=== PATIENT | female | born 1940 | race Caucasian/White ===

== ENCOUNTER 2019-03-09 14:28 | Inpatient (IN) | payer OTHER, SELFPAY ==
[2019-03-09] VITALS (8 sets, daily range): BP systolic 108–133; BP diastolic 40–89; PULSE 99–112; RESP 16–24; TEMP 36.8–37.2; O2SAT 89–100; BMI 35.9; BMI 34.2
--- NOTE | 2019-03-09 | DI.RAD.S_ITS ---
PROCEDURE: XR CHEST 1V INDICATIONS: Pneumothorax TECHNIQUE: One view of the chest was acquired. COMPARISON: [facility], , XR CHEST 1V, 03/09/2019, 14:43. [facility], , CHEST 1 VIEW, 04/22/2014, 18:04. FINDINGS: Surgical changes and devices: Sternotomy wires, probable prior CABG. Lungs and pleura: Lungs are mildly abnormal with a chronic interstitial prominence pattern. No pleural effusions or significant increase in the left-sided previously identified pneumothorax. Mediastinum: Mediastinal contours appear normal. Heart size is normal. Bones and chest wall: No suspicious bony lesions. Overlying soft tissues appear unremarkable. IMPRESSION: No left-sided pneumothorax is relatively small, and has not definitely enlarged from the most recent comparison plain film imaging at 14:43 earlier today. Dictated by: Quan Mcnally M.D. on 03/09/2019 at 20:50 Approved by: Quan Mcnally M.D. on 03/09/2019 at 20:52
--- NOTE | 2019-03-09 14:38 | DI.RAD.S_ITS ---
PROCEDURE: XR CHEST 1V INDICATIONS: short of breath TECHNIQUE: One view of the chest was acquired. COMPARISON: [facility], , CHEST 1 VIEW, 04/22/2014, 18:04. FINDINGS: Surgical changes and devices: Postoperative changes related to a prior median sternotomy are evident. Lungs and pleura: Lungs are clear. No pleural effusions or pneumothorax. Mediastinum: Mediastinal contours appear normal. Heart size is normal. Bones and chest wall: No suspicious bony lesions. An unchanged chondral matrix lesion involving the left humeral head is identified, compatible with a benign process. Overlying soft tissues appear unremarkable. IMPRESSION: Stable chest. No acute cardiopulmonary process is evident. Dictated by: Zach Nguyen M.D. on 03/09/2019 at 14:29 Approved by: Zach Nguyen M.D. on 03/09/2019 at 14:30
--- NOTE | 2019-03-09 14:47 | ED.SOB ---
HPI - SOB/Dyspnea General Chief Complaint: Shortness of Breath/Dyspnea Stated Complaint: SOB Time Seen by Provider: 03/09/19 14:36 Source: patient Mode of arrival: ambulatory Limitations: no limitations History of Present Illness Patient is a 78-year-old female who presents with increasing shortness of breath over last 3 days. She has no history of congestive heart failure but does have history of aortic valve, and atrial fibrillation. She states the last 3 nights she has needed to sleep in a recliner. She is extremely short of breath with any sort of exertion. EMS noted that her O2 sat dropped to 88% with exertion but on room air she was 92%. She denies any fever she does have a cough. Her just came home with a cough as well. She has no chest pain. She has also noticed lower extremity swelling bilaterally. MD Complaint: shortness of breath and cough Context: recent illness Severity: moderate Relieving factors: oxygen and rest Exacerbating factors: exertion Related Data Home Medications Medication Instructions Recorded Confirmed Lactobac #2-Bifido #1-S. therm 1 cap PO DAILY 03/09/19 03/09/19 [VSL#3] Lovaza/Flaxseed Oil 1 tab PO DAILY 03/09/19 03/09/19 Ardsley-3 2,000 mg PO DAILY 03/09/19 03/09/19 PreserVision AREDS 2 tab PO DAILY 03/09/19 03/09/19 amoxicillin 2,000 mg PO .ONCE 03/09/19 03/09/19 carvedilol 9.375 mg PO BID 03/09/19 03/09/19 cholecalciferol (vitamin D3) 4,000 unit PO DAILY 03/09/19 03/09/19 [Vitamin D3] clobetasol 1 applic TOPICAL DIRECTED 03/09/19 03/09/19 dabigatran etexilate [Pradaxa] 150 mg PO BID 03/09/19 03/09/19 folic acid 1,200 mcg PO DAILY 03/09/19 03/09/19 furosemide 20 mg PO DAILY 03/09/19 03/09/19 hydroxychloroquine 200 mg PO DAILY 03/09/19 03/09/19 linaclotide [Linzess] 290 mg PO DAILY 03/09/19 03/09/19 multivitamin 1 tab PO QWEEK 03/09/19 03/09/19 potassium chloride 30 meq PO DAILY 03/09/19 03/09/19 prednisone 5 mg PO DAILY 03/09/19 03/09/19 tramadol 50 mg PO BID PRN MDD 2 03/09/19 03/09/19 Allergies Allergy/AdvReac Type Severity Reaction Status Date / Time amiodarone Allergy Verified 03/09/19 14:38 dicloxacillin Allergy Verified 03/09/19 14:38 diltiazem [From Cartia XT] Allergy Verified 03/09/19 14:38 lubiprostone [From Amitiza] Allergy Verified 03/09/19 14:38 metoprolol Allergy Verified 03/09/19 14:38 sulfamethoxazole Allergy Verified 03/09/19 14:38 [From Bactrim] trimethoprim [From Bactrim] Allergy Verified 03/09/19 14:38 Review of Systems Review of Systems ROS Unobtainable: All systems reviewed & are unremarkable except as noted in HPI and below Constitutional Denies chills, Denies fever(s), Denies lethargy and Denies weakness Eyes Denies change in vision, Denies eye discharge, Denies irritation and Denies loss of vision ENT Ears, Nose, Mouth, and Throat: Denies change in voice, Denies neck pain and Denies sore throat Cardiovascular Reports as per HPI, Reports pedal edema, Reports irregular heart rhythm, Reports dyspnea on exertion and Reports orthopnea Respiratory Reports cough, Reports dyspnea on exertion and Denies wheezing Genitourinary Denies hematuria, Denies flank pain, Denies urinary incontinence and Denies urinary urgency Musculoskeletal Denies neck pain Integumentary/Breasts Denies pruritus, Denies erythema, Denies rash and Denies wounds Neurologic Denies loss of vision and Denies weakness Allergic/Immunologic Denies wheezing [facility] Medical History Atrial fibrillation (Acute) Hypertension (Acute) Mitral valve disease (Acute) Social History (Updated 03/09/19 @ 15:03 by Sandra Rai DO) marital status: Smoking Status: Former smoker Social History marital status: Smoking Status: Former smoker Exam Initial Vital Signs Initial Vital Signs: Vital Signs Temperature 98.7 F 03/09/19 14:35 Pulse Rate 112 H 03/09/19 14:35 Respiratory Rate 23 03/09/19 14:35 Blood Pressure 132/79 03/09/19 14:35 Pulse Oximetry 96 03/09/19 14:35 GENERAL: Alert pleasant elderly female and in no acute distress. HEENT: Head atraumatic,EOMI, pupils reactive, face symmetric, CARDIOVASCULAR: Irregularly irregular RESPIRATORY: Coarse breath sounds bilaterally able to speak in full sentences no significant respiratory distress ABDOMEN: Soft, nontender. Normoactive bowel sounds all 4 quadrants. No guarding or rebound. EXTREMITIES: Normal range of motion, no clubbing. Bilateral +2 pitting edema Neurovascularly intact NEUROLOGICAL: Alert and oriented x4.Normal gait and speech. Cranial nerves II through XII grossly intact. SKIN: Warm, dry, no laceration, no petechiae, no rashes or lesions. Course Orders Ordered: ED Orders 03/09/19 14:37 Consult to Respiratory Therapy Evaluate & Treat EKG-12 Lead Stat 03/09/19 14:38 XR chest 1V Stat 03/09/19 14:55 Blood Culture Stat 03/09/19 15:00 B Type Natriuretic Peptide Stat Complete Blood Count AUTO DIFF Stat Comprehensive Metabolic Panel Stat Lactate (Lactic Acid) Stat Magnesium Stat Partial Thromboplastin Time Stat Procalcitonin Stat Prothrombin Time INR Stat Troponin & CK Cardiac Panel Stat 03/09/19 15:52 CT angio chest PE protocol Stat 03/09/19 17:15 Respiratory Panel (Film Array) Stat Discontinued Medications Furosemide (Lasix) 40 mg IV NOW ONE Stop: 03/09/19 15:31 Last Admin: 03/09/19 15:33 Dose: 40 mg Consultations Consultation #1: Dr. em, in ED to see and evaluate patient for small pneumothorax. At this time no intervention needed recommend admitting to hospitalist service and she will consult. Time: 16:48 Consultation #2: Shaneka, accepts patient. add respiratory panel. Time: 17:12 Vital Signs - 8 hr 03/09/19 14:35 03/09/19 14:45 03/09/19 15:00 Temperature 98.7 F Pulse Rate 112 H 108 H 104 H Respiratory Rate 23 21 22 Blood Pressure 132/79 Blood Pressure [Right Arm] 117/40 L Pulse Oximetry 96 89 L 90 L 03/09/19 15:15 03/09/19 16:45 Temperature Pulse Rate 99 H 100 H Respiratory Rate 20 20 Blood Pressure Blood Pressure [Right Arm] 133/62 Pulse Oximetry 90 L 100 MDM - SOB/Dyspnea Lab Data Attestation: I reviewed the patient's lab results. Result diagrams: 03/09/19 15:00 03/09/19 15:00 Lab Results 03/09/19 03/09/19 03/09/19 Range/Units 15:00 15:00 15:00 WBC 6.5 (4.5-11.0) X10^3/uL RBC 4.19 (4.0-5.2) X10^6/uL Hgb 11.8 L (12.0-16.0) g/dL Hct 36.2 (36-46) % MCV 86.4 (80-100) fL MCH 28.2 (26-34) PG MCHC 32.7 (30-36) % RDW 14.0 (11.6-14.8) % Plt Count 155 (150-400) X10^3/uL Neut % (Auto) 77.2 H (50-75) % Lymph % (Auto) 9.6 L (25-40) % [place] % (Auto) 12.5 (3-14) % Eos % (Auto) 0.2 L (2-4) % Baso % (Auto) 0.5 (0-2) % Neut # (Auto) 5000 (7581-8292) /uL Lymph # (Auto) 600 L (1959-4814) /uL [place] # (Auto) 800 (0-900) /uL Eos # (Auto) 0 (0-450) /uL Baso # (Auto) 0 (0-100) /uL PT 18.8 H (10.1-12.7) SECONDS INR 1.6 H (0.9-1.3) APTT 64 H (26.4-36.2) SECONDS Sodium 137 (137-145) mmol/L Potassium 4.2 (3.4-5.1) mmol/L Chloride 99 (98-107) mmol/L Carbon Dioxide 29 (22-32) mmol/L BUN 24 H (7-17) mg/dL Creatinine 0.70 (0.52-1.04) mg/dL Estimated GFR > 60.0 (>60) mL/min BUN/Creatinine Ratio 34.3 H (6-22) Glucose 93 (80-110) mg/dL Lactate (0.7-2.1) mmol/L Calcium 8.9 (8.4-10.2) mg/dL Magnesium 1.8 (1.6-2.3) mg/dL Total Bilirubin 0.8 (0.2-1.3) mg/dL AST 26 (14-36) IU/L ALT 14 (9-52) IU/L Alkaline Phosphatase 77 (38-126) U/L Total Creatine Kinase 39 (30-135) U/L CK-MB (CK-2) TNP CK-MB (CK-2) Rel Index TNP Troponin I 0.013 (0.01-0.034) ng/mL B-Natriuretic Peptide 356 H (<100) Total Protein 7.1 (6.3-8.2) g/dL Albumin 3.8 (3.5-5.0) g/dL Globulin 3.3 (1.7-4.1) g/dL Albumin/Globulin Ratio 1.2 (1.0-2.8) Procalcitonin (<0.5) ng/mL 03/09/19 03/09/19 Range/Units 15:00 15:00 WBC (4.5-11.0) X10^3/uL RBC (4.0-5.2) X10^6/uL Hgb (12.0-16.0) g/dL Hct (36-46) % MCV (80-100) fL MCH (26-34) PG MCHC (30-36) % RDW (11.6-14.8) % Plt Count (150-400) X10^3/uL Neut % (Auto) (50-75) % Lymph % (Auto) (25-40) % [place] % (Auto) (3-14) % Eos % (Auto) (2-4) % Baso % (Auto) (0-2) % Neut # (Auto) (9536-1628) /uL Lymph # (Auto) (3436-8128) /uL [place] # (Auto) (0-900) /uL Eos # (Auto) (0-450) /uL Baso # (Auto) (0-100) /uL PT (10.1-12.7) SECONDS INR (0.9-1.3) APTT (26.4-36.2) SECONDS Sodium (137-145) mmol/L Potassium (3.4-5.1) mmol/L Chloride (98-107) mmol/L Carbon Dioxide (22-32) mmol/L BUN (7-17) mg/dL Creatinine (0.52-1.04) mg/dL Estimated GFR (>60) mL/min BUN/Creatinine Ratio (6-22) Glucose (80-110) mg/dL Lactate 1.1 (0.7-2.1) mmol/L Calcium (8.4-10.2) mg/dL Magnesium (1.6-2.3) mg/dL Total Bilirubin (0.2-1.3) mg/dL AST (14-36) IU/L ALT (9-52) IU/L Alkaline Phosphatase (38-126) U/L Total Creatine Kinase (30-135) U/L CK-MB (CK-2) CK-MB (CK-2) Rel Index Troponin I (0.01-0.034) ng/mL B-Natriuretic Peptide (<100) Total Protein (6.3-8.2) g/dL Albumin (3.5-5.0) g/dL Globulin (1.7-4.1) g/dL Albumin/Globulin Ratio (1.0-2.8) Procalcitonin 0.16 (<0.5) ng/mL Imaging Data Chest x-ray: Radiologist's impression: PROCEDURE: XR CHEST 1V INDICATIONS: short of breath TECHNIQUE: One view of the chest was acquired. COMPARISON: [facility], CHEST 1 VIEW, 04/22/2014, 18:04. FINDINGS: Surgical changes and devices: Postoperative changes related to a prior median sternotomy are evident. Lungs and pleura: Lungs are clear. No pleural effusions or pneumothorax. Mediastinum: Mediastinal contours appear normal. Heart size is normal. Bones and chest wall: No suspicious bony lesions. An unchanged chondral matrix lesion involving the left humeral head is identified, compatible with a benign process. Overlying soft tissues appear unremarkable. IMPRESSION: Stable chest. No acute cardiopulmonary process is evident. Dictated by: Zach Nguyen M.D. on 03/09/2019 at 14:29 CT scan - chest: Radiologist's impression: PROCEDURE: CT ANGIO CHEST PE PROTOCOL INDICATIONS: Short of breath, coughing that has persisted. TECHNIQUE: After the administration of intravenous contrast, 2 mm thick sections acquired from the pulmonary apices to the posterior costophrenic angles. 3-dimensional maximum intensity projection (MIP) coronal and sagittal reformats were then acquired through the thorax. For radiation dose reduction, the following was used: automated exposure control, adjustment of mA and/or kV according to patient size. COMPARISON: [facility], CT, PE STUDY (CTA CHEST), 04/22/2014, 18:10. [facility], CR, CHEST FOR PICC PLACEMENT, 01/12/2014, 11:29. [facility], CR, XR CHEST 1V, 03/09/2019, 14:43. The FINDINGS: Image quality: Excellent. Pulmonary arteries: Pulmonary arteries are normal in size, and demonstrate no intraluminal filling defects to suggest central pulmonary embolism. Lungs and pleura: Lungs are mildly abnormal, with alveolar consolidation mild in severity at the right lung base just above the diaphragm, where there also is a mild degree of peribronchial soft tissue prominence consistent with mild bronchitis.. No pleural effusions but there is a small anterior left-sided pneumothorax measuring up to 2.5 cm in transverse dimension. Central and peripheral airways are patent. Mediastinum: Heart size is normal, without pericardial effusion. No mediastinal or hilar adenopathy. Thoracic aorta is normal in caliber and enhancement. Esophagus is normal in caliber, without hiatal hernia. Bones and chest wall: No suspicious bony lesions. Ribs and thoracic spine appear intact throughout. Thyroid gland appears normal where well seen. No axillary or supraclavicular adenopathy. Sternotomy wires, probable prior CABG. Abdomen: Visualized upper abdominal solid organs appear normal in the early arterial phase of enhancement. Several scattered apparent hepatic cysts are again noted, previously present in April 2014. Peripherally calcified gallstone again noted without evidence of adjacent gallbladder inflammation stable from 2013. IMPRESSION: These findings were immediately called to the emergency room physician caring for the patient. She reports that the patient has had persistent prominent coughing, and this correlates with what appears to be mild or early pneumonia the right lung base in addition to mild bibasilar bronchitis. The left-sided pneumothorax is not associated with a discrete underlying etiology and is not associated with deviation of the mediastinum from left to right. The pneumothorax is small. It does not appear to have increased appreciably from the plain film imaging earlier today. No pulmonary embolus seen. Prior CABG. Several scattered hepatic cysts. Gastric lap band again noted at the esophagogastric junction in this patient, also present in April of 2014. Peripherally calcified nonobstructed noninflamed gallstone present. This also is unchanged from 2013. Dictated by: Quan Mcnally M.D. on 03/09/2019 at 16:23 ECG Data Attestation: I personally reviewed and interpreted this ECG as follows: Prior ECG tracings: available for review Interpretation: Atrial fibrillation rate [address] changes similar to previous EKG MDM Narrative Medical decision making narrative: Patient is given a dose of Lasix she has urinated she a little short of breath. BNP is slightly elevated at 356 no evidence of fluid overload on x-ray or CT. However CT showed extremely small pneumothorax. Surgery has been in the ED to see and evaluate patient. At this time monitoring only no need for any intervention. The patient does decrease her oxygen to about 89 -90% with minimal exertion. She still sounds course. Does not appear septic. At this time patient has multiple cor morbidities worsening shortness of breath requiring oxygen and small pneumothorax she will be admitted to the hospital for further treatment and evaluation. Discharge Plan Departure Patient Disposition: Admitted As Inpatient Clinical Impression: Respiratory failure Qualifiers: Chronicity: acute Respiratory failure complication: hypoxia Qualified Code(s): J96.01 - Acute respiratory failure with hypoxia Pneumothorax Qualifiers: Pneumothorax type: unspecified pneumothorax Qualified Code(s): J93.9 - Pneumothorax, unspecified Discharge Date/Time: 03/09/19 17:31 Admit Date/Time: 03/09/19 17:30 Admit Provider: Rayne Munroe
[2019-03-09 15:09] LABS: Add Manual Diff / Slide Review NO; Basophils Absolute Auto 0 /uL (0-100); Basophils Percent Auto 0.5 % (0-2); Eosinophils Absolute Auto 0 /uL (0-450); Eosinophils Percent Auto 0.2 % (2-4); Hematocrit 36.2 % (36-46); Hemoglobin 11.8 g/dL (12.0-16.0); Lymphocytes Absolute Auto 600 /uL (1100-4500); Lymphocytes Percent Auto 9.6 % (25-40); Mean Corpuscular HGB Conc 32.7 % (30-36); Mean Corpuscular Hemoglobin 28.2 PG (26-34); Mean Corpuscular Volume 86.4 fL (80-100); Monocytes Absolute Auto 800 /uL (0-900); Monocytes Percent Auto 12.5 % (3-14); Neutrophils Absolute Auto 5000 /uL (1500-7000); Neutrophils Percent Auto 77.2 % (50-75); Platelet Count 155 X10^3/uL (150-400); Red Blood Cell Count 4.19 X10^6/uL (4.0-5.2); White Blood Cell Count 6.5 X10^3/uL (4.5-11.0)
--- NOTE | 2019-03-09 15:21 | PC.NURSE ---
Sats between 89-91%. Pt placed on 2L NC MD aware
[2019-03-09 15:22] LABS: INR 1.6 (0.9-1.3); Prothrombin Time 18.8 SECONDS (10.1-12.7)
[2019-03-09 15:24] LABS: PTT Partial Thromboplastin Tim 64 SECONDS (26.4-36.2)
[2019-03-09 15:28] LABS: Alanine Aminotransferase 14 IU/L (9-52); Albumin 3.8 g/dL (3.5-5.0); Albumin Globulin Ratio 1.2 (1.0-2.8); Alkaline Phosphatase 77 U/L (38-126); Aspartate Aminotransferase 26 IU/L (14-36); BUN Creatinine Ratio 34.3 (6-22); Bilirubin Total 0.8 mg/dL (0.2-1.3); Blood Urea Nitrogen 24 mg/dL (7-17); Calcium 8.9 mg/dL (8.4-10.2); Carbon Dioxide 29 mmol/L (22-32); Chloride 99 mmol/L (98-107); Creatine Kinase 39 U/L (30-135); Estimated Glomerular Filt Rate > 60.0 mL/min (>60); Globulin 3.3 g/dL (1.7-4.1); Glucose 93 mg/dL (80-110); HEMOLYSIS < 15 (0-50); Magnesium 1.8 mg/dL (1.6-2.3); Potassium 4.2 mmol/L (3.4-5.1); Sodium 137 mmol/L (137-145); Total Protein 7.1 g/dL (6.3-8.2)
[2019-03-09] MEDS: FUROSEMIDE 40 MG/4 ML VIAL IV (15:33)
[2019-03-09 15:39] LABS: Troponin I 0.013 ng/mL (0.01-0.034)
[2019-03-09 15:44] LABS: B Type Natriuretic Peptide 356 (<100)
[2019-03-09 15:51] LABS: Lactate (Lactic Acid) 1.1 mmol/L (0.7-2.1)
--- NOTE | 2019-03-09 15:52 | DI.CT.S_ITS ---
PROCEDURE: CT ANGIO CHEST PE PROTOCOL INDICATIONS: Short of breath, coughing that has persisted. TECHNIQUE: After the administration of intravenous contrast, 2 mm thick sections acquired from the pulmonary apices to the posterior costophrenic angles. 3-dimensional maximum intensity projection (MIP) coronal and sagittal reformats were then acquired through the thorax. For radiation dose reduction, the following was used: automated exposure control, adjustment of mA and/or kV according to patient size. COMPARISON: [facility], CT, PE STUDY (CTA CHEST), 04/22/2014, 18:10. [facility], CR, CHEST FOR PICC PLACEMENT, 01/12/2014, 11:29. [facility], CR, XR CHEST 1V, 03/09/2019, 14:43. The FINDINGS: Image quality: Excellent. Pulmonary arteries: Pulmonary arteries are normal in size, and demonstrate no intraluminal filling defects to suggest central pulmonary embolism. Lungs and pleura: Lungs are mildly abnormal, with alveolar consolidation mild in severity at the right lung base just above the diaphragm, where there also is a mild degree of peribronchial soft tissue prominence consistent with mild bronchitis.. No pleural effusions but there is a small anterior left-sided pneumothorax measuring up to 2.5 cm in transverse dimension. Central and peripheral airways are patent. Mediastinum: Heart size is normal, without pericardial effusion. No mediastinal or hilar adenopathy. Thoracic aorta is normal in caliber and enhancement. Esophagus is normal in caliber, without hiatal hernia. Bones and chest wall: No suspicious bony lesions. Ribs and thoracic spine appear intact throughout. Thyroid gland appears normal where well seen. No axillary or supraclavicular adenopathy. Sternotomy wires, probable prior CABG. Abdomen: Visualized upper abdominal solid organs appear normal in the early arterial phase of enhancement. Several scattered apparent hepatic cysts are again noted, previously present in April 2014. Peripherally calcified gallstone again noted without evidence of adjacent gallbladder inflammation stable from 2013. IMPRESSION: These findings were immediately called to the emergency room physician caring for the patient. She reports that the patient has had persistent prominent coughing, and this correlates with what appears to be mild or early pneumonia the right lung base in addition to mild bibasilar bronchitis. The left-sided pneumothorax is not associated with a discrete underlying etiology and is not associated with deviation of the mediastinum from left to right. The pneumothorax is small. It does not appear to have increased appreciably from the plain film imaging earlier today. No pulmonary embolus seen. Prior CABG. Several scattered hepatic cysts. Gastric lap band again noted at the esophagogastric junction in this patient, also present in April of 2014. Peripherally calcified nonobstructed noninflamed gallstone present. This also is unchanged from 2013. Dictated by: Quan Mcnally M.D. on 03/09/2019 at 16:23 Approved by: Quan Mcnally M.D. on 03/09/2019 at 16:34
[2019-03-09 15:54] LABS: Procalcitonin 0.16 ng/mL (<0.5)
--- NOTE | 2019-03-09 17:28 | P.CONS_ITS ---
History of Present Illness Date Patient Seen: 03/09/19 Time Patient Seen: 17:09 Chief complaint: SOB Reason for consult: pneumothorax Requesting provider: Sandra Rai Narrative: 78yo F with a few days of coughing and respiratory symptoms at home. recently had a similar respiratory issue so she thought this was related. Today had increasing SOB so came in for evaluation. CXR shows a very small L apical PNX and FU CT shows same with no underlying related pathology and changes consistent with PNA. Pt is a former smoker, quit at age 50 but says 'I really like it before I quit.' She is on O2 but speaking comfortably, per ED does desaturate when walking. She says she did not get SOB at home prior to this but had difficulty walking distances because she felt weak. She thinks she does not exercise enough and her 'core muscles' are too weak. She said she usually feels pretty healthy at home. Main medical issue is A fib for which she is on pradaxa. She notes a history of incidental lung nodule finding a few years ago which was tiny and stable on 1 year follow up. [facility] Medical History Atrial fibrillation (Acute) Hypertension (Acute) Mitral valve disease (Acute) Social History (Updated 03/09/19 @ 15:03 by Sandra Rai DO) marital status: Smoking Status: Former smoker Social History marital status: Smoking Status: Former smoker Meds Home Medications Medication Instructions Recorded Confirmed Type Lactobac #2-Bifido #1-S. therm 1 cap PO DAILY 03/09/19 03/09/19 History [VSL#3] Lovaza/Flaxseed Oil 1 tab PO DAILY 03/09/19 03/09/19 History [place]-3 2,000 mg PO DAILY 03/09/19 03/09/19 History PreserVision AREDS 2 tab PO DAILY 03/09/19 03/09/19 History amoxicillin 2,000 mg PO .ONCE 03/09/19 03/09/19 History carvedilol 9.375 mg PO BID 03/09/19 03/09/19 History cholecalciferol (vitamin D3) 4,000 unit PO DAILY 03/09/19 03/09/19 History [Vitamin D3] clobetasol 1 applic TOPICAL DIRECTED 03/09/19 03/09/19 History dabigatran etexilate [Pradaxa] 150 mg PO BID 03/09/19 03/09/19 History folic acid 1,200 mcg PO DAILY 03/09/19 03/09/19 History furosemide 20 mg PO DAILY 03/09/19 03/09/19 History hydroxychloroquine 200 mg PO DAILY 03/09/19 03/09/19 History linaclotide [Linzess] 290 mg PO DAILY 03/09/19 03/09/19 History multivitamin 1 tab PO QWEEK 03/09/19 03/09/19 History potassium chloride 30 meq PO DAILY 03/09/19 03/09/19 History prednisone 5 mg PO DAILY 03/09/19 03/09/19 History tramadol 50 mg PO BID PRN MDD 2 03/09/19 03/09/19 History Allergies Allergy/AdvReac Type Severity Reaction Status Date / Time amiodarone Allergy Verified 03/09/19 14:38 dicloxacillin Allergy Verified 03/09/19 14:38 diltiazem [From Cartia XT] Allergy Verified 03/09/19 14:38 lubiprostone [From Amitiza] Allergy Verified 03/09/19 14:38 metoprolol Allergy Verified 03/09/19 14:38 sulfamethoxazole Allergy Verified 03/09/19 14:38 [From Bactrim] trimethoprim [From Bactrim] Allergy Verified 03/09/19 14:38 Review of Systems Constitutional Constitutional: Reports as per HPI Exam Vital Signs (past 8 hours): - 03/09/19 14:35 03/09/19 14:45 03/09/19 15:00 Temperature 98.7 F Pulse Rate 112 H 108 H 104 H Respiratory Rate 23 21 22 Blood Pressure 132/79 Blood Pressure [Right Arm] 117/40 L Pulse Oximetry 96 89 L 90 L 03/09/19 15:15 03/09/19 16:45 Temperature Pulse Rate 99 H 100 H Respiratory Rate 20 20 Blood Pressure Blood Pressure [Right Arm] 133/62 Pulse Oximetry 90 L 100 Oxygen Delivery Method Nasal Cannula Narrative Exam Narrative: AAO, NAD, overweight female EOMI, MMM, no scleral icterus tachycardic unlabored 2 LNC, chest rise symmetrical, no crepitation soft, nt/nd MAEW visible skin dry and intact Objective Imaging CT scan - chest: Radiologist's impression: IMPRESSION: These findings were immediately called to the emergency room physician caring for the patient. She reports that the patient has had persistent prominent coughing, and this correlates with what appears to be mild or early pneumonia the right lung base in addition to mild bibasilar bronchitis. The left-sided pneumothorax is not associated with a discrete underlying etiology and is not associated with deviation of the mediastinum from left to right. The pneumothorax is small. It does not appear to have increased appreciably from the plain film imaging earlier today. No pulmonary embolus seen. Prior CABG. Several scattered hepatic cysts. Gastric lap band again noted at the esophagogastric junction in this patient, also present in April of 2014. Peripherally calcified nonobstructed noninflamed gallstone present. This also is unchanged from 2014. Labs Result Diagrams: 03/09/19 15:00 03/09/19 15:00 Labs: Laboratory Results - last 24 hr 03/09/19 03/09/19 03/09/19 15:00 15:00 15:00 WBC 6.5 RBC 4.19 Hgb 11.8 L Hct 36.2 MCV 86.4 MCH 28.2 MCHC 32.7 RDW 14.0 Plt Count 155 Neut % (Auto) 77.2 H Lymph % (Auto) 9.6 L [place] % (Auto) 12.5 Eos % (Auto) 0.2 L Baso % (Auto) 0.5 Neut # (Auto) 5000 Lymph # (Auto) 600 L [place] # (Auto) 800 Eos # (Auto) 0 Baso # (Auto) 0 PT 18.8 H INR 1.6 H APTT 64 H Sodium 137 Potassium 4.2 Chloride 99 Carbon Dioxide 29 BUN 24 H Creatinine 0.70 Estimated GFR > 60.0 BUN/Creatinine Ratio 34.3 H Glucose 93 Lactate Calcium 8.9 Magnesium 1.8 Total Bilirubin 0.8 AST 26 ALT 14 Alkaline Phosphatase 77 Total Creatine Kinase 39 CK-MB (CK-2) TNP CK-MB (CK-2) Rel Index TNP Troponin I 0.013 B-Natriuretic Peptide 356 H Total Protein 7.1 Albumin 3.8 Globulin 3.3 Albumin/Globulin Ratio 1.2 Procalcitonin 03/09/19 03/09/19 15:00 15:00 WBC RBC Hgb Hct MCV MCH MCHC RDW Plt Count Neut % (Auto) Lymph % (Auto) [place] % (Auto) Eos % (Auto) Baso % (Auto) Neut # (Auto) Lymph # (Auto) [place] # (Auto) Eos # (Auto) Baso # (Auto) PT INR APTT Sodium Potassium Chloride Carbon Dioxide BUN Creatinine Estimated GFR BUN/Creatinine Ratio Glucose Lactate 1.1 Calcium Magnesium Total Bilirubin AST ALT Alkaline Phosphatase Total Creatine Kinase CK-MB (CK-2) CK-MB (CK-2) Rel Index Troponin I B-Natriuretic Peptide Total Protein Albumin Globulin Albumin/Globulin Ratio Procalcitonin 0.16 Assessment & Plan Assessment & Plan narrative: - Respiratory Failure --> to be admitted to medicine --> possible PNA per imaging and history, labs pending --> on O2, desaturates if taken off - L apical PNX --> minimally seen on CXR, small but apparent on CT, no tracheal deviation --> likely small bleb opened with vigorous coughing given history, no clear underlying pathology of lung on imaging to explain --> will monitor clinical improvement and CXRs, no need for thoracostomy tube at present given size; if expands or clinically worsens, may warrant --> would be ideal to hold anticoagulation in case of need for tube, will defer to medicine
[2019-03-09 18:37] LABS: Adenovirus Not Detected (Not Detect); Bordetella pertussis Not Detected (Not Detect); Chlamydophila pneumoniae Not Detected (Not Detect); Coronavirus 229E Not Detected (Not Detect); Coronavirus HKU1 Not Detected (Not Detect); Coronavirus NL 63 Not Detected (Not Detect); Coronavirus OC43 Not Detected (Not Detect); Human Metapneumovirus Not Detected (Not Detect); Human Rhinovirus/Enterovirus Not Detected (Not Detect); Influenza A Not Detected (Not Detect); Influenza B Not Detected (Not Detect); Mycoplasma pneumoniae Not Detected (Not Detect); Parainfluenza Virus 1 Not Detected (Not Detect); Parainfluenza Virus 2 Not Detected (Not Detect); Parainfluenza Virus 3 Detected (Not Detect); Parainfluenza Virus 4 Not Detected (Not Detect); Respiratory Syncytial Virus Not Detected (Not Detect)
--- NOTE | 2019-03-09 19:40 | P.HP_ITS ---
History of Present Illness Date Patient Seen: 03/09/19 Time Patient Seen: 19:38 Chief complaint: SOB Narrative: Ms. 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 The patient states that her has been ill with a respiratory illness and coughing and developed similar symptoms several days ago. She states this started with sore throat, cough, fever and nausea. The patient reports that she has had increasing shortness of breath significantly today to present to the ER for evaluation. Patient presently reports no complaints of fevers or chills, headaches or dizziness but has had sniffles. She denies chest pain, palpitations, has had chest congestion with frequent productive cough. She reports sputum to be white to greenish, no report of hemoptysis. She denies abdominal pain, nausea vomiting as chronic constipation related to IBS is on a regimen of Linzess before breakfast followed by Morales tablets (magnesium oxide) which she indicates takes 5-6 hours to fully evacuate and then goes about her day, no report of melena or hematochezia. She denies urinary symptoms of hematuria frequency or urgency. She reports bilateral lower extremity edema more pronounced recently. She reports some exertional dyspnea which she attributes to not exercising which she does not have time for with her bowel regimen. He has had prior back pain but describes no radiculopathy joint or leg pain. She denies untoward bleeding however has numerous small bruises and is on Pradaxa. Upon arrival in the ER the patient is afebrile with temperature 98.7?, tachycardic at 112, blood pressure 132/79, tachypneic at 23 saturating 96% on 2 liters/minute nasal cannula, chest x-rays taken which finds chronic interstitial prominence, small apical pneumothorax unclear etiology. Chest x-ray repeated several hours later with no change in size of pneumothorax. On CTA PE is rule out and re-demonstrates a 2.5 cm pneumothorax left apex, bibasilar bronchitis and available consolidation in the right lung base. On laboratory analysis the patient has white blood cell count of 6.5, hemoglobin of 11.8 hematocrit of 36.2 and platelets 155. Her electrolytes are within normal limits and has a BUN of 24 and creatinine 0.7. She has nonfasting glucose of 93. She has an elevated PT and 18.8 and INR of 1.6 with a PTT is 64. Her BNP is 356. Her troponin is negative at 0.013 and on serology she tests positive for parainfluenza B. The patient received 40 mg furosemide and is admitted to the hospital for community- acquired pneumonia in a immunocompromised patient. Patient History Medical History (Updated 03/09/19 @ 20:44 by AIDAN Almanzar) Benign cutaneous periarteritis nodosa (Acute) Irritable bowel syndrome with constipation (Acute) Macular degeneration, left eye (Acute) Nummular dermatitis (Acute) Atrial fibrillation (Acute) Hypertension (Acute) Mitral valve disease (Acute) Surgical History (Updated 03/09/19 @ 20:44 by AIDAN Almanzar) History of aortic valve replacement (Acute) History of back surgery (Acute) History of cataract extraction (Acute) History of laparoscopic adjustable gastric banding (Acute) Social History marital status: Smoking Status: Former smoker Family & Social History Safety & Behavioral: Feels Safe in Current Yes Environment Been Physically Hurt or No Threatened By a Person Suicidal Ideation Description None Suicide Plan Description No Plan Tobacco & Substance use: Smoking Status Former smoker alcohol intake frequency holiday/special occasion Substance Use Type does not use Comment: The patient lives in a [facility] in [place] and a single family home with her to she has been for 26 years. She states she never knew her father understands he in his 70s. Her mother in her 90s a history coronary artery disease. She has a sister who is been needs heart surgery, another sister who year ago and a brother that 17 years. Smoking: Smoked 1 pack per day quitting at age 50. Alcohol: Patient endorses consuming alcohol up to once monthly. Substance use: Patient denies recreational pharmaceuticals, herbal or cannabis products. Advanced directives: The patient has formal advanced directives and states that her wishes to be FULL CODE. She designates her to be her surrogate decision maker. Meds Home Medications Medication Instructions Recorded Confirmed Type Lactobac #2-Bifido #1-S. therm 1 cap PO DAILY 03/09/19 03/09/19 History [VSL#3] Lovaza/Flaxseed Oil 1 tab PO DAILY 03/09/19 03/09/19 History [place]-3 2,000 mg PO DAILY 03/09/19 03/09/19 History PreserVision AREDS 2 tab PO DAILY 03/09/19 03/09/19 History amoxicillin 2,000 mg PO .ONCE 03/09/19 03/09/19 History carvedilol 9.375 mg PO BID 03/09/19 03/09/19 History cholecalciferol (vitamin D3) 4,000 unit PO DAILY 03/09/19 03/09/19 History [Vitamin D3] clobetasol 1 applic TOPICAL DIRECTED 03/09/19 03/09/19 History dabigatran etexilate [Pradaxa] 150 mg PO BID 03/09/19 03/09/19 History folic acid 1,200 mcg PO DAILY 03/09/19 03/09/19 History furosemide 20 mg PO DAILY 03/09/19 03/09/19 History hydroxychloroquine 200 mg PO DAILY 03/09/19 03/09/19 History linaclotide [Linzess] 290 mg PO DAILY 03/09/19 03/09/19 History multivitamin 1 tab PO QWEEK 03/09/19 03/09/19 History potassium chloride 30 meq PO DAILY 03/09/19 03/09/19 History prednisone 5 mg PO DAILY 03/09/19 03/09/19 History tramadol 50 mg PO BID PRN MDD 2 03/09/19 03/09/19 History Allergies Allergy/AdvReac Type Severity Reaction Status Date / Time amiodarone Allergy Verified 03/09/19 14:38 dicloxacillin Allergy Verified 03/09/19 14:38 diltiazem [From Cartia XT] Allergy Verified 03/09/19 14:38 lubiprostone [From Amitiza] Allergy Verified 03/09/19 14:38 metoprolol Allergy Verified 03/09/19 14:38 sulfamethoxazole Allergy Verified 03/09/19 14:38 [From Bactrim] trimethoprim [From Bactrim] Allergy Verified 03/09/19 14:38 Review of Systems Review of Systems All systems reviewed & are unremarkable except as noted in HPI and below Exam Vital Signs (past 8 hours): - 03/09/19 14:35 03/09/19 14:45 03/09/19 15:00 Temperature 98.7 F Pulse Rate 112 H 108 H 104 H Respiratory Rate 23 21 22 Blood Pressure 132/79 Blood Pressure [Right Arm] 117/40 L Pulse Oximetry 96 89 L 90 L 03/09/19 15:15 03/09/19 16:45 03/09/19 18:45 Temperature 99.0 F Pulse Rate 99 H 100 H 105 H Respiratory Rate 20 20 17 Blood Pressure 124/89 Blood Pressure [Right Arm] 133/62 Pulse Oximetry 90 L 100 99 Oxygen Delivery Method Nasal Cannula Oxygen Flow Rate 3 Narrative Exam Narrative: GENERAL APPEARANCE: well developed, Obese female, in no acute distress. HEAD: Normocephalic, atraumatic, no scalp lesions. EYES: Wears glassses, pupils equal, round, reactive to light and accommodation, sclera non-icteric, extraocular movement intact without nystagmus. EARS: normal external structures, no ear pain NOSE: sinuses non tender to percussion, clear rhinorrhea ORAL CAVITY: mucosa dry without lesions or exudate, palate normal, tongue in midline. THROAT: posterior pharynx without erythema or exudate, uvula midline. NECK/THYROID: neck supple, no jugular venous distention, no thyromegaly, trachea midline. LYMPH NODES: no cervical or supraclavicular lymphadenopathy. SKIN: warm and dry, ecchymosis anterior left knee, venous stasis changes skin bilateral lower extremities left greater than right. HEART: Irregularly irregular rhythm, S1-S2 1/6 murmur, no rubs or gallops, brisk capillary refill, 2+ lower extremity edema LUNGS: Bilateral coarse breath sounds not clearing with cough, rhonchi and crackles right base, expiratory wheezing, cough present. CHEST: Well-healed median sternotomy, symmetrical movement, no accessory muscle use, no pain to AP and lateral compression. ABDOMEN: Soft, obese, no distention, no epigastric or abdominal tenderness on palpation, no guarding or peritoneal signs, no organomegaly, no flank or suprapubic tenderness, active bowel tones. BACK: nontender to palpation, no back pain on straight leg lift. EXTREMITIES: moves all extremities, strength is 5/5 and symmetrical, no deformities or joint effusions. NEUROLOGIC: AAO x4, no focal neurologic deficits, motor strength normal upper and lower extremities, sensory exam intact to light touch, hearing grossly normal to speech. PSYCH: alert, articulate with good recall, good eye contact, appropriate with stable behavior Objective Labs Result Diagrams: 03/09/19 15:00 03/09/19 15:00 Labs: Laboratory Results - last 24 hr 03/09/19 03/09/19 03/09/19 15:00 15:00 15:00 WBC 6.5 RBC 4.19 Hgb 11.8 L Hct 36.2 MCV 86.4 MCH 28.2 MCHC 32.7 RDW 14.0 Plt Count 155 Neut % (Auto) 77.2 H Lymph % (Auto) 9.6 L [place] % (Auto) 12.5 Eos % (Auto) 0.2 L Baso % (Auto) 0.5 Neut # (Auto) 5000 Lymph # (Auto) 600 L [place] # (Auto) 800 Eos # (Auto) 0 Baso # (Auto) 0 PT 18.8 H INR 1.6 H APTT 64 H Sodium 137 Potassium 4.2 Chloride 99 Carbon Dioxide 29 BUN 24 H Creatinine 0.70 Estimated GFR > 60.0 BUN/Creatinine Ratio 34.3 H Glucose 93 Lactate Calcium 8.9 Magnesium 1.8 Total Bilirubin 0.8 AST 26 ALT 14 Alkaline Phosphatase 77 Total Creatine Kinase 39 CK-MB (CK-2) TNP CK-MB (CK-2) Rel Index TNP Troponin I 0.013 B-Natriuretic Peptide 356 H Total Protein 7.1 Albumin 3.8 Globulin 3.3 Albumin/Globulin Ratio 1.2 Procalcitonin Chlamy pneumoniae PCR Adenovirus (PCR) B.parapertussis DNA PCR Coronavirus OC43 (PCR) Coronavirus HKU1 (PCR) Coronavirus 229E (PCR) Coronavirus NL63 (PCR) Human Metapneumovir PCR Influenza Type A (PCR) Influenza Type B (PCR) M. pneumoniae (PCR) Parainfluenza 1 (PCR) Parainfluenza 2 (PCR) Parainfluenza 3 (PCR) Parainfluenza 4 (PCR) RSV (PCR) Entero/Rhino (PCR) 03/09/19 03/09/19 03/09/19 15:00 15:00 17:15 WBC RBC Hgb Hct MCV MCH MCHC RDW Plt Count Neut % (Auto) Lymph % (Auto) [place] % (Auto) Eos % (Auto) Baso % (Auto) Neut # (Auto) Lymph # (Auto) [place] # (Auto) Eos # (Auto) Baso # (Auto) PT INR APTT Sodium Potassium Chloride Carbon Dioxide BUN Creatinine Estimated GFR BUN/Creatinine Ratio Glucose Lactate 1.1 Calcium Magnesium Total Bilirubin AST ALT Alkaline Phosphatase Total Creatine Kinase CK-MB (CK-2) CK-MB (CK-2) Rel Index Troponin I B-Natriuretic Peptide Total Protein Albumin Globulin Albumin/Globulin Ratio Procalcitonin 0.16 Chlamy pneumoniae PCR Not detected Adenovirus (PCR) Not detected B.parapertussis DNA PCR Not detected Coronavirus OC43 (PCR) Not detected Coronavirus HKU1 (PCR) Not detected Coronavirus 229E (PCR) Not detected Coronavirus NL63 (PCR) Not detected Human Metapneumovir PCR Not detected Influenza Type A (PCR) Not detected Influenza Type B (PCR) Not detected M. pneumoniae (PCR) Not detected Parainfluenza 1 (PCR) Not detected Parainfluenza 2 (PCR) Not detected Parainfluenza 3 (PCR) Detected H Parainfluenza 4 (PCR) Not detected RSV (PCR) Not detected Entero/Rhino (PCR) Not detected Assessment & Plan Assessment & Plan narrative: This is a 78-year-old female patient who presents with several days of shortness of breath worsening today with associated cough and fevers and is immunocompromised on prednisone and hydro chloroquine. 1. Acute hypoxic respiratory failure, present on admission. -upon arrival the patient was tachypneic 23 with an oxygen saturation of 89% on room air for a P/F ratio of 271. -patient responded well oxygen saturating 90-99% on 3 L nasal cannula ER. Past history of smoking estimated to be approximately 30 pack years. -patient with coarse breath sounds centrally not clear with cough more prominent in the right base with crackles and expiratory wheezing. -on chest x-ray the patient has underlying interstitial prominence along with of yellow congestion left base bibasilar bronchitis. -respiratory therapy to consult and treat. -Xopenex nebulizer every 4 hours as needed, Atrovent nebulizers twice daily. 2. Acute left apical pneumothorax, present on admission. -patient with marked increase in shortness of breath today with coughing. -chest x-ray and CTA find 2.5 cm left apical pneumothorax without evidence of underlying pathology, etiology of pneumothorax inferred is coughing. -serial x-rays taken in the ER several hours apart with no change in size of the pneumothorax. -general surgery is consulted, thank you Dr. Starr for your evaluation. -will repeat chest x-ray in the morning 3. Acute community acquired pneumonia, present on admission. -the patient is immunocompromised on immunosuppressants with on prednisone and hydro chloroquine blunting immune response with normal WBC and procalcitonin. -patient is seropositive for parainfluenza B with associated bilateral bronchitis -coinfection of pneumonia, aveolar consolidation right base, lactic acid is 1.1, procalcitonin 0.16. -azithromycin 500 mg IV daily for 3 days. -ceftriaxone 2 g IV daily -will follow CBC and recheck procalcitonin 4. Chronic atrial fibrillation, stable -patient's atrial fibrillation with heart rate in the 90s to 100s. No complaints of chest pain. -EKG is reviewed fine atrial fibrillation with a ventricular rate of 104, no ST or T-wave abnormalities indicative of ischemia or infarct, good R-wave progression. -will continue home regimen of carvedilol 9.375 mg twice daily. 5. Chronic long-term anticoagulation, stable -The patient currently takes dabigatran 150 mg twice daily. -Patient has multiple bruises and area of ecchymosis but no evidence of active bleeding, no melena, hematemesis or hemoptysis. -coagulation panel shows elevated PT at 18.8 with an INR of 1.6 and a PTT of 64. Liver functions are all within normal parameters. -will monitor for bleeding specifically hemoptysis in association with pneumothorax or development of hemo thorax. 6. Chronic essential hypertension, stable -continue home regimen of carvedilol and furosemide. -continue patient's home regimen of potassium repletion, potassium level is 4.2, will follow with chemistries. 7. Bilateral lower extremity edema, active. -Patient with history of lower extremity edema and on Lasix. -increased edema over last several days without complaints of chest pain. -last echocardiogram was in November 2017 with nuclear med stress test in March 2018 finding an EF of 60-65% with no LV or RV dilation or dysfunction and finds well functioning prosthetic valve. -patient received 40 mg of Lasix in the emergency department, will continue Lasix 20 mg daily and monitor electrolytes. 8. Chronic cutaneous agata arteritis nodosa, stable. -patient also has history of nummular dermatitis. -patient is taking hydrochloric when 200 mg daily and prednisone 5 mg daily which are continued. -patient has had recent eye exam and history of macular degeneration in the left eye but no recent vision changes. 9. Chronic IBS with constipation, stable. -patient has no complaints of abdominal pain and has developed a regular bowel program requiring 5-6 hours for full evacuation.. -will continue patient's home regimen of Linzess 290 mg daily. She typically uses Morales tablets, ordered magnesium hydroxide 30 mL daily. -Doculax suppository if patient develops constipation. The patient is admitted to the hospital with parainfluenza be bronchitis and community-acquired pneumonia due to risk of complications and adverse events. The patient will be in inpatient with expected length of stay to be greater than 2 midnights. Scores [facility] [place] coma scale eye opening: Spontaneous [place] coma scale verbal response: Orientated [place] coma scale motor response: Obey commands [place] coma scale total score: 15 SOFA PaO2/FIO2: < 300 mmHg Platelets: >= 150 Bilirubin: < 1.2 mg/dL Hypotension: MAP >= 70 mmHg [place] Coma Scale: 15 Renal: < 1.2 mg/dL SOFA Score: 2 Quality VTE Deep Vein Thrombosis/Pulmonary Embolism Present on Admission: No
[2019-03-09 20:54] LABS: Bacteria Urine None Seen
[2019-03-09 21:00] LABS: Appearance Urine UA CLEAR; Bilirubin Urine UA NEGATIVE (NEGATIVE); Color Urine UA YELLOW; Glucose Urine UA NEGATIVE (Negative); Ketones Urine UA TRACE (NEGATIVE); Leukocyte Esterase Urine UA NEGATIVE (NEGATIVE); Nitrite Urine UA NEGATIVE (Negative); Occult Blood Urine UA 3+ (Negative); Protein Urine UA NEGATIVE (Negative); Urobilinogen Urine UA 0.2 E.U./dL (0.2)
[2019-03-09 21:10] LABS: Culture Indicated Urine Cult Not Indicated; Mucus Urine 1+ (Negative); RBC Urine 1-5/HPF (0-5/HPF); WBC Urine 0-1/HPF (0-5/HPF)
[2019-03-09 21:14] LABS: Magnesium 1.6 mg/dL (1.6-2.3)
--- NOTE | 2019-03-09 21:31 | PC.NURSE ---
Evening Shift/Admission Note- Patient arrived to room from ER via stretcher, patient able to walk on her own from stretcher to bed via steady gait noted. Admission questions completed, home medications reviewed, and physical assessment done. Patient oriented to bed and bed controls, room, bathroom, lights, phone, menu, and call pierre/TV remote. Patient alert and oriented x3. Patient able to make needs known to staff. No complaints of pain or discomfort. No complaints of N/V. Lung sound diminished and coarse throughouyt. Shortness of breath noted at rest and with exertion. cough noted, patient reports cough occasionally productive. Sputum Culture ordered, patient given sample cup and instructed on collection. Safety measures in place. Patient agrees to call for assistance. Call pierre and phone within reach. Will continue to monitor.
[2019-03-09] MEDS: CEFTRIAXONE 2 GM/50 ML FROZ.PIGGY IV (22:36)
[2019-03-09] MEDS: AZITHROMYCIN 500 MG in DEXTROSE 5% IN WATER 250 ML IV (22:37)
[2019-03-09] MEDS: CARVEDILOL 6.25 MG TABLET 9.375 MG PO (22:50)
[2019-03-09] MEDS: DABIGATRAN 75 MG CAPSULE 150 MG PO (22:51)
[2019-03-10] VITALS (8 sets, daily range): BP systolic 124–153; BP diastolic 56–78; PULSE 83–107; RESP 16–20; TEMP 36.4–36.8; O2SAT 98–100
--- NOTE | 2019-03-10 04:15 | DI.ECHO.S_ITS ---
[facility] +---------+ : : [address] : [place] : : : : [id number] : : : : Phone: [phone]+ Echocardiogram Report + + :Name: GLENN MUELLER Study Date: 03/10/2019 Height: 63 in : :[facility] Weight: 192 lb : : Gender: Female BSA: 1.9 m2 : :: 1940 Age: 78 yrs BP: 133/60 mmHg: :Reason For Study: Edema : : Performed By: Indu Morales : :Referring: MALACHI VILLA : + + Interpretation Summary The patient was in atrial fibrillation with heart rates between 82-93 bpm during the exam. Normal left ventricle size with ejection fraction 55-60%. Moderately dilated left atrium. Mildly dilated right atrium. 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 The peak aortic velocity is 3.2 m/sec. (the previous exam was 2.2 m/sec.) Moderate mitral annular calcification. Mild to moderate mitral regurgitation. Moderate tricuspid regurgitation. The right ventricular systolic pressure is estimated to be at least 54 mmHg based on an estimated right atrial pressure of 15 mm Hg. Moderate pulmonary hypertension. Comparison is made with the echocardiogram of 12-07-17, the bioprosthetic aortic valve has degenerated with worsening aortic stenosis. Procedure: A two-dimensional transthoracic echocardiogram with color flow and Doppler was performed. The study quality was technically adequate. Comparison is made with the echocardiogram of 12-07-17. The patient was in atrial fibrillation with heart rates between 82-93 bpm during the exam. Left Ventricle: The left ventricle is normal in size. There is normal left ventricular wall thickness. The ejection fraction is estimated to be 55-60%. There are no focal wall motion abnormalities. Diastolic function could not be accurately assessed due to atrial fibrillation. Right Ventricle: The right ventricle grossly appears normal in size with probable normal systolic function. Atria: The left atrium is moderately dilated. The right atrium is mildly dilated. The interatrial septum is intact with no evidence for an atrial septal defect. Mitral Valve: The mitral valve leaflets appear mildly thickened, but open well. There is moderate mitral annular calcification. There is mild to moderate mitral regurgitation. Aortic Valve: There is a bioprosthetic aortic valve. The prosthetic aortic valve is well-seated. The calculated aortic valve area is 0.8 cm2. The peak aortic velocity is 3.2 m/sec. The peak aortic velocity on the previous exam was 2.2 m/sec. The aortic valve mean gradient is 22 mmHg. Severity ratio is 0.24. There is trace aortic regurgitation. Tricuspid Valve: The tricuspid valve leaflets are thin and pliable. There is moderate tricuspid regurgitation. The right ventricular systolic pressure is estimated to be at least 54 mmHg based on an estimated right atrial pressure of 15 mm Hg. There is moderate pulmonary hypertension. Pulmonic Valve: The pulmonic valve is not well seen, but is grossly normal. There is trace pulmonic regurgitation. Great Vessels: The aortic root is normal size. The ascending aorta could not be visualized. The aortic arch is normal in size. The IVC is dilated (diameter is greater than 2.1 cm) and it collapses less than 50% with a sniff. This suggests a high right atrial pressure of 15 mm Hg. Pericardium/ Pleura There is no pericardial effusion. There is no pleural effusion. MMode/2D Measurements & Calculations LVIDd: 4.2 cm LVOT diam: 1.9 cm LVIDs: 2.7 cm Ao root diam: 2.9 cm FS: 35.7 % Ao Arch Diam (Prox Trans): 2.4 cm EPSS: 0.83 cm IVSd: 0.81 cm LVPWd: 0.97 cm LV locke. diameter/BSA (cm/m^2): 2.2 LV sys. diameter/BSA (cm/m^2): 1.4 LA dimension: 5.0 cm RA long axis: 5.3 cm LA A2 area: 27.7 cm2 RA area: 21.5 cm2 LA A4 area: 24.3 cm2 RA vol: 73.8 ml LA length (vol): 6.5 cm RA : 38.8 ml/m2 LA vol: 87.6 ml IVC diam: 2.2 cm LA vol index: 46.1 ml/m2 RVDd major: 5.5 cm RVD1 (basal): 3.8 cm RVD2 (mid): 2.9 cm Doppler Measurements & Calculations Ao V2 max: 316.6 cm/sec LVOT Max Edison: 89.4 cm/sec Ao V2 mean: 214.9 cm/sec LV V1 max P.2 mmHg Ao max P.1 mmHg LV V1 VTI: 17.1 cm Ao mean P.9 mmHg PATRICK(I,D): 0.72 cm2 Ao V2 VTI: 70.3 cm PATRICK(V,D): 0.83 cm2 sev ratio: 0.24 PATRICK indexed to BSA (cm^2/m^2): 0.38 MV P1/2t: 76.7 msec TR max edison: 313.0 cm/sec MVA(VTI): 1.5 cm2 TR max P.2 mmHg MR ERO: 0.14 cm2 PA V2 max: 112.9 cm/sec PA V2 mean: 73.9 cm/sec PA mean P.5 mmHg PA Accel Time: 0.14 sec MV V2 mean: 77.2 cm/sec MV P1/2t max edison: 183.3 cm/sec MV mean P.6 mmHg MVA(P1/2t): 2.9 cm2 MV V2 VTI: 33.8 cm MR flow rate: 82.4 cm3/sec SV(LVOT): 50.3 ml MR PISA radius: 0.58 cm Electronically signed by: Edison Spangler on Reading Physician:03/10/2019 01:29 PM
[2019-03-10 05:57] LABS: Add Manual Diff / Slide Review NO; Basophils Absolute Auto 0 /uL (0-100); Basophils Percent Auto 0.6 % (0-2); Eosinophils Absolute Auto 100 /uL (0-450); Eosinophils Percent Auto 1.4 % (2-4); Hematocrit 33.7 % (36-46); Hemoglobin 11.3 g/dL (12.0-16.0); Lymphocytes Absolute Auto 1000 /uL (1100-4500); Lymphocytes Percent Auto 19.1 % (25-40); Mean Corpuscular HGB Conc 33.5 % (30-36); Mean Corpuscular Hemoglobin 28.8 PG (26-34); Mean Corpuscular Volume 85.9 fL (80-100); Monocytes Absolute Auto 1000 /uL (0-900); Monocytes Percent Auto 19.5 % (3-14); Neutrophils Absolute Auto 3000 /uL (1500-7000); Neutrophils Percent Auto 59.4 % (50-75); Platelet Count 156 X10^3/uL (150-400); Red Blood Cell Count 3.92 X10^6/uL (4.0-5.2); Red Cell Distribution Width 14.1 % (11.6-14.8); White Blood Cell Count 5.1 X10^3/uL (4.5-11.0)
[2019-03-10 05:58] LABS: Blood Urea Nitrogen 24 mg/dL (7-17); Calcium 8.6 mg/dL (8.4-10.2); Carbon Dioxide 32 mmol/L (22-32); Chloride 96 mmol/L (98-107); Estimated Glomerular Filt Rate > 60.0 mL/min (>60); Glucose 92 mg/dL (80-110); HEMOLYSIS < 15 (0-50); Potassium 3.5 mmol/L (3.4-5.1); Sodium 137 mmol/L (137-145)
--- NOTE | 2019-03-10 06:04 | DI.RAD.S_ITS ---
PROCEDURE: XR CHEST 1V INDICATIONS: Left pneumothorax TECHNIQUE: One view of the chest was acquired. COMPARISON: [facility], CT, CT ANGIO CHEST PE PROTOCOL, 03/09/2019, 15:56. [facility], CR, XR CHEST 1V, 03/09/2019, 14:43. [facility], CR, XR CHEST 1V, 03/09/2019, 20:33. FINDINGS: Surgical changes and devices: Sternotomy and a prosthetic heart valve. Lungs and pleura: The small left apical pneumothorax is again identified, unchanged compared with the last exam. A small left pleural effusion may be present. There is diffuse interstitial infiltrates suggesting mild pulmonary edema. Mediastinum: Mediastinal contours appear normal. Heart size is moderately increased. Bones and chest wall: No suspicious bony lesions. Overlying soft tissues appear unremarkable. IMPRESSION: 1. Stable small left apical pneumothorax. 2. Moderate coronary and diffuse interstitial infiltrates suggesting mild CHF. Dictated by: Sera Bowden M.D. on 03/10/2019 at 8:23 Approved by: Sera Bowden M.D. on 03/10/2019 at 8:27
[2019-03-10 06:10] LABS: Troponin I 0.018 ng/mL (0.01-0.034)
[2019-03-10] MEDS: predniSONE 5 MG TABLET PO (08:10)
[2019-03-10] MEDS: FUROSEMIDE 20 MG TABLET PO (08:10)
[2019-03-10] MEDS: POTASSIUM CHLORIDE 10 MEQ TAB 30 MEQ PO (08:10)
[2019-03-10] MEDS: HYDROXYCHLOROQUINE 200 MG TABLET PO (08:10)
[2019-03-10] MEDS: SODIUM CHLORIDE 0.9% FLUSH 10 ML IV ×2 (08:10→21:00)
[2019-03-10] MEDS: DABIGATRAN 75 MG CAPSULE 150 MG PO ×2 (08:10→21:01)
[2019-03-10] MEDS: VIT C/E/ZN/COPPR/LUTEIN/ZEAXAN CAPSULE 2 CAP PO (08:10)
[2019-03-10] MEDS: CARVEDILOL 6.25 MG TABLET 9.375 MG PO ×2 (08:11→20:56)
--- NOTE | 2019-03-10 08:55 | PT.IIE ---
Current Diagnoses Pneumothorax, unspecified (03/09/19) Respiratory failure, unspecified, unspecified whether with hypoxia or hypercapnia (03/09/19) Surgical History (Last Updated 03/09/19 @ 20:44 by AIDAN Almanzar) History of aortic valve replacement (Acute) History of back surgery (Acute) History of cataract extraction (Acute) History of laparoscopic adjustable gastric banding (Acute) Medical History (Last Updated 03/09/19 @ 20:44 by AIDAN Almanzar) Benign cutaneous periarteritis nodosa (Acute) Irritable bowel syndrome with constipation (Acute) Macular degeneration, left eye (Acute) Nummular dermatitis (Acute) Atrial fibrillation (Acute) Hypertension (Acute) Mitral valve disease (Acute) Physical Therapy Inpatient Evaluation/Re-Eval M1 PT/OT-IP Prior Functional Status Start: 03/10/19 10:15 Freq: NEEDED Status: Active Protocol: Document 03/10/19 08:55 AB (Rec: 03/10/19 10:32 AB [id number]) Medical Review Prior Functional Status Medical History Reviewed Yes Communication able to make needs known Mobility and Gait Pt stated that she is independent with all mobilities and ambulation without AD but uses a 4WW at night especially when she has to use the toilet Social History Household Members spouse Living Arrangements House Number of Floors (Floors) One Floor Number of Stairs To Enter/Railing? no steps: pt stated that they live chip senior housing Home Environment High Toilet Walk in Shower Built-In Shower Seat Home Equipment Hand Held Shower Grab Bars Near Toilet Grab Bars In Shower Employment Status Retired Additional Social History Comment spouse works M2 PT-IP Current Condition Start: 03/10/19 10:15 Freq: NEEDED Status: Active Protocol: Document 03/10/19 08:55 AB (Rec: 03/10/19 10:32 AB [id number]) Physical Therapy Current Condition Current Condition Evaluation Date 03/10/19 Treatment Diagnosis respiratory failure; L side pneumothoraz; Inf B; generalized weakness Onset Date 03/09/19 Precautions Other Precautions Droplet precautions M3 PT-IP Subjective Start: 03/10/19 10:15 Freq: NEEDED Status: Active Protocol: Document 03/10/19 08:55 AB (Rec: 03/10/19 10:32 AB [id number]) Subjective Physical Therapy Visit Type Type Initial Evaluation Visit Start Time 08:55 Visit Stop Time 09:29 Total Visit Minutes 34 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 Physical Therapy Visit Comments Patient Comments pt agreeable to do PT Therapy Pain Assessment Pain Present Pain Present Denied Pain M4 PT-IP Mobility and Gait Start: 03/10/19 10:15 Freq: NEEDED Status: Active Protocol: Document 03/10/19 08:55 AB (Rec: 03/10/19 10:32 AB [id number]) PT-Bed Mobility Assessment Supine to Sit Supine to Sit Standby Assistance Sit to Supine Sit to Supine Standby Assistance Scooting Scooting to Edge of Bed Standby Assistance PT-Transfer Assessment Sit to and From Stand Sit to and from Stand Standby Assistance Equipment Transfer Assistive Device None Gait Belt Orthotic/Prosthetic Devices or Brace: No Transfers Transfer Destination Bed Chair Transfer Technique pt ambulated without AD Transfer Ability Level of Assist Contact Guard Assistance Comments Mobility Comments checked on pt and spouse in room. pt was using the toilet . pt ambulated out of the toilet without AD CGA towards the sink. pt tends to hold on to the wall/counter for support. pt was able to maintain standing SBA while completing handwashing. pt ambulated to the chair using FWW SBA. pt was without O2 when she used the toilet. O2 sat checked after toiletin%. O2 at 2L/min put back on and O2 sat increased to 92% O2 sat stayed at ~ 94-96% with O2 on afterwards with activities. Gait Assessment Gait Gait Assistance Required: Standby Assistance Distance (Feet) 50 Able to Maintain Weight Bearing Status Yes During Gait Assistive Devices Assistive Device None Gait Belt Front Wheeled Walker Orthotic/Prosthetic Devices or Brace: No Gait Deviations General Gait Pattern Antalgic Decreased Stride Length Decreased Feet Clearance Lateral Trunk Lean Factors Limiting Gait Function Factors Limiting Gait Function Decreased Activity Tolerance Decreased Strength Poor Balance Comments Gait Comments pt ambulated in room using FWW SBA 50 ft. assessed ambulation without AD and completed ~ 30 ft SBA to CGA with cues for steadiness and posture. pt presents with antalgic gait with lateral trunk lean to the R. PT-Balance Assessment Sitting Balance and Reactions Static Sitting Balance Ability Good Dynamic Sitting Balance Ability Good Standing Balance and Reactions Static Standing Balance Ability Fair Dynamic Standing Balance Ability Fair Device Used using FWW M5 PT-IP Objective Assessments Start: 03/10/19 10:15 Freq: NEEDED Status: Active Protocol: Document 03/10/19 08:55 AB (Rec: 03/10/19 10:32 AB [id number]) Orientation Orientation/Cognition Level of Alertness Alert Orientation Name Age Birthday Month Date Year Day of Week Place Situation Language Function Ability No Deficits Noted Safety Awareness Understands Safety Issues Memory Description No Deficits Noted Gross Range of Motion Lower Extremity ROM Assessment Within Functional Limits Strength Lower Extremity Strength Assessment Within Functional Limits Sensation Assessment Sensation Gross Sensation WNL Muscle Tone Muscle Tone WNL Yes M6 PT-IP Treatment Start: 03/10/19 10:15 Freq: NEEDED Status: Active Protocol: Document 03/10/19 08:55 AB (Rec: 03/10/19 10:32 AB [id number]) Physical Therapy Treatment Education Education Provided Safety M7 PT-IP Assessment and Plan Start: 03/10/19 10:15 Freq: NEEDED Status: Active Protocol: Document 03/10/19 08:55 AB (Rec: 03/10/19 10:32 AB [id number]) PT Summary Assessment and Plan Potential Rehabilitation Potential Good Status of Condition at Evaluation Evolving Summary Impairments Strength Balance Coordination Bed Mobility Transfers Gait Activity Tolerance Assessment Summary pt requiring SBA to CGA with mobility and will likely improve during hospital stay. pt plans to go home and spouse will assist if needed. pt may go home when medically stable. Goals Bed Mobility Goal Independent Transfer Goal Independent Gait Goal Independent Gait Distance 250 Days to Meet Goals 5 Frequency of Treatment Frequency Of Treatment Once a Day Treatment Plan Physical Therapy Treatment Plan Bed Mobility Training Transfer Training Gait Training Therapeutic Exercise Balance Retraining Discharge Planning Neuromuscular Re-ed Other Recommendations and Next Treatment ambulation without AD/4WW Focus Recommendations To Nursing Amount of Assist Needed 1 Person Assist Discharge Recommendations PT Discharge Recommendations Home
[2019-03-10] MEDS: LINACLOTIDE 290 EACH PO (09:09)
--- NOTE | 2019-03-10 10:04 | CM.DANOTE ---
Discharge Planning/Care Management DCP: assessment: case received, EMR reviewed, DROPLET PRECAUTIONS: noted. Met with pt and introduced self and role. Pt is a 78 year old feamel who admitted yesterday evening to care of hosptialist team. [facility]: Dr. Starr: consulted: pneumothorax: no chest tube is recommended at this time. Pt is + influenza B and is being treated for community acquired pneumonia. Payer: [facility]. Admission status: In review: per UR RN Chivo. PCP: [facility]. Her long term care social worker provider Dr. Helton recently retired and she is assigned to another. She says she cannot remember his name as she is typically seen by PA [facility] staff when she goes to the clinic. Pt says she is functionally independent at baseline, using only the 4WW and a flashlight when she needs to get up in the night. She expects to go home when ready for same. Dr. Almonte is seeing her today and noted in Rounds that she is showing good improvement and will likely go home tomorrow if all goes well. P: will follow prn CM Discharge Assessment Start: 03/10/19 08:04 Freq: Status: Active Protocol: Document 03/10/19 10:01 ITV (Rec: 03/10/19 10:04 ITV [id number]) Discharge Planning Assessment Advance Directives? Yes History Provided By Patient Medical Record Has Patient been admitted in last 30 No days? Prior Living Arrangements House Household Members spouse DME Already Rented / Owned FWW / Walker Comment uses 4ww and flashlight when she gets up at night. Review Status In Process
--- NOTE | 2019-03-10 10:36 | PM.PN.1 ---
Subjective Date Patient Seen: 03/10/19 Time Patient Seen: 10:37 Interval history: She is seen today to follow up her left apical pneumothorax, parainfluenza pneumonia, immunosuppression and atrial fibrillation. Her INR is 1.6. The BMP is normal. The potassium is 3.5. She would like to resume her home dosing of magnesium for acid reflux symptoms. Her is visiting and has many pertinent questions which are discussed among us. She is quite in control of her care and decisions. Exam Vital Signs (past 8 hours): - 03/10/19 05:20 03/10/19 08:10 Temperature 97.6 F 97.8 F Pulse Rate 83 107 H Respiratory Rate 18 20 Blood Pressure 137/60 141/56 H Pulse Oximetry 100 98 Oxygen Delivery Method Nasal Cannula Oxygen Flow Rate 2 Narrative Exam Narrative: She is alert and oriented. She is in no apparent distress. Heart is irregularly irregular without murmur. Lungs have wheezes bilaterally. Extremities have 1+ pitting ankle edema bilaterally. Objective Labs Result Diagrams: 03/10/19 05:37 03/10/19 05:37 Labs: Laboratory Results - last 24 hr 03/09/19 03/09/19 03/09/19 15:00 15:00 15:00 WBC 6.5 RBC 4.19 Hgb 11.8 L Hct 36.2 MCV 86.4 MCH 28.2 MCHC 32.7 RDW 14.0 Plt Count 155 Neut % (Auto) 77.2 H Lymph % (Auto) 9.6 L [place] % (Auto) 12.5 Eos % (Auto) 0.2 L Baso % (Auto) 0.5 Neut # (Auto) 5000 Lymph # (Auto) 600 L [place] # (Auto) 800 Eos # (Auto) 0 Baso # (Auto) 0 PT 18.8 H INR 1.6 H APTT 64 H Sodium 137 Potassium 4.2 Chloride 99 Carbon Dioxide 29 BUN 24 H Creatinine 0.70 Estimated GFR > 60.0 BUN/Creatinine Ratio 34.3 H Glucose 93 Lactate Calcium 8.9 Magnesium 1.8 Total Bilirubin 0.8 AST 26 ALT 14 Alkaline Phosphatase 77 Total Creatine Kinase 39 CK-MB (CK-2) TNP CK-MB (CK-2) Rel Index TNP Troponin I 0.013 B-Natriuretic Peptide 356 H Total Protein 7.1 Albumin 3.8 Globulin 3.3 Albumin/Globulin Ratio 1.2 Procalcitonin Urine Color Urine Appearance Urine pH Ur Specific [place] Urine Protein Urine Glucose (UA) Urine Ketones Urine Occult Blood Urine Nitrate Urine Bilirubin Urine Urobilinogen Ur Leukocyte Esterase Urine RBC Urine WBC Urine Bacteria Urine Mucus Ur Culture Indicated? Chlamy pneumoniae PCR Adenovirus (PCR) B.parapertussis DNA PCR Coronavirus OC43 (PCR) Coronavirus HKU1 (PCR) Coronavirus 229E (PCR) Coronavirus NL63 (PCR) Human Metapneumovir PCR Influenza Type A (PCR) Influenza Type B (PCR) M. pneumoniae (PCR) Parainfluenza 1 (PCR) Parainfluenza 2 (PCR) Parainfluenza 3 (PCR) Parainfluenza 4 (PCR) RSV (PCR) Entero/Rhino (PCR) 03/09/19 03/09/19 03/09/19 15:00 15:00 17:15 WBC RBC Hgb Hct MCV MCH MCHC RDW Plt Count Neut % (Auto) Lymph % (Auto) [place] % (Auto) Eos % (Auto) Baso % (Auto) Neut # (Auto) Lymph # (Auto) [place] # (Auto) Eos # (Auto) Baso # (Auto) PT INR APTT Sodium Potassium Chloride Carbon Dioxide BUN Creatinine Estimated GFR BUN/Creatinine Ratio Glucose Lactate 1.1 Calcium Magnesium Total Bilirubin AST ALT Alkaline Phosphatase Total Creatine Kinase CK-MB (CK-2) CK-MB (CK-2) Rel Index Troponin I B-Natriuretic Peptide Total Protein Albumin Globulin Albumin/Globulin Ratio Procalcitonin 0.16 Urine Color Urine Appearance Urine pH Ur Specific [place] Urine Protein Urine Glucose (UA) Urine Ketones Urine Occult Blood Urine Nitrate Urine Bilirubin Urine Urobilinogen Ur Leukocyte Esterase Urine RBC Urine WBC Urine Bacteria Urine Mucus Ur Culture Indicated? Chlamy pneumoniae PCR Not detected Adenovirus (PCR) Not detected B.parapertussis DNA PCR Not detected Coronavirus OC43 (PCR) Not detected Coronavirus HKU1 (PCR) Not detected Coronavirus 229E (PCR) Not detected Coronavirus NL63 (PCR) Not detected Human Metapneumovir PCR Not detected Influenza Type A (PCR) Not detected Influenza Type B (PCR) Not detected M. pneumoniae (PCR) Not detected Parainfluenza 1 (PCR) Not detected Parainfluenza 2 (PCR) Not detected Parainfluenza 3 (PCR) Detected H Parainfluenza 4 (PCR) Not detected RSV (PCR) Not detected Entero/Rhino (PCR) Not detected 03/09/19 03/09/19 03/10/19 20:20 20:50 05:37 WBC 5.1 RBC 3.92 L Hgb 11.3 L Hct 33.7 L MCV 85.9 MCH 28.8 MCHC 33.5 RDW 14.1 Plt Count 156 Neut % (Auto) 59.4 Lymph % (Auto) 19.1 L [place] % (Auto) 19.5 H Eos % (Auto) 1.4 L Baso % (Auto) 0.6 Neut # (Auto) 3000 Lymph # (Auto) 1000 L [place] # (Auto) 1000 H Eos # (Auto) 100 Baso # (Auto) 0 PT INR APTT Sodium Potassium Chloride Carbon Dioxide BUN Creatinine Estimated GFR BUN/Creatinine Ratio Glucose Lactate Calcium Magnesium 1.6 Total Bilirubin AST ALT Alkaline Phosphatase Total Creatine Kinase CK-MB (CK-2) CK-MB (CK-2) Rel Index Troponin I B-Natriuretic Peptide Total Protein Albumin Globulin Albumin/Globulin Ratio Procalcitonin Urine Color Yellow Urine Appearance Clear Urine pH 5.0 Ur Specific [place] 1.010 Urine Protein Negative Urine Glucose (UA) Negative Urine Ketones Trace H Urine Occult Blood 3+ H Urine Nitrate Negative Urine Bilirubin Negative Urine Urobilinogen 0.2 Ur Leukocyte Esterase Negative Urine RBC 1-5/hpf Urine WBC 0-1/hpf Urine Bacteria None seen Urine Mucus 1+ H Ur Culture Indicated? Cult not indicated Chlamy pneumoniae PCR Adenovirus (PCR) B.parapertussis DNA PCR Coronavirus OC43 (PCR) Coronavirus HKU1 (PCR) Coronavirus 229E (PCR) Coronavirus NL63 (PCR) Human Metapneumovir PCR Influenza Type A (PCR) Influenza Type B (PCR) M. pneumoniae (PCR) Parainfluenza 1 (PCR) Parainfluenza 2 (PCR) Parainfluenza 3 (PCR) Parainfluenza 4 (PCR) RSV (PCR) Entero/Rhino (PCR) 03/10/19 03/10/19 05:37 05:37 WBC RBC Hgb Hct MCV MCH MCHC RDW Plt Count Neut % (Auto) Lymph % (Auto) [place] % (Auto) Eos % (Auto) Baso % (Auto) Neut # (Auto) Lymph # (Auto) [place] # (Auto) Eos # (Auto) Baso # (Auto) PT INR APTT Sodium 137 Potassium 3.5 Chloride 96 L Carbon Dioxide 32 BUN 24 H Creatinine 0.80 Estimated GFR > 60.0 BUN/Creatinine Ratio 30.0 H Glucose 92 Lactate Calcium 8.6 Magnesium Total Bilirubin AST ALT Alkaline Phosphatase Total Creatine Kinase CK-MB (CK-2) CK-MB (CK-2) Rel Index Troponin I 0.018 B-Natriuretic Peptide Total Protein Albumin Globulin Albumin/Globulin Ratio Procalcitonin Urine Color Urine Appearance Urine pH Ur Specific [place] Urine Protein Urine Glucose (UA) Urine Ketones Urine Occult Blood Urine Nitrate Urine Bilirubin Urine Urobilinogen Ur Leukocyte Esterase Urine RBC Urine WBC Urine Bacteria Urine Mucus Ur Culture Indicated? Chlamy pneumoniae PCR Adenovirus (PCR) B.parapertussis DNA PCR Coronavirus OC43 (PCR) Coronavirus HKU1 (PCR) Coronavirus 229E (PCR) Coronavirus NL63 (PCR) Human Metapneumovir PCR Influenza Type A (PCR) Influenza Type B (PCR) M. pneumoniae (PCR) Parainfluenza 1 (PCR) Parainfluenza 2 (PCR) Parainfluenza 3 (PCR) Parainfluenza 4 (PCR) RSV (PCR) Entero/Rhino (PCR) Assessment & Plan Assessment & Plan narrative: This is a 78-year-old female patient who presented with several days of shortness of breath with associated cough and fevers and is immunocompromised on prednisone and hydroxychloroquine. 1. Acute hypoxic respiratory failure, present on admission. -upon arrival the patient was tachypneic 23 with an oxygen saturation of 89% on room air for a P/F ratio of 271. -patient responded well oxygen saturating 90-99% on 3 L nasal cannula ER. Past history of smoking estimated to be approximately 30 pack years. -on chest x-ray the patient has underlying interstitial prominence along with a very small amount of left apical pneumothorax. -Xopenex nebulizer every 4 hours as needed, Atrovent nebulizers twice daily. -feeling much better today, with repeat chest x-ray unchanged. 2. Acute left apical pneumothorax, present on admission. -she came in with coughing and shortness of breath suddenly increased. -chest x-ray and CTA find 2.5 cm left apical pneumothorax without evidence of underlying pathology, etiology of pneumothorax inferred is coughing. -serial x-rays taken in the ER several hours apart with no change in size of the pneumothorax. Repeat this morning also unchanged. -general surgery was consulted, thank you Dr. Starr for your evaluation. 3. Acute community acquired pneumonia, present on admission. -the patient is immunocompromised on immunosuppressants with on prednisone and hydroxychloroquine blunting immune response with normal WBC and procalcitonin. -patient is seropositive for parainfluenza B with associated bilateral bronchitis -coinfection of pneumonia, aveolar consolidation right base, lactic acid is 1.1, procalcitonin 0.16. -azithromycin 500 mg IV daily for 3 days. -ceftriaxone 2 g IV daily 4. Chronic atrial fibrillation, stable -patient's atrial fibrillation with heart rate in the 90s to 100s. -will continue home regimen of carvedilol 9.375 mg twice daily. 5. Chronic long-term anticoagulation, stable -The patient currently takes dabigatran 150 mg twice daily. -Patient has multiple bruises and area of ecchymosis but no evidence of active bleeding, no melena, hematemesis or hemoptysis. -coagulation panel shows elevated PT at 18.8 with an INR of 1.6 and a PTT of 64. Liver functions are all within normal parameters. -will monitor for bleeding specifically hemoptysis in association with pneumothorax or development of hemo thorax. 6. Chronic essential hypertension, stable -continue home regimen of carvedilol and furosemide. -continue patient's home regimen of potassium repletion, potassium level is 4.2, will follow with chemistries. 7. Bilateral lower extremity edema, active. -Patient with history of lower extremity edema and on Lasix. -increased edema over last several days without complaints of chest pain. -last echocardiogram was in November 2017 with nuclear med stress test in March 2018 finding an EF of 60-65% with no LV or RV dilation or dysfunction and finds well functioning prosthetic valve. -patient received 40 mg of Lasix in the emergency department, will continue Lasix 20 mg daily and monitor electrolytes. 8. 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 -patient also has history of nummular dermatitis. -patient is taking hydroxychloroquine 200 mg daily and prednisone 5 mg daily which are continued. -patient has had recent eye exam and history of macular degeneration in the left eye but no recent vision changes. 9. Chronic IBS with constipation, stable. -patient has no complaints of abdominal pain and has developed a regular bowel program requiring 5-6 hours for full evacuation.. -will continue patient's home regimen of Linzess 290 mg daily. She typically uses Morales tablets, ordered magnesium hydroxide 30 mL daily. -Doculax suppository if patient develops constipation. Disposition: She is likely to discharge home in 1-2 days and is doing quite well. Quality VTE Deep Vein Thrombosis/Pulmonary Embolism Present on Admission: No
--- NOTE | 2019-03-10 12:21 | OT.IP.EVAL ---
Current Diagnoses Pneumothorax, unspecified (03/09/19) Respiratory failure, unspecified, unspecified whether with hypoxia or hypercapnia (03/09/19) Past Medical History (Last Updated 03/09/19 @ 20:44 by AIDAN Almanzar) Benign cutaneous periarteritis nodosa (Acute) Irritable bowel syndrome with constipation (Acute) Macular degeneration, left eye (Acute) Nummular dermatitis (Acute) Atrial fibrillation (Acute) Hypertension (Acute) Mitral valve disease (Acute) Surgical History (Last Updated 03/09/19 @ 20:44 by AIDAN Almanzar) History of aortic valve replacement (Acute) History of back surgery (Acute) History of cataract extraction (Acute) History of laparoscopic adjustable gastric banding (Acute) Occupational Therapy Inpatient Evaluation/Re-Eval M1 PT/OT-IP Prior Functional Status Start: 03/10/19 10:15 Freq: NEEDED Status: Active Protocol: Document 03/10/19 08:55 AB (Rec: 03/10/19 10:32 AB [id number]) Medical Review Prior Functional Status Medical History Reviewed Yes Communication able to make needs known Mobility and Gait Pt stated that she is independent with all mobilities and ambulation without AD but uses a 4WW at night especially when she has to use the toilet Social History Household Members spouse Living Arrangements House Number of Floors (Floors) One Floor Number of Stairs To Enter/Railing? no steps: pt stated that they live chip senior housing Home Environment High Toilet Walk in Shower Built-In Shower Seat Home Equipment Hand Held Shower Grab Bars Near Toilet Grab Bars In Shower Employment Status Retired Additional Social History Comment spouse works M1 PT/OT-IP Prior Functional Status Start: 03/10/19 12:08 Freq: NEEDED Status: Active Protocol: Document 03/10/19 12:09 CGR (Rec: 03/10/19 12:21 CGR [email or web address]) Medical Review Prior Functional Status Medical History Reviewed Yes Communication able to make needs known Mobility and Gait Pt stated that she is independent with all mobilities and ambulation without AD but uses a 4WW at night especially when she has to use the toilet Activities of Daily Living and IADL's Pt is ind in all ADLs and IADLs, she uses a electrode cleaner and sock aide for LB dressing d/t a hx of back sx and the walker at night for safety. 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 Social History Household Members spouse Living Arrangements House Number of Floors (Floors) One Floor Number of Stairs To Enter/Railing? 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 OT-IP Current Condition Start: 03/10/19 12:08 Freq: Status: Active Protocol: Document 03/10/19 12:09 CGR (Rec: 03/10/19 12:21 CGR [email or web address]) Occupational Therapy Current Condition Current Condition Evaluation Date 03/10/19 Treatment Diagnosis Community aquired PNA Post Operative Precautions Other Precautions Pt is on droplet precautions for PNA M3 OT- IP Subjective and Pain Start: 03/10/19 12:08 Freq: Status: Active Protocol: Document 03/10/19 12:09 CGR (Rec: 03/10/19 12:21 CGR [email or web address]) OT- Subjective Occupational Therapy Visit Type Type Initial Evaluation Visit Start Time 11:05 Visit Stop Time 11:25 Total Visit Minutes 20 Occupational Therapy Visit Comments Patient Comments I am just SOB. OT Pain Assessment Pain Present Pain Present Denied Pain M4 OT- IP ADL's Start: 03/10/19 12:08 Freq: Status: Active Protocol: Document 03/10/19 12:09 CGR (Rec: 03/10/19 12:21 CGR [email or web address]) OT [id number] General Evaluation Self-Feeding Ability Independent OT ADL-Grooming General Evaluation Grooming Ability Independent Areas Needing Assistance Retrieving/Set-up of Grooming Items OT ADL-Oral Care General Eval Oral Care Ability Independent Areas of Assistance Retrieving/Set-Up of Items OT ADL-Dressing General Eval Upper Body Dressing Ability Independent Comments OT Dressing Comments LB not tested d/t pt uses DME for LB dressing at this time. OT ADL-Toileting General Evaluation Toileting Ability Independent OT ADL-Bathing Comments OT Bathing Comments Not tested M5 OT- IP IADL's Start: 03/10/19 12:08 Freq: Status: Active Protocol: Document 03/10/19 12:09 CGR (Rec: 03/10/19 12:21 CGR [email or web address]) OT-Instrumental Activities of Daily Living Deficits IADL Deficits Identified No Deficits Home Safety Awareness Awareness of Need for Assistance at Home Good Awareness Ability to Problem Solve Emergency Able to Problem Solve Situations Medication Management Medication Management No Deficits Identified Money Management Money Management No Deficits Identified Meal Preparation Meal Preparation No Deficits Identified Account Executive Software Sales Account Executive Software Sales No Deficits Identified M6 OT- IP Functional Cognition Start: 03/10/19 12:08 Freq: Status: Active Protocol: Document 03/10/19 12:09 CGR (Rec: 03/10/19 12:21 CGR [email or web address]) Cognitive Factors Limiting Selfcare Function Cognitive Ability Level of Alertness Alert Patient Orientation Name Age Birthday Month Date Year Day of Week Place Situation Attention Span Ability Capable of Focused Attention Ability to Follow Commands Able to Follow Multi-Step Commands Memory Description No Deficits Noted Safety Awareness No Deficits Noted Problem Solving Ability No deficits Noted Executive Function Ability No Deficits Noted Abstract Thinking Ability No Deficits Noted OT- Vision and Hearing OT- Hearing Assessment OT- Hearing Assessment WFL OT- Vision Assessment Visual Acuity Glasses All The Time Visual Attentiveness WFL Occular Pursuits WFL Visual Convergence WFL Visual Slater WFL M7 OT- IP Mobility and Balance Start: 03/10/19 12:08 Freq: Status: Active Protocol: Document 03/10/19 12:09 CGR (Rec: 03/10/19 12:21 CGR [email or web address]) OT- Bed Mobility Assessment Rolling Type of Rolling Roll to Left Level of Assistance Independent Supine to Sit Supine to Sit Assist Independent Sit to Supine Sit to Supine Assist Independent Scooting Scooting to Edge of Bed Independent Scooting Up and Down in Bed Independent OT-Transfer Assessment Sit to and From Stand Sit to and from Stand Independent Transfers Transfer Ability Independent Technique Transfer Destination Bed Chair Toilet Devices Transfer Assistive Devices None Comments Mobility Comments Pt is only limited by SOB and endurance. OT- Gait Assessment Gait Gait Assistance Required: Independent Assistive Devices Assistive Device None OT- Balance Assessment Sitting Balance and Reactions Static Sitting Balance Ability Normal Dynamic Sitting Balance Ability Normal Standing Balance and Reactions Static Standing Balance Ability Normal Dynamic Standing Balance Ability Normal M8 OT- IP Objective Assessments Start: 03/10/19 12:08 Freq: Status: Active Protocol: Document 03/10/19 12:09 CGR (Rec: 03/10/19 12:21 CGR [email or web address]) OT Gross Range of Motion Upper Extremity Range of Motion Assessment Within Functional Limits OT Strength Upper Extremity Strength Assessment Within Functional Limits Comments Strength Comments Grossly 4-/5 OT- Coordination Assessment Upper Extremity Finger to Nose Test Within Functional Limits Finger Tapping Test Within Functional Limits OT-Muscle Tone Assessment Muscle Tone WNL Yes OT Sensation Assessment Comments Summary Comments No sensation deficits noted Edema Edema Absent M9 OT- IP Assessment and Plan Start: 03/10/19 12:08 Freq: Status: Active Protocol: Document 03/10/19 12:09 CGR (Rec: 03/10/19 12:21 CGR [email or web address]) OT Summary Assessment and Plan Potential Rehabilitation Potential Excellent Analytic Complexity at Evaluation Low Summary Assessment Summary Pt presents at or close to her baseline except for endurance . Will defer endurance to P.T. at this time. No further OT needs. Frequency of Treatment Frequency Of Treatment Discharge Discharge Recommendations OT Discharge Recommendations Home with Assistance
--- NOTE | 2019-03-10 14:06 | P.PN_ITS ---
Subjective Date Patient Seen: 03/10/19 Time Patient Seen: 14:04 Exam Vital Signs (past 8 hours): - 03/10/19 08:10 Temperature 97.8 F Pulse Rate 107 H Respiratory Rate 20 Blood Pressure 141/56 H Pulse Oximetry 98 Oxygen Delivery Method Nasal Cannula Oxygen Flow Rate 2 Objective Imaging Chest x-ray: My impression: As compared with the 1st x-ray which showed a pneumothorax the present apical pneumothorax is smaller and unchanged from last film done yesterday. Labs Result Diagrams: 03/10/19 05:37 03/10/19 05:37 Labs: Laboratory Results - last 24 hr 03/09/19 03/09/19 03/09/19 15:00 15:00 15:00 WBC 6.5 RBC 4.19 Hgb 11.8 L Hct 36.2 MCV 86.4 MCH 28.2 MCHC 32.7 RDW 14.0 Plt Count 155 Neut % (Auto) 77.2 H Lymph % (Auto) 9.6 L Winston % (Auto) 12.5 Eos % (Auto) 0.2 L Baso % (Auto) 0.5 Neut # (Auto) 5000 Lymph # (Auto) 600 L Winston # (Auto) 800 Eos # (Auto) 0 Baso # (Auto) 0 PT 18.8 H INR 1.6 H APTT 64 H Sodium 137 Potassium 4.2 Chloride 99 Carbon Dioxide 29 BUN 24 H Creatinine 0.70 Estimated GFR > 60.0 BUN/Creatinine Ratio 34.3 H Glucose 93 Lactate Calcium 8.9 Magnesium 1.8 Total Bilirubin 0.8 AST 26 ALT 14 Alkaline Phosphatase 77 Total Creatine Kinase 39 CK-MB (CK-2) TNP CK-MB (CK-2) Rel Index TNP Troponin I 0.013 B-Natriuretic Peptide 356 H Total Protein 7.1 Albumin 3.8 Globulin 3.3 Albumin/Globulin Ratio 1.2 Procalcitonin Urine Color Urine Appearance Urine pH Ur Specific [place] Urine Protein Urine Glucose (UA) Urine Ketones Urine Occult Blood Urine Nitrate Urine Bilirubin Urine Urobilinogen Ur Leukocyte Esterase Urine RBC Urine WBC Urine Bacteria Urine Mucus Ur Culture Indicated? Chlamy pneumoniae PCR Adenovirus (PCR) B.parapertussis DNA PCR Coronavirus OC43 (PCR) Coronavirus HKU1 (PCR) Coronavirus 229E (PCR) Coronavirus NL63 (PCR) Human Metapneumovir PCR Influenza Type A (PCR) Influenza Type B (PCR) M. pneumoniae (PCR) Parainfluenza 1 (PCR) Parainfluenza 2 (PCR) Parainfluenza 3 (PCR) Parainfluenza 4 (PCR) RSV (PCR) Entero/Rhino (PCR) 03/09/19 03/09/19 03/09/19 15:00 15:00 17:15 WBC RBC Hgb Hct MCV MCH MCHC RDW Plt Count Neut % (Auto) Lymph % (Auto) [place] % (Auto) Eos % (Auto) Baso % (Auto) Neut # (Auto) Lymph # (Auto) [place] # (Auto) Eos # (Auto) Baso # (Auto) PT INR APTT Sodium Potassium Chloride Carbon Dioxide BUN Creatinine Estimated GFR BUN/Creatinine Ratio Glucose Lactate 1.1 Calcium Magnesium Total Bilirubin AST ALT Alkaline Phosphatase Total Creatine Kinase CK-MB (CK-2) CK-MB (CK-2) Rel Index Troponin I B-Natriuretic Peptide Total Protein Albumin Globulin Albumin/Globulin Ratio Procalcitonin 0.16 Urine Color Urine Appearance Urine pH Ur Specific [place] Urine Protein Urine Glucose (UA) Urine Ketones Urine Occult Blood Urine Nitrate Urine Bilirubin Urine Urobilinogen Ur Leukocyte Esterase Urine RBC Urine WBC Urine Bacteria Urine Mucus Ur Culture Indicated? Chlamy pneumoniae PCR Not detected Adenovirus (PCR) Not detected B.parapertussis DNA PCR Not detected Coronavirus OC43 (PCR) Not detected Coronavirus HKU1 (PCR) Not detected Coronavirus 229E (PCR) Not detected Coronavirus NL63 (PCR) Not detected Human Metapneumovir PCR Not detected Influenza Type A (PCR) Not detected Influenza Type B (PCR) Not detected M. pneumoniae (PCR) Not detected Parainfluenza 1 (PCR) Not detected Parainfluenza 2 (PCR) Not detected Parainfluenza 3 (PCR) Detected H Parainfluenza 4 (PCR) Not detected RSV (PCR) Not detected Entero/Rhino (PCR) Not detected 03/09/19 03/09/19 03/10/19 20:20 20:50 05:37 WBC 5.1 RBC 3.92 L Hgb 11.3 L Hct 33.7 L MCV 85.9 MCH 28.8 MCHC 33.5 RDW 14.1 Plt Count 156 Neut % (Auto) 59.4 Lymph % (Auto) 19.1 L Winston % (Auto) 19.5 H Eos % (Auto) 1.4 L Baso % (Auto) 0.6 Neut # (Auto) 3000 Lymph # (Auto) 1000 L Winston # (Auto) 1000 H Eos # (Auto) 100 Baso # (Auto) 0 PT INR APTT Sodium Potassium Chloride Carbon Dioxide BUN Creatinine Estimated GFR BUN/Creatinine Ratio Glucose Lactate Calcium Magnesium 1.6 Total Bilirubin AST ALT Alkaline Phosphatase Total Creatine Kinase CK-MB (CK-2) CK-MB (CK-2) Rel Index Troponin I B-Natriuretic Peptide Total Protein Albumin Globulin Albumin/Globulin Ratio Procalcitonin Urine Color Yellow Urine Appearance Clear Urine pH 5.0 Ur Specific [place] 1.010 Urine Protein Negative Urine Glucose (UA) Negative Urine Ketones Trace H Urine Occult Blood 3+ H Urine Nitrate Negative Urine Bilirubin Negative Urine Urobilinogen 0.2 Ur Leukocyte Esterase Negative Urine RBC 1-5/hpf Urine WBC 0-1/hpf Urine Bacteria None seen Urine Mucus 1+ H Ur Culture Indicated? Cult not indicated Chlamy pneumoniae PCR Adenovirus (PCR) B.parapertussis DNA PCR Coronavirus OC43 (PCR) Coronavirus HKU1 (PCR) Coronavirus 229E (PCR) Coronavirus NL63 (PCR) Human Metapneumovir PCR Influenza Type A (PCR) Influenza Type B (PCR) M. pneumoniae (PCR) Parainfluenza 1 (PCR) Parainfluenza 2 (PCR) Parainfluenza 3 (PCR) Parainfluenza 4 (PCR) RSV (PCR) Entero/Rhino (PCR) 03/10/19 03/10/19 05:37 05:37 WBC RBC Hgb Hct MCV MCH MCHC RDW Plt Count Neut % (Auto) Lymph % (Auto) [place] % (Auto) Eos % (Auto) Baso % (Auto) Neut # (Auto) Lymph # (Auto) [place] # (Auto) Eos # (Auto) Baso # (Auto) PT INR APTT Sodium 137 Potassium 3.5 Chloride 96 L Carbon Dioxide 32 BUN 24 H Creatinine 0.80 Estimated GFR > 60.0 BUN/Creatinine Ratio 30.0 H Glucose 92 Lactate Calcium 8.6 Magnesium Total Bilirubin AST ALT Alkaline Phosphatase Total Creatine Kinase CK-MB (CK-2) CK-MB (CK-2) Rel Index Troponin I 0.018 B-Natriuretic Peptide Total Protein Albumin Globulin Albumin/Globulin Ratio Procalcitonin Urine Color Urine Appearance Urine pH Ur Specific [place] Urine Protein Urine Glucose (UA) Urine Ketones Urine Occult Blood Urine Nitrate Urine Bilirubin Urine Urobilinogen Ur Leukocyte Esterase Urine RBC Urine WBC Urine Bacteria Urine Mucus Ur Culture Indicated? Chlamy pneumoniae PCR Adenovirus (PCR) B.parapertussis DNA PCR Coronavirus OC43 (PCR) Coronavirus HKU1 (PCR) Coronavirus 229E (PCR) Coronavirus NL63 (PCR) Human Metapneumovir PCR Influenza Type A (PCR) Influenza Type B (PCR) M. pneumoniae (PCR) Parainfluenza 1 (PCR) Parainfluenza 2 (PCR) Parainfluenza 3 (PCR) Parainfluenza 4 (PCR) RSV (PCR) Entero/Rhino (PCR) Assessment & Plan Assessment & Plan narrative: X-ray is unchanged. Will sign off at this time. It is unlikely patient will progress but if her clinical status worsens with increased chest pain, shortness of breath or tachycardia repeat chest x-ray should be obtained and if pneumothorax is worsened consult again. Thank you [facility] Deep Vein Thrombosis/Pulmonary Embolism Present on Admission: No
--- NOTE | 2019-03-10 18:23 | PC.NURSE ---
Pt requested her Linzess be ordered for 0400; the time she takes it at home (which gives her time to evacuate her bowels). Pharmacy made the change.
[2019-03-10] MEDS: AZITHROMYCIN 500 MG in DEXTROSE 5% IN WATER 250 ML IV (19:41)
[2019-03-10] MEDS: CEFTRIAXONE 2 GM/50 ML FROZ.PIGGY IV (20:55)
--- NOTE | 2019-03-10 22:30 | PC.NURSE ---
Pt is A and O x 4, independent in room with FWW. 2L NC to stay >92%. Some SOB with exertion. Tolerating ABOS well. Had shower this shift. LS course throughout, exp wheezes. Productive loose cough. Afebrile.
--- NOTE | 2019-03-10 23:53 | PC.NURSE ---
Addendum entered by Candice Santos R.N. 03/11/19 04:17: Up to bathroom with walker and SBA. O2 sat at 90% when back to bed and oximeter back on but now after brief time sat is 99% on 1L/min oxygen. Telemetry reading at 0400 was afib CVR but after being up to bathroom HR also at 111 and now down to 89. Addendum entered by Candice Santos R.N. 03/11/19 00:07: Oxygen decreased to 1L/min as still at 100% sat. Original Note: Patient is alert and oriented. Breath sounds with expiratory rhonchi throughout posteriorly. Intermittent moist cough productive of white sputum. SOB with exertion. On oxygen at 2L/min per NC with sat of 100% at rest; on continuous oximetry HR irregularly irregular with last telemetry readings of afib CVR/RVR on evening shift. Denies nausea. BT present and abdomen is soft; reports BM earlier today. Denies dysuria, frequency or urgency. Able to turn self in bed. Fall risk score is high so bed alarm activated and patient verbalizes agreement to call for staff assistance when getting out of bed. Uses walker for walking. Denies pain at present time. Noted scattered bruising on bilateral UE, left knee and bilateral LE. Has 2+ edema bilateral LE. On droplet precautions due to + for parainfluenza 3; contact precautions due to gm + cocci in sputum.
[2019-03-11] VITALS (16 sets, daily range): BP systolic 105–146; BP diastolic 61–79; PULSE 86–120; RESP 16–20; TEMP 36.3–37.1; O2SAT 90–100
[2019-03-11] MEDS: LINACLOTIDE 290 EACH PO (04:06)
[2019-03-11] MEDS: DABIGATRAN 75 MG CAPSULE 150 MG PO ×2 (09:38→20:43)
[2019-03-11] MEDS: CARVEDILOL 6.25 MG TABLET 9.375 MG PO ×2 (09:38→20:42)
[2019-03-11] MEDS: POTASSIUM CHLORIDE 10 MEQ TAB 30 MEQ PO (09:39)
[2019-03-11] MEDS: FUROSEMIDE 20 MG TABLET PO (09:39)
[2019-03-11] MEDS: VIT C/E/ZN/COPPR/LUTEIN/ZEAXAN CAPSULE 2 CAP PO (09:39)
[2019-03-11] MEDS: HYDROXYCHLOROQUINE 200 MG TABLET PO (09:39)
[2019-03-11] MEDS: SODIUM CHLORIDE 0.9% FLUSH 10 ML IV ×3 (09:39→20:42)
[2019-03-11] MEDS: predniSONE 5 MG TABLET PO (09:39)
[2019-03-11 10:07] LABS: BUN Creatinine Ratio 28.3 (6-22); Blood Urea Nitrogen 17 mg/dL (7-17); Calcium 9.1 mg/dL (8.4-10.2); Carbon Dioxide 32 mmol/L (22-32); Chloride 97 mmol/L (98-107); Estimated Glomerular Filt Rate > 60.0 mL/min (>60); Glucose 141 mg/dL (80-110); HEMOLYSIS 16 (0-50); Magnesium 1.8 mg/dL (1.6-2.3); Potassium 3.7 mmol/L (3.4-5.1); Sodium 139 mmol/L (137-145)
[2019-03-11] MEDS: LEVALBUTEROL 1.25 MG/0.5 ML NEB INH ×4 (10:54→22:41)
[2019-03-11] MEDS: IPRATROPIUM 0.5 MG/2.5 ML NEB INH ×4 (10:54→22:41)
[2019-03-11] MEDS: PSEUDOEPHEDRINE 30 MG TABLET PO (11:37)
[2019-03-11] MEDS: guaiFENesin ER 600 MG TAB 1200 MG PO ×2 (11:37→20:43)
[2019-03-11] MEDS: SODIUM CHLORIDE NASAL SPRAY 1 SPRAY NASAL ×2 (11:38→20:43)
[2019-03-11] MEDS: FUROSEMIDE 20 MG/2 ML VIAL IV (11:39)
--- NOTE | 2019-03-11 12:02 | PC.NURSE ---
Addendum entered by Radha Morales R.N. 03/11/19 14:11: Shift summary: Alert and oriented X3. SBA w/ mobility. Lungs with scattered expiratory rhonchi throughout. Intermittent cough, largely nonproductive. Reports sputum is white when she does manage to bring something up. Started on Mucinex, pseudoephedrine and RT tx today. Given saline nasal spray PRN. Maintained on room air throughout the day for ADL's in the room. Currently ambulating in hallway with PT with sats 97-98%. HR irregular, known Hx A-fib. Tele monitoring ongoing. IV saline locked. Able to make needs known and calls appropriately. Light in reach, chair/bed alarm in use. Original Note: Wallet: Patient's wallet retrieved from the safe and sent home with her .
--- NOTE | 2019-03-11 14:13 | PT.IPTN ---
Current Diagnoses Pneumothorax, unspecified (03/09/19) Respiratory failure, unspecified, unspecified whether with hypoxia or hypercapnia (03/09/19) Physical Therapy Treatment Note M2 PT-IP Current Condition Start: 03/10/19 10:15 Freq: NEEDED Status: Active Protocol: Document 03/10/19 08:55 AB (Rec: 03/10/19 10:32 AB [id number]) Physical Therapy Current Condition Current Condition Evaluation Date 03/10/19 Treatment Diagnosis respiratory failure; L side pneumothoraz; Inf B; generalized weakness Onset Date 03/09/19 Precautions Other Precautions Droplet precautions M3 PT-IP Subjective Start: 03/10/19 10:15 Freq: NEEDED Status: Active Protocol: Document 03/11/19 14:15 GGD (Rec: 03/11/19 15:13 GGD [id number]) Subjective Physical Therapy Visit Type Type Treatment Note Visit Start Time 13:55 Visit Stop Time 14:15 Total Visit Minutes 20 Number of CLINICAL NURSING ASSISTANT Visits 1 Physical Therapy Visit Comments Patient Comments Pt would like work with therapy. M4 PT-IP Mobility and Gait Start: 03/10/19 10:15 Freq: NEEDED Status: Active Protocol: Document 03/11/19 14:15 GGD (Rec: 03/11/19 15:13 GGD [id number]) PT-Transfer Assessment Sit to and From Stand Sit to and from Stand Standby Assistance Equipment Transfer Assistive Device None Gait Belt Orthotic/Prosthetic Devices or Brace: No Transfers Transfer Destination Chair Transfer Technique pt ambulated without AD Transfer Ability Level of Assist Contact Guard Assistance Comments Mobility Comments O2 with mobility on RA 93-96% Gait Assessment Gait Gait Assistance Required: Standby Assistance Contact Guard Assist Distance (Feet) 150 Able to Maintain Weight Bearing Status Yes During Gait Assistive Devices Assistive Device None Gait Belt Orthotic/Prosthetic Devices or Brace: No Gait Deviations General Gait Pattern Antalgic Decreased Stride Length Decreased Feet Clearance Lateral Trunk Lean Factors Limiting Gait Function Factors Limiting Gait Function Decreased Activity Tolerance Decreased Strength Poor Balance M5 PT-IP Objective Assessments Start: 03/10/19 10:15 Freq: NEEDED Status: Active Protocol: Document 03/10/19 08:55 AB (Rec: 03/10/19 10:32 AB [id number]) Orientation Orientation/Cognition Level of Alertness Alert Orientation Name Age Birthday Month Date Year Day of Week Place Situation Language Function Ability No Deficits Noted Safety Awareness Understands Safety Issues Memory Description No Deficits Noted Gross Range of Motion Lower Extremity ROM Assessment Within Functional Limits Strength Lower Extremity Strength Assessment Within Functional Limits Sensation Assessment Sensation Gross Sensation WNL Muscle Tone Muscle Tone WNL Yes M6 PT-IP Treatment Start: 03/10/19 10:15 Freq: NEEDED Status: Active Protocol: Document 03/10/19 08:55 AB (Rec: 03/10/19 10:32 AB [id number]) Physical Therapy Treatment Education Education Provided Safety M7 PT-IP Assessment and Plan Start: 03/10/19 10:15 Freq: NEEDED Status: Active Protocol: Document 03/11/19 14:15 GGD (Rec: 03/11/19 15:13 GGD [id number]) PT Summary Assessment and Plan Summary Assessment Summary Pt improving with mobility. She ambulated with out AD with SBA to CGA. She did use UE on furniture. She had mild unsteadiness, but no LOB. Frequency of Treatment Frequency Of Treatment Once a Day Treatment Plan Physical Therapy Treatment Plan Bed Mobility Training Transfer Training Gait Training Therapeutic Exercise Balance Retraining Discharge Planning Neuromuscular Re-ed Recommendations To Nursing Amount of Assist Needed 1 Person Assist Discharge Recommendations PT Discharge Recommendations Home with Assistance
--- NOTE | 2019-03-11 14:30 | CM.DPC ---
DCP: continued. Case discussed this morning in Team Rounds and Dr. Munroe noted that she had put in a d/c order earlier today but once she met with pt she decided she was not yet stable for d/c to home setting. She wished consideration of a snf, said pt did not want [facility] and instead she wanted [facility] [place] as nearest to [place]. She did agree that an option to this would be HH. PT and OT notes were reviewed. OT CJ did see pt yesterday and deemed her stable from OT standpoint to home environment with her 's supportive assist. PT did see pt yesterday. MARU Wall is seeing her again today. Conferred then with VIRGILIO Garcia who noted pt's was just here and had left for home but that he appeared quite able to help pt. Met then with pt to continue the discussion of her d/c issues and options. Pt notes that when she was told this morning that she was ready for d/c she was very concerned as she did not feel sufficiently recovered (she has been in the hospital since 03/09 1730). She said that she was worried that she would fail at home if she left today and thus the discussion of snf level care. Went over snf choice list: noting that Payer is [employer]. [facility] is not in [employer] network. Thus far the documentation does not appear to support the [employer] criteria for a snf auth. At this point [facility] would likely consider that pt was not yet ready to leave the hospital setting. Discussed HH option. Pt said she was very pleased to hear about this as she felt that her recovery at home would be much better than going into a facility. She said her does work but will be home for several days and then is close at hand. Would request RN/OT/PT at d/c. Pt does say she does expect she will be discharged tomorrow and already does feel much better after different treatments were tried today. She did get up right after this and ambulated in the birch with [place] without use of 02. RT Jani will be checking in with pt soon. CORNELIUS#2: presented to pt as per weekend protocol and went over the document which does discuss pt's appeal rights and process if she is not feeling medically ready for d/c and a d/c order is in place. She said she had just signed the [facility] #1 yesterday without really reading it; this time she read it thoroughly and expressed thankfulness for the information. P: likely home with spouse and HH tomorrow. Will discuss agency choice list and proceed accordingly.
--- NOTE | 2019-03-11 18:12 | P.PN_ITS ---
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 The patient is sitting in bedside chair comfortably and in no acute distress. She reports that she did not sleep well last night. She reports that she feels short of breath and her breathing bothers her the most at night. She states she does not feel ready to go home. She continues to have a wet hacking cough that is minimally productive and she does not feel as though she can expectorate and cough up her sputum. She endorses rhinitis and nasal congestion. Plan to implement Acapella, Mucinex, nasal saline, and Sudafed. She is off of oxygen and satting high 90s on room air. She denies headache, chest pain, abdominal pain, nausea, vomiting, fever, chills, dysuria, or diarrhea. She has significant IBS constipation predominant and requires Linzess to have regular BMs. She reports chronic crampy abdominal pain with Linzess use. She is voiding and eliminating (with home bowel regimen) without difficulty. She is voiding and eliminating without difficulty. She is up ambulating with assistance. Plan for road test to evaluate home oxygen need today. Exam Vital Signs (past 8 hours): - 03/11/19 11:13 03/11/19 11:26 03/11/19 12:30 Temperature 97.7 F 97.3 F L Pulse Rate 100 H 106 H Respiratory Rate 20 18 Blood Pressure 121/72 Pulse Oximetry 96 95 03/11/19 14:26 03/11/19 15:03 03/11/19 15:31 Temperature 98.2 F Pulse Rate 96 H 103 H Respiratory Rate 16 20 Blood Pressure 134/61 Pulse Oximetry 97 96 92 Fraction of Inspired Oxygen 21 Oxygen Delivery Method Room Air Oxygen Flow Rate 0 Narrative Exam Narrative: General: Elderly female sitting in bedside chair and in no acute distress, well-developed, well-nourished, appears fatigued and acutely ill, appropriately interactive. HEENT: Normocephalic, atraumatic. External ears without defect. Pupils equal, round, and reactive to light. Anicteric sclerae, moist conjunctivae, and no lid lag. Neck: Supple with full range of motion. No jugular venous distension. No lymphadenopathy or thyromegaly. Cardiovascular: Irregularly irregular, mildly tachycardia without murmurs, rubs, or gallops appreciated Pulmonary: Coarse lung sounds bilaterally throughout all lung cardoza with occasional wheeze. No crackles. Normal respiratory effort with no use of accessory muscles. Abdomen: Soft, obese, nontender, nondistended. No hepatosplenomegaly or masses appreciated. Extremities: No clubbing or cyanosis. Moderate lower extremity pitting edema to mid pretibial area bilaterally. Skin: Normal temperature, turgor, and texture; no rash, ulcers, or subcutaneous nodules appreciated. Neurological: Cranial nerves grossly intact. Psychiatric: Depressed mood and normal affect. Alert and oriented to person, place, and time. 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 1. Acute hypoxemic respiratory failure, multifactorial and secondary to small left apical pneumothorax, parainfluenza virus, and bilateral bacterial pne umonia, present on admission. Resolving. -Patient presented tachypneic with respiratory rate 23 with an oxygen saturation of 89% on room air and is saturating to low 70s with exertion. Patient stabi lized with 3 L of supplemental oxygen. 30 pack year smoking history. -Chest x-ray demonstrated underlying interstitial prominence along with a very small amount of left apical pneumothorax. -Continue respiratory therapy for evaluation and treatment. Continue supplemental oxygen with goal saturation 88-92%. Patient is currently saturating in the upper 90s on room air. Plan for road test today by RT to assess need for oxygen with activity. Continue Xopenex and Atrovent nebulizers every 4 hours while awake. Ordered Acapella to be used after each nebulizer treatment. Ordered Mucinex 1200 mg twice daily and Sudafed 30 mg every 6 hours x2 doses. Will reassess need for Sudafed tomorrow. 2. Acute left apical pneumothorax, present on admission. Stable and improved. -Patient presented with a viral and superimposed bacterial pneumonia with significant and violent coughing and subsequently developed small left apical pneumothorax and abrupt onset shortness of breath. -Chest x-ray and CTA demonstrated 2.5 cm left apical pneumothorax without evidence of underlying pathology, etiology of pneumothorax inferred is coughing. However, patient likely has mild degree of COPD as she has a 30 pack-year history. Recommended pulmonology referral outpatient for further evaluation of underlying pulmonary pathophysiology. -Serial chest chest x-rays demonstrated mild improvement and stability in small left apical pneumothorax. -Consulted General surgery who continued to monitor and recommended conservative treatment. Patient did not require a thoracostomy tube. Surgery signed off. We appreciate their time and care of the patient. 3. Acute viral with superimposed bacterial pneumonia, present on admission. Active. -Patient is immunocompromised on immunosuppressants with on prednisone and hydroxychloroquine blunting immune response with normal WBC and procalcitonin. -CTA chest demonstrated mild or early pneumonia the right lung base in addition to mild bibasilar bronchitis. No PE. -ordered pneumonia workup including: Respiratory viral PCR positive for parainfluenza. Sputum culture grew light residential vivek. Blood cultures x2 have no growth to date. -Continue droplet precautions. -Continue ceftriaxone 2 g IV daily and azithromycin 500 mg IV daily for 3 doses. -Continue supportive treatment and started Mucinex 1200 mg twice daily, Sudafed 30 mg every 6 hours x2 doses, nasal saline rinses, and Acapella. -Continue respiratory therapy for evaluation and treatment. Continue supplemental oxygen with goal saturation 88-92%. Patient is currently saturating in the upper 90s on room air. Plan for road test today by RT to assess need for oxygen with activity. Continue Xopenex and Atrovent nebulizers every 4 hours while awake. Ordered Acapella to be used after each nebulizer treatment. 4. Acute likely on chronic pulmonary hypertension, present on admission. Activ e. -Patient with history of lower extremity edema on Lasix and presented with worsening shortness of breath, severe dyspnea on exertion with hypoxemia and increased edema over last several days without complaints of chest pain. -BNP 356. -Echocardiogram demonstrated normal LV with preserved EF 55-60%, moderately dilated left atrium, mildly dilated right atrium, bioprosthetic aortic valve well seated with peak aortic velocity 3.2 m/sec, moderate mitral annular calcification, [id number] mitral regurgitation, moderate tricuspid regurgitation RVSP 54 indicative of moderate pulmonary hypertension. -Received Lasix 40 mg IV x 1 in ED. Continue Lasix 20 mg PO daily. Received extra dose of Lasix 20 mg IV today. Continue to monitor and replete electrolytes as necessary. Goal K+ > 4.0 and Mg+ >2.0 due to chronic atrial fibrillation. 5. Chronic atrial fibrillation on chronic anticoagulation with Pradaxa, present on admission. Stable. -Currently mildly tachycardic. -Continue home carvedilol 9.375 mg twice daily and may need to titrate up to control rate. -Continue dabigatran 150 mg twice daily. -Continue to monitor for bleeding specifically hemoptysis in association with pneumothorax or development of hemothorax. 6. Hypertension, chronic, present on admission. Stable. -Continue home carvedilol 9.375 mg twice daily and furosemide 20 mg daily. May need to titrate up on both medications as above. 7. Cutaneous periarteritis nodosa (polyarteritis nodusum), chronic, present on admission. Stable. -Patient also has history of nummular dermatitis.Patient has had recent eye exam and history of macular degeneration in the left eye but no recent vision changes. -Continue home hydroxychloroquine 200 mg daily and prednisone 5 mg daily. 8. IBS, constipation type, chronic, present on admission. Stable. -Patient has no complaints of abdominal pain and has developed a regular bowel program requiring 5-6 hours for full evacuation. -Continue home bowel regimen of Linzess 290 mg daily. She typically uses Moarles tablets. Continue magnesium hydroxide 30 mL daily. -Ordered doculax suppository as needed should the patient develop constipation. Disposition: Patient is likely to discharge home with home health in 1-2 days depending upon optimization of breathing and improvement in treatment of pneumonia. Quality VTE Deep Vein Thrombosis/Pulmonary Embolism Present on Admission: No
[2019-03-11] MEDS: AZITHROMYCIN 500 MG in DEXTROSE 5% IN WATER 250 ML IV (20:42)
[2019-03-11] MEDS: CEFTRIAXONE 2 GM/50 ML FROZ.PIGGY IV (21:14)
--- NOTE | 2019-03-11 23:55 | PC.NURSE ---
Addendum entered by Candice Santos R.N. 03/12/19 06:06: Had BM earlier this morning and refused 0400 bowel med. RA sat remains in upper 90's. Denies pain. Original Note: Patient is alert and oriented. Expiratory rhonchi in bilateral upper/middle lobes but just diminished in bilateral lower lobes; RA sat 97%; remains on continuous pulse oximetry Still some SOB with exertion but states cough only occasional with minimal sputum production. HR irregular; telemetry reading afib CVR. Denies nausea. BT present and abdomen is soft. Denies dysuria, frequency or urgency and is continent. Able to turn self in bed. Uses walker and SBA when out of bed. Is weak to go any distance with walking, but does well with ambulation to/from bathroom. Bruising unchanged. Still 2+ edema bilateral LE but feel softer to touch. Denies pain. Fall risk score is high and bed alarm is activated.
[2019-03-12] VITALS (8 sets, daily range): BP systolic 121–146; BP diastolic 55–71; PULSE 87–114; RESP 16–20; TEMP 36.1–36.3; O2SAT 95–98
[2019-03-12] MEDS: IPRATROPIUM 0.5 MG/2.5 ML NEB INH ×3 (03:19→10:40)
[2019-03-12] MEDS: LEVALBUTEROL 1.25 MG/0.5 ML NEB INH ×3 (03:20→10:40)
[2019-03-12 05:44] LABS: Add Manual Diff / Slide Review NO; Basophils Absolute Auto 0 /uL (0-100); Basophils Percent Auto 0.5 % (0-2); Eosinophils Absolute Auto 400 /uL (0-450); Eosinophils Percent Auto 5.3 % (2-4); Hematocrit 36.4 % (36-46); Hemoglobin 12.1 g/dL (12.0-16.0); Lymphocytes Absolute Auto 1800 /uL (1100-4500); Lymphocytes Percent Auto 26.4 % (25-40); Mean Corpuscular HGB Conc 33.1 % (30-36); Mean Corpuscular Hemoglobin 28.3 PG (26-34); Mean Corpuscular Volume 85.5 fL (80-100); Monocytes Absolute Auto 800 /uL (0-900); Monocytes Percent Auto 12.3 % (3-14); Neutrophils Absolute Auto 3700 /uL (1500-7000); Neutrophils Percent Auto 55.5 % (50-75); Platelet Count 203 X10^3/uL (150-400); Red Blood Cell Count 4.25 X10^6/uL (4.0-5.2); White Blood Cell Count 6.7 X10^3/uL (4.5-11.0)
[2019-03-12 05:52] LABS: BUN Creatinine Ratio 23.3 (6-22); Blood Urea Nitrogen 14 mg/dL (7-17); Calcium 9.2 mg/dL (8.4-10.2); Carbon Dioxide 32 mmol/L (22-32); Chloride 98 mmol/L (98-107); Estimated Glomerular Filt Rate > 60.0 mL/min (>60); Glucose 107 mg/dL (80-110); HEMOLYSIS < 15 (0-50); Magnesium 1.7 mg/dL (1.6-2.3); Potassium 3.6 mmol/L (3.4-5.1); Sodium 138 mmol/L (137-145)
[2019-03-12 06:16] LABS: Procalcitonin 0.05 ng/mL (<0.5)
[2019-03-12 06:34] LABS: TSH w/ Reflex to FT4 0.48 uIU/mL (0.47-4.68)
[2019-03-12] MEDS: POTASSIUM CHLORIDE 10 MEQ TAB 30 MEQ PO (08:51)
[2019-03-12] MEDS: CARVEDILOL 6.25 MG TABLET 9.375 MG PO (08:51)
[2019-03-12] MEDS: HYDROXYCHLOROQUINE 200 MG TABLET PO (08:51)
[2019-03-12] MEDS: FUROSEMIDE 20 MG TABLET PO (08:51)
[2019-03-12] MEDS: SODIUM CHLORIDE 0.9% FLUSH 10 ML IV (08:52)
[2019-03-12] MEDS: predniSONE 5 MG TABLET PO (08:52)
[2019-03-12] MEDS: DABIGATRAN 75 MG CAPSULE 150 MG PO (08:52)
[2019-03-12] MEDS: guaiFENesin ER 600 MG TAB 1200 MG PO (08:52)
[2019-03-12] MEDS: VIT C/E/ZN/COPPR/LUTEIN/ZEAXAN CAPSULE 2 CAP PO (08:53)
--- NOTE | 2019-03-12 09:24 | P.DS_ITS ---
History of Present Illness Date Patient Seen: 03/09/19 Chief complaint: SOB Narrative: Written by Pradeep BERMUDEZ: Ms. Karena Brown is a 78-year-old female patient with a history atrial fibrilla tion, aortic valve replacement, hypertension, hyperlipidemia irritable bowel syndrome with constipation, cutaneous agtaa arteritis nodosa and nummular dermatitis for which she is on prednisone hydro chloroquine and presents today with 3-4 days of shortness of breath. The patient states that her has been ill with a respiratory illness and coughing and developed similar symptoms several days ago. She states this started with sore throat, cough, fever and nausea. The patient reports that she has had increasing shortness of breath significantly today to present to the ER for evaluation. Patient presently reports no complaints of fevers or chills, headaches or dizziness but has had sniffles. She denies chest pain, palpitations, has had chest congestion with frequent productive cough. She reports sputum to be white to greenish, no report of hemoptysis. She denies abdominal pain, nausea vomiting as chronic constipation related to IBS is on a regimen of Linzess before breakfast followed by Morales tablets (magnesium oxide) which she indicates takes 5-6 hours to fully evacuate and then goes about her day, no report of melena or hematochezia. She denies urinary symptoms of hematuria frequency or urgency. She reports bilateral lower extremity edema more pronounced recently. She reports some exertional dyspnea which she attributes to not exercising which she does not have time for with her bowel regimen. He has had prior back pain but describes no radiculopathy joint or leg pain. She denies untoward bleeding however has numerous small bruises and is on Pradaxa. Upon arrival in the ER the patient is afebrile with temperature 98.7?, tachycardic at 112, blood pressure 132/79, tachypneic at 23 saturating 96% on 2 liters/minute nasal cannula, chest x-rays taken which finds chronic interstitial prominence, small apical pneumothorax unclear etiology. Chest x-ray repeated several hours later with no change in size of pneumothorax. On CTA PE is rule out and re-demonstrates a 2.5 cm pneumothorax left apex, bibasilar bronchitis and available consolidation in the right lung base. On laboratory analysis the patient has white blood cell count of 6.5, hemoglobin of 11.8 hematocrit of 36.2 and platelets 155. Her electrolytes are within normal limits and has a BUN of 24 and creatinine 0.7. She has nonfasting glucose of 93. She has an elevated PT and 18.8 and INR of 1.6 with a PTT is 64. Her BNP is 356. Her troponin is negative at 0.013 and on serology she tests positive for parainfluenza. The patient received 40 mg furosemide and is admitted to the hospital for community- acquired pneumonia in a immunocompromised patient. Discharge Providers Date of admission: 03/09/19 17:30 Discharge Date: 03/12/19 Primary care physician: Jessy Garcia PA-C Consults: 03/09/19 14:37 Consult to Respiratory Therapy Evaluate & Treat Comment: Physician Instructions: Evaluate and treat 03/09/19 20:25 Consult to Respiratory Therapy Evaluate & Treat Comment: Pneumonia, small left pneumo Physician Instructions: Evaluate and treat 03/09/19 20:29 Consult to Discharge Planning Routine Comment: Consult to Occupational Therapy Evaluate & Treat Comment: Physician Instructions: Evaluate and treat Consult to Physical Therapy Evaluate & Treat Comment: Physician Instructions: Evaluate and Treat Discharge provider: Rayne Munroe DO Summary Discharge Diagnosis: 1. Acute hypoxemic respiratory failure, multifactorial and secondary to small left apical pneumothorax, parainfluenza virus, and bilateral bacterial pneumonia, present on admission. Resolved. 2. Acute left apical pneumothorax, present on admission. Stable and resolving. 3. Acute viral with superimposed bacterial pneumonia, present on admission. Resolving. 4. Acute likely on chronic pulmonary hypertension, present on admission. Act elizabeth. 5. Chronic atrial fibrillation on chronic anticoagulation with Pradaxa, present on admission. Stable. 6. Hypertension, chronic, present on admission. Stable. 7. Cutaneous periarteritis nodosa (polyarteritis nodusum), chronic, present on admission. Stable. 8. IBS, constipation type, chronic, present on admission. Stable and ongoing. Hospital Course: Karena Brown is a 78-year-old female with a past medical history significant for hypertension, IBS constipation type, polyarteritis nodosa immunosuppressed on hydroxychloroquine and prednisone who presented with several days of shortness of breath with associated cough and fevers. 1. Acute hypoxemic respiratory failure, multifactorial and secondary to small left apical pneumothorax, parainfluenza virus, and bilateral bacterial pneumonia, present on admission. Resolved. -Patient presented tachypneic with respiratory rate 23 with an oxygen saturation of 89% on room air and is saturating to low 70s with exertion. Patient stabilized with 3 L of supplemental oxygen which was slowly titrated off. She has a 30 pack year smoking history. -Chest x-ray demonstrated underlying interstitial prominence along with a very small amount of left apical pneumothorax. -Continued respiratory therapy for evaluation and treatment. Continue supplemental oxygen with goal saturation 88-92%. Patient was saturating in the upper 90s on room air and did not need oxygen with activity upon discharge. Continued Xopenex and Atrovent nebulizers every 4 hours while awake. Continued Acapella to be used after each nebulizer treatment. 2. Acute left apical pneumothorax, present on admission. Stable and resolving. -Patient presented with a viral and superimposed bacterial pneumonia with si gnificant and violent coughing and subsequently developed small left apical pneumothorax and abrupt onset shortness of breath. -Chest x-ray and CTA demonstrated 2.5 cm left apical pneumothorax without evidence of underlying pathology, etiology of pneumothorax inferred is coughing. However, patient likely has mild degree of COPD as she has a 30 pack-year history. Recommended pulmonology referral outpatient for further evaluation of underlying pulmonary pathophysiology. -Serial chest chest x-rays demonstrated mild improvement and stability in small left apical pneumothorax. -Consulted General surgery who continued to monitor and recommended conservative treatment. Patient did not require a thoracostomy tube. Surgery signed off. We appreciated their time and care of the patient. 3. Acute viral with superimposed bacterial pneumonia, present on admission. Resolving. -Patient is immunocompromised on immunosuppressants with on prednisone and hydroxychloroquine blunting immune response with normal WBC and procalcitonin. -CTA chest demonstrated mild or early pneumonia of right lung base in addition to mild bibasilar bronchitis. No PE. -Ordered pneumonia workup including: Respiratory viral PCR positive for parainfluenza. Sputum culture grew light residential vivek. Blood cultures x2 have no growth to date. -Continued droplet precautions. -Continued ceftriaxone 2 g IV daily and azithromycin 500 mg IV daily for 3 doses. Discharged on cefuroxime to finish 7 day course. -Continued supportive treatment and started Mucinex 1200 mg twice daily, Sudafed 30 mg every 6 hours x2 doses, nasal saline rinses, and Acapella. -Continued respiratory therapy for evaluation and treatment. Continue supplemental oxygen with goal saturation 88-92%. Patient was saturating in the upper 90s on room air and did not need oxygen with activity upom discharge. Continued Xopenex and Atrovent nebulizers every 4 hours while awake. Continued Acapella to be used after each nebulizer treatment. 4. Acute likely on chronic pulmonary hypertension, present on admission. Active. -Patient with history of lower extremity edema on Lasix and presented with worsening shortness of breath, severe dyspnea on exertion with hypoxemia and increased edema over last several days without complaints of chest pain. -BNP 356. -Echocardiogram demonstrated normal LV with preserved EF 55-60%, moderately dilated left atrium, mildly dilated right atrium, bioprosthetic aortic valve well seated with peak aortic velocity 3.2 m/sec, moderate mitral annular calcification, [id number] mitral regurgitation, moderate tricuspid regurgitation RVSP 54 indicative of moderate pulmonary hypertension. -Received Lasix 40 mg IV x 1 in ED. Continued Lasix 40 mg PO daily. Continued to monitor and replete electrolytes as necessary. Increased home potassium from 30 mEq daily to 20 mEq twice daily. Repeat labs in 1 week ordered to assess potassium replacement dose is adequate and assure magnesium does not need to be repleted. Goal K+ > 4.0 and Mg+ >2.0 due to chronic atrial fibrillation. 5. Chronic atrial fibrillation on chronic anticoagulation with Pradaxa, present on admission. Stable. -Currently mildly tachycardic mid 100-110's. -Continued home carvedilol and increased from 9.375 mg to 12.5 twice daily for better rate control. May need to continue to be adjusted after acute illness resolves completely. -Continued dabigatran 150 mg twice daily. -Continued to monitor for bleeding specifically hemoptysis in association with pneumothorax or development of hemothorax. 6. Hypertension, chronic, present on admission. Stable. -Continued home carvedilol and furosemide and titrated up on both medications as above. 7. Cutaneous periarteritis nodosa (polyarteritis nodusum), chronic, present on admission. Stable. -Patient also has history of nummular dermatitis. Patient has had recent eye exam and history of macular degeneration in the left eye but no recent vision changes. -Continued home hydroxychloroquine 200 mg daily and prednisone 5 mg daily. 8. IBS, constipation type, chronic, present on admission. Stable and ongoing. -Patient has no complaints of abdominal pain and has developed a regular bowel program requiring 5-6 hours for full evacuation. -Continued home bowel regimen of Linzess 290 mg daily. She typically uses Morales tablets. Continue magnesium hydroxide 30 mL daily. In addition recommended miralax 17 g daily and colace 100 mg twice daily. -Ordered doculax suppository as needed for constipation. Exam Vital Signs (past 8 hours): - 03/12/19 03:02 03/12/19 03:20 03/12/19 06:00 Temperature 96.9 F L Pulse Rate 87 94 H 94 H Respiratory Rate 18 16 18 Blood Pressure 121/55 L Pulse Oximetry 98 98 98 Fraction of Inspired Oxygen 21 Oxygen Delivery Method Room Air Oxygen Flow Rate 0 Narrative Exam Narrative: General: Elderly female sitting in bedside chair and in no acute distress, well-developed, well-nourished, appears fatigued and acutely ill, appropriately interactive. HEENT: Normocephalic, atraumatic. External ears without defect. Pupils equal, round, and reactive to light. Anicteric sclerae, moist conjunctivae, and no lid lag. Neck: Supple with full range of motion. No lymphadenopathy or thyromegaly. Cardiovascular: Irregularly irregular, mildly tachycardia without murmurs, rubs, or gallops appreciated Pulmonary: Scattered rhonchi bilaterally throughout all lung cardoza, improved. No crackles or wheeze. Normal respiratory effort with no use of accessory muscles. Abdomen: Soft, obese, nontender, nondistended. No hepatosplenomegaly or masses appreciated. Extremities: No clubbing or cyanosis. Now mild lower extremity pitting edema to mid pretibial area bilaterally, improved with diuresis. Skin: Normal temperature, turgor, and texture; no rash, ulcers, or subcutaneous nodules appreciated. Neurological: Cranial nerves grossly intact. Psychiatric: Depressed mood and normal affect. Alert and oriented to person, place, and time. Objective Labs Result Diagrams: 03/12/19 05:17 03/12/19 05:17 Labs: Laboratory Results - last 24 hr 03/11/19 03/12/19 03/12/19 09:50 05:17 05:17 WBC 6.7 RBC 4.25 Hgb 12.1 Hct 36.4 MCV 85.5 MCH 28.3 MCHC 33.1 RDW 14.0 Plt Count 203 Neut % (Auto) 55.5 Lymph % (Auto) 26.4 Gila % (Auto) 12.3 Eos % (Auto) 5.3 H Baso % (Auto) 0.5 Neut # (Auto) 3700 Lymph # (Auto) 1800 Gila # (Auto) 800 Eos # (Auto) 400 Baso # (Auto) 0 Sodium 139 138 Potassium 3.7 3.6 Chloride 97 L 98 Carbon Dioxide 32 32 BUN 17 14 Creatinine 0.60 0.60 Estimated GFR > 60.0 > 60.0 BUN/Creatinine Ratio 28.3 H 23.3 H Glucose 141 H 107 Calcium 9.1 9.2 Magnesium 1.8 1.7 Procalcitonin TSH 03/12/19 03/12/19 05:17 05:17 WBC RBC Hgb Hct MCV MCH MCHC RDW Plt Count Neut % (Auto) Lymph % (Auto) Gila % (Auto) Eos % (Auto) Baso % (Auto) Neut # (Auto) Lymph # (Auto) Gila # (Auto) Eos # (Auto) Baso # (Auto) Sodium Potassium Chloride Carbon Dioxide BUN Creatinine Estimated GFR BUN/Creatinine Ratio Glucose Calcium Magnesium Procalcitonin 0.05 TSH 0.48 Discharge Plan Discharge Plan Patient Disposition: Home Health Service Discharge comment: You are being discharged home with home health for physical therapy and nursing needs. You have a viral and bacterial pneumonia which is resolving. Your cough may be persistent for the next 4-8 weeks. You also had a small pneumothorax or collapse of lung likely from underlying lung disease such as COPD. You have been prescribed Xopenex a rescue only inhaler, 1 puff every 4-6 hours as needed for shortness of breath or wheezing, and Atrovent (a airway muscle relaxant) 1 puff 2 times daily (once in the morning once at night) and up to 4 times daily if needed for shortness of breath. You have pulmonary hypertension (high blood pressure in the lungs due to scarring of the lung tis shantell) which is treated with diuretics, smoking cessation, and oxygen if needed. You do not need oxygen currently. Please do not smoke and avoid secondhand smoke. Your furosemide has been increased from 20 mg to 40 mg daily. Highly recommend referral to pulmonology to further evaluate lung disease and perform pulmonary function testing (lung study) in 2-3 months after you recover from acute illness to evaluate the severity of COPD and/or other types of lung disease. Your atrial fibrillation has not been well controlled in regard to your heart rate (100-120's) which can lead to heart failure. Increased your carvedilol from 9.375 mg twice daily to 12.5 mg twice daily. Please follow-up with your sheet metal erector, Dr. Lam, in the near future to further evaluate and adjust medications. Please follow-up with your PCP in the next 1 week regarding your hospitalization, blood work to monitor electrolytes and kidney function, and the above recommendations. In regard to your constipation predominant IBS you may continue Linzess, and in addition add MiraLax 17 g 1-2 times daily and Colace 100 mg 1-2 times daily. Discharge Med Rec/Prescriptions Prescriptions: New cefuroxime axetil 500 mg tablet 500 mg PO BID Qty: 8 RF: 0 furosemide 40 mg tablet 40 mg PO DAILY Qty: 30 RF: 0 carvedilol 12.5 mg tablet 12.5 mg PO BID Qty: 60 RF: 0 potassium chloride 20 mEq tablet,ER particles/crystals 20 meq PO BID Qty: 60 RF: 0 levalbuterol tartrate [Xopenex HFA] 45 mcg/actuation HFA aerosol inhaler 1 puff INHALATION Q4-6H PRN (Reason: shortness of breath or wheezing) Qty: 15 RF: 0 Atrovent HFA 17 mcg/actuation HFA aerosol inhaler 1 puff INHALATION BID-QID Qty: 12.9 RF: 0 Continued multivitamin Tablet 1 tab PO QWEEK RF: 0 prednisone 5 mg Tablet 5 mg PO DAILY RF: 0 folic acid 400 mcg Tablet 1,200 mcg PO DAILY RF: 0 tramadol 50 mg Tablet 50 mg PO BID MDD 2 PRN (Reason: PAIN) RF: 0 hydroxychloroquine 200 mg Tablet 200 mg PO DAILY RF: 0 clobetasol 0.05 % Solution 1 applic TOPICAL DIRECTED RF: 0 VSL#3 112.5 billion cell Capsule 1 cap PO DAILY RF: 0 cholecalciferol (vitamin D3) [Vitamin D3] 2,000 unit Tablet 4,000 unit PO DAILY RF: 0 Pradaxa 150 mg Capsule 150 mg PO BID RF: 0 Linzess 290 mcg Capsule 290 mg PO DAILY RF: 0 Lovaza/Flaxseed Oil 1,200 mg 1 tab PO DAILY RF: 0 Richardson-3 1,000 MG 2,000 mg PO DAILY RF: 0 PreserVision AREDS 2 tab PO DAILY RF: 0 Discontinued amoxicillin 500 mg Capsule 2,000 mg PO .ONCE RF: 0 potassium chloride 10 mEq Capsule, Extended Release 30 meq PO DAILY RF: 0 Other Ambulatory Orders: Basic Metabolic Panel (Routine) Timeframe: 1 Week Location: Laboratory Ordered By: Rayne Munroe Magnesium (Routine) Timeframe: 1 Week Location: Laboratory Ordered By: Rayne Munroe Follow up/Referrals: Jessy Garcia PA-C [Non-Staff] - Provider Discharge Instructions Diet: Low-fat, Low-sodium and Low-cholesterol Diet comment: 2 L fluid restriction Activity: Activity as tolerated Visit Report/Discharge Packet Instructions: Pulmonary Hypertension -- Adult, DI for Chronic Obstructive Pulmonary Disease, DI for Pneumonia -- Adult, DI for Pneumothorax, DI for Atrial Fibrillation, Cefuroxime, DI for Pulmonary Arterial Hypertension-Adult Discharge Data Primary Care Provider: Delfino Nichols Attending Provider: Rayne Munroe Admit Date/Time: 03/09/19 17:30 Discharges patient from system. Discharge Date/Time: 03/12/19 14:04 Quality VTE Deep Vein Thrombosis/Pulmonary Embolism Present on Admission: No
[2019-03-12] MEDS: CARVEDILOL 3.125 MG TABLET PO (09:35)
--- NOTE | 2019-03-12 10:15 | PT.IPTN ---
Current Diagnoses Pneumothorax, unspecified (03/09/19) Respiratory failure, unspecified, unspecified whether with hypoxia or hypercapnia (03/09/19) Other polyuria (03/09/19) Physical Therapy Treatment Note M2 PT-IP Current Condition Start: 03/10/19 10:15 Freq: NEEDED Status: Active Protocol: Document 03/10/19 08:55 AB (Rec: 03/10/19 10:32 AB [id number]) Physical Therapy Current Condition Current Condition Evaluation Date 03/10/19 Treatment Diagnosis respiratory failure; L side pneumothoraz; Inf B; generalized weakness Onset Date 03/09/19 Precautions Other Precautions Droplet precautions M3 PT-IP Subjective Start: 03/10/19 10:15 Freq: NEEDED Status: Active Protocol: Document 03/12/19 10:00 CLB (Rec: 03/12/19 11:20 CLB [id number]) Subjective Physical Therapy Visit Type Type Treatment Note Visit Start Time 10:00 Visit Stop Time 10:15 Total Visit Minutes 15 Notes Co treated with RT 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 M4 PT-IP Mobility and Gait Start: 03/10/19 10:15 Freq: NEEDED Status: Active Protocol: Document 03/12/19 10:00 CLB (Rec: 03/12/19 11:20 CLB [id number]) PT-Transfer Assessment Sit to and From Stand Sit to and from Stand Standby Assistance Equipment Transfer Assistive Device None Gait Belt Orthotic/Prosthetic Devices or Brace: No Transfers Transfer Destination Chair Transfer Technique pt ambulated without AD Transfer Ability Level of Assist Standby Assistance Comments Mobility Comments O2 with mobility on RA 96-97% Gait Assessment Gait Gait Assistance Required: Standby Assistance Distance (Feet) 150 Able to Maintain Weight Bearing Status Yes During Gait Assistive Devices Assistive Device None Gait Belt Gait Deviations General Gait Pattern Antalgic Decreased Stride Length Decreased Feet Clearance Lateral Trunk Lean Factors Limiting Gait Function Factors Limiting Gait Function Decreased Activity Tolerance Decreased Strength Poor Balance Comments Gait Comments Pt ambulated in birch ~150ft with several standing rest breaks. M5 PT-IP Objective Assessments Start: 03/10/19 10:15 Freq: NEEDED Status: Active Protocol: Document 03/10/19 08:55 AB (Rec: 03/10/19 10:32 AB [id number]) Orientation Orientation/Cognition Level of Alertness Alert Orientation Name Age Birthday Month Date Year Day of Week Place Situation Language Function Ability No Deficits Noted Safety Awareness Understands Safety Issues Memory Description No Deficits Noted Gross Range of Motion Lower Extremity ROM Assessment Within Functional Limits Strength Lower Extremity Strength Assessment Within Functional Limits Sensation Assessment Sensation Gross Sensation WNL Muscle Tone Muscle Tone WNL Yes M6 PT-IP Treatment Start: 03/10/19 10:15 Freq: NEEDED Status: Active Protocol: Document 03/10/19 08:55 AB (Rec: 03/10/19 10:32 AB [id number]) Physical Therapy Treatment Education Education Provided Safety M7 PT-IP Assessment and Plan Start: 03/10/19 10:15 Freq: NEEDED Status: Active Protocol: Document 03/12/19 10:00 CLB (Rec: 03/12/19 11:20 CLB [id number]) PT Summary Assessment and Plan Summary Assessment Summary Pt able to ambulate without AD in birch with several standing rest breaks. Pt O2 ranged from 96-97% on RA with HR ranging from 95-118 BPM. Goals Bed Mobility Goal Independent Transfer Goal Independent Gait Goal Independent Gait Distance 250 Days to Meet Goals 5 Frequency of Treatment Frequency Of Treatment Once a Day Treatment Plan Physical Therapy Treatment Plan Bed Mobility Training Transfer Training Gait Training Therapeutic Exercise Balance Retraining Discharge Planning Neuromuscular Re-ed Recommendations To Nursing Amount of Assist Needed 1 Person Assist Discharge Recommendations PT Discharge Recommendations Home with Assistance Home Health
[2019-03-12] MEDS: MAGNESIUM CHLORIDE 64 MG TABLET 128 MG PO (11:40)
--- NOTE | 2019-03-12 13:21 | CM.DPC ---
Addendum entered by Mckayla Alatorre LPN 03/12/19 13:37: Did discuss lack of specific name of pt's current PCP with Bri, explained pt has been with Dr. Helton until he retired and was now assigned to another provider at [facility] but pt did not recall name. Bri said the [facility] team would followup on this tomorrow/ Wednesday so a to have the current PCP on file but that this should not impact their ability to see pt tomorrow. Addendum entered by Mckayla Alatorre LPN 03/12/19 13:34: Signature/Caitlyn did call back after all of this. Explained the referral was already taken and pt had been discharged. Thanked her for following up on the referral/now released. Original Note: DCP: continued: Case discussed in Team Rounds with DR. Munroe noting pt's rapid improvement and plan now for a d/c to home and HH to followup. Met with pt. She confirmed she felt markedly improved and that she feels very comfortable going home with her today. HH agency list[facility]given[facility] so she wished either [facility] or [facility], whichever agency replied to referral request first and could accept her. Left a vm with [facility]/7 day week liaison on that cell and with [facility] liaison cell. After about a half hour and no response tried both again. Then tried the office line for [facility] and was able to get the weekend liaison Lila. She accepted the referral and confirmed they could open pt to service on Wednesday afternoon (pt requesting this as her mornings are mostly tied up with her bowel routine). Dr. Munroe completed Face/Face document. HH orders for RN/OT/PT were obtained. These and the d/c summary are now faxed to the weekend line for [facility]: [phone] and fax confirmation for same is now received. VIRGILIO Thurston was updated. Pt was provided with the [facility] brochure. Her was planning to be at the hospital shortly.
--- NOTE | 2019-03-12 13:55 | PC.NURSE ---
Discharge instructions and home care information reviewed with patient. IV dc'd intact. Patient states understanding and has no further questions or concerns at this time. Escorted out via wheelchair with all belongings to be discharged to home with husbands and with Home health services. Patient states she will call her doctors office tomorrow to arrange for her follow up within 1 week and will have labs drawn prior. Patient states she will also arrange for follow up with her cardiologists office and plans to get a referral to see a spent grain dryer in the next few months. Patient instructed to call her doctor with questions or concerns and to seek care if symptoms return or worsen.
== END 2019-03-12 14:04 | disposition home health service (06) | DRG 193 ==
LOC: ED 17:12 → AC 17:31
PROVIDERS: Nurse Practitioner Adult Health; Admitting Provider Internal Medicine; Emergency Provider Emergency Medicine; PCP Internal Medicine; Visit Provider Internal Medicine
DX: J15.9 Unspecified bacterial pneumonia (principal); J96.01 Acute respiratory failure with hypoxia; J93.9 Pneumothorax, unspecified; M30.0 Polyarteritis nodosa; J12.2 Parainfluenza virus pneumonia; I27.20 Pulmonary hypertension, unspecified; I48.0 Paroxysmal atrial fibrillation; J20.4 Acute bronchitis due to parainfluenza virus; L30.0 Nummular dermatitis; I10 Essential (primary) hypertension; K58.1 Irritable bowel syndrome with constipation; Z95.2 Presence of prosthetic heart valve; Z79.01 Long term (current) use of anticoagulants
CPT/HCPCS: 36415; 36591; 71045; 71275; 80048; 80053; 81001; 82550; 83605; 83735; 83880; 84145; 84443; 84484; 85025; 85610; 85730; 87040; 87070; 87205; 87633; 93005; 93306; 94640; 94667; 94668; 94760; 94762; 96374; 97116; 97161; 97165; 99284; 99285; J0696; J1940; J7614; Q9967

== ENCOUNTER → 2019-05-17 14:16 | Outpatient (CLI) | payer OTHER, SELFPAY ==
[2019-03-09 18:21] VITALS: BMI 34.2
--- NOTE | 2019-05-17 | DI.CT.S_ITS ---
PROCEDURE: CT CHEST W CON INDICATIONS: Pleural effusion, not elsewhere classified TECHNIQUE: After the administration of intravenous contrast, 5 mm thick sections acquired from the pulmonary apices to the posterior costophrenic angles. 1 mm axial lung, 5 mm thick coronal and sagittal reformats and 7 mm axial MIP were acquired. For radiation dose reduction, the following was used: automated exposure control, adjustment of mA and/or kV according to patient size. COMPARISON: None. FINDINGS: Image quality: Excellent. Lungs and pleura: There is a small to moderate-sized left pleural effusion with infiltrate/atelectasis in posterior and lateral aspect of left upper and lower lobes. Right lung is clear. No pneumothorax. Central and peripheral airways are patent and normal in caliber. Mediastinum: Heart size is enlarged. No pericardial effusion. No mediastinal or hilar adenopathy by size criteria. Thoracic aorta and central pulmonary arteries are normal in size. Esophagus is normal in caliber. No hiatal hernia. Bones and chest wall: Median sternotomy wires are noted. No suspicious bony lesions. No vertebral body compression fractures. No axillary or supraclavicular adenopathy by size criteria. Thyroid gland is normal in size. 6 mm hypodense nodule involving the upper pole of left thyroid lobe is seen. Abdomen: There is evidence of prior gastric banding. Numerous hypodensities are seen scattered in liver parenchyma, unchanged from previous studies and may represent hepatic cysts. IMPRESSION: 1. Small to moderate left pleural effusion with infiltrate/atelectasis in posterior and lateral aspect of left upper and lower lobes. Right lung is clear. 2. Cardiomegaly. Prior CABG surgery. No mediastinal or hilar lymphadenopathy. 3. Stable appearing hypodensities scattered in liver parenchyma and likely represent hepatic cysts. Dictated by: Raúl Bear M.D. on 05/17/2019 at 16:04 Approved by: Raúl Bear M.D. on 05/17/2019 at 16:27
== END ==
PROVIDERS: PCP Family Medicine; Visit Provider Internal Medicine Critical Care Medicine
DX: J90 Pleural effusion, not elsewhere classified (principal); I51.7 Cardiomegaly; E04.1 Nontoxic single thyroid nodule; Z95.1 Presence of aortocoronary bypass graft; Z98.84 Bariatric surgery status
CPT/HCPCS: 71260; Q9967

== ENCOUNTER 2019-07-19 15:27 | Emergency (ER) | payer OTHER, SELFPAY ==
[2019-03-09 18:21] VITALS: BMI 34.2
[2019-07-19 15:37] VITALS: BP 129/86; PULSE 111; RESP 24; TEMP 37.2; O2SAT 97; BMI 32.8
[2019-07-19 16:18] LABS: Add Manual Diff / Slide Review NO; Basophils Absolute Auto 100 /uL (0-100); Basophils Percent Auto 1.2 % (0-2); Eosinophils Absolute Auto 300 /uL (0-450); Eosinophils Percent Auto 4.3 % (2-4); Hematocrit 31.8 % (36-46); Hemoglobin 10.1 g/dL (12.0-16.0); Lymphocytes Absolute Auto 700 /uL (1100-4500); Lymphocytes Percent Auto 9.8 % (25-40); Mean Corpuscular HGB Conc 31.8 % (30-36); Mean Corpuscular Hemoglobin 26.3 PG (26-34); Mean Corpuscular Volume 82.9 fL (80-100); Monocytes Absolute Auto 400 /uL (0-900); Monocytes Percent Auto 6.2 % (3-14); Neutrophils Absolute Auto 5600 /uL (1500-7000); Neutrophils Percent Auto 78.5 % (50-75); Platelet Count 242 X10^3/uL (150-400); Red Blood Cell Count 3.84 X10^6/uL (4.0-5.2); Red Cell Distribution Width 14.8 % (11.6-14.8); White Blood Cell Count 7.1 X10^3/uL (4.5-11.0)
[2019-07-19 16:23] LABS: INR 1.6 (0.9-1.3)
[2019-07-19 16:28] LABS: Alanine Aminotransferase 9 IU/L (<35); Albumin Globulin Ratio 1.1 (1.0-2.8); Alkaline Phosphatase 84 U/L (38-126); Aspartate Aminotransferase 21 IU/L (14-36); BUN Creatinine Ratio 33.8 (6-22); Bilirubin Total 0.6 mg/dL (0.2-1.3); Blood Urea Nitrogen 27 mg/dL (7-17); Calcium 9.2 mg/dL (8.4-10.2); Carbon Dioxide 31 mmol/L (22-32); Chloride 102 mmol/L (98-107); Estimated Glomerular Filt Rate > 60.0 mL/min (>60); Globulin 3.8 g/dL (1.7-4.1); Glucose 130 mg/dL (80-110); HEMOLYSIS < 15 (0-50); Potassium 4.3 mmol/L (3.4-5.1); Sodium 141 mmol/L (137-145); Total Protein 7.8 g/dL (6.3-8.2)
[2019-07-19 16:36] LABS: PTT Partial Thromboplastin Tim 73 SECONDS (26.4-36.2)
[2019-07-19 17:10] VITALS: BP 122/75; BP 129/74; BP 137/72
[2019-07-19 17:30] VITALS: BP 117/58; PULSE 80; RESP 17; O2SAT 97
--- NOTE | 2019-07-19 18:26 | ED_ITS ---
HPI - GI Bleed General Chief complaint: GI Bleed Stated complaint: rectal bleeding, states anemic Time Seen by Provider: 07/19/19 16:38 Source: patient Mode of arrival: Ambulatory Limitations: no limitations History of Present Illness HPI Narrative: Patient comes emergency department complaining of seeing some blood when she had a bowel movement. She states that she noticed some blood on the toilet paper and a couple of trips in the bowl. Patient states she is concerned because she has history of anemia and wants to make sure that she is not losing blood in a significant amount. Patient denies any nausea vomiting. No abdominal pain. No fevers. No shortness of breath or chest pain. No fatigue. No lightheadedness. No fluid loss from anything else. Patient denies any current leakage of blood onto her underwear in between bowel movements. She states she has only noticed the blood in her stool once recently, though she has had episodes like this before, and is currently scheduled for colonoscopy at the end of the month for this reason. No other complaints at this time. The patient states she is not currently on iron infusions and does not require blood transfusions. Related Data Home Medications Medication Instructions Recorded Confirmed Linzess 290 mg PO DAILY 03/09/19 07/19/19 Lovaza/Flaxseed Oil 1 tab PO DAILY 03/09/19 03/09/19 [place]-3 2,000 mg PO DAILY 03/09/19 03/09/19 Pradaxa 150 mg PO BID 03/09/19 07/19/19 PreserVision AREDS 2 tab PO DAILY 03/09/19 03/09/19 VSL#3 1 cap PO DAILY 03/09/19 03/09/19 cholecalciferol (vitamin D3) 4,000 unit PO DAILY 03/09/19 03/09/19 [Vitamin D3] clobetasol 1 applic TOPICAL DIRECTED 03/09/19 03/09/19 folic acid 1,200 mcg PO DAILY 03/09/19 03/09/19 hydroxychloroquine 200 mg PO DAILY 03/09/19 07/19/19 multivitamin 1 tab PO QWEEK 03/09/19 03/09/19 prednisone 5 mg PO DAILY 03/09/19 07/19/19 tramadol 50 mg PO BID PRN MDD 2 03/09/19 07/19/19 Previous Rx's Medication Instructions Recorded carvedilol 12.5 mg PO BID #60 tab 03/12/19 cefuroxime axetil 500 mg PO BID #8 tab 03/12/19 furosemide 40 mg PO DAILY #30 tab 03/12/19 ipratropium bromide [Atrovent HFA] 1 puff INHALATION BID-QID #12.9 03/12/19 gram levalbuterol tartrate [Xopenex HFA] 1 puff INHALATION Q4-6H PRN #15 03/12/19 gram potassium chloride 20 meq PO BID #60 tab 03/12/19 Allergies Allergy/AdvReac Type Severity Reaction Status Date / Time amiodarone Allergy Verified 07/19/19 15:37 dicloxacillin Allergy Verified 07/19/19 15:37 diltiazem [From Cartia XT] Allergy Verified 07/19/19 15:37 lubiprostone [From Amitiza] Allergy Verified 07/19/19 15:37 metoprolol Allergy Verified 07/19/19 15:37 sulfamethoxazole Allergy Verified 07/19/19 15:37 [From Bactrim] trimethoprim [From Bactrim] Allergy Verified 07/19/19 15:37 Review of Systems Constitutional Constitutional: Denies chills, Denies fatigue, Denies fever(s), Denies frequent falls, Denies lethargy and Denies weakness Eyes Eyes: Denies change in vision, Denies eye discharge, Denies irritation and Denies loss of vision ENT Ears, Nose, Mouth, and Throat: Denies change in voice, Denies dizziness, Denies neck pain, Denies sore throat and Denies throat swelling Cardiovascular Cardiovascular: Denies chest pain, Denies irregular heart rhythm, Denies lig htheadedness, Denies palpitations, Denies dyspnea, Denies dyspnea on exertion and Denies orthopnea Respiratory Respiratory: Denies cough, Denies dyspnea, Denies dyspnea on exertion and Denies wheezing Gastrointestinal Gastrointestinal: Denies abdominal pain, Denies change in bowel habits, Denies diarrhea, Denies nausea and Denies vomiting Comments: Blood in stool Genitourinary Genitourinary: Denies hematuria, Denies flank pain, Denies urinary incontinence and Denies urinary urgency Musculoskeletal Musculoskeletal: Denies back pain, Denies muscle weakness, Denies neck pain, Denies numbness and Denies tingling Integumentary/Breasts Skin/Breast: Denies pruritus, Denies erythema, Denies rash and Denies wounds Neurologic Neurologic: Denies behavioral changes, Denies confusion, Denies dizziness, Denies frequent falls, Denies loss of vision, Denies numbness, Denies tingling and Denies weakness Psychiatric Psychiatric: Denies anxiety, Denies behavioral changes, Denies confusion, Denies depression, Denies homicidal ideation and Denies suicidal ideation Endocrine Endocrine: Denies fatigue, Denies flushing and Denies palpitations Hematologic/Lymphatic Hematologic/Lymphatic: Denies easy bruising Allergic/Immunologic Allergic/Immunologic: Denies urticaria, Denies throat swelling and Denies wheezing Patient History Medical History Atrial fibrillation (Acute) Benign cutaneous periarteritis nodosa (Acute) Hypertension (Acute) Irritable bowel syndrome with constipation (Acute) Macular degeneration, left eye (Acute) Mitral valve disease (Acute) Nummular dermatitis (Acute) Surgical History History of aortic valve replacement (Acute) History of back surgery (Acute) History of cataract extraction (Acute) History of laparoscopic adjustable gastric banding (Acute) Social History marital status: household members: spouse Smoking Status: Former smoker alcohol intake frequency: holidays/special occasions only Substance Use Type: does not use Exam Initial Vital Signs Initial Vital Signs: Vital Signs Temperature 99.0 F 07/19/19 15:37 Pulse Rate 111 H 07/19/19 15:37 Respiratory Rate 24 07/19/19 15:37 Blood Pressure 129/86 07/19/19 15:37 Pulse Oximetry 97 07/19/19 15:37 Const General: cooperative and well developed Nutritional Appearance: well nourished Orientation: alert, awake, oriented x3 and not confused [facility] Head: normocephalic and atraumatic Ears: external ears normal and TM's normal bilaterally Nose: external nose normal and No nasal discharge Face and sinus: sinuses nontender, face symmetric, no sinus tenderness and No dry mucous membranes Mouth: oral mucosae normal and moist mucous membranes Teeth and gingiva: dentition normal Throat: tonsils normal and uvula midline Eyes General: appearance normal, both eyes and all related structures Eyelids: eyelids normal Conjunctivae: conjunctivae normal Sclera: sclerae normal Pupils: PERRL EOM: EOM intact bilaterally Neck Neck: normal visual inspection, trachea midline, No lymphadenopathy, No midline deformity and No JVD Lymphatic: No lymphedema Chest Chest: normal inspection of the chest Resp Effort & Inspection: normal respiratory effort, able to speak in complete sentences, no respiratory distress and no use of accessory muscles Auscultation: clear to auscultation bilaterally, no rales, no rhonchi and no wheezes Cardio Rate: regular rate Rhythm: regular rhythm Heart Sounds: no click, no gallops, no murmurs and no rubs Pulses: normal peripheral pulses GI Inspection: non-distended Palpation: soft, no hepatosplenomegaly, No guarding, No pulsatile mass and No tender Auscultation: normal bowel sounds Back/Spine/Pelvis Back: No CVA tenderness Cervical Spine: cervical ROM normal and No pain with cervical ROM Thoracic/Lumbar Spine: thoracic and lumbar spine normal to inspection Skin General: no rashes or lesions noted, No jaundice and No petechiae Neuro General: alert, oriented x3, gait normal and no focal motor deficits Speech: speech normal Extrem General: full ROM, no clubbing, cyanosis or edema, no pedal edema and no calf tenderness Psych Appearance: well kempt Mental Status: mental status grossly normal Attitude: cooperative Thought Content: normal and suicidality Judgment: judgment good Course Course Course Narrative: Patient was not currently bleeding at the time of her evaluation in the emergency department. I did work the patient up with labs, wh ich showed mild anemia with a hemoglobin of 10.1. This was about 2 g lower than the patient's last measurements back in February. Given that the patient was asymptomatic, other than seeing a mild amount of blood in her stool on 1 occasion, I suspected that this is most likely a gradual process of declining hemoglobin, rather than acute. I discussed with the patient that it would be helpful for her to be on some iron. We have discussed that the bleeding at this point is very very minor; however, if she begins to bleed heavily, she will need to return to the emergency department. Otherwise, she should follow up as planned for colonoscopy. Orders Ordered: ED Orders 07/19/19 16:03 Complete Blood Count AUTO DIFF Stat Comprehensive Metabolic Panel Stat Partial Thromboplastin Time Stat Prothrombin Time INR Stat Type and Screen Stat Vital Signs Vital signs: Vital Signs - 8 hr 07/19/19 15:37 07/19/19 17:10 07/19/19 17:30 Temperature 99.0 F Pulse Rate 111 H 80 Respiratory Rate 24 17 Blood Pressure 129/86 Blood Pressure [Left Arm] 117/58 L Blood Pressure [Orthostatic Lying] 122/75 Blood Pressure [Orthostatic Sitting] 129/74 Blood Pressure [Orthostatic Standing] 137/72 Pulse Oximetry 97 97 MDM - GI Bleed Lab Data Result diagrams: 07/19/19 16:03 07/19/19 16:03 Labs: Lab Results 07/19/19 07/19/19 07/19/19 Range/Units 16:03 16:03 16:03 WBC 7.1 (4.5-11.0) X10^3/uL RBC 3.84 L (4.0-5.2) X10^6/uL Hgb 10.1 L (12.0-16.0) g/dL Hct 31.8 L (36-46) % MCV 82.9 (80-100) fL MCH 26.3 (26-34) PG MCHC 31.8 (30-36) % RDW 14.8 (11.6-14.8) % Plt Count 242 (150-400) X10^3/uL Neut % (Auto) 78.5 H (50-75) % Lymph % (Auto) 9.8 L (25-40) % [place] % (Auto) 6.2 (3-14) % Eos % (Auto) 4.3 H (2-4) % Baso % (Auto) 1.2 (0-2) % Neut # (Auto) 5600 (5257-8811) /uL Lymph # (Auto) 700 L (1123-1478) /uL [place] # (Auto) 400 (0-900) /uL Eos # (Auto) 300 (0-450) /uL Baso # (Auto) 100 (0-100) /uL PT 19.0 H (10.1-12.7) SECONDS INR 1.6 H (0.9-1.3) APTT 73 H* D (26.4-36.2) SECONDS Sodium 141 (137-145) mmol/L Potassium 4.3 (3.4-5.1) mmol/L Chloride 102 (98-107) mmol/L Carbon Dioxide 31 (22-32) mmol/L BUN 27 H (7-17) mg/dL Creatinine 0.80 (0.52-1.04) mg/dL Estimated GFR > 60.0 (>60) mL/min BUN/Creatinine Ratio 33.8 H (6-22) Glucose 130 H (80-110) mg/dL Calcium 9.2 (8.4-10.2) mg/dL Total Bilirubin 0.6 (0.2-1.3) mg/dL AST 21 (14-36) IU/L ALT 9 (<35) IU/L Alkaline Phosphatase 84 (38-126) U/L Total Protein 7.8 (6.3-8.2) g/dL Albumin 4.0 (3.5-5.0) g/dL Globulin 3.8 (1.7-4.1) g/dL Albumin/Globulin Ratio 1.1 (1.0-2.8) Blood Type Antibody Screen 07/19/19 Range/Units 16:03 WBC (4.5-11.0) X10^3/uL RBC (4.0-5.2) X10^6/uL Hgb (12.0-16.0) g/dL Hct (36-46) % MCV (80-100) fL MCH (26-34) PG MCHC (30-36) % RDW (11.6-14.8) % Plt Count (150-400) X10^3/uL Neut % (Auto) (50-75) % Lymph % (Auto) (25-40) % [place] % (Auto) (3-14) % Eos % (Auto) (2-4) % Baso % (Auto) (0-2) % Neut # (Auto) (2064-0391) /uL Lymph # (Auto) (5409-0294) /uL [place] # (Auto) (0-900) /uL Eos # (Auto) (0-450) /uL Baso # (Auto) (0-100) /uL PT (10.1-12.7) SECONDS INR (0.9-1.3) APTT (26.4-36.2) SECONDS Sodium (137-145) mmol/L Potassium (3.4-5.1) mmol/L Chloride (98-107) mmol/L Carbon Dioxide (22-32) mmol/L BUN (7-17) mg/dL Creatinine (0.52-1.04) mg/dL Estimated GFR (>60) mL/min BUN/Creatinine Ratio (6-22) Glucose (80-110) mg/dL Calcium (8.4-10.2) mg/dL Total Bilirubin (0.2-1.3) mg/dL AST (14-36) IU/L ALT (<35) IU/L Alkaline Phosphatase (38-126) U/L Total Protein (6.3-8.2) g/dL Albumin (3.5-5.0) g/dL Globulin (1.7-4.1) g/dL Albumin/Globulin Ratio (1.0-2.8) Blood Type O Positive Antibody Screen Negative Urine Dip Bedside Urine Glucose Negative Bedside Urine Bilirubin - Negative Bedside Urine Ketone - Negative Urine Specific [place] 1.015 Bedside Urine Occult Blood - Negative Bedside Urine pH 6.0 Bedside Urine Protein - Negative Bedside Urine Urobilinogen - Negative Bedside Urine Nitrite - Negative Bedside Urine Leukocytes - Negative Esterase Discharge Plan Departure Patient Disposition: Home Clinical Impression: GI bleeding Qualifiers: GI bleed type/associated pathology: unspecified gastrointestinal hemorrhage type Qualified Code(s): K92.2 - Gastrointestinal hemorrhage, unspecified Anemia Qualifiers: Anemia type: iron deficiency Iron deficiency anemia type: chronic blood loss Qualified Code(s): D50.0 - Iron deficiency anemia secondary to blood loss (chronic) Discharge Date/Time: 07/19/19 19:00 Instructions: Gastrointestinal Bleeding Activity Restrictions/Additional Instructions: Your labs show that your hemoglobin (one of the measures of red blood cells) is improving since your last level was drawn. Your bleeding times are similar to what they were in February when they were last checked here. You should continue to take your iron supplements and stool softeners. Please continue your plan to follow up for your scopes later this month. Prescriptions: No Action multivitamin Tablet 1 tab PO QWEEK RF: 0 prednisone 5 mg Tablet 5 mg PO DAILY RF: 0 folic acid 400 mcg Tablet 1,200 mcg PO DAILY RF: 0 tramadol 50 mg Tablet 50 mg PO BID MDD 2 PRN (Reason: PAIN) RF: 0 hydroxychloroquine 200 mg Tablet 200 mg PO DAILY RF: 0 clobetasol 0.05 % Solution 1 applic TOPICAL DIRECTED RF: 0 VSL#3 112.5 billion cell Capsule 1 cap PO DAILY RF: 0 cholecalciferol (vitamin D3) [Vitamin D3] 2,000 unit Tablet 4,000 unit PO DAILY RF: 0 Pradaxa 150 mg Capsule 150 mg PO BID RF: 0 Linzess 290 mcg Capsule 290 mg PO DAILY RF: 0 Lovaza/Flaxseed Oil 1,200 mg 1 tab PO DAILY RF: 0 [place]-3 1,000 MG 2,000 mg PO DAILY RF: 0 PreserVision AREDS 2 tab PO DAILY RF: 0 cefuroxime axetil 500 mg tablet 500 mg PO BID Qty: 8 RF: 0 furosemide 40 mg tablet 40 mg PO DAILY Qty: 30 RF: 0 carvedilol 12.5 mg tablet 12.5 mg PO BID Qty: 60 RF: 0 potassium chloride 20 mEq tablet,ER particles/crystals 20 meq PO BID Qty: 60 RF: 0 levalbuterol tartrate [Xopenex HFA] 45 mcg/actuation HFA aerosol inhaler 1 puff INHALATION Q4-6H PRN (Reason: shortness of breath or wheezing) Qty: 15 RF: 0 Atrovent HFA 17 mcg/actuation HFA aerosol inhaler 1 puff INHALATION BID-QID Qty: 12.9 RF: 0 Referrals: Pradeep Bass MD [Primary Care Provider] -
[2019-07-19 18:58] VITALS: PULSE 107; RESP 16; O2SAT 97
== END 2019-07-19 19:00 | disposition home or self-care (01) ==
PROVIDERS: Emergency Provider Emergency Medicine; Family Provider Family Medicine; PCP Family Medicine
DX: K92.2 Gastrointestinal hemorrhage, unspecified (principal); D50.0 Iron deficiency anemia secondary to blood loss (chronic)
CPT/HCPCS: 36415; 80053; 81003; 85025; 85610; 85730; 86850; 86900; 86901; 99282; 99283

== ENCOUNTER 2019-08-06 17:39 | Emergency (ER) | payer OTHER, SELFPAY ==
[2019-03-09 18:21] VITALS: BMI 34.2
[2019-08-06 17:50] VITALS: BP 134/82; PULSE 106; RESP 20; TEMP 36.5; O2SAT 96; BMI 32.4
--- NOTE | 2019-08-06 18:21 | ED.EXTPRO ---
HPI - Extremity Problem General Chief complaint: Extremity Problem,Nontraumatic Stated complaint: swelling in ankles,weaping,kidney pain Time Seen by Provider: 08/06/19 18:04 Source: patient Mode of arrival: Ambulatory Limitations: no limitations History of Present Illness HPI Narrative: 78-year-old female here for evaluation of bilateral lower extremity swelling. Patient states she is scheduled for colonoscopy just after Cammy and she is concerned that the swelling in her lower extremities may injure this. States that she is scheduled for a colonoscopy because she has been told that she has been anemic in the past. She is currently on Lasix. She had increase in her Lasix recommended by her primary doctor approximately 10 days ago. Patient also describes a right-sided kidney pain. No urinary symptoms. Related Data Home Medications Medication Instructions Recorded Confirmed Linzess 290 mg PO DAILY 03/09/19 07/19/19 Lovaza/Flaxseed Oil 1 tab PO DAILY 03/09/19 03/09/19 Sebastian-3 2,000 mg PO DAILY 03/09/19 03/09/19 Pradaxa 150 mg PO BID 03/09/19 07/19/19 PreserVision AREDS 2 tab PO DAILY 03/09/19 03/09/19 VSL#3 1 cap PO DAILY 03/09/19 03/09/19 cholecalciferol (vitamin D3) 4,000 unit PO DAILY 03/09/19 03/09/19 [Vitamin D3] clobetasol 1 applic TOPICAL DIRECTED 03/09/19 03/09/19 folic acid 1,200 mcg PO DAILY 03/09/19 03/09/19 hydroxychloroquine 200 mg PO DAILY 03/09/19 07/19/19 multivitamin 1 tab PO QWEEK 03/09/19 03/09/19 prednisone 5 mg PO DAILY 03/09/19 07/19/19 tramadol 50 mg PO BID PRN MDD 2 03/09/19 07/19/19 Previous Rx's Medication Instructions Recorded carvedilol 12.5 mg PO BID #60 tab 03/12/19 cefuroxime axetil 500 mg PO BID #8 tab 03/12/19 furosemide 40 mg PO DAILY #30 tab 03/12/19 ipratropium bromide [Atrovent HFA] 1 puff INHALATION BID-QID #12.9 03/12/19 gram levalbuterol tartrate [Xopenex HFA] 1 puff INHALATION Q4-6H PRN #15 03/12/19 gram potassium chloride 20 meq PO BID #60 tab 03/12/19 Allergies Allergy/AdvReac Type Severity Reaction Status Date / Time amiodarone Allergy Verified 08/06/19 17:50 dicloxacillin Allergy Verified 08/06/19 17:50 diltiazem [From Cartia XT] Allergy Verified 08/06/19 17:50 lubiprostone [From Amitiza] Allergy Verified 08/06/19 17:50 metoprolol Allergy Verified 08/06/19 17:50 sulfamethoxazole Allergy Verified 08/06/19 17:50 [From Bactrim] trimethoprim [From Bactrim] Allergy Verified 08/06/19 17:50 Review of Systems Constitutional Constitutional: Denies fever(s) Cardiovascular Cardiovascular: Denies chest pain and Denies dyspnea Respiratory Respiratory: Denies cough and Denies dyspnea Gastrointestinal Gastrointestinal: Denies abdominal pain, Denies change in stool character, Denies nausea and Denies vomiting Genitourinary Genitourinary: Denies dysuria Musculoskeletal Musculoskeletal: Denies myalgias and Denies arthralgias Comments: Lower extremity edema Integumentary/Breasts Skin/Breast: Denies lesions and Denies rash Neurologic Neurologic: Denies behavioral changes Psychiatric Psychiatric: Denies behavioral changes Hematologic/Lymphatic Hematologic/Lymphatic: Denies easy bleeding and Denies easy bruising Patient History Medical History Atrial fibrillation (Acute) Benign cutaneous periarteritis nodosa (Acute) Hypertension (Acute) Irritable bowel syndrome with constipation (Acute) Macular degeneration, left eye (Acute) Mitral valve disease (Acute) Nummular dermatitis (Acute) Surgical History History of aortic valve replacement (Acute) History of back surgery (Acute) History of cataract extraction (Acute) History of laparoscopic adjustable gastric banding (Acute) Social History marital status: household members: spouse Smoking Status: Former smoker Smoking Status: Former smoker alcohol intake frequency: holidays/special occasions only Substance Use Type: does not use Exam Initial Vital Signs Initial Vital Signs: Vital Signs Temperature 97.7 F 08/06/19 17:50 Pulse Rate 106 H 08/06/19 17:50 Respiratory Rate 20 08/06/19 17:50 Blood Pressure 134/82 08/06/19 17:50 Pulse Oximetry 96 08/06/19 17:50 Const General: cooperative and comfortable Orientation: alert and awake HENMT Head: normal to inspection and normocephalic Resp Effort & Inspection: normal respiratory effort Auscultation: clear to auscultation bilaterally Cardio Rate: tachycardic Rhythm: abnormal rhythm irregularly irregular Skin Lesions: no lesions Rashes: no rashes Neuro General: alert and awake Cognition: normal cognition Speech: speech normal Extrem General: capillary refill normal and pedal edema Psych Appearance: grossly normal and well kempt Course Orders Ordered: ED Orders 08/06/19 18:46 B Type Natriuretic Peptide Stat Complete Blood Count AUTO DIFF Stat Comprehensive Metabolic Panel Stat Lipase Stat Partial Thromboplastin Time Stat Prothrombin Time INR Stat Vital Signs Vital signs: Vital Signs - 8 hr 08/06/19 19:57 Pulse Rate 100 H Respiratory Rate 16 Blood Pressure [Left Arm] 116/90 Pulse Oximetry 99 MDM - Extremity (Nontraumatic) Medical Records Attestation: I reviewed the patient's medical records. Lab Data Attestation: I reviewed the patient's lab results. Result diagrams: 08/06/19 18:46 08/06/19 18:46 Labs: Lab Results 08/06/19 08/06/19 08/06/19 Range/Units 18:46 18:46 18:46 WBC 5.4 (4.5-11.0) X10^3/uL RBC 3.94 L (4.0-5.2) X10^6/uL Hgb 10.2 L (12.0-16.0) g/dL Hct 32.0 L (36-46) % MCV 81.1 (80-100) fL MCH 25.9 L (26-34) PG MCHC 31.9 (30-36) % RDW 15.1 H (11.6-14.8) % Plt Count 246 (150-400) X10^3/uL Neut % (Auto) 75.7 H (50-75) % Lymph % (Auto) 13.1 L (25-40) % Bonner % (Auto) 6.8 (3-14) % Eos % (Auto) 3.1 (2-4) % Baso % (Auto) 1.3 (0-2) % Neut # (Auto) 4100 (4958-7777) /uL Lymph # (Auto) 700 L (4941-1353) /uL Bonner # (Auto) 400 (0-900) /uL Eos # (Auto) 200 (0-450) /uL Baso # (Auto) 100 (0-100) /uL PT 25.8 H (10.1-12.7) SECONDS INR 2.2 H (0.9-1.3) APTT 96 H* D (26.4-36.2) SECONDS Sodium 137 (137-145) mmol/L Potassium 3.6 (3.4-5.1) mmol/L Chloride 95 L (98-107) mmol/L Carbon Dioxide 32 (22-32) mmol/L BUN 24 H (7-17) mg/dL Creatinine 0.70 (0.52-1.04) mg/dL Estimated GFR > 60.0 (>60) mL/min BUN/Creatinine Ratio 34.3 H (6-22) Glucose 116 H (80-110) mg/dL Calcium 9.2 (8.4-10.2) mg/dL Total Bilirubin 0.5 (0.2-1.3) mg/dL AST 25 (14-36) IU/L ALT 10 (<35) IU/L Alkaline Phosphatase 89 (38-126) U/L B-Natriuretic Peptide 299 H (<100) Total Protein 7.6 (6.3-8.2) g/dL Albumin 3.9 (3.5-5.0) g/dL Globulin 3.7 (1.7-4.1) g/dL Albumin/Globulin Ratio 1.1 (1.0-2.8) Lipase 94 (23-300) U/L Urine Dip Bedside Urine Glucose Negative Bedside Urine Bilirubin - Negative Bedside Urine Ketone - Negative Urine Specific Dexter 1.010 Bedside Urine Occult Blood - Negative Bedside Urine pH 7.0 Bedside Urine Protein - Negative Bedside Urine Urobilinogen - Negative Bedside Urine Nitrite - Negative Bedside Urine Leukocytes - Negative Esterase [facility] Narrative Medical decision making narrative: Patient not clinically in heart failure. She is slightly tachycardic but has a history of AFib and is currently in AFib. Her creatinine and electrolytes are unremarkable. Her lower extremity swelling is bilateral. Low suspicion for DVT. No signs of cellulitis. I do suspect this is just peripheral edema potentially from heart failure issue. She states she had an echocardiogram earlier this year which showed that everything was okay. I do not feel that the lower extremity swelling is going to delay her colonoscopy. She is not anemic. No indication for blood transfusion. We will hold on further workup for now. Provided reassurance to the patient. She expressed understanding and agreement with plan. Discharge Plan Departure Patient Disposition: Home Clinical Impression: Edema Qualifiers: Edema type: unspecified Qualified Code(s): R60.9 - Edema, unspecified Discharge Date/Time: 08/06/19 19:55 Instructions: DI for Peripheral Edema -- Bilateral Activity Restrictions/Additional Instructions: Continue all of your medications as directed. Keep all of your scheduled medical appointments. Return to the ER for any new or worsening symptoms. Prescriptions: No Action multivitamin Tablet 1 tab PO QWEEK RF: 0 prednisone 5 mg Tablet 5 mg PO DAILY RF: 0 folic acid 400 mcg Tablet 1,200 mcg PO DAILY RF: 0 tramadol 50 mg Tablet 50 mg PO BID MDD 2 PRN (Reason: PAIN) RF: 0 hydroxychloroquine 200 mg Tablet 200 mg PO DAILY RF: 0 clobetasol 0.05 % Solution 1 applic TOPICAL DIRECTED RF: 0 VSL#3 112.5 billion cell Capsule 1 cap PO DAILY RF: 0 cholecalciferol (vitamin D3) [Vitamin D3] 2,000 unit Tablet 4,000 unit PO DAILY RF: 0 Pradaxa 150 mg Capsule 150 mg PO BID RF: 0 Linzess 290 mcg Capsule 290 mg PO DAILY RF: 0 Lovaza/Flaxseed Oil 1,200 mg 1 tab PO DAILY RF: 0 Sebastian-3 1,000 MG 2,000 mg PO DAILY RF: 0 PreserVision AREDS 2 tab PO DAILY RF: 0 cefuroxime axetil 500 mg tablet 500 mg PO BID Qty: 8 RF: 0 furosemide 40 mg tablet 40 mg PO DAILY Qty: 30 RF: 0 carvedilol 12.5 mg tablet 12.5 mg PO BID Qty: 60 RF: 0 potassium chloride 20 mEq tablet,ER particles/crystals 20 meq PO BID Qty: 60 RF: 0 levalbuterol tartrate [Xopenex HFA] 45 mcg/actuation HFA aerosol inhaler 1 puff INHALATION Q4-6H PRN (Reason: shortness of breath or wheezing) Qty: 15 RF: 0 Atrovent HFA 17 mcg/actuation HFA aerosol inhaler 1 puff INHALATION BID-QID Qty: 12.9 RF: 0 Referrals: Pradeep Bass MD [Primary Care Provider] -
[2019-08-06 19:10] LABS: Add Manual Diff / Slide Review NO; Basophils Absolute Auto 100 /uL (0-100); Basophils Percent Auto 1.3 % (0-2); Eosinophils Absolute Auto 200 /uL (0-450); Eosinophils Percent Auto 3.1 % (2-4); Hemoglobin 10.2 g/dL (12.0-16.0); Lymphocytes Absolute Auto 700 /uL (1100-4500); Lymphocytes Percent Auto 13.1 % (25-40); Mean Corpuscular HGB Conc 31.9 % (30-36); Mean Corpuscular Hemoglobin 25.9 PG (26-34); Mean Corpuscular Volume 81.1 fL (80-100); Monocytes Absolute Auto 400 /uL (0-900); Monocytes Percent Auto 6.8 % (3-14); Neutrophils Absolute Auto 4100 /uL (1500-7000); Neutrophils Percent Auto 75.7 % (50-75); Platelet Count 246 X10^3/uL (150-400); Red Blood Cell Count 3.94 X10^6/uL (4.0-5.2); Red Cell Distribution Width 15.1 % (11.6-14.8); White Blood Cell Count 5.4 X10^3/uL (4.5-11.0)
[2019-08-06 19:17] LABS: INR 2.2 (0.9-1.3); Prothrombin Time 25.8 SECONDS (10.1-12.7)
[2019-08-06 19:21] LABS: Alanine Aminotransferase 10 IU/L (<35); Albumin 3.9 g/dL (3.5-5.0); Albumin Globulin Ratio 1.1 (1.0-2.8); Alkaline Phosphatase 89 U/L (38-126); Aspartate Aminotransferase 25 IU/L (14-36); BUN Creatinine Ratio 34.3 (6-22); Bilirubin Total 0.5 mg/dL (0.2-1.3); Blood Urea Nitrogen 24 mg/dL (7-17); Calcium 9.2 mg/dL (8.4-10.2); Carbon Dioxide 32 mmol/L (22-32); Chloride 95 mmol/L (98-107); Estimated Glomerular Filt Rate > 60.0 mL/min (>60); Globulin 3.7 g/dL (1.7-4.1); Glucose 116 mg/dL (80-110); HEMOLYSIS < 15 (0-50); Lipase 94 U/L (23-300); Potassium 3.6 mmol/L (3.4-5.1); Sodium 137 mmol/L (137-145); Total Protein 7.6 g/dL (6.3-8.2)
[2019-08-06 19:24] LABS: PTT Partial Thromboplastin Tim 96 SECONDS (26.4-36.2)
[2019-08-06 19:45] LABS: B Type Natriuretic Peptide 299 (<100)
[2019-08-06 19:57] VITALS: BP 116/90; PULSE 100; RESP 16; O2SAT 99
== END 2019-08-06 19:55 | disposition home or self-care (01) ==
PROVIDERS: Emergency Provider Emergency Medicine; Family Provider Family Medicine; PCP Family Medicine
DX: R60.0 Localized edema (principal)
CPT/HCPCS: 36415; 80053; 81003; 83690; 83880; 85025; 85610; 85730; 99282; 99283

== ENCOUNTER → 2019-11-03 10:50 | Outpatient (ROUT) | payer OTHER, SELFPAY ==
[2019-03-09 18:21] VITALS: BMI 34.2
[2019-11-03 11:09] LABS: Add Manual Diff / Slide Review NO; Basophils Absolute Auto 100 /uL (0-100); Basophils Percent Auto 0.9 % (0-2); Eosinophils Absolute Auto 300 /uL (0-450); Eosinophils Percent Auto 5.2 % (2-4); Hemoglobin 12.1 g/dL (12.0-16.0); Lymphocytes Absolute Auto 1400 /uL (1100-4500); Lymphocytes Percent Auto 25.2 % (25-40); Mean Corpuscular HGB Conc 31.8 % (30-36); Mean Corpuscular Hemoglobin 26.7 PG (26-34); Mean Corpuscular Volume 84.1 fL (80-100); Monocytes Absolute Auto 700 /uL (0-900); Monocytes Percent Auto 12.4 % (3-14); Neutrophils Absolute Auto 3100 /uL (1500-7000); Neutrophils Percent Auto 56.3 % (50-75); Platelet Count 191 X10^3/uL (150-400); Red Blood Cell Count 4.52 X10^6/uL (4.0-5.2); Red Cell Distribution Width 19.8 % (11.6-14.8); White Blood Cell Count 5.6 X10^3/uL (4.5-11.0)
[2019-11-03 13:59] LABS: Total Iron Binding Capacity 270 ug/dL (265-497)
== END ==
PROVIDERS: Family Provider Family Medicine; PCP Family Medicine; Visit Provider Internal Medicine Gastroenterology
DX: D50.9 Iron deficiency anemia, unspecified (principal)
CPT/HCPCS: 83550; 85025

== ENCOUNTER 2019-12-14 18:40 | Emergency (ER) | payer OTHER, SELFPAY ==
[2019-03-09 18:21] VITALS: BMI 34.2
[2019-12-14 18:50] VITALS: BP 153/84; PULSE 113; RESP 24; TEMP 36.6; O2SAT 97; BMI 32.5
--- NOTE | 2019-12-14 18:59 | ED.GIBLEED ---
HPI - GI Bleed <Caitlin JenkinsAIDAN - Last Filed: 12/14/19 22:44> General Chief complaint: GI Bleed Stated complaint: prolonged rectal bleeding Time Seen by Provider: 12/14/19 18:50 History of Present Illness HPI Narrative: 79-year-old female currently on Pradaxa, with history of chronic constipation, hemorrhoids, diverticulosis, presents to the emergency department complaining of increased blood in her stool for the past 3 days. She states she has chronic constipation and takes many medications to stay irregular and occasionally gets bright red blood on her stool from straining. However, she has noticed over the past 3 days she has had increase in the amount of blood. She states it is bright red and she notes it is on her stool, in the foot, and on the toilet paper. She has seen small clots over the past few days as well. Patient reports that she sees blood in the toilet and on the toilet paper with just urinating. She denies any random bleeding when not voiding or defecating. Patient reports she was worried that she has been bleeding like this for the past 3 days, today she woke up feeling slightly disoriented. She does report some occasional abdominal pain that is a dull aching in her lower abdomen. She states her last bowel movement was this morning and it was formed, no diarrhea. She denies any fevers, chills, vomiting, nausea, chest pain, shortness of breath, cough, or any other concerns. Patient states she had a colonoscopy in July and was diagnosed with internal hemorrhoids and diverticulosis, she had a small amount of polyps removed. Related Data Home Medications Medication Instructions Recorded Confirmed Linzess 290 mg PO DAILY 03/09/19 07/19/19 Lovaza/Flaxseed Oil 1 tab PO DAILY 03/09/19 03/09/19 [place]-3 2,000 mg PO DAILY 03/09/19 03/09/19 Pradaxa 150 mg PO BID 03/09/19 07/19/19 PreserVision AREDS 2 tab PO DAILY 03/09/19 03/09/19 VSL#3 1 cap PO DAILY 03/09/19 03/09/19 cholecalciferol (vitamin D3) 4,000 unit PO DAILY 03/09/19 03/09/19 [Vitamin D3] clobetasol 1 applic TOPICAL DIRECTED 03/09/19 03/09/19 folic acid 1,200 mcg PO DAILY 03/09/19 03/09/19 hydroxychloroquine 200 mg PO DAILY 03/09/19 07/19/19 multivitamin 1 tab PO QWEEK 03/09/19 03/09/19 prednisone 5 mg PO DAILY 03/09/19 07/19/19 tramadol 50 mg PO BID PRN MDD 2 03/09/19 07/19/19 Previous Rx's Medication Instructions Recorded carvedilol 12.5 mg PO BID #60 tab 03/12/19 cefuroxime axetil 500 mg PO BID #8 tab 03/12/19 furosemide 40 mg PO DAILY #30 tab 03/12/19 ipratropium bromide [Atrovent HFA] 1 puff INHALATION BID-QID #12.9 03/12/19 gram levalbuterol tartrate [Xopenex HFA] 1 puff INHALATION Q4-6H PRN #15 03/12/19 gram potassium chloride 20 meq PO BID #60 tab 03/12/19 omeprazole 20 mg PO DAILY 2 Days #14 cap 12/14/19 Allergies Allergy/AdvReac Type Severity Reaction Status Date / Time amiodarone Allergy Verified 08/06/19 17:50 dicloxacillin Allergy Verified 08/06/19 17:50 diltiazem [From Cartia XT] Allergy Verified 08/06/19 17:50 lubiprostone [From Amitiza] Allergy Verified 08/06/19 17:50 metoprolol Allergy Verified 08/06/19 17:50 sulfamethoxazole Allergy Verified 08/06/19 17:50 [From Bactrim] trimethoprim [From Bactrim] Allergy Verified 08/06/19 17:50 Review of Systems <AIDAN Minaya - Last Filed: 12/14/19 22:44> Review of Systems Narrative: REVIEW OF SYSTEMS: GENERAL: Denies fever, chills, malaise, or wt. loss. HENT: No head trauma or sore throat. EYES: No vision changes. CARDIOVASCULAR: No chest pain. RESPIRATORY: No shortness of breath or cough. GASTROINTESTINAL: Complains of bright red blood per rectum and abdominal pain, see HPI. GENITOURINARY: No flank pain or dysuria MUSCULOSKELETAL: No pain, weakness, or trauma. INTEGUMENTARY: No rash, lesions, or pruritus. NEURO: No numbness, tingling, memory loss, confusion, or headaches. PSYCH: No behavior or mood changes. Patient History <AIDAN Minaya - Last Filed: 12/14/19 22:44> Medical History Atrial fibrillation (Acute) Benign cutaneous periarteritis nodosa (Acute) Hypertension (Acute) Irritable bowel syndrome with constipation (Acute) Macular degeneration, left eye (Acute) Mitral valve disease (Acute) Nummular dermatitis (Acute) Surgical History History of aortic valve replacement (Acute) History of back surgery (Acute) History of cataract extraction (Acute) History of laparoscopic adjustable gastric banding (Acute) Social History marital status: household members: spouse Smoking Status: Former smoker Smoking Status: Former smoker alcohol intake frequency: holidays/special occasions only Substance Use Type: does not use Exam <AIDAN Minaya - Last Filed: 12/14/19 22:44> Initial Vital Signs Initial Vital Signs: Vital Signs Temperature 97.8 F 12/14/19 18:50 Pulse Rate 113 H 12/14/19 18:50 Respiratory Rate 24 12/14/19 18:50 Blood Pressure 153/84 H 12/14/19 18:50 Pulse Oximetry 97 12/14/19 18:50 PHYSICAL EXAMINATION: GENERAL: Well groomed, alert, and cooperative. Answers questions promptly and appropriately. Vital signs noted. Patient changes positions from sitting to standing without report of symptoms or difficulty. HENT: Normocephalic, atraumatic. Hearing intact. Oral mucosa is pink and moist. EYES: Conjunctiva pink, sclera white, no periorbital swelling. CARDIOVASCULAR: Regular rate. RESPIRATORY: Normal respiratory rate, trachea midline, airway patent. No stridor, nasal flaring or accessory muscle use. Lungs are clear in all cardoza without wheeze, rhonchi, or crackles. GASTROINTESTINAL: Bowel sounds normoactive. Abdomen is soft left lower quadrant tenderness with palpation. No organomegaly, no palpable masses. RECTAL: No external hemorrhoid visualized, gross blood noted on examination. MUSCULOSKELETAL: Normal gait and coordination. Equal tone and mass bilaterally. EXTREMITIES: CMS intact, no pedal edema. SKIN: Warm, dry, soft, appropriate color for ethnicity. No lesions, rashes, or wounds to visualized areas. NEURO: Alert and Oriented X 3. Good coordination. No ataxia, or sensory deficits, or cognitive issues. PSYCH: Appropriate affect and mood. <Orestes Infante DO - Last Filed: 12/15/19 00:41> Initial Vital Signs Initial Vital Signs: Vital Signs Temperature 97.8 F 12/14/19 18:50 Pulse Rate 113 H 12/14/19 18:50 Respiratory Rate 24 12/14/19 18:50 Blood Pressure 153/84 H 12/14/19 18:50 Pulse Oximetry 97 12/14/19 18:50 Course <AIDAN Minaya - Last Filed: 12/14/19 22:44> Orders Ordered: ED Orders 12/14/19 18:58 CT abdomen pelvis w con Stat 12/14/19 19:32 Complete Blood Count AUTO DIFF Stat Comprehensive Metabolic Panel Stat Partial Thromboplastin Time Stat Prothrombin Time INR Stat Type and Screen Stat 12/14/19 19:56 EKG-12 Lead Stat 12/14/19 21:50 Hemoglobin and Hematocrit Stat Discontinued Medications Sodium Chloride (Normal Saline 0.9%) 1,000 mls @ 125 mls/hr IV CONT SADI Last Admin: 12/14/19 21:15 Dose: 125 mls/hr Documented by: KRISTA Pantoprazole Sodium (Protonix) 40 mg IV NOW ONE Stop: 12/14/19 21:31 Last Admin: 12/14/19 22:00 Dose: 40 mg Documented by: KRISTA Consultations Consultation #1: Patient staffed with Dr. Infante discussed test, test results, and plan of care. Test was sent and out to Dr. Infante at 2200 for observation of repeat labs. 2243: Spoke with Dr. Mejia, no concerns for need of surgical intervention at this time after discussing patient's symptoms, laboratory findings, and plan of care. 2244: Spoke with Jorgito BERMUDEZ, discussed patient does not necessarily me admission criteria after discussing laboratory findings. Vital Signs Vital signs: Vital Signs - 8 hr 12/14/19 18:50 12/14/19 19:28 12/14/19 21:15 Temperature 97.8 F Pulse Rate 113 H 120 H 99 H Respiratory Rate 24 25 H 16 Blood Pressure 153/84 H Blood Pressure [Right Arm] 153/84 H 143/102 H Pulse Oximetry 97 96 95 12/14/19 21:24 12/14/19 23:05 Temperature Pulse Rate 97 H 114 H Respiratory Rate 16 24 Blood Pressure Blood Pressure [Right Arm] 131/66 145/84 H Pulse Oximetry 95 96 <Orestes Infante DO - Last Filed: 12/15/19 00:41> Orders Ordered: ED Orders 12/14/19 18:58 CT abdomen pelvis w con Stat 12/14/19 19:32 Complete Blood Count AUTO DIFF Stat Comprehensive Metabolic Panel Stat Partial Thromboplastin Time Stat Prothrombin Time INR Stat Type and Screen Stat 12/14/19 19:56 EKG-12 Lead Stat 12/14/19 21:50 Hemoglobin and Hematocrit Stat Discontinued Medications Sodium Chloride (Normal Saline 0.9%) 1,000 mls @ 125 mls/hr IV CONT SADI Last Admin: 12/14/19 21:15 Dose: 125 mls/hr Documented by: KRISTA Pantoprazole Sodium (Protonix) 40 mg IV NOW ONE Stop: 12/14/19 21:31 Last Admin: 12/14/19 22:00 Dose: 40 mg Documented by: KRISTA Vital Signs Vital signs: Vital Signs - 8 hr 12/14/19 18:50 12/14/19 19:28 12/14/19 21:15 Temperature 97.8 F Pulse Rate 113 H 120 H 99 H Respiratory Rate 24 25 H 16 Blood Pressure 153/84 H Blood Pressure [Right Arm] 153/84 H 143/102 H Pulse Oximetry 97 96 95 12/14/19 21:24 12/14/19 23:05 Temperature Pulse Rate 97 H 114 H Respiratory Rate 16 24 Blood Pressure Blood Pressure [Right Arm] 131/66 145/84 H Pulse Oximetry 95 96 MDM - GI Bleed <AIDAN Minaya - Last Filed: 12/14/19 22:44> Medical Records Attestation: I reviewed the patient's medical records. Lab Data Attestation: I reviewed the patient's lab results. Result diagrams: 12/14/19 21:50 12/14/19 19:32 Labs: Lab Results 12/14/19 12/14/19 12/14/19 Range/Units 19:32 19:32 19:32 WBC 5.9 (4.5-11.0) X10^3/uL RBC 4.48 (4.0-5.2) X10^6/uL Hgb 12.8 (12.0-16.0) g/dL Hct 39.0 (36-46) % MCV 87.2 (80-100) fL MCH 28.7 (26-34) PG MCHC 32.9 (30-36) % RDW 18.5 H (11.6-14.8) % Plt Count 180 (150-400) X10^3/uL Neut % (Auto) 78.3 H (50-75) % Lymph % (Auto) 13.8 L (25-40) % [place] % (Auto) 5.8 (3-14) % Eos % (Auto) 1.6 L (2-4) % Baso % (Auto) 0.5 (0-2) % Neut # (Auto) 4600 (2554-1188) /uL Lymph # (Auto) 800 L (7418-4635) /uL [place] # (Auto) 300 (0-900) /uL Eos # (Auto) 100 (0-450) /uL Baso # (Auto) 0 (0-100) /uL PT 20.9 H (10.1-12.7) SECONDS INR 1.8 H (0.9-1.3) APTT 85 H* D (26.4-36.2) SECONDS Sodium 137 (137-145) mmol/L Potassium 4.1 (3.4-5.1) mmol/L Chloride 98 (98-107) mmol/L Carbon Dioxide 34 H (22-32) mmol/L BUN 23 H (7-17) mg/dL Creatinine 0.68 (0.52-1.04) mg/dL Estimated GFR > 60.0 (>60) mL/min BUN/Creatinine Ratio 33.8 H (6-22) Glucose 138 H (80-110) mg/dL Calcium 9.3 (8.4-10.2) mg/dL Total Bilirubin 0.5 (0.2-1.3) mg/dL AST 27 (14-36) IU/L ALT 13 (<35) IU/L Alkaline Phosphatase 110 (38-126) U/L Total Protein 8.3 H (6.3-8.2) g/dL Albumin 4.1 (3.5-5.0) g/dL Globulin 4.2 H (1.7-4.1) g/dL Albumin/Globulin Ratio 1.0 (1.0-2.8) Blood Type Antibody Screen 12/14/19 12/14/19 Range/Units 19:32 21:50 WBC (4.5-11.0) X10^3/uL RBC (4.0-5.2) X10^6/uL Hgb 12.7 (12.0-16.0) g/dL Hct 37.9 (36-46) % MCV (80-100) fL MCH (26-34) PG MCHC (30-36) % RDW (11.6-14.8) % Plt Count (150-400) X10^3/uL Neut % (Auto) (50-75) % Lymph % (Auto) (25-40) % [place] % (Auto) (3-14) % Eos % (Auto) (2-4) % Baso % (Auto) (0-2) % Neut # (Auto) (4666-4994) /uL Lymph # (Auto) (5225-4698) /uL [place] # (Auto) (0-900) /uL Eos # (Auto) (0-450) /uL Baso # (Auto) (0-100) /uL PT (10.1-12.7) SECONDS INR (0.9-1.3) APTT (26.4-36.2) SECONDS Sodium (137-145) mmol/L Potassium (3.4-5.1) mmol/L Chloride (98-107) mmol/L Carbon Dioxide (22-32) mmol/L BUN (7-17) mg/dL Creatinine (0.52-1.04) mg/dL Estimated GFR (>60) mL/min BUN/Creatinine Ratio (6-22) Glucose (80-110) mg/dL Calcium (8.4-10.2) mg/dL Total Bilirubin (0.2-1.3) mg/dL AST (14-36) IU/L ALT (<35) IU/L Alkaline Phosphatase (38-126) U/L Total Protein (6.3-8.2) g/dL Albumin (3.5-5.0) g/dL Globulin (1.7-4.1) g/dL Albumin/Globulin Ratio (1.0-2.8) Blood Type O Positive Antibody Screen Negative Point of Care Testing Stool Occult Blood Positive Imaging Data CT scan - abdomen/pelvis: Radiologist's Impression: [address] [address] [address] Scan Report Signed Patient: Karena Brown LMR#: [id number] : 9Acct:[id number] Age/Sex: 79 / FDate of Service: 12/14/19 Loc: ED Accession Number: [id number] Procedure: CT abdomen pelvis w con Ordering Provider: Caitlin Jenkins PROCEDURE: CT ABDOMEN PELVIS W CON INDICATIONS: LLQ abdominal pain, GI bleeding TECHNIQUE: After the administration of intravenous contrast, 5 mm thick sections acquired from the diaphragm to the symphysis. 5 mm coronal and sagittal reformats were acquired. For radiation dose reduction, the following was used: automated exposure control, adjustment of mA and/or kV according to patient size. COMPARISON: [facility], CT, CT CHEST W CON, 05/17/2019, 14:28. [facility], CT, ABDOMEN/PELVIS WITH CONTRAST, 01/31/2015, 20:48. FINDINGS: Image quality: Excellent. ABDOMEN: Lung bases: Small left pleural effusion and compressive atelectasis and possible round atelectasis. Mild left lower pleural thickening. Heart size is within normal limits. Post median sternotomy. Aortic valvular calcifications. Small hiatal hernia. Gastric lap band is in place below the diaphragm. Solid organs: Liver is normal in size and enhancement. Multiple small hepatic cysts. Probable small hemangioma adjacent to the gallbladder. Gallbladder is nondistended. Calcified gallstone measuring 2 cm.. Biliary system is non dilated. Pancreas enhances normally. The cyst in the uncinate process measuring 2.3 x 1.9 cm, (), remotely 2.5 x 2.3 cm in 2014. No pancreatic ductal dilatation seen. Spleen is normal in size and enhancement. No adrenal nodules. Kidneys demonstrate normal size and enhancement, without hydronephrosis. Peritoneum and bowel: Bowel loops demonstrate normal wall thickness and caliber. No free fluid or air. Distal colon is decompressed. Appendix is normal. Nodes and vessels: No retroperitoneal or mesenteric adenopathy by size criteria. Aorta and inferior vena cava are normal in size. Atherosclerotic calcification. Miscellaneous: No significant ventral hernias. PELVIS: Genitourinary: Bladder is unremarkable. Small calcified uterine fibroid. Miscellaneous: Fat containing inguinal hernias. No adenopathy. Bones: No suspicious bony lesions. No vertebral body compression fractures. Right L4-S1 pedicle screws and intervertebral body spacers. Moderate degenerative change. Findings similar to 2015. IMPRESSION: 1. No acute inflammatory process identified. No free fluid. 2. No definite source for GI bleeding. Trace radiodensity in the stomach although this could represent medication fragments. 3. Lap band is below the diaphragm. Small hiatal hernia. 4. The cystic lesion in the uncinate process of the pancreas measuring at 2.3 cm is stable to slightly decreased in size compared to 2015. 5. Mild left basilar pleural thickening with small pleural effusion and adjacent atelectasis. Left pleural effusion is decreased compared May 2019. Dictated by: Donell Naranjo M.D. on 12/14/2019 at 20:56 Approved by: Donell Naranjo M.D. on 12/14/2019 at 21:06 ECG Data Interpretation: AFib, rate 97, QTC 406. No ST elevation or ST depression. EKG also viewed by Dr. Infante per protocol. [facility] Narrative Medical decision making narrative: 79-year-old female on Pradaxa with a history of internal hemorrhoids, presents to the emergency department for increased rectal bleeding. Rectal examination reveals occult blood without external hemorrhoids. CT is negative for any acute causes are evidence of source of bleeding. I suspect patient's bleeding is most likely due to internal hemorrhoids. H&H remained stable, CT without signs of abscess, perforation, or diverticulitis. Repeat H&H was stable. Patient did have some tachycardia with position changes from lying to sitting, and sitting to standing, patient's heart rate was in the 120s which may be related to A.fib, HR returns to normal or fluids shifts. I spoke with Dr. Mejia from general surgery who agrees patient can be treated out patient from a GI bleed perspective. AIDAN Bull review chart as well, discussed patient good follow-up outpatient with same result of being admitted and monitored. Less likely upper GI bleed due to reports of bright red blood per rectum, history of hemorrhoids, and no other symptoms such as abdominal pain, history of ulcers, or vomiting. However, patient was started on omeprazole and and referred to primary care provider for further follow-up. She was given very strict ED return precautions for new or worsening symptoms. Patient agreed to plan of care verbalized understanding. <Orestes Infante DO - Last Filed: 12/15/19 00:41> Lab Data Labs: Lab Results 12/14/19 12/14/19 12/14/19 Range/Units 19:32 19:32 19:32 WBC 5.9 (4.5-11.0) X10^3/uL RBC 4.48 (4.0-5.2) X10^6/uL Hgb 12.8 (12.0-16.0) g/dL Hct 39.0 (36-46) % MCV 87.2 (80-100) fL MCH 28.7 (26-34) PG MCHC 32.9 (30-36) % RDW 18.5 H (11.6-14.8) % Plt Count 180 (150-400) X10^3/uL Neut % (Auto) 78.3 H (50-75) % Lymph % (Auto) 13.8 L (25-40) % [place] % (Auto) 5.8 (3-14) % Eos % (Auto) 1.6 L (2-4) % Baso % (Auto) 0.5 (0-2) % Neut # (Auto) 4600 (8715-0756) /uL Lymph # (Auto) 800 L (2165-0650) /uL [place] # (Auto) 300 (0-900) /uL Eos # (Auto) 100 (0-450) /uL Baso # (Auto) 0 (0-100) /uL PT 20.9 H (10.1-12.7) SECONDS INR 1.8 H (0.9-1.3) APTT 85 H* D (26.4-36.2) SECONDS Sodium 137 (137-145) mmol/L Potassium 4.1 (3.4-5.1) mmol/L Chloride 98 (98-107) mmol/L Carbon Dioxide 34 H (22-32) mmol/L BUN 23 H (7-17) mg/dL Creatinine 0.68 (0.52-1.04) mg/dL Estimated GFR > 60.0 (>60) mL/min BUN/Creatinine Ratio 33.8 H (6-22) Glucose 138 H (80-110) mg/dL Calcium 9.3 (8.4-10.2) mg/dL Total Bilirubin 0.5 (0.2-1.3) mg/dL AST 27 (14-36) IU/L ALT 13 (<35) IU/L Alkaline Phosphatase 110 (38-126) U/L Total Protein 8.3 H (6.3-8.2) g/dL Albumin 4.1 (3.5-5.0) g/dL Globulin 4.2 H (1.7-4.1) g/dL Albumin/Globulin Ratio 1.0 (1.0-2.8) Blood Type Antibody Screen 12/14/19 12/14/19 Range/Units 19:32 21:50 WBC (4.5-11.0) X10^3/uL RBC (4.0-5.2) X10^6/uL Hgb 12.7 (12.0-16.0) g/dL Hct 37.9 (36-46) % MCV (80-100) fL MCH (26-34) PG MCHC (30-36) % RDW (11.6-14.8) % Plt Count (150-400) X10^3/uL Neut % (Auto) (50-75) % Lymph % (Auto) (25-40) % [place] % (Auto) (3-14) % Eos % (Auto) (2-4) % Baso % (Auto) (0-2) % Neut # (Auto) (3601-3843) /uL Lymph # (Auto) (0624-5850) /uL [place] # (Auto) (0-900) /uL Eos # (Auto) (0-450) /uL Baso # (Auto) (0-100) /uL PT (10.1-12.7) SECONDS INR (0.9-1.3) APTT (26.4-36.2) SECONDS Sodium (137-145) mmol/L Potassium (3.4-5.1) mmol/L Chloride (98-107) mmol/L Carbon Dioxide (22-32) mmol/L BUN (7-17) mg/dL Creatinine (0.52-1.04) mg/dL Estimated GFR (>60) mL/min BUN/Creatinine Ratio (6-22) Glucose (80-110) mg/dL Calcium (8.4-10.2) mg/dL Total Bilirubin (0.2-1.3) mg/dL AST (14-36) IU/L ALT (<35) IU/L Alkaline Phosphatase (38-126) U/L Total Protein (6.3-8.2) g/dL Albumin (3.5-5.0) g/dL Globulin (1.7-4.1) g/dL Albumin/Globulin Ratio (1.0-2.8) Blood Type O Positive Antibody Screen Negative Point of Care Testing Stool Occult Blood Positive Discharge Plan Departure Patient Disposition: Home Clinical Impression: RB (rectal bleeding) Discharge Date/Time: 12/14/19 23:05 Instructions: DI for Rectal Bleeding Activity Restrictions/Additional Instructions: Thank you for entrusting me with your care today. As discussed, your laboratory work is non-remarkable. Your CT scan does not show the cause of bleeding. It is possible that the bleeding may be caused from her internal hemorrhoids. However, I recommend following up with your the surgeon for your GI doctor in the next few days to discuss further testing and monitoring of bleeding. I prescribed you medication to help decrease stomach acid which at times can help with bleeding. Please return emergency department for any new or worsening symptoms such as worsening bleeding, dizziness, syncope, chest pain, shortness of breath, or other concerns. I also suggest taking stool softener such as docusate 100 mg twice a day to help past soft stools. Prescriptions: New omeprazole 20 mg capsule,delayed release(DR/EC) 20 mg PO DAILY 2 Days Qty: 14 RF: 0 No Action multivitamin Tablet 1 tab PO QWEEK RF: 0 prednisone 5 mg Tablet 5 mg PO DAILY RF: 0 folic acid 400 mcg Tablet 1,200 mcg PO DAILY RF: 0 tramadol 50 mg Tablet 50 mg PO BID MDD 2 PRN (Reason: PAIN) RF: 0 hydroxychloroquine 200 mg Tablet 200 mg PO DAILY RF: 0 clobetasol 0.05 % Solution 1 applic TOPICAL DIRECTED RF: 0 VSL#3 112.5 billion cell Capsule 1 cap PO DAILY RF: 0 cholecalciferol (vitamin D3) [Vitamin D3] 2,000 unit Tablet 4,000 unit PO DAILY RF: 0 Pradaxa 150 mg Capsule 150 mg PO BID RF: 0 Linzess 290 mcg Capsule 290 mg PO DAILY RF: 0 Lovaza/Flaxseed Oil 1,200 mg 1 tab PO DAILY RF: 0 [place]-3 1,000 MG 2,000 mg PO DAILY RF: 0 PreserVision AREDS 2 tab PO DAILY RF: 0 cefuroxime axetil 500 mg tablet 500 mg PO BID Qty: 8 RF: 0 furosemide 40 mg tablet 40 mg PO DAILY Qty: 30 RF: 0 carvedilol 12.5 mg tablet 12.5 mg PO BID Qty: 60 RF: 0 potassium chloride 20 mEq tablet,ER particles/crystals 20 meq PO BID Qty: 60 RF: 0 levalbuterol tartrate [Xopenex HFA] 45 mcg/actuation HFA aerosol inhaler 1 puff INHALATION Q4-6H PRN (Reason: shortness of breath or wheezing) Qty: 15 RF: 0 Atrovent HFA 17 mcg/actuation HFA aerosol inhaler 1 puff INHALATION BID-QID Qty: 12.9 RF: 0 Referrals: Pradeep Bass MD [Primary Care Provider] - Pam Mejia MD [Physician] - <Orestes Infante DO - Last Filed: 12/15/19 00:41> [facility] I was immediately available in the department for consultation. This documentation has been reviewed and I agree with assessment and plan. Supervised by Orestes Infante DO
--- NOTE | 2019-12-14 19:23 | PC.NURSE ---
Positive guaiac as evidenced by bright red stool. Caitlin Jenkins NP present to verify.
[2019-12-14 19:28] VITALS: BP 153/84; PULSE 120; RESP 25; O2SAT 96
[2019-12-14 19:46] LABS: Add Manual Diff / Slide Review NO; Basophils Absolute Auto 0 /uL (0-100); Basophils Percent Auto 0.5 % (0-2); Eosinophils Absolute Auto 100 /uL (0-450); Eosinophils Percent Auto 1.6 % (2-4); Hemoglobin 12.8 g/dL (12.0-16.0); Lymphocytes Absolute Auto 800 /uL (1100-4500); Lymphocytes Percent Auto 13.8 % (25-40); Mean Corpuscular HGB Conc 32.9 % (30-36); Mean Corpuscular Hemoglobin 28.7 PG (26-34); Mean Corpuscular Volume 87.2 fL (80-100); Monocytes Absolute Auto 300 /uL (0-900); Monocytes Percent Auto 5.8 % (3-14); Neutrophils Absolute Auto 4600 /uL (1500-7000); Neutrophils Percent Auto 78.3 % (50-75); Platelet Count 180 X10^3/uL (150-400); Red Blood Cell Count 4.48 X10^6/uL (4.0-5.2); Red Cell Distribution Width 18.5 % (11.6-14.8); White Blood Cell Count 5.9 X10^3/uL (4.5-11.0)
[2019-12-14 19:57] LABS: INR 1.8 (0.9-1.3); Prothrombin Time 20.9 SECONDS (10.1-12.7)
[2019-12-14 20:01] LABS: Alanine Aminotransferase 13 IU/L (<35); Albumin 4.1 g/dL (3.5-5.0); Alkaline Phosphatase 110 U/L (38-126); Aspartate Aminotransferase 27 IU/L (14-36); BUN Creatinine Ratio 33.8 (6-22); Bilirubin Total 0.5 mg/dL (0.2-1.3); Blood Urea Nitrogen 23 mg/dL (7-17); Calcium 9.3 mg/dL (8.4-10.2); Carbon Dioxide 34 mmol/L (22-32); Chloride 98 mmol/L (98-107); Estimated Glomerular Filt Rate > 60.0 mL/min (>60); Globulin 4.2 g/dL (1.7-4.1); Glucose 138 mg/dL (80-110); HEMOLYSIS 17 (0-50); Potassium 4.1 mmol/L (3.4-5.1); Sodium 137 mmol/L (137-145); Total Protein 8.3 g/dL (6.3-8.2)
[2019-12-14 20:10] LABS: PTT Partial Thromboplastin Tim 85 SECONDS (26.4-36.2)
[2019-12-14 21:15] VITALS: BP 143/102; PULSE 99; RESP 16; O2SAT 95
[2019-12-14] MEDS: SODIUM CHLORIDE 0.9% 1,000 ML 125 ML IV (21:15)
[2019-12-14 21:24] VITALS: BP 131/66; PULSE 97; RESP 16; O2SAT 95
[2019-12-14 22:00] LABS: Hematocrit 37.9 % (36-46); Hemoglobin 12.7 g/dL (12.0-16.0)
[2019-12-14] MEDS: PANTOPRAZOLE 40 MG VIAL IV (22:00)
[2019-12-14 23:05] VITALS: BP 145/84; PULSE 114; RESP 24; O2SAT 96
== END 2019-12-14 23:05 | disposition home or self-care (01) ==
PROVIDERS: Emergency Medicine; Emergency Provider Nurse Practitioner; Family Provider Family Medicine; PCP Family Medicine
DX: K62.5 Hemorrhage of anus and rectum (principal); I48.91 Unspecified atrial fibrillation; Z79.01 Long term (current) use of anticoagulants
CPT/HCPCS: 36415; 74177; 80053; 82272; 85014; 85018; 85025; 85610; 85730; 86850; 86900; 86901; 93005; 96374; 99284; C9113

== ENCOUNTER → 2020-01-16 13:22 | Outpatient (CLI) | payer OTHER, SELFPAY ==
[2019-03-09 18:21] VITALS: BMI 34.2
[2020-01-16 13:54] LABS: Add Manual Diff / Slide Review NO; Basophils Absolute Auto 0 /uL (0-100); Basophils Percent Auto 0.6 % (0-2); Eosinophils Absolute Auto 200 /uL (0-450); Eosinophils Percent Auto 3.1 % (2-4); Hematocrit 39.7 % (36-46); Hemoglobin 13.6 g/dL (12.0-16.0); Lymphocytes Absolute Auto 600 /uL (1100-4500); Lymphocytes Percent Auto 10.1 % (25-40); Mean Corpuscular HGB Conc 34.1 % (30-36); Mean Corpuscular Hemoglobin 30.8 PG (26-34); Mean Corpuscular Volume 90.1 fL (80-100); Monocytes Absolute Auto 500 /uL (0-900); Monocytes Percent Auto 8.6 % (3-14); Neutrophils Absolute Auto 4900 /uL (1500-7000); Neutrophils Percent Auto 77.6 % (50-75); Platelet Count 184 X10^3/uL (150-400); Red Blood Cell Count 4.41 X10^6/uL (4.0-5.2); Red Cell Distribution Width 15.1 % (11.6-14.8); White Blood Cell Count 6.4 X10^3/uL (4.5-11.0)
[2020-01-16 14:06] LABS: HEMOLYSIS < 15 (0-50); Iron 114 ug/dL (37-170)
[2020-01-16 14:17] LABS: Percent Iron Saturation 39 % (15-50); Total Iron Binding Capacity 292 ug/dL (265-497); Transferrin 197 mg/dL (206-381)
[2020-01-16 14:43] LABS: Ferritin 174 ng/mL (11-264)
== END ==
PROVIDERS: Family Provider Family Medicine; PCP Family Medicine; Referring Provider Internal Medicine Gastroenterology; Visit Provider Internal Medicine Gastroenterology
DX: D64.9 Anemia, unspecified (principal)
CPT/HCPCS: 36415; 82728; 83540; 83550; 85025

== ENCOUNTER 2020-08-25 08:17 | Emergency (ER) | payer OTHER, SELFPAY ==
[2019-03-09 18:21] VITALS: BMI 34.2
[2020-08-25] VITALS (10 sets, daily range): BP systolic 104–117; BP diastolic 49–71; PULSE 97–109; RESP 11–24; TEMP 37; O2SAT 96–100; BMI 33.8
--- NOTE | 2020-08-25 08:32 | DI.CT.S_ITS ---
PROCEDURE: CT ABDOMEN PELVIS W CON INDICATIONS: RLQ pain, recent constipation TECHNIQUE: After the administration of intravenous contrast, 5 mm thick sections acquired from the diaphragm to the symphysis. 5 mm coronal and sagittal reformats were acquired. For radiation dose reduction, the following was used: automated exposure control, adjustment of mA and/or kV according to patient size. COMPARISON: [facility], CT, CT CHEST W CON, 05/17/2019, 14:28. [facility], CT, CT ANGIO CHEST PE PROTOCOL, 03/09/2019, 15:56. [facility], CT, CT ABDOMEN PELVIS W CON, 12/14/2019, 20:09. FINDINGS: Image quality: Excellent. ABDOMEN: Lung bases: Small consolidation at the left lung base appears similar to the prior exam. Left pleural thickening. Suspect a component of round atelectasis. Small bilateral pleural effusions. Heart size is normal. Small hiatal hernia. Gastric band. Solid organs: Liver is normal in size. The several well-circumscribed hepatic hypodensities which are unchanged. These are most compatible with benign cysts. Previously seen enhancing focus next to the gallbladder is not appreciated on this exam. Area of thickening adjacent to the right lobe of the liver is unchanged since at least 2018. Gallbladder is not significantly distended. There is a large gallstone at the gallbladder neck measuring 2.4 cm. Biliary system is non dilated. Pancreas enhances normally. Cyst in the pancreatic head measuring 1.7 x 1.6 cm, (), previously 2.1 x 1.8 cm, and remotely 2.5 x 2.3 cm in 2014. No pancreatic ductal dilatation seen. Spleen is normal in size and enhancement. No adrenal nodules. Kidneys demonstrate normal size and enhancement, without hydronephrosis. Peritoneum and bowel: Bowel loops demonstrate normal wall thickness and caliber. A few colonic diverticuli. Normal appendix, (). No free fluid or air. Nodes and vessels: No retroperitoneal or mesenteric adenopathy by size criteria. Aorta and inferior vena cava are normal in size. Miscellaneous: No ventral hernias. Gastric band port. PELVIS: Genitourinary: Bladder is within normal limits. Postmenopausal uterus. The small calcified fibroid. Miscellaneous: No inguinal hernias or adenopathy. Bones: No suspicious bony lesions. Right L4-S1 pedicle screw fixation is intact. No vertebral body compression fractures. IMPRESSION: 1. No acute inflammatory process identified. No free fluid. Normal appendix. 2. Stable small hiatal hernia and gastric band. 3. Pancreatic head cyst measuring 1.7 cm. This is decreased in size compared to 2015 suggesting a benign etiology. 4. Small bilateral pleural effusions. Right effusion is new. Chronic left pleural thickening and left lung base consolidation. Dictated by: Donell Naranjo M.D. on 08/25/2020 at 8:46 Approved by: Donell Naranjo M.D. on 08/25/2020 at 9:00
--- NOTE | 2020-08-25 08:50 | ED_ITS ---
HPI - Abdominal Pain General Chief Complaint: Abdominal Pain Stated Complaint: pain in RLQ, constipation, anal bleeding Time Seen by Provider: 08/25/20 08:31 Source: patient and family () Mode of arrival: Wheelchair Limitations: no limitations History of Present Illness HPI narrative: This is an 80-year-old female comes in with complaint of right- sided abdominal pain particularly the right lower quadrant. Patient states it has been present for several days. It has been fairly constant in even keeping her awake. Moving around or putting her feet flat on the floor in the sitting position seems to help it. Nothing seems to make it feel significantly worse. She denies fevers, chills, no cold cough or congestion. No chest pain or shortness of breath. She has had abdominal pain on that side in the past and usually associated with constipation. She does take medications regularly and has struggled chronically with constipation. She states 2 days ago was her last bowel movement she had diarrhea like stools and states she does not feel like she has any more stool or that she has got anything in the rectal vault. She did notice a little bit of light pink blood when she had a bowel movement which she attributed her hemorrhoids which she is aware of. No frequency, dysuria urgency or incomplete emptying sensation. She has not been taking any medications for the pain. She has been taking Colace as well as Linzess. 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 She has a history significant for aortic valve replacement 2011, lap band, back surgery x2 followed by surgery for infection complications and a tonsillectomy. She is requesting some tramadol for pain she has not had any in the past 3 days. She defers any antinausea medicine. Related Data Home Medications Medication Instructions Recorded Confirmed Linzess 290 mg PO DAILY 03/09/19 07/19/19 Lovaza/Flaxseed Oil 1 tab PO DAILY 03/09/19 03/09/19 [place]-3 2,000 mg PO DAILY 03/09/19 03/09/19 Pradaxa 150 mg PO BID 03/09/19 07/19/19 PreserVision AREDS 2 tab PO DAILY 03/09/19 03/09/19 VSL#3 1 cap PO DAILY 03/09/19 03/09/19 cholecalciferol (vitamin D3) 4,000 unit PO DAILY 03/09/19 03/09/19 [Vitamin D3] clobetasol 1 applic TOPICAL DIRECTED 03/09/19 03/09/19 folic acid 1,200 mcg PO DAILY 03/09/19 03/09/19 hydroxychloroquine 200 mg PO DAILY 03/09/19 07/19/19 multivitamin 1 tab PO QWEEK 03/09/19 03/09/19 prednisone 5 mg PO DAILY 03/09/19 07/19/19 tramadol 50 mg PO BID PRN MDD 2 03/09/19 07/19/19 Previous Rx's Medication Instructions Recorded carvedilol 12.5 mg PO BID #60 tab 03/12/19 cefuroxime axetil 500 mg PO BID #8 tab 03/12/19 furosemide 40 mg PO DAILY #30 tab 03/12/19 ipratropium bromide [Atrovent HFA] 1 puff INHALATION BID-QID #12.9 03/12/19 gram levalbuterol tartrate [Xopenex HFA] 1 puff INHALATION Q4-6H PRN #15 03/12/19 gram potassium chloride 20 meq PO BID #60 tab 03/12/19 tramadol 50 mg PO Q6H PRN #10 tab 08/25/20 Allergies Allergy/AdvReac Type Severity Reaction Status Date / Time amiodarone Allergy Verified 08/06/19 17:50 dicloxacillin Allergy Verified 08/06/19 17:50 diltiazem [From Cartia XT] Allergy Verified 08/06/19 17:50 lubiprostone [From Amitiza] Allergy Verified 08/06/19 17:50 metoprolol Allergy Verified 08/06/19 17:50 sulfamethoxazole Allergy Verified 08/06/19 17:50 [From Bactrim] trimethoprim [From Bactrim] Allergy Verified 08/06/19 17:50 Review of Systems Review of Systems ROS Unobtainable: All systems reviewed & are unremarkable except as noted in HPI and below Patient History Medical History (Updated 08/25/20 @ 11:52 by America Gordillo DO) Atrial fibrillation Benign cutaneous periarteritis nodosa Hypertension Irritable bowel syndrome with constipation Macular degeneration, left eye Mitral valve disease Nummular dermatitis Surgical History History of aortic valve replacement History of back surgery History of cataract extraction History of laparoscopic adjustable gastric banding Social History marital status: household members: spouse Smoking Status: Former smoker Smoking Status: Former smoker alcohol intake frequency: holidays/special occasions only Substance Use Type: does not use Exam Narrative Exam Narrative: GENERAL: Alert and oriented x three, obese, elderly female in mild distress HEENT: Head normocephalic, atraumatic, EOMI, pupils reactive, face symmetric, moist mucous membranes NECK: Supple, full range of motion CARDIOVASCULAR: Regular rate and rhythm without murmurs, rubs or gallops. RESPIRATORY: Breath sounds equal bilaterally, no wheezes rales or rhonchi. ABDOMEN: Soft, positive for a abdominal tenderness greatest in the right lower quadrant. Normoactive bowel sounds all 4 quadrants. No guarding or rebound, rigidity, no mass, stool occult has very small amount of positive, patient does have external hemorrhoids present. No bright red blood noted. : No CVA tenderness EXTREMITIES: Normal range of motion, no clubbing or edema. Neurovascularly intact NEUROLOGICAL: Cranial nerves II through XII grossly intact. Moving all extremi ties SKIN: Warm, dry, no petechiae, no rashes or lesions. Initial Vital Signs Initial Vital Signs: Vital Signs Temperature 98.6 F 08/25/20 08:35 Pulse Rate 109 H 08/25/20 08:35 Respiratory Rate 16 08/25/20 08:35 Blood Pressure 117/57 L 08/25/20 08:35 Pulse Oximetry 100 08/25/20 08:35 Scores GCS Alesia coma scale eye opening: Spontaneous Alesia coma scale verbal response: Orientated Alesia coma scale motor response: Obey commands Alesia coma scale total score: 15 Course Orders Ordered: ED Orders 08/25/20 08:32 CT abdomen pelvis w con Stat EKG-12 Lead Stat 08/25/20 08:53 Complete Blood Count AUTO DIFF Stat Comprehensive Metabolic Panel Stat Lipase Stat Partial Thromboplastin Time Stat Prothrombin Time INR Stat 08/25/20 09:37 COVID19 Stat Type and Screen Stat 08/25/20 10:19 Urine Microscopic Stat Discontinued Medications Sodium Chloride (Normal Saline 0.9%) 1,000 mls @ 150 mls/hr IV CONT SADI Sodium Chloride (Normal Saline 0.9%) 1,000 mls @ 500 mls/hr IV BOLUS ONE Stop: 08/25/20 11:01 Last Infusion: 08/25/20 11:28 Dose: 0 mls/hr Documented by: Admin: 08/25/20 09:08 Dose: 500 mls/hr Documented by: ABEL Tramadol HCl (Tramadol 50 Mg Tablet) 50 mg PO NOW ONE Stop: 08/25/20 09:03 Last Admin: 08/25/20 09:09 Dose: 50 mg Documented by: ABEL Vital Signs Vital signs: Vital Signs - 8 hr 08/25/20 08:35 08/25/20 10:17 08/25/20 10:23 Temperature 98.6 F Pulse Rate 109 H 103 H Pulse Rate [Orthostatic Lying] Pulse Rate [Orthostatic Sitting] Pulse Rate [Orthostatic Standing] Respiratory Rate 16 23 Blood Pressure 117/57 L Blood Pressure [Orthostatic Lying] Blood Pressure [Orthostatic Sitting] Blood Pressure [Orthostatic Standing] Pulse Oximetry 100 96 97 08/25/20 10:24 08/25/20 10:30 08/25/20 11:00 Temperature Pulse Rate 102 H 97 H 97 H Pulse Rate [Orthostatic Lying] Pulse Rate [Orthostatic Sitting] Pulse Rate [Orthostatic Standing] Respiratory Rate 24 24 Blood Pressure 112/58 L 111/55 L 108/71 Blood Pressure [Orthostatic Lying] Blood Pressure [Orthostatic Sitting] Blood Pressure [Orthostatic Standing] Pulse Oximetry 98 97 97 08/25/20 11:09 08/25/20 11:10 08/25/20 11:17 Temperature Pulse Rate 103 H 106 H Pulse Rate [Orthostatic Lying] 97 H Pulse Rate [Orthostatic Sitting] 103 H Pulse Rate [Orthostatic Standing] 106 H Respiratory Rate Blood Pressure 107/68 107/49 L Blood Pressure [Orthostatic Lying] 108/71 Blood Pressure [Orthostatic Sitting] 107/68 Blood Pressure [Orthostatic Standing] 107/49 L Pulse Oximetry 96 97 08/25/20 11:30 Temperature Pulse Rate 102 H Pulse Rate [Orthostatic Lying] Pulse Rate [Orthostatic Sitting] Pulse Rate [Orthostatic Standing] Respiratory Rate 11 L Blood Pressure 104/55 L Blood Pressure [Orthostatic Lying] Blood Pressure [Orthostatic Sitting] Blood Pressure [Orthostatic Standing] Pulse Oximetry 99 MDM - Abdominal Pain Lab Data Attestation: I reviewed the patient's lab results. Result diagrams: 08/25/20 08:53 08/25/20 08:53 Labs: Lab Results 08/25/20 08/25/20 08/25/20 Range/Units 08:53 08:53 08:53 WBC 5.8 (4.5-11.0) X10^3/uL RBC 3.50 L (4.0-5.2) X10^6/uL Hgb 9.7 L (12.0-16.0) g/dL Hct 29.5 L (36-46) % MCV 84.3 (80-100) fL MCH 27.6 (26-34) PG MCHC 32.8 (30-36) % RDW 14.5 (11.6-14.8) % Plt Count 161 (150-400) X10^3/uL Neut % (Auto) 73.5 (50-75) % Lymph % (Auto) 10.7 L (25-40) % [place] % (Auto) 12.1 (3-14) % Eos % (Auto) 3.3 (2-4) % Baso % (Auto) 0.4 (0-2) % Neut # (Auto) 4300 (6973-6887) /uL Lymph # (Auto) 600 L (2791-8596) /uL [place] # (Auto) 700 (0-900) /uL Eos # (Auto) 200 (0-450) /uL Baso # (Auto) 0 (0-100) /uL PT 21.1 H (10.1-12.7) SECONDS INR 1.8 H (0.9-1.3) APTT 65 H D (26.4-36.2) SECONDS Sodium 133 L (137-145) mmol/L Potassium 4.2 (3.4-5.1) mmol/L Chloride 99 (98-107) mmol/L Carbon Dioxide 33 H (22-32) mmol/L BUN 14 (7-17) mg/dL Creatinine 0.63 (0.52-1.04) mg/dL Estimated GFR > 60.0 (>60) mL/min BUN/Creatinine Ratio 22.2 H (6-22) Glucose 104 (80-110) mg/dL Calcium 8.6 (8.4-10.2) mg/dL Total Bilirubin 1.1 (0.2-1.3) mg/dL AST 24 (14-36) IU/L ALT 8 (<35) IU/L Alkaline Phosphatase 55 (38-126) U/L Total Protein 6.6 (6.3-8.2) g/dL Albumin 3.4 L (3.5-5.0) g/dL Globulin 3.2 (1.7-4.1) g/dL Albumin/Globulin Ratio 1.1 (1.0-2.8) Lipase 36 (23-300) U/L Urine RBC (0-5/HPF) Urine WBC (0-5/HPF) Ur Squamous Epith Cells (0-5/HPF) Urine Bacteria (None) Ur Culture Indicated? SARS-CoV-2 (PCR) (Negative) Blood Type Antibody Screen 08/25/20 08/25/20 08/25/20 Range/Units 09:37 09:37 10:19 WBC (4.5-11.0) X10^3/uL RBC (4.0-5.2) X10^6/uL Hgb (12.0-16.0) g/dL Hct (36-46) % MCV (80-100) fL MCH (26-34) PG MCHC (30-36) % RDW (11.6-14.8) % Plt Count (150-400) X10^3/uL Neut % (Auto) (50-75) % Lymph % (Auto) (25-40) % [place] % (Auto) (3-14) % Eos % (Auto) (2-4) % Baso % (Auto) (0-2) % Neut # (Auto) (8781-3563) /uL Lymph # (Auto) (4572-8579) /uL [place] # (Auto) (0-900) /uL Eos # (Auto) (0-450) /uL Baso # (Auto) (0-100) /uL PT (10.1-12.7) SECONDS INR (0.9-1.3) APTT (26.4-36.2) SECONDS Sodium (137-145) mmol/L Potassium (3.4-5.1) mmol/L Chloride (98-107) mmol/L Carbon Dioxide (22-32) mmol/L BUN (7-17) mg/dL Creatinine (0.52-1.04) mg/dL Estimated GFR (>60) mL/min BUN/Creatinine Ratio (6-22) Glucose (80-110) mg/dL Calcium (8.4-10.2) mg/dL Total Bilirubin (0.2-1.3) mg/dL AST (14-36) IU/L ALT (<35) IU/L Alkaline Phosphatase (38-126) U/L Total Protein (6.3-8.2) g/dL Albumin (3.5-5.0) g/dL Globulin (1.7-4.1) g/dL Albumin/Globulin Ratio (1.0-2.8) Lipase (23-300) U/L Urine RBC 5-10/hpf H (0-5/HPF) Urine WBC 0-1/hpf (0-5/HPF) Ur Squamous Epith Cells 0-1 /hpf (0-5/HPF) Urine Bacteria Occasional (0-1) (None) Ur Culture Indicated? Cult not indicated SARS-CoV-2 (PCR) Negative (Negative) Blood Type O Positive Antibody Screen Negative Point of care testing: Urine Dip Bedside Urine Glucose Negative Bedside Urine Bilirubin - Negative Bedside Urine Ketone +/- 5 Urine Specific [place] 1.010 Bedside Urine Occult Blood + Bedside Urine pH 6.5 Bedside Urine Protein + 30 Bedside Urine Urobilinogen 1+ 2mg Bedside Urine Nitrite - Negative Bedside Urine Leukocytes - Negative Esterase Imaging Data CT scan - abdomen/pelvis: Radiologist's Impression: [address] [id number] Scan ReportSigned Patient: Karena Brown LMR#: [id number]: [id number]:[id number]/Sex: 80 / FDate of Service: 08/25/20Loc: EDAccession Number: [id number] Procedure: CT abdomen pelvis w con Ordering Provider: America Gordillo D.O. PROCEDURE: CT ABDOMEN PELVIS W CON INDICATIONS: RLQ pain, recent constipation TECHNIQUE: After the administration of intravenous contrast, 5 mm thick sections acquired from the diaphragm to the symphysis. 5 mm coronal and sagittal reformats were acquired. For radiation dose reduction, the following was used: automated exposure control, adjustment of mA and/or kV according to patient size. COMPARISON: [facility], CT, CT CHEST W CON, 05/17/2019, 14:28. [facility], CT, CT ANGIO CHEST PE PROTOCOL, 03/09/2019, 15:56. [facility], CT, CT ABDOMEN PELVIS W CON, 12/14/2019, 20:09. FINDINGS: Image quality: Excellent. ABDOMEN: Lung bases: Small consolidation at the left lung base appears similar to the prior exam. Left pleural thickening. Suspect a component of round atelectasis. Small bilateral pleural effusions. Heart size is normal. Small hiatal hernia. Gastric band. Solid organs: Liver is normal in size. The several well-circumscribed hepatic hypodensities which are unchanged. These are most compatible with benign cysts. Previously seen enhancing focus next to the gallbladder is not appreciated on this exam. Area of thickening adjacent to the right lobe of the liver is unchanged since at least 2018. Gallbladder is not significantly distended. There is a large gallstone at the gallbladder neck measuring 2.4 cm. Biliary system is non dilated. Pancreas enhances normally. Cyst in the pancreatic head measuring 1.7 x 1.6 cm, (), previously 2.1 x 1.8 cm, and remotely 2.5 x 2.3 cm in 2014. No pancreatic ductal dilatation seen. Spleen is normal in size and enhancement. No adrenal nodules. Kidneys demonstrate normal size and enhancement, without hydronephrosis. Peritoneum and bowel: Bowel loops demonstrate normal wall thickness and caliber. A few colonic diverticuli. Normal appendix, (). No free fluid or air. Nodes and vessels: No retroperitoneal or mesenteric adenopathy by size criteria. Aorta and inferior vena cava are normal in size. Miscellaneous: No ventral hernias. Gastric band port. PELVIS: Genitourinary: Bladder is within normal limits. Postmenopausal uterus. The small calcified fibroid. Miscellaneous: No inguinal hernias or adenopathy. Bones: No suspicious bony lesions. Right L4-S1 pedicle screw fixation is intact. No vertebral body compression fractures. IMPRESSION: 1. No acute inflammatory process identified. No free fluid. Normal appendix. 2. Stable small hiatal hernia and gastric band. 3. Pancreatic head cyst measuring 1.7 cm. This is decreased in size compared to 2015 suggesting a benign etiology. 4. Small bilateral pleural effusions. Right effusion is new. Chronic left pleural thickening and left lung base consolidation. Dictated by: Donell Naranjo M.D. on 08/25/2020 at 8:46 Approved by: Donell Naranjo M.D. on 08/25/2020 at 9:00 ECG Data Attestation: I personally reviewed and interpreted this ECG as follows: Interpretation: AFib rate of 92, QRS is [address]TC [address] No significant ST changes, motion artifact in V1, V2. Patient has prior EKG from 12/14/2019 which appears fairly similar in ST findings. MDM Narrative Medical decision making narrative: 80-year-old female comes in with complaint of right lower quadrant pain. She had diarrhea 2 days ago but has not had any additional. She had some blood at that time but has not continued. Her abdominal pain is improved at this time she did have a dose of tramadol which she takes at home and has found helpful. Patient has anemia which I would not describe asymptomatic. She is mildly tachycardic but is in AFib. Her orthostatics were negative. Patient states she has had anemia intermittently has required transfusion but they have never found a cause. She has had a colonoscopy a year ago but I encouraged her to having other. She is on Pradaxa for stroke prevention and bioprosthetic mechanical valve. At this time I do not feel that she needs to stop it immediately. 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 She feels comfortable returning home. We did not find an exact cause of her pain she does have gallstones and some changes in the pancreatic head but she was tender in her right lower quadrant which seems unlikely source. Patient had a long discussion she would like to return home and feels comfortable with this plan. Discharge Plan Departure Patient Disposition: Home Clinical Impression: Abdominal pain, Anemia, Gallstone Activity Restrictions/Additional Instructions: Follow-up with your physician, discuss that we did not find an acute cause for your pain specifically in the right lower abdomen. We do see a gallstone, you have a cyst in the pancreatic head although has decreased in size suggesting a benign etiology. And there are several hepatic or liver densities which are unchanged. Your blood count today shows you are anemic you have a colonoscopy even though you had 1 a year ago as you are on blood thinners and high risk for GI bleeding secondary to that. Also discuss with your physicians if you should continue Pradaxa or if you will need to stop it at some point if you continue to have decrease in her hemoglobin/anemia. I would continue home medications as prescribed at this time. You may take tramadol 1-2 tablets every 6-8 hours as needed for pain. Return for fevers, new chest pain, shortness of breath, lightheadedness or passing out, persistent vomiting, severe abdominal or flank pain, recurrent or increasingly bloody stools or other new or concerning symptoms. Prescriptions: New tramadol 50 mg tablet 50 mg PO Q6H PRN (Reason: pain) Qty: 10 RF: 0 No Action multivitamin Tablet 1 tab PO QWEEK RF: 0 prednisone 5 mg Tablet 5 mg PO DAILY RF: 0 folic acid 400 mcg Tablet 1,200 mcg PO DAILY RF: 0 tramadol 50 mg Tablet 50 mg PO BID MDD 2 PRN (Reason: PAIN) RF: 0 hydroxychloroquine 200 mg Tablet 200 mg PO DAILY RF: 0 clobetasol 0.05 % Solution 1 applic TOPICAL DIRECTED RF: 0 VSL#3 112.5 billion cell Capsule 1 cap PO DAILY RF: 0 cholecalciferol (vitamin D3) [Vitamin D3] 2,000 unit Tablet 4,000 unit PO DAILY RF: 0 Pradaxa 150 mg Capsule 150 mg PO BID RF: 0 Linzess 290 mcg Capsule 290 mg PO DAILY RF: 0 Lovaza/Flaxseed Oil 1,200 mg 1 tab PO DAILY RF: 0 [place]-3 1,000 MG 2,000 mg PO DAILY RF: 0 PreserVision AREDS 2 tab PO DAILY RF: 0 cefuroxime axetil 500 mg tablet 500 mg PO BID Qty: 8 RF: 0 furosemide 40 mg tablet 40 mg PO DAILY Qty: 30 RF: 0 carvedilol 12.5 mg tablet 12.5 mg PO BID Qty: 60 RF: 0 potassium chloride 20 mEq tablet,ER particles/crystals 20 meq PO BID Qty: 60 RF: 0 levalbuterol tartrate [Xopenex HFA] 45 mcg/actuation HFA aerosol inhaler 1 puff INHALATION Q4-6H PRN (Reason: shortness of breath or wheezing) Qty: 15 RF: 0 Atrovent HFA 17 mcg/actuation HFA aerosol inhaler 1 puff INHALATION BID-QID Qty: 12.9 RF: 0 Referrals: Amber Kruger ARNP [Primary Care Provider] -
[2020-08-25 09:02] LABS: Add Manual Diff / Slide Review NO; Basophils Absolute Auto 0 /uL (0-100); Basophils Percent Auto 0.4 % (0-2); Eosinophils Absolute Auto 200 /uL (0-450); Eosinophils Percent Auto 3.3 % (2-4); Hematocrit 29.5 % (36-46); Hemoglobin 9.7 g/dL (12.0-16.0); Lymphocytes Absolute Auto 600 /uL (1100-4500); Lymphocytes Percent Auto 10.7 % (25-40); Mean Corpuscular HGB Conc 32.8 % (30-36); Mean Corpuscular Hemoglobin 27.6 PG (26-34); Mean Corpuscular Volume 84.3 fL (80-100); Monocytes Absolute Auto 700 /uL (0-900); Monocytes Percent Auto 12.1 % (3-14); Neutrophils Absolute Auto 4300 /uL (1500-7000); Neutrophils Percent Auto 73.5 % (50-75); Platelet Count 161 X10^3/uL (150-400); Red Cell Distribution Width 14.5 % (11.6-14.8); White Blood Cell Count 5.8 X10^3/uL (4.5-11.0)
[2020-08-25 09:08] LABS: INR 1.8 (0.9-1.3); Prothrombin Time 21.1 SECONDS (10.1-12.7)
[2020-08-25] MEDS: SODIUM CHLORIDE 0.9% 1,000 ML 500 ML IV (09:08)
[2020-08-25] MEDS: TRAMADOL 50 MG TABLET PO (09:09)
[2020-08-25 09:11] LABS: PTT Partial Thromboplastin Tim 65 SECONDS (26.4-36.2)
[2020-08-25 09:13] LABS: Alanine Aminotransferase 8 IU/L (<35); Albumin 3.4 g/dL (3.5-5.0); Albumin Globulin Ratio 1.1 (1.0-2.8); Alkaline Phosphatase 55 U/L (38-126); Aspartate Aminotransferase 24 IU/L (14-36); BUN Creatinine Ratio 22.2 (6-22); Bilirubin Total 1.1 mg/dL (0.2-1.3); Blood Urea Nitrogen 14 mg/dL (7-17); Calcium 8.6 mg/dL (8.4-10.2); Carbon Dioxide 33 mmol/L (22-32); Chloride 99 mmol/L (98-107); Estimated Glomerular Filt Rate > 60.0 mL/min (>60); Globulin 3.2 g/dL (1.7-4.1); Glucose 104 mg/dL (80-110); HEMOLYSIS < 15 (0-50); Lipase 36 U/L (23-300); Potassium 4.2 mmol/L (3.4-5.1); Sodium 133 mmol/L (137-145); Total Protein 6.6 g/dL (6.3-8.2)
[2020-08-25 10:00] LABS: COVID19 -Nasal RAPID Negative (Negative)
[2020-08-25 11:06] LABS: Bacteria Urine Occasional (0-1); Culture Indicated Urine Cult Not Indicated; RBC Urine 5-10/HPF (0-5/HPF); Squamous Epithelial Cell Urine 0-1 /HPF (0-5/HPF); WBC Urine 0-1/HPF (0-5/HPF)
== END 2020-08-25 12:10 | disposition home or self-care (01) ==
PROVIDERS: Emergency Provider Emergency Medicine; Family Provider Family Medicine; PCP Nurse Practitioner
DX: K80.20 Calculus of gallbladder without cholecystitis without obstruction (principal); R10.9 Unspecified abdominal pain; K59.00 Constipation, unspecified; D64.9 Anemia, unspecified; K92.1 Melena; I48.91 Unspecified atrial fibrillation; Z79.01 Long term (current) use of anticoagulants; I10 Essential (primary) hypertension; I05.9 Rheumatic mitral valve disease, unspecified; E66.9 Obesity, unspecified; Z68.33 Body mass index [BMI] 33.0-33.9, adult; Z20.822 Contact with and (suspected) exposure to COVID-19
CPT/HCPCS: 36415; 74177; 80053; 81003; 81015; 83690; 85025; 85610; 85730; 86850; 86900; 86901; 87635; 93005; 93010; 96360; 96361; 99283; 99284; C9803; Q9967

== ENCOUNTER 2020-08-26 15:54 | Inpatient (IN) | payer OTHER, SELFPAY ==
[2019-03-09 18:21] VITALS: BMI 34.2
[2020-08-26] VITALS (12 sets, daily range): BP systolic 105–160; BP diastolic 64–92; PULSE 114–144; RESP 18–32; TEMP 36.8–37.5; O2SAT 89–98; BMI 34.9
--- NOTE | 2020-08-26 16:33 | DI.RAD.S_ITS ---
PROCEDURE: XR CHEST 2V INDICATIONS: shortness of breath TECHNIQUE: 2 views of the chest were acquired. COMPARISON: [facility], CT, CT CHEST W CON, 05/17/2019, 14:28. [facility], CR, XR CHEST 2 VIEWS, 08/15/2019, 15:21. [facility], CR, XR CHEST 2 VIEWS, 04/06/2019, 16:54. [facility], CR, XR CHEST 2 VIEWS, 03/28/2019, 15:08. [facility], CR, XR CHEST 1V, 03/10/2019, 6:09. FINDINGS: Surgical changes and devices: Sternotomy wires and an aortic valve prosthesis can be seen. There is partial visualization of lumbar spine fixation hardware. Lungs and pleura: There is a small left-sided pleural effusion. Trace blunting of the right costophrenic angle can be seen. No pneumothorax. Interstitial prominence is seen throughout. Mediastinum: The cardiac contours are within normal limits. The aorta demonstrates calcification and tortuosity. Bones and chest wall: No suspicious bony abnormalities. 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 Age-appropriate bony degenerative changes are seen. Mild levoconvex scoliotic curvature is noted. Soft tissues appear unremarkable. IMPRESSION: Interstitial prominence and small bilateral pleural effusions are seen. Please consider fluid overload. Postoperative and degenerative changes are seen. Dictated by: Mateusz Uribe M.D. on 08/26/2020 at 16:17 Approved by: Mateusz Uribe M.D. on 08/26/2020 at 16:20
[2020-08-26 17:07] LABS: Add Manual Diff / Slide Review NO; Basophils Absolute Auto 100 /uL (0-100); Basophils Percent Auto 0.8 % (0-2); Eosinophils Absolute Auto 100 /uL (0-450); Eosinophils Percent Auto 1.6 % (2-4); Hematocrit 30.5 % (36-46); Hemoglobin 9.8 g/dL (12.0-16.0); Lymphocytes Absolute Auto 500 /uL (1100-4500); Lymphocytes Percent Auto 7.7 % (25-40); Mean Corpuscular HGB Conc 32.3 % (30-36); Mean Corpuscular Hemoglobin 27.3 PG (26-34); Mean Corpuscular Volume 84.4 fL (80-100); Monocytes Absolute Auto 800 /uL (0-900); Monocytes Percent Auto 10.9 % (3-14); Neutrophils Absolute Auto 5600 /uL (1500-7000); Platelet Count 184 X10^3/uL (150-400); Red Blood Cell Count 3.61 X10^6/uL (4.0-5.2); Red Cell Distribution Width 14.6 % (11.6-14.8); White Blood Cell Count 7.1 X10^3/uL (4.5-11.0)
--- NOTE | 2020-08-26 17:12 | ED.GIBLEED ---
HPI - GI Bleed General Chief complaint: Shortness of Breath/Dyspnea Stated complaint: Black & bloody stool feels terrible Time Seen by Provider: 08/26/20 16:58 Source: patient and old records reviewed Mode of arrival: Ambulatory Limitations: no limitations History of Present Illness HPI Narrative: Patient is an 80-year-old female who has a history of atrial fibrillation, of valvular disease and irritable bowel syndrome presenting for the 2nd day in a row with generalized weakness and bloody stool. She was seen here yesterday with abdominal pain and bloody stool. Today she says she just feels worse. He she has been complaining of shortness of breath with exertion ongoing for the last 3-4 days. She is now sleeping with at least 3 pillows which she says is not normal. She has had some intermittent swelling of her lower extremities as well. She denies any abdominal pain. She has had 1 further episode of bright red blood per rectum. However she is a he is not eating very much and has not had any bowel movements. She is taking Pradaxa for atrial fibrillation but she says she has not taken any of her medications for the past 2 days because she generally feels weak. Related Data Home Medications Medication Instructions Recorded Confirmed Linzess 290 mg PO DAILY 03/09/19 07/19/19 Langley-3 2,000 mg PO DAILY 03/09/19 03/09/19 Pradaxa 150 mg PO BID 03/09/19 07/19/19 PreserVision AREDS 2 tab PO DAILY 03/09/19 03/09/19 VSL#3 1 cap PO DAILY 03/09/19 03/09/19 cholecalciferol (vitamin D3) 4,000 unit PO DAILY 03/09/19 03/09/19 [Vitamin D3] clobetasol 1 applic TOPICAL DIRECTED 03/09/19 03/09/19 folic acid 1,200 mcg PO DAILY 03/09/19 03/09/19 hydroxychloroquine 200 mg PO DAILY 03/09/19 07/19/19 multivitamin 1 tab PO QWEEK 03/09/19 03/09/19 prednisone 5 mg PO DAILY 03/09/19 07/19/19 tramadol 50 mg PO BID PRN MDD 2 03/09/19 07/19/19 potassium chloride 40 meq PO BID 08/26/20 08/26/20 Previous Rx's Medication Instructions Recorded carvedilol 12.5 mg PO BID #60 tab 03/12/19 furosemide 40 mg PO DAILY #30 tab 03/12/19 Allergies Allergy/AdvReac Type Severity Reaction Status Date / Time amiodarone Allergy Verified 08/26/20 18:59 dicloxacillin Allergy Verified 08/26/20 18:59 diltiazem [From Cartia XT] Allergy Verified 08/26/20 18:59 lubiprostone [From Amitiza] Allergy Verified 08/26/20 18:59 metoprolol Allergy Verified 08/26/20 18:59 sulfamethoxazole Allergy Verified 08/26/20 18:59 [From Bactrim] trimethoprim [From Bactrim] Allergy Verified 08/26/20 18:59 Review of Systems Review of Systems ROS Unobtainable: All systems reviewed & are unremarkable except as noted in HPI and below Constitutional Constitutional: Reports body ache(s), Reports fatigue and Reports poor appetite Eyes Eyes: Denies change in vision, Denies eye discharge, Denies irritation and Denies loss of vision ENT Ears, Nose, Mouth, and Throat: Denies change in voice, Denies neck pain and Denies sore throat Cardiovascular Cardiovascular: Reports as per HPI, Denies chest pain, Reports rapid heart rate, Reports irregular heart rhythm, Denies lightheadedness, Denies palpitations, Reports dyspnea, Reports dyspnea on exertion and Reports orthopnea Respiratory Respiratory: Denies cough, Reports dyspnea and Reports dyspnea on exertion Gastrointestinal Gastrointestinal: Reports as per HPI and Reports hematochezia Musculoskeletal Musculoskeletal: Denies back pain, Denies myalgias and Denies neck pain Integumentary/Breasts Skin/Breast: Denies pruritus, Denies erythema, Denies rash and Denies wounds Neurologic Neurologic: Denies abnormal speech and Denies loss of vision Endocrine Endocrine: Reports fatigue and Denies palpitations Patient History Medical History (Updated 08/26/20 @ 19:19 by Sandra Rai DO) Atrial fibrillation Benign cutaneous periarteritis nodosa Hypertension Irritable bowel syndrome with constipation Macular degeneration, left eye Mitral valve disease Nummular dermatitis Surgical History History of aortic valve replacement History of back surgery History of cataract extraction History of laparoscopic adjustable gastric banding Social History marital status: household members: spouse Smoking Status: Former smoker Smoking Status: Former smoker alcohol intake frequency: holidays/special occasions only Substance Use Type: does not use Exam Initial Vital Signs Initial Vital Signs: Vital Signs Temperature 99.5 F 08/26/20 16:17 Pulse Rate 134 H 08/26/20 16:17 Respiratory Rate 24 08/26/20 16:17 Blood Pressure 160/92 H 08/26/20 16:17 Pulse Oximetry 95 08/26/20 16:17 GENERAL: Alert pleasant week 80-year-old female and in [no acute] distress. HEENT: Head atraumatic,EOMI, pupils reactive, face symmetric, [moist] mucous membranes CARDIOVASCULAR: Irregular irregular tachycardic RESPIRATORY: Breath sounds equal bilaterally, no wheezes rales or rhonchi. ABDOMEN: Soft, nontender. Normoactive bowel sounds all 4 quadrants. No guarding or rebound. EXTREMITIES: Normal range of motion, no clubbing or edema. Neurovascularly intact NEUROLOGICAL: Alert and oriented x4.Normal gait and speech. Cranial nerves II through XII grossly intact. SKIN: Warm, dry, no laceration, no petechiae, no rashes or lesions. Course Orders Ordered: ED Orders 08/26/20 16:32 EKG-12 Lead Stat 08/26/20 16:33 XR chest 2V Stat Measure peak expiratory flow ONCE RT Consult Eval and Treat Now 08/26/20 16:53 Complete Blood Count AUTO DIFF Stat Comprehensive Metabolic Panel Stat Lactate (Lactic Acid) Stat NT-proBNP (BNP-Adult 18+) Stat Partial Thromboplastin Time Stat Prothrombin Time INR Stat Troponin & CK Cardiac Panel Stat Type and Screen Stat 08/26/20 18:56 COVID19 Stat Discontinued Medications Carvedilol (Carvedilol 12.5 Mg Tablet) 12.5 mg PO NOW ONE Stop: 08/26/20 18:59 Last Admin: 08/26/20 19:04 Dose: 12.5 mg Documented by: HORACE Furosemide (Furosemide 40 Mg/4 Ml Vial) 40 mg IV NOW ONE Stop: 08/26/20 17:54 Last Admin: 08/26/20 18:44 Dose: 40 mg Documented by: AIMEE Vital Signs Vital signs: Vital Signs - 8 hr 08/26/20 16:17 08/26/20 17:27 08/26/20 17:30 Temperature 99.5 F Pulse Rate 134 H 122 H 120 H Respiratory Rate 24 25 H 25 H Blood Pressure 160/92 H 132/64 Pulse Oximetry 95 96 97 08/26/20 17:45 08/26/20 18:00 08/26/20 18:15 Temperature Pulse Rate 123 H 116 H 124 H Respiratory Rate 24 22 25 H Blood Pressure 119/77 Pulse Oximetry 97 97 98 08/26/20 18:30 08/26/20 18:52 Temperature Pulse Rate 117 H 132 H Respiratory Rate 25 H Blood Pressure 131/76 Pulse Oximetry 98 MDM - GI Bleed Lab Data Attestation: I reviewed the patient's lab results. Result diagrams: 08/26/20 16:53 08/26/20 16:53 Labs: Lab Results 08/26/20 08/26/20 08/26/20 Range/Units 16:53 16:53 16:53 WBC 7.1 (4.5-11.0) X10^3/uL RBC 3.61 L (4.0-5.2) X10^6/uL Hgb 9.8 L (12.0-16.0) g/dL Hct 30.5 L (36-46) % MCV 84.4 (80-100) fL MCH 27.3 (26-34) PG MCHC 32.3 (30-36) % RDW 14.6 (11.6-14.8) % Plt Count 184 (150-400) X10^3/uL Neut % (Auto) 79.0 H (50-75) % Lymph % (Auto) 7.7 L (25-40) % [place] % (Auto) 10.9 (3-14) % Eos % (Auto) 1.6 L (2-4) % Baso % (Auto) 0.8 (0-2) % Neut # (Auto) 5600 (4009-8986) /uL Lymph # (Auto) 500 L (0643-1663) /uL [place] # (Auto) 800 (0-900) /uL Eos # (Auto) 100 (0-450) /uL Baso # (Auto) 100 (0-100) /uL PT 16.0 H D (10.1-12.7) SECONDS INR 1.4 H (0.9-1.3) APTT 40 H D (26.4-36.2) SECONDS Sodium 135 L (137-145) mmol/L Potassium 4.3 (3.4-5.1) mmol/L Chloride 100 (98-107) mmol/L Carbon Dioxide 28 (22-32) mmol/L BUN 15 (7-17) mg/dL Creatinine 0.57 (0.52-1.04) mg/dL Estimated GFR > 60.0 (>60) mL/min BUN/Creatinine Ratio 26.3 H (6-22) Glucose 108 (80-110) mg/dL Lactate (0.7-2.1) mmol/L Calcium 8.9 (8.4-10.2) mg/dL Total Bilirubin 1.0 (0.2-1.3) mg/dL AST 23 (14-36) IU/L ALT 10 (<35) IU/L Alkaline Phosphatase 66 (38-126) U/L Total Creatine Kinase (30-135) U/L CK-MB (CK-2) CK-MB (CK-2) Rel Index Troponin I (0.01-0.034) ng/mL NT-Pro-B Natriuret Pep (<450) pg/mL Total Protein 7.1 (6.3-8.2) g/dL Albumin 3.6 (3.5-5.0) g/dL Globulin 3.5 (1.7-4.1) g/dL Albumin/Globulin Ratio 1.0 (1.0-2.8) Blood Type Antibody Screen 08/26/20 08/26/20 08/26/20 Range/Units 16:53 16:53 16:53 WBC (4.5-11.0) X10^3/uL RBC (4.0-5.2) X10^6/uL Hgb (12.0-16.0) g/dL Hct (36-46) % MCV (80-100) fL MCH (26-34) PG MCHC (30-36) % RDW (11.6-14.8) % Plt Count (150-400) X10^3/uL Neut % (Auto) (50-75) % Lymph % (Auto) (25-40) % [place] % (Auto) (3-14) % Eos % (Auto) (2-4) % Baso % (Auto) (0-2) % Neut # (Auto) (5130-7811) /uL Lymph # (Auto) (9962-5599) /uL [place] # (Auto) (0-900) /uL Eos # (Auto) (0-450) /uL Baso # (Auto) (0-100) /uL PT (10.1-12.7) SECONDS INR (0.9-1.3) APTT (26.4-36.2) SECONDS Sodium (137-145) mmol/L Potassium (3.4-5.1) mmol/L Chloride (98-107) mmol/L Carbon Dioxide (22-32) mmol/L BUN (7-17) mg/dL Creatinine (0.52-1.04) mg/dL Estimated GFR (>60) mL/min BUN/Creatinine Ratio (6-22) Glucose (80-110) mg/dL Lactate 1.0 (0.7-2.1) mmol/L Calcium (8.4-10.2) mg/dL Total Bilirubin (0.2-1.3) mg/dL AST (14-36) IU/L ALT (<35) IU/L Alkaline Phosphatase (38-126) U/L Total Creatine Kinase 37 (30-135) U/L CK-MB (CK-2) TNP CK-MB (CK-2) Rel Index TNP Troponin I < 0.012 (0.01-0.034) ng/mL NT-Pro-B Natriuret Pep 3910 H (<450) pg/mL Total Protein (6.3-8.2) g/dL Albumin (3.5-5.0) g/dL Globulin (1.7-4.1) g/dL Albumin/Globulin Ratio (1.0-2.8) Blood Type O Positive Antibody Screen Negative Urine Dip Bedside Urine Glucose Negative Bedside Urine Bilirubin - Negative Bedside Urine Ketone +/- 5 Urine Specific [place] 1.020 Bedside Urine Occult Blood + Bedside Urine pH 6.0 Bedside Urine Protein + 30 Bedside Urine Urobilinogen +/- 1mg Bedside Urine Nitrite - Negative Bedside Urine Leukocytes +/- 15 Esterase Imaging Data Chest x-ray: Radiologist's Impression: PROCEDURE: XR CHEST 2V INDICATIONS: shortness of breath TECHNIQUE: 2 views of the chest were acquired. COMPARISON: [facility], CT, CT CHEST W CON, 05/17/2019, 14:28. [facility], CR, XR CHEST 2 VIEWS, 08/15/2019, 15:21. [facility], CR, XR CHEST 2 VIEWS, 04/06/2019, 16:54. [facility], CR, XR CHEST 2 VIEWS, 03/28/2019, 15:08. [facility], CR, XR CHEST 1V, 03/10/2019, 6:09. FINDINGS: Surgical changes and devices: Sternotomy wires and an aortic valve prosthesis can be seen. There is partial visualization of lumbar spine fixation hardware. Lungs and pleura: There is a small left-sided pleural effusion. Trace blunting of the right costophrenic angle can be seen. No pneumothorax. Interstitial prominence is seen throughout. Mediastinum: The cardiac contours are within normal limits. The aorta demonstrates calcification and tortuosity. Bones and chest wall: No suspicious bony abnormalities. 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 Age-appropriate bony degenerative changes are seen. Mild levoconvex scoliotic curvature is noted. Soft tissues appear unremarkable. IMPRESSION: Interstitial prominence and small bilateral pleural effusions are seen. Please consider fluid overload. Postoperative and degenerative changes are seen. Dictated by: Mateusz Uribe M.D. on 08/26/2020 at 16:17 ECG Data Attestation: I personally reviewed and interpreted this ECG as follows: Prior ECG tracings: available for review Interpretation: Atrial fibrillation rate [address] changes similar to previous EKG MDM Narrative Medical decision making narrative: Patient's hemoglobin hematocrit are since leave the same from yesterday. She has only had 1 bloody bowel movement. Her bigger complaint seems to be fatigued and increasing shortness of breath over the last few days. She has positive orthopnea elevated BNP and pulmonary congestion on x-ray. All suggestive of CHF. Patient denies any history of congestive heart failure though she is on Lasix. Previous echocardiogram from 2 years ago shows EF of 55-60%. The patient is ambulatory in the ED but makes it just out of the room before she needs to stop to catch her breath and her O2 dropped to 89%. Her heart rate is elevating now into the 130s and 140s but listed as allergies are diltiazem and metoprolol she is on Coreg. When asked what her reaction is she is unsure but it may cause constipation. She is given Lasix 40 mg in the ED. Dr. sherman updated on patient's symptoms test results agrees with admission Discharge Plan Departure Patient Disposition: Admitted as Observation Clinical Impression: Congestive heart failure Admit Date/Time: 08/26/20 18:59 Admit Provider: Roland Sherman
[2020-08-26 17:20] LABS: INR 1.4 (0.9-1.3)
[2020-08-26 17:23] LABS: PTT Partial Thromboplastin Tim 40 SECONDS (26.4-36.2)
[2020-08-26 17:27] LABS: Alanine Aminotransferase 10 IU/L (<35); Albumin 3.6 g/dL (3.5-5.0); Alkaline Phosphatase 66 U/L (38-126); Aspartate Aminotransferase 23 IU/L (14-36); BUN Creatinine Ratio 26.3 (6-22); Blood Urea Nitrogen 15 mg/dL (7-17); Calcium 8.9 mg/dL (8.4-10.2); Carbon Dioxide 28 mmol/L (22-32); Chloride 100 mmol/L (98-107); Estimated Glomerular Filt Rate > 60.0 mL/min (>60); Globulin 3.5 g/dL (1.7-4.1); Glucose 108 mg/dL (80-110); HEMOLYSIS < 15 (0-50); Potassium 4.3 mmol/L (3.4-5.1); Sodium 135 mmol/L (137-145); Total Protein 7.1 g/dL (6.3-8.2)
[2020-08-26 17:38] LABS: Creatine Kinase 37 U/L (30-135)
[2020-08-26 17:51] LABS: NT-proBNP (BNP-Adult 18+) 3910 pg/mL (<450); Troponin I < 0.012 ng/mL (0.01-0.034)
[2020-08-26] MEDS: FUROSEMIDE 40 MG/4 ML VIAL IV (18:44)
[2020-08-26] MEDS: carvediloL 12.5 MG TABLET PO (19:04)
[2020-08-26 19:22] LABS: COVID19 -Nasal RAPID Negative (Negative)
--- NOTE | 2020-08-26 22:23 | PC.NURSE ---
Pt arrived from ED @ 2009 Alert/oriented. Pt lungs clear/shallow, SpO2 95% RA Bilateral legs w/2-3+ edema noted. HL LFA intact/patent. Pt oriented to room & call system. ' Call light w/in rosa, bed alarm on for pt safety. COntinue w/plan of care.
--- NOTE | 2020-08-26 22:41 | PM.HP.1 ---
History of Present Illness History of Present Illness Date Patient Seen: 08/26/20 Time Patient Seen: 20:00 Chief complaint: Black & bloody stool feels terrible Narrative: Ms. Karena Brown is a 78-year-old female patient with a history atrial fibrillation, aortic valve replacement, hypertension, hyperlipidemia, irritable bowel syndrome with constipation, cutaneous agata arteritis nodosa and nummular dermatitis for which she is on prednisone hydro chloroquine and presents today with 2 day history of shortness of breath and not feeling herself. The patient reports that she has had increasing shortness of breath significantly today to present to the ER for evaluation. She was seen yesterday in the ED for abdominal pain and thought to be a gastrointestinal bleed. She states when they gave her tramadol, her symptoms completely resolved. Patient presently reports no complaints of fevers or chills, or headaches. She denies chest pain, or palpitations. She denies abdominal pain today, nausea or vomiting, but does endorse chronic constipation related to IBS and is on a regimen of Linzess before breakfast followed by Morales tablets (magnesium oxide) which she indicates takes 5-6 hours to fully evacuate and then goes about her day, no report of melena or hematochezia. She denies urinary symptoms of hematuria frequency or urgency. She reports worsening bilateral lower extremity edema. She reports some exertional dyspnea and states she feels blah. She has had prior back pain but describes no radiculopathy joint or leg pain. She states that she took her carvedilol and Pradaxa but no other medications. In the ED chest x-ray indicated that she appeared to be volume overloaded. ED provider indicated that she had had an echocardiogram 2 years ago with an EF of 55%. Patient was unable to confirm this and seemed to be confused as to where she had done. 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 Patient is afebrile blood pressure 105/73, heart rate 114, respiratory rate of 18, oxygen saturation of 95% on room air, she weighs 86.5 kg with a BMI of 34.9. WBC is 7.1, RBC 3.61, hemoglobin 9.8, hematocrit 30.5, INR is 1.4, sodium 135, potassium 4.3, chloride 100, CO2 28, BUN 15, creatinine 0.57, GFR is greater than 60, glucose 108, lactate 1.0, calcium 8.9, magnesium 2.0, liver enzymes are within normal limits, proBNP is 3910, COVID 19 PCR is negative. Patient History Medical History Atrial fibrillation Benign cutaneous periarteritis nodosa Hypertension Irritable bowel syndrome with constipation Macular degeneration, left eye Mitral valve disease Nummular dermatitis Surgical History History of aortic valve replacement History of back surgery History of cataract extraction History of laparoscopic adjustable gastric banding Family & Social History Family History Mother Old age Daughter Congestive heart failure Son Suicide Brother Ischemic necrosis of small bowel Social History: household members spouse Safety & Behavioral: Feels Safe in Current Yes Environment Been Physically Hurt or No Threatened By a Person Suicidal Ideation Description None Suicide Plan Description No Plan Tobacco & Substance use: Tobacco type cigarettes Smoking Status Former smoker alcohol intake frequency holiday/special occasion Substance Use Type does not use Meds Home Medications and Allergies Home Medications Medication Instructions Recorded Confirmed Type Linzess 290 mg PO DAILY 03/09/19 08/26/20 History Pradaxa 150 mg PO BID 03/09/19 08/26/20 History cholecalciferol (vitamin D3) 4,000 unit PO DAILY 03/09/19 08/26/20 History [Vitamin D3] clobetasol 1 applic TOPICAL DIRECTED 03/09/19 08/26/20 History folic acid 1,200 mcg PO DAILY 03/09/19 08/26/20 History hydroxychloroquine 200 mg PO DAILY 03/09/19 08/26/20 History multivitamin 1 tab PO DAILY 03/09/19 08/26/20 History prednisone 5 mg PO DAILY 03/09/19 08/26/20 History tramadol 50 mg PO BID PRN MDD 2 03/09/19 08/26/20 History carvedilol 12.5 mg PO BID #60 tab 03/12/19 08/26/20 Rx furosemide 40 mg PO DAILY #30 tab 03/12/19 08/26/20 Rx docusate sodium [Colace] 50 mg PO DAILY 08/26/20 08/26/20 History ferrous sulfate 324 mg PO DAILY 08/26/20 08/26/20 History omega-3 acid ethyl esters [Lovaza] 1 cap PO DAILY 08/26/20 08/26/20 History potassium chloride 40 meq PO BID 08/26/20 08/26/20 History vitamin B complex [B 1 tab PO DAILY 08/26/20 08/26/20 History Complex-Vitamin B12] vitamins A,C,M-miij-nenjuv 2 tab PO DAILY 08/26/20 08/26/20 History [PreserVision AREDS] Allergies Allergy/AdvReac Type Severity Reaction Status Date / Time amiodarone Allergy Verified 08/26/20 18:59 dicloxacillin Allergy Verified 08/26/20 18:59 diltiazem [From Cartia XT] Allergy Verified 08/26/20 18:59 lubiprostone [From Amitiza] Allergy Verified 08/26/20 18:59 metoprolol Allergy Verified 08/26/20 18:59 sulfamethoxazole Allergy Verified 08/26/20 18:59 [From Bactrim] trimethoprim [From Bactrim] Allergy Verified 08/26/20 18:59 Review of Systems Review of Systems ROS: Yes All systems reviewed with the patient and are negative except as otherwise documented Exam Vital Signs (past 8 hours): - 08/26/20 16:17 08/26/20 17:27 08/26/20 17:30 Temperature 99.5 F Pulse Rate 134 H 122 H 120 H Respiratory Rate 24 25 H 25 H Blood Pressure 160/92 H 132/64 Pulse Oximetry 95 96 97 08/26/20 17:45 08/26/20 18:00 08/26/20 18:15 Temperature Pulse Rate 123 H 116 H 124 H Respiratory Rate 24 22 25 H Blood Pressure 119/77 Pulse Oximetry 97 97 98 08/26/20 18:30 08/26/20 18:52 08/26/20 19:00 Temperature Pulse Rate 144 H 132 H 128 H Respiratory Rate 32 H 28 H Blood Pressure 131/76 Pulse Oximetry 89 L 08/26/20 19:04 08/26/20 20:15 Temperature 98.2 F Pulse Rate 134 H 114 H Respiratory Rate 18 Blood Pressure 105/73 Pulse Oximetry 95 Oxygen Delivery Method Room Air Narrative Exam Narrative: Gen: Alert, oriented, well-developed 80 y.o. female, mildly anxious HEENT: normocephalic, atraumatic, conjunctiva clear, sclera non-icteric, oral mucosa pink and moist Neck: supple, full ROM, no JVD, trachea is midline Resp: Lungs CTA, non-labored breathing CV: tachy w/mechnical click, no murmur or rubs Abd: soft, non-tender, normoactive BTs Skin: no lesions or rashes, dry and intact Neuro: Alert and oriented X 4 w/no focal deficits. Speech clear and coherent. Extremities: +3 bilateral pitting edema, moves all 4 extremities, is ambulatory, negative Kelly?s sign Psyche: normal mood and affect. Objective Labs Result Diagrams: 08/26/20 16:53 08/26/20 16:53 Labs: Laboratory Results - last 24 hr 08/26/20 08/26/20 08/26/20 16:53 16:53 16:53 WBC 7.1 RBC 3.61 L Hgb 9.8 L Hct 30.5 L MCV 84.4 MCH 27.3 MCHC 32.3 RDW 14.6 Plt Count 184 Neut % (Auto) 79.0 H Lymph % (Auto) 7.7 L [place] % (Auto) 10.9 Eos % (Auto) 1.6 L Baso % (Auto) 0.8 Neut # (Auto) 5600 Lymph # (Auto) 500 L [place] # (Auto) 800 Eos # (Auto) 100 Baso # (Auto) 100 PT 16.0 H D INR 1.4 H APTT 40 H D Sodium 135 L Potassium 4.3 Chloride 100 Carbon Dioxide 28 BUN 15 Creatinine 0.57 Estimated GFR > 60.0 BUN/Creatinine Ratio 26.3 H Glucose 108 Lactate Calcium 8.9 Magnesium Total Bilirubin 1.0 AST 23 ALT 10 Alkaline Phosphatase 66 Total Creatine Kinase CK-MB (CK-2) CK-MB (CK-2) Rel Index Troponin I NT-Pro-B Natriuret Pep Total Protein 7.1 Albumin 3.6 Globulin 3.5 Albumin/Globulin Ratio 1.0 SARS-CoV-2 (PCR) Blood Type Antibody Screen 08/26/20 08/26/20 08/26/20 16:53 16:53 16:53 WBC RBC Hgb Hct MCV MCH MCHC RDW Plt Count Neut % (Auto) Lymph % (Auto) [place] % (Auto) Eos % (Auto) Baso % (Auto) Neut # (Auto) Lymph # (Auto) [place] # (Auto) Eos # (Auto) Baso # (Auto) PT INR APTT Sodium Potassium Chloride Carbon Dioxide BUN Creatinine Estimated GFR BUN/Creatinine Ratio Glucose Lactate 1.0 Calcium Magnesium Total Bilirubin AST ALT Alkaline Phosphatase Total Creatine Kinase 37 CK-MB (CK-2) TNP CK-MB (CK-2) Rel Index TNP Troponin I < 0.012 NT-Pro-B Natriuret Pep 3910 H Total Protein Albumin Globulin Albumin/Globulin Ratio SARS-CoV-2 (PCR) Blood Type O Positive Antibody Screen Negative 08/26/20 08/26/20 16:53 18:53 WBC RBC Hgb Hct MCV MCH MCHC RDW Plt Count Neut % (Auto) Lymph % (Auto) [place] % (Auto) Eos % (Auto) Baso % (Auto) Neut # (Auto) Lymph # (Auto) [place] # (Auto) Eos # (Auto) Baso # (Auto) PT INR APTT Sodium Potassium Chloride Carbon Dioxide BUN Creatinine Estimated GFR BUN/Creatinine Ratio Glucose Lactate Calcium Magnesium 2.0 Total Bilirubin AST ALT Alkaline Phosphatase Total Creatine Kinase CK-MB (CK-2) CK-MB (CK-2) Rel Index Troponin I NT-Pro-B Natriuret Pep Total Protein Albumin Globulin Albumin/Globulin Ratio SARS-CoV-2 (PCR) Negative Blood Type Antibody Screen Assessment & Plan Assessment & Plan narrative: Karena Brown will be observed overnight for further management of an acute on chronic diastolic heart failure exacerbation. Acute on chronic diastolic heart failure exacerbation, present on admission -She received IV lasix 40 mg in the ED and the patient felt significant improvement in her symptoms -She will receive another dose of IV Lasix in the am -Complete echo in the am, unless we can locate prior echo from her measuring machine tender Atrial fibrillation anticoagulated on pradaxa -Cardiac telemetry -She has a history of an aortic valve replacement -Continue home dose of pradaxa 150 mg po bid -Continue home dose of carvedilol 12.5 mg po bid Cutaneous periarteritis nodosa -Continue home dose of hydroxycholoraquine 200 mg po daily -Continue home dose of prednisone 5 mg po daily Chronic pulmonary hypertension -Patient has had a history of left apical pneumothoraz -telemetry, continuous pulse oximetry Irritable bowel syndrome, constipation dominant -Continue home dose of linaclotide 290 mg po daily, patient's own -Continue home dose of docusate 50 mg po daily VTE prophylaxis: Wells risk score: 1.5 She is currently anticoagulated on pradaxa Consults: none Patient is observation status as her stay is not likely to exceed 2 midnights. FEN: Saline lock, 1200 cc fluid restriction, heart healthy diet, C/BMP and magnesium in the am. Dispo: anticipated discharge to home Code Status: Full Code as discussed with patient Scores Wells' Criteria for PE Clinical signs and symptoms of DVT: No PE is #1 Dx or equally likely: No Heart rate > 100: Yes Immobilization at least 3 days or surg in previous 4 weeks: No History of PE or DVT: No Hemoptysis: No Malignancy w/Treatment within 6 months or palliative: No Wells' PE Score total: 1.5 Quality VTE Deep Vein Thrombosis/Pulmonary Embolism Present on Admission: No
[2020-08-27] VITALS (11 sets, daily range): BP systolic 110–130; BP diastolic 56–75; PULSE 95–114; RESP 14–18; TEMP 36.3–37.2; O2SAT 93–98
[2020-08-27] MEDS: DABIGATRAN 75 MG CAPSULE 150 MG PO (02:15)
[2020-08-27] MEDS: TRAMADOL 50 MG TABLET PO (03:16)
--- NOTE | 2020-08-27 03:48 | PC.NURSE ---
Pt stable at start of shift, denied pain, admitted to some anxiety. Pt did not receive pradaxa as scheduled, given at 0215 per verbal order from svetlana Saunders aware. Pt reported difficulty sleeping.
[2020-08-27 05:39] LABS: Add Manual Diff / Slide Review NO; Basophils Absolute Auto 0 /uL (0-100); Basophils Percent Auto 0.6 % (0-2); Eosinophils Absolute Auto 100 /uL (0-450); Hematocrit 28.8 % (36-46); Hemoglobin 9.3 g/dL (12.0-16.0); Lymphocytes Absolute Auto 500 /uL (1100-4500); Lymphocytes Percent Auto 8.9 % (25-40); Mean Corpuscular HGB Conc 32.3 % (30-36); Mean Corpuscular Hemoglobin 27.1 PG (26-34); Mean Corpuscular Volume 84.1 fL (80-100); Monocytes Absolute Auto 700 /uL (0-900); Monocytes Percent Auto 11.6 % (3-14); Neutrophils Absolute Auto 4700 /uL (1500-7000); Neutrophils Percent Auto 76.9 % (50-75); Platelet Count 175 X10^3/uL (150-400); Red Blood Cell Count 3.42 X10^6/uL (4.0-5.2); Red Cell Distribution Width 14.3 % (11.6-14.8); White Blood Cell Count 6.1 X10^3/uL (4.5-11.0)
[2020-08-27 05:58] LABS: BUN Creatinine Ratio 20.6 (6-22); Blood Urea Nitrogen 13 mg/dL (7-17); Calcium 8.5 mg/dL (8.4-10.2); Carbon Dioxide 31 mmol/L (22-32); Chloride 99 mmol/L (98-107); Estimated Glomerular Filt Rate > 60.0 mL/min (>60); Glucose 96 mg/dL (80-110); HEMOLYSIS < 15 (0-50); Magnesium 1.9 mg/dL (1.6-2.3); Potassium 3.7 mmol/L (3.4-5.1); Sodium 135 mmol/L (137-145)
[2020-08-27 06:45] LABS: Thyroid Stimulating Hormone 0.164 uIU/mL (0.47-4.68)
[2020-08-27] MEDS: HYDROXYCHLOROQUINE 200 MG TABLET PO (08:30)
[2020-08-27] MEDS: FUROSEMIDE 20 MG/2 ML VIAL 40 MG IV (08:30)
[2020-08-27] MEDS: predniSONE 5 MG TABLET PO (08:30)
[2020-08-27] MEDS: POTASSIUM CHLORIDE 20 MEQ TAB PO ×2 (08:30→17:09)
[2020-08-27] MEDS: FERROUS SULFATE 325 MG TABLET PO (08:31)
[2020-08-27] MEDS: carvediloL 12.5 MG TABLET PO ×2 (08:31→20:43)
[2020-08-27 09:11] LABS: HEMOLYSIS < 15 (0-50); Iron 18 ug/dL (37-170)
--- NOTE | 2020-08-27 09:17 | DI.ECHO.S_ITS ---
[place] [facility] +---------+ : : [address] : [address] : [address] : : : : [id number] : : : : Phone: [phone]+ Echocardiogram Report + + :Name: GLENN MUELLER Study Date: 08/27/2020 Height: 62 in : :[facility] Weight: 190 lb : : Gender: Female BSA: 1.9 m2 : :: 1940 Age: 80 yrs BP: 105/73 mmHg: :Reason For Study: DIASTOLIC HEART FAILURE : :Ordering Physician: Hugh ENRIQUEZformed By: Joceline Matthews : :Referring: DASH ENRIQUEZ : + + Interpretation Summary The patient was in atrial fibrillation with heart rates between 97-122 bpm during the exam. The left ventricle is normal in size. Left ventricular ejection fraction is estimated to be 60 +/- 5%. There has been no significant change in LV EF since the previous exam. The right ventricle is normal in size and function. There is a bioprosthetic aortic valve. The prosthetic aortic valve is well-seated. There is moderately reduced leaflet mobility. The peak aortic velocity is 3.53 m/sec. The aortic valve mean gradient is 32 mmHg. The peak aortic velocity on the previous exam was 3.2 m/sec. sev ratio: 0.26 There is mild to moderate tricuspid regurgitation. Compared to the prior echo exam, there has been no change in TR severity. The right ventricular systolic pressure is estimated to be at least 32 mmHg based on an estimated right atrial pressure of 15 mm Hg. Compared to the prior echo exam, there has been a decrease in the severity of pulmonary hypertension. Procedure: A two-dimensional transthoracic echocardiogram with color flow and Doppler was performed. The study quality was technically adequate. Comparison is made with the echocardiogram of 03/10/2019. The patient was in atrial fibrillation with heart rates between 97-122 bpm during the exam. Left Ventricle: The left ventricle is normal in size. There is mild concentric left ventricular hypertrophy. There is no thrombus. Left ventricular ejection fraction is estimated to be 60 +/- 5%. There has been no significant change since the previous exam. There are no focal wall motion abnormalities. Diastolic function could not be accurately assessed due to atrial fibrillation. Right Ventricle: The right ventricle is normal in size and function. Atria: The left atrium is severely dilated. The left atrium has mildly increased in size since the prior echo exam. The right atrium is mildly dilated. There is no Doppler evidence for an interatrial shunt. Mitral Valve: There is mild to moderate mitral annular calcification. The mitral valve leaflets are mildly calcified. The mitral valve chordae are thickened and/or calcified. No significant mitral valve stenosis. There is mild mitral regurgitation. Aortic Valve: There is moderately reduced leaflet mobility. The aortic valve is moderately calcified. There is a bioprosthetic aortic valve. The prosthetic aortic valve is well-seated. The peak aortic velocity is 3.53 m/sec. The aortic valve mean gradient is 32 mmHg. The peak aortic velocity on the previous exam was 3.2 m/sec. There is trace aortic regurgitation. Tricuspid Valve: The tricuspid valve is normal. There is mild to moderate tricuspid regurgitation. The right ventricular systolic pressure is estimated to be at least 32 mmHg based on an estimated right atrial pressure of 15 mm Hg. Compared to the prior echo exam, there has been no change in TR severity. Compared to the prior echo exam, there has been a decrease in the severity of pulmonary hypertension. Pulmonic Valve: The pulmonic valve is not well seen, but is grossly normal. There is trace pulmonic regurgitation. Great Vessels: The dimensions of the ascending aorta are normal. The IVC is dilated (diameter is greater than 2.1 cm) and it collapses less than 50% with a sniff. This suggests a high right atrial pressure of 15 mm Hg. Pericardium/ Pleura There is no pericardial effusion. There is no pleural effusion. MMode/2D Measurements & Calculations LVIDd: 4.2 cm LVOT diam: 2.0 cm LVIDs: 2.6 cm asc Aorta Diam: 3.2 cm FS: 39.5 % Ao Arch Diam (Prox Trans): 2.7 cm IVSd: 1.4 cm LVPWd: 1.1 cm LV locke. diameter/BSA (cm/m^2): 2.3 LV sys. diameter/BSA (cm/m^2): 1.4 LA A2 area: 32.3 cm2 RA long axis: 6.1 cm LA A4 area: 26.4 cm2 RA area: 22.6 cm2 LA length (vol): 6.6 cm RA vol: 71.6 ml LA vol: 109.9 ml RA : 38.3 ml/m2 LA vol index: 58.8 ml/m2 IVC diam: 2.4 cm RVD1 (basal): 3.5 cm TAPSE: 1.7 cm Doppler Measurements & Calculations Ao V2 max: 353.5 cm/sec LVOT Max Edison: 100.5 cm/sec Ao V2 mean: 273.7 cm/sec LV V1 max P.0 mmHg Ao max P.1 mmHg LV V1 VTI: 16.6 cm Ao mean P.4 mmHg PATRICK(I,D): 0.79 cm2 Ao V2 VTI: 63.7 cm PATRICK(V,D): 0.86 cm2 sev ratio: 0.26 PATRICK indexed to BSA (cm^2/m^2): 0.42 MV E max edison: 172.9 cm/sec TR max edison: 206.2 cm/sec MV A max edison: 1.0 cm/sec TR max P.0 mmHg MV E/A: 171.4 PA V2 max: 67.4 cm/sec Med Peak E' Edison: 6.5 cm/sec PA V2 mean: 42.7 cm/sec E/E' med: 26.7 PA mean P.87 mmHg Lat Peak E' Edison: 8.6 cm/sec PA pr(Accel): 31.0 mmHg E/E' lat: 20.1 E/e' average: 23.4 MV dec time: 0.27 sec SV(LVOT): 50.4 ml Reading Physician:11:44 AM
[2020-08-27 09:22] LABS: Percent Iron Saturation 6 % (15-50); Total Iron Binding Capacity 314 ug/dL (265-497); Transferrin 218 mg/dL (206-381)
[2020-08-27 09:29] LABS: Free T4, Direct Thyroxine 1.73 ng/dL (0.78-2.19)
[2020-08-27 09:42] LABS: Ferritin 55 ng/mL (11-264)
--- NOTE | 2020-08-27 10:04 | CM.DANOTE ---
DCP: Case received, EMR reviewed and met with patient. Introduced self and role. Was able to obtain information regarding patient's baseline activity level prior to hospitalization, as well as her current living situation. DCP assessment completed with information currently available. Patient is an 80 year old female who admitted yesterday afternoon to the care of the hospitalist team. PCP: Dr. Kruger. Payer: confirmed: [facility]. Patient came to the hospital via private vehicle secondary to having weakness, as well as shortness of breath. Patient holds diagnosis of acute on chronic diastolic heart failure. 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 Met with patient in her room. She was sitting up in her chair, pleasant, and alert and oriented. She is independent at baseline, and resides with her spouse, Bong. They both reside in [place]. P: DCP to continue to follow. Patient should be able to go home when she is medically stable. Tracy Delarosa RN/Watermelon Inspector
[2020-08-27] MEDS: DOCUSATE 100 MG CAPSULE PO (13:18)
--- NOTE | 2020-08-27 19:24 | PM.PN.1 ---
Subjective Subjective Date Patient Seen: 08/27/20 Interval history: Patient is 80-year-old female with history of chronic atrial fibrillation, bioprosthetic aortic valve, heart failure with preserved EF, presented due to progressive dyspnea on exertion, orthopnea and swelling of legs. Patient states her breathing is much better since started on IV Lasix. Still has a lot of swelling in her legs. Exam Vital Signs (past 8 hours): - 08/27/20 12:50 08/27/20 16:00 Temperature 97.8 F 97.8 F Pulse Rate 100 H 95 H Respiratory Rate 16 18 Blood Pressure 110/65 110/65 Pulse Oximetry 95 98 Oxygen Delivery Method Room Air Oxygen Flow Rate 0 Narrative Exam Narrative: General: Alert very pleasant female sitting in chair and appearing comfortable Lungs: Crackles in lower lobes Heart: Irregularly irregular Abdomen: Soft, nontender, no abdominal mass, no HSM Extremities: Bilateral 3 to 4+ pitting edema in the legs, no open wounds Neurological: Well oriented, normal affect, no focal weakness, normal speech Objective Labs Result Diagrams: 08/27/20 05:00 08/27/20 05:00 Labs: Laboratory Results - last 24 hr 08/26/20 08/27/20 08/27/20 16:53 05:00 05:00 WBC 6.1 RBC 3.42 L Hgb 9.3 L Hct 28.8 L MCV 84.1 MCH 27.1 MCHC 32.3 RDW 14.3 Plt Count 175 Neut % (Auto) 76.9 H Lymph % (Auto) 8.9 L Patrick % (Auto) 11.6 Eos % (Auto) 2.0 Baso % (Auto) 0.6 Neut # (Auto) 4700 Lymph # (Auto) 500 L Patrick # (Auto) 700 Eos # (Auto) 100 Baso # (Auto) 0 Sodium 135 L Potassium 3.7 Chloride 99 Carbon Dioxide 31 BUN 13 Creatinine 0.63 Estimated GFR > 60.0 BUN/Creatinine Ratio 20.6 Glucose 96 Calcium 8.5 Magnesium 2.0 1.9 Iron TIBC % Saturation Transferrin Ferritin TSH Free T4 08/27/20 08/27/20 08/27/20 05:00 08:45 08:45 WBC RBC Hgb Hct MCV MCH MCHC RDW Plt Count Neut % (Auto) Lymph % (Auto) Patrick % (Auto) Eos % (Auto) Baso % (Auto) Neut # (Auto) Lymph # (Auto) Patrick # (Auto) Eos # (Auto) Baso # (Auto) Sodium Potassium Chloride Carbon Dioxide BUN Creatinine Estimated GFR BUN/Creatinine Ratio Glucose Calcium Magnesium Iron TIBC % Saturation Transferrin Ferritin 55 TSH 0.164 L Free T4 1.73 08/27/20 08:45 WBC RBC Hgb Hct MCV MCH MCHC RDW Plt Count Neut % (Auto) Lymph % (Auto) Patrick % (Auto) Eos % (Auto) Baso % (Auto) Neut # (Auto) Lymph # (Auto) Patrick # (Auto) Eos # (Auto) Baso # (Auto) Sodium Potassium Chloride Carbon Dioxide BUN Creatinine Estimated GFR BUN/Creatinine Ratio Glucose Calcium Magnesium Iron 18 L TIBC 314 % Saturation 6 L Transferrin 218 Ferritin TSH Free T4 PFSH Medical History Atrial fibrillation Benign cutaneous periarteritis nodosa Hypertension Irritable bowel syndrome with constipation Macular degeneration, left eye Mitral valve disease Nummular dermatitis Surgical History History of aortic valve replacement History of back surgery History of cataract extraction History of laparoscopic adjustable gastric banding Family History Mother Old age Daughter Congestive heart failure Son Suicide Brother Ischemic necrosis of small bowel Social History marital status: household members: spouse Smoking Status: Former smoker Assessment & Plan Assessment & Plan narrative: Patient is 80-year-old female with history of chronic atrial fibrillation, bioprosthetic aortic valve, heart failure with preserved EF, presented due to progressive dyspnea on exertion, orthopnea and swelling of legs. 1. Exacerbation of congestive heart failure with preserved EF, present on admission, active -ECHO: AFib, LVEF 60+/-5%, bioprosthetic valve, no change from prior echo -continue furosemide 40 mg IV b.i.d., KCl 20 mEq b.i.d., patient has significant peripheral edema and may require several days of IV diuresis -home diuretic regimen is furosemide 40 mg twice daily which patient has been compliant prior to admission -monitor lytes, BUN and creatinine 2. Chronic atrial fib -slightly tachycardic probably due to CHF exacerbation -continue carvedilol 12.5 mg b.i.d. -hold Pradaxa for EGD, see below 3. Chronic blood-loss anemia -hemoglobin 9.7 where as in January 2020 she had normal hemoglobin of 13.6, iron% saturation 6, ferritin 55 consistent with iron deficiency anemia -Dr. Gómez consulted for EGD -hold Pradaxa -pantoprazole 40 mg p.o. b.i.d. 4. Chronic prednisone -patient is on chronic low-dose prednisone 5 mg q.d. and hydroxychloroquine for skin condition, cutaneous periarteritis nodosa, continue meds Quality VTE Deep Vein Thrombosis/Pulmonary Embolism Present on Admission: No
[2020-08-27] MEDS: PANTOPRAZOLE 40 MG TABLET PO (20:42)
[2020-08-27] MEDS: FUROSEMIDE 40 MG/4 ML VIAL IV (20:43)
[2020-08-27] MEDS: SODIUM CHLORIDE 0.9% FLUSH 10 ML IV (20:43)
[2020-08-28] VITALS (8 sets, daily range): BP systolic 96–120; BP diastolic 60–93; PULSE 102–114; RESP 16–18; TEMP 36–36.5; O2SAT 96–99
[2020-08-28] MEDS: ACETAMINOPHEN 325 MG TABLET 650 MG PO (01:26)
[2020-08-28] MEDS: DOCUSATE 100 MG CAPSULE PO (03:06)
--- NOTE | 2020-08-28 03:51 | PC.NURSE ---
Pt stable at start of shift, pain free, complains of discomfort from constipation. Pt requesting medication administration time change from 0900 Lin[place] to 0300 in conjunction with colace per her at home morning bowel routine. Provider consulted and OKAYd.
[2020-08-28 05:56] LABS: BUN Creatinine Ratio 18.6 (6-22); Blood Urea Nitrogen 13 mg/dL (7-17); Calcium 8.7 mg/dL (8.4-10.2); Carbon Dioxide 31 mmol/L (22-32); Chloride 95 mmol/L (98-107); Estimated Glomerular Filt Rate > 60.0 mL/min (>60); Glucose 115 mg/dL (80-110); HEMOLYSIS < 15 (0-50); Potassium 3.6 mmol/L (3.4-5.1); Sodium 132 mmol/L (137-145)
[2020-08-28 06:28] LABS: Add Manual Diff / Slide Review NO; Basophils Absolute Auto 0 /uL (0-100); Basophils Percent Auto 0.4 % (0-2); Eosinophils Absolute Auto 200 /uL (0-450); Eosinophils Percent Auto 2.2 % (2-4); Hematocrit 31.2 % (36-46); Hemoglobin 10.3 g/dL (12.0-16.0); Lymphocytes Absolute Auto 600 /uL (1100-4500); Lymphocytes Percent Auto 8.7 % (25-40); Mean Corpuscular Hemoglobin 27.4 PG (26-34); Mean Corpuscular Volume 83.1 fL (80-100); Monocytes Absolute Auto 600 /uL (0-900); Monocytes Percent Auto 8.2 % (3-14); Neutrophils Absolute Auto 5700 /uL (1500-7000); Neutrophils Percent Auto 80.5 % (50-75); Platelet Count 221 X10^3/uL (150-400); Red Blood Cell Count 3.76 X10^6/uL (4.0-5.2); Red Cell Distribution Width 14.4 % (11.6-14.8)
--- NOTE | 2020-08-28 09:49 | P.CONS_ITS ---
History of Present Illness Consult details Date Patient Seen: 08/28/20 Chief complaint: Black & bloody stool feels terrible Narrative: 80-year-old woman seen in consultation for anemia. She is admitted hospital for congestive heart failure shortness of breath. She says that over the past several days she has been having occasional melanotic stool as well as some bright red blood. She is anticoagulated with Pradaxa for atrial fibrillation. Admission hemoglobin 9.7 baseline 12. Most recent colonoscopy was approximately 2 years ago and reportedly normal. No history of peptic ulcer disease. No personal or family history of intestinal malignancy. Meds Home Medications and Allergies Home Medications Medication Instructions Recorded Confirmed Type Linzess 290 mg PO DAILY 03/09/19 08/26/20 History Pradaxa 150 mg PO BID 03/09/19 08/26/20 History cholecalciferol (vitamin D3) 4,000 unit PO DAILY 03/09/19 08/26/20 History [Vitamin D3] clobetasol 1 applic TOPICAL DIRECTED 03/09/19 08/26/20 History folic acid 1,200 mcg PO DAILY 03/09/19 08/26/20 History hydroxychloroquine 200 mg PO DAILY 03/09/19 08/26/20 History multivitamin 1 tab PO DAILY 03/09/19 08/26/20 History prednisone 5 mg PO DAILY 03/09/19 08/26/20 History tramadol 50 mg PO BID PRN MDD 2 03/09/19 08/26/20 History carvedilol 12.5 mg PO BID #60 tab 03/12/19 08/26/20 Rx furosemide 40 mg PO DAILY #30 tab 03/12/19 08/26/20 Rx docusate sodium [Colace] 50 mg PO DAILY 08/26/20 08/26/20 History ferrous sulfate 324 mg PO DAILY 08/26/20 08/26/20 History omega-3 acid ethyl esters [Lovaza] 1 cap PO DAILY 08/26/20 08/26/20 History potassium chloride 20 meq PO BID 08/26/20 08/27/20 History vitamin B complex [B 1 tab PO DAILY 08/26/20 08/26/20 History Complex-Vitamin B12] vitamins A,C,B-xbsb-gswlhw 2 tab PO DAILY 08/26/20 08/26/20 History [PreserVision AREDS] Allergies Allergy/AdvReac Type Severity Reaction Status Date / Time amiodarone Allergy Verified 08/26/20 18:59 dicloxacillin Allergy Verified 08/26/20 18:59 diltiazem [From Cartia XT] Allergy Verified 08/26/20 18:59 lubiprostone [From Amitiza] Allergy Verified 08/26/20 18:59 metoprolol Allergy Verified 08/26/20 18:59 sulfamethoxazole Allergy Verified 08/26/20 18:59 [From Bactrim] trimethoprim [From Bactrim] Allergy Verified 08/26/20 18:59 Review of Systems Review of Systems Narrative: A 10 point review of systems is negative except as noted in the HPI Exam Vital Signs (past 8 hours): - 08/28/20 05:00 08/28/20 07:58 08/28/20 09:34 Temperature 97.7 F 96.8 F L Pulse Rate 111 H 114 H 107 H Respiratory Rate 16 16 Blood Pressure 96/63 120/93 H Pulse Oximetry 96 98 99 Oxygen Delivery Method Room Air Oxygen Flow Rate 0 Narrative Exam Narrative: General-no acute distress, well nourished elderly woman HEENT-moist mucous membranes, no scleral icterus Neck-supple, no lymphadenopathy Chest- non labored respirations, clear to auscultation bilaterally Cardiac-irregular rhythm Abdomen-soft, nontender, non distended Extremities-warm, pitting edema Neurological-alert and oriented, no focal deficits Objective Labs Result Diagrams: 08/28/20 05:35 08/28/20 05:35 Labs: Laboratory Results - last 24 hr 08/28/20 08/28/20 05:35 05:35 WBC 7.0 RBC 3.76 L Hgb 10.3 L Hct 31.2 L MCV 83.1 MCH 27.4 MCHC 33.0 RDW 14.4 Plt Count 221 Neut % (Auto) 80.5 H Lymph % (Auto) 8.7 L [place] % (Auto) 8.2 Eos % (Auto) 2.2 Baso % (Auto) 0.4 Neut # (Auto) 5700 Lymph # (Auto) 600 L [place] # (Auto) 600 Eos # (Auto) 200 Baso # (Auto) 0 Sodium 132 L Potassium 3.6 Chloride 95 L Carbon Dioxide 31 BUN 13 Creatinine 0.70 Estimated GFR > 60.0 BUN/Creatinine Ratio 18.6 Glucose 115 H Calcium 8.7 Assessment & Plan Assessment & Plan narrative: 80-year-old woman admitted for congestive heart failure, history of atrial fibrillation on anticoagulation with new onset anemia. Recommend that we proceed with esophagoduodenoscopy as well as colonoscopy to evaluate for any intraluminal pathology that could be contrib uting to her anemia. Technical details of the procedure were discussed. Procedural risks including bleeding infection intestinal perforation misdiagnosis were discussed. -clear liquid diet today NPO after midnight -bowel prep has been ordered with Shayy to begin this afternoon -EGD and colonoscopy tomorrow afternoon
[2020-08-28] MEDS: carvediloL 12.5 MG TABLET PO ×2 (09:53→20:10)
[2020-08-28] MEDS: FUROSEMIDE 40 MG/4 ML VIAL IV ×2 (09:53→18:55)
[2020-08-28] MEDS: POTASSIUM CHLORIDE 20 MEQ TAB PO ×2 (09:53→17:26)
[2020-08-28] MEDS: HYDROXYCHLOROQUINE 200 MG TABLET PO (09:53)
[2020-08-28] MEDS: predniSONE 5 MG TABLET PO (09:53)
[2020-08-28] MEDS: FERROUS SULFATE 325 MG TABLET PO (09:54)
[2020-08-28] MEDS: SODIUM CHLORIDE 0.9% FLUSH 10 ML IV ×2 (09:54→20:10)
[2020-08-28] MEDS: PANTOPRAZOLE 40 MG TABLET PO ×2 (09:55→20:10)
--- NOTE | 2020-08-28 13:04 | P.PN_ITS ---
Subjective Subjective Date Patient Seen: 08/28/20 Interval history: Patient is 80-year-old female with history of chronic atrial fibrillation, bioprosthetic aortic valve, heart failure with preserved EF, presented due to progressive dyspnea on exertion, orthopnea and swelling of legs. Patient notes continued improvement in her breathing though legs remain quite swollen. She is getting prepped for colonoscopy and EGD tomorrow to evaluate chronic blood loss anemia. Exam Vital Signs (past 8 hours): - 08/28/20 07:58 08/28/20 09:34 08/28/20 09:53 Temperature 96.8 F L Pulse Rate 114 H 107 H 103 H Respiratory Rate 16 Blood Pressure 120/93 H 120/93 H Pulse Oximetry 98 99 08/28/20 11:30 Temperature 97.6 F Pulse Rate 108 H Respiratory Rate 16 Blood Pressure 104/60 Pulse Oximetry 96 Oxygen Delivery Method Room Air Oxygen Flow Rate 0 Narrative Exam Narrative: General: Alert very pleasant female sitting in chair and appearing comfortable Lungs: Breathing nonlabored, clear to auscultation Heart: Irregularly irregular Abdomen: Soft, nontender, no abdominal mass, no HSM Extremities: Bilateral 3 to 4+ pitting edema in the legs, greater on the right, no open wounds Neurological: Well oriented, normal affect, no focal weakness, normal speech Objective Labs Result Diagrams: 08/28/20 05:35 08/28/20 05:35 Labs: Laboratory Results - last 24 hr 08/28/20 08/28/20 05:35 05:35 WBC 7.0 RBC 3.76 L Hgb 10.3 L Hct 31.2 L MCV 83.1 MCH 27.4 MCHC 33.0 RDW 14.4 Plt Count 221 Neut % (Auto) 80.5 H Lymph % (Auto) 8.7 L [place] % (Auto) 8.2 Eos % (Auto) 2.2 Baso % (Auto) 0.4 Neut # (Auto) 5700 Lymph # (Auto) 600 L [place] # (Auto) 600 Eos # (Auto) 200 Baso # (Auto) 0 Sodium 132 L Potassium 3.6 Chloride 95 L Carbon Dioxide 31 BUN 13 Creatinine 0.70 Estimated GFR > 60.0 BUN/Creatinine Ratio 18.6 Glucose 115 H Calcium 8.7 PFSH Medical History Atrial fibrillation Benign cutaneous periarteritis nodosa Hypertension Irritable bowel syndrome with constipation Macular degeneration, left eye Mitral valve disease Nummular dermatitis Surgical History History of aortic valve replacement History of back surgery History of cataract extraction History of laparoscopic adjustable gastric banding Family History Mother Old age Daughter Congestive heart failure Son Suicide Brother Ischemic necrosis of small bowel Social History marital status: household members: spouse Smoking Status: Former smoker Assessment & Plan Assessment & Plan narrative: Patient is 80-year-old female with history of chronic atrial fibrillation, bioprosthetic aortic valve, heart failure with preserved EF, presented due to progressive dyspnea on exertion, orthopnea and swelling of legs. 1. Exacerbation of congestive heart failure with preserved EF, present on admission, active -ECHO: AFib, LVEF 60+/-5%, bioprosthetic valve, no change from prior echo -continue furosemide 40 mg IV b.i.d., KCl 20 mEq b.i.d., patient has significant peripheral edema and may require several days of IV diuresis -home diuretic regimen is furosemide 40 mg twice daily which patient has been compliant prior to admission, will need to increase home diuretic dosage on discharge -monitor lytes, BUN and creatinine 2. Chronic atrial fib -slightly tachycardic probably due to CHF exacerbation -continue carvedilol 12.5 mg b.i.d. -hold Pradaxa for EGD, see below 3. Chronic blood-loss anemia -hemoglobin 9.7 where as in January 2020 she had normal hemoglobin of 13.6, iron% saturation 6, ferritin 55 consistent with iron deficiency anemia -Dr. Gómez consulted for EGD -hold Pradaxa -pantoprazole 40 mg p.o. b.i.d. 4. Chronic prednisone -patient is on chronic low-dose prednisone 5 mg q.d. and hydroxychloroquine for skin condition, cutaneous periarteritis nodosa, continue meds 5. Low TSH -patient with TSH 0.164, normal free T4 1.73, T3 pending, this is likely subclinical and can be rechecked as outpatient Patient likely needs a couple of days more in hospital, likely discharge Wednesday if medically stable Quality VTE Deep Vein Thrombosis/Pulmonary Embolism Present on Admission: No
[2020-08-28] MEDS: PEG3350/SOD SULF,BICARB,CL/KCL 4,000 ML SOLUTION 4000 ML PO (14:53)
[2020-08-28] MEDS: TRAMADOL 50 MG TABLET PO (17:27)
[2020-08-29] VITALS (17 sets, daily range): BP systolic 93–121; BP diastolic 43–85; PULSE 83–119; RESP 12–20; TEMP 36.1–37.1; O2SAT 94–100; BMI 33.5
--- NOTE | 2020-08-29 | PATH_ITS ---
[facility] Accession Number: [id number] . 01 Material submitted: . PART A: gastrointestinal site - RANDOM GASTRIC BIOPSIES PART B: rectum - RECTUM . 01 Clinical history: . BLACK AND BLOODY STOOL; FEELS TERRIBLE . 02 Diagnosis: A. Stomach, Random Biopsies: Antral mucosa with mild chronic gastritis. Negative for Helicobacter by immunohistochemistry. Negative for intestinal metaplasia. Negative for dysplasia and malignancy. . B. Rectum, Biopsy: Tubulovillous adenoma. No evidence of malignancy or high-grade dysplasia. [facility] 09/04/2020 1512 Local . 02 Electronically signed: . Nani Lyons MD, Pathologist NPI- [id number] . 01 Gross description: . Part A: RANDOM GASTRIC BIOPSIES: Received in formalin are 4 fragment(s) of abdullahi, soft tissue measuring 0.1 x 0.1 x 0.1 cm to 0.3 x 0.2 x 0.2 cm submitted entirely in 1 cassette(s) Part B: RECTUM: Received in formalin is 1 fragment(s) of abdullahi, soft tissue measuring 1.2 x 1.2 x 1.0 cm which is serially sectioned and submitted entirely in 2 cassette(s) /GAYATHRI 08/30/2020 2107 Local . 02 Microscopic: . A. An immunohistochemical stain was performed to evaluate for Helicobacter organisms and is negative. The control stain showed appropriate reactivity. . * This test was developed and its performance characteristics determined by [employer]. It has not been cleared or approved by the U.S. Food and Drug Administration. The FDA has determined that such clearance or approval is not necessary. This test is used for clinical purposes. It should not be regarded as investigational or for research. . 02 Pathologist provided ICD-10: D12.8 . 02 CPT . 423440, 637993, H57771 Performed at: 01 [facility] [address] [id number] MD Chivo Oneil MD Phone: [phone] Performed at: 02 [facility] [place] [address] [place], [place] [id number] MD Nani Lyons MD Phone: [phone]
[2020-08-29 06:09] LABS: Add Manual Diff / Slide Review NO; Basophils Absolute Auto 100 /uL (0-100); Basophils Percent Auto 0.7 % (0-2); Eosinophils Absolute Auto 100 /uL (0-450); Eosinophils Percent Auto 0.7 % (2-4); Hematocrit 31.2 % (36-46); Hemoglobin 10.1 g/dL (12.0-16.0); Lymphocytes Absolute Auto 700 /uL (1100-4500); Lymphocytes Percent Auto 8.2 % (25-40); Mean Corpuscular HGB Conc 32.3 % (30-36); Mean Corpuscular Hemoglobin 26.9 PG (26-34); Mean Corpuscular Volume 83.2 fL (80-100); Monocytes Absolute Auto 800 /uL (0-900); Monocytes Percent Auto 9.3 % (3-14); Neutrophils Absolute Auto 6600 /uL (1500-7000); Neutrophils Percent Auto 81.1 % (50-75); Platelet Count 237 X10^3/uL (150-400); Red Blood Cell Count 3.75 X10^6/uL (4.0-5.2); Red Cell Distribution Width 14.5 % (11.6-14.8); White Blood Cell Count 8.1 X10^3/uL (4.5-11.0)
[2020-08-29 06:14] LABS: BUN Creatinine Ratio 17.5 (6-22); Blood Urea Nitrogen 14 mg/dL (7-17); Calcium 8.9 mg/dL (8.4-10.2); Carbon Dioxide 31 mmol/L (22-32); Chloride 97 mmol/L (98-107); Estimated Glomerular Filt Rate > 60.0 mL/min (>60); Glucose 89 mg/dL (80-110); HEMOLYSIS < 15 (0-50); Potassium 3.4 mmol/L (3.4-5.1); Sodium 137 mmol/L (137-145)
--- NOTE | 2020-08-29 06:25 | PC.NURSE ---
Pt experiencing tachycardia on exertion moving from chair to bathroom, sustaining at 130s until rest. Changed to pivot BSC, sitting in chair d/t bed being not comfortable and more difficult to get in and out of. Pain during defecation from frequent bowel movements resulting from bowel prep, not requesting medication for pain. Tolerating NPO status well.
[2020-08-29 08:08] LABS: Triiodothyronine T3 Total 98 ng/dL (71-180)
--- NOTE | 2020-08-29 08:31 | CM.DPC ---
Addendum entered by Mckayla Alatorre LPN 08/29/20 08:36: It is also noted that admission status changed from OBS to INPT 08/28: confirmed by [facility] RN team. Payer: [employer]. Original Note: DCP: continued: Case received, EMR including prior dc planning note reviewed and plan for likely d/c to home setting when stable for same is noted. Dr. Gómez is consulting for new onset anemia and plan for today is EGD and colonoscopy for this afternoon. DCP team will be following as POC unfolds to assist with d/c issues and options if need arises.
--- NOTE | 2020-08-29 09:43 | PC.NURSE ---
Per Dr. Whit stephenson to give carvedilol and prednisone as ordered this morning with sips of water. Hold on other medications this am to keep NPO for her procedure this afternoon.
[2020-08-29] MEDS: carvediloL 12.5 MG TABLET PO ×2 (10:21→22:01)
[2020-08-29] MEDS: predniSONE 5 MG TABLET PO (10:21)
[2020-08-29] MEDS: SODIUM CHLORIDE 0.9% FLUSH 10 ML IV ×2 (10:27→22:02)
[2020-08-29] MEDS: LACTATED RINGERS 1,000 ML 42 ML IV (15:30)
--- NOTE | 2020-08-29 15:43 | SUR.HOLD ---
Report received from VIRGILIO Thurston. Pt transferred from 214 to preop holding. Unable to verify allergies as pt unsure of exact allergies. Otherwise pt alert and oriented.
[2020-08-29] MEDS: LIDOCAINE 4% SOLN 50 ML 20 ML TOP (16:12)
[2020-08-29] MEDS: MIDAZOLAM 5 MG/5 ML VIAL IV (16:33)
[2020-08-29] MEDS: fentaNYL 250 MCG/5 ML INJ IV (16:35)
--- NOTE | 2020-08-29 16:52 | P.OP.ENDO_ITS ---
Operative Date/Time/Diagnoses Date of procedure: 08/29/20 Time of procedure: 16:52 Pre-op diagnosis: Anemia Post-op diagnosis: other (Rectal polyp, gastritis) Procedure & Clinicians Study performed: Esophagoduodenoscopy Colonoscopy Polypectomy Same procedure as scheduled: Yes Indications: 80-year-old female admitted to the hospital with congestive heart failure has anemia on Pradaxa Surgeon: Justin Gómez Procedure Notes Procedure in detail: Medications: Conscious sedation using 5mg IV midazolam and 250mcg IV of fentanyl The history and physical was performed/updated and the patient is ASA class is 3. The procedure was discussed in detail with the patient. Potential risks complications including infection, bleeding, missed diagnosis, perforation, need for surgery, and were explained. Their questions were answered and inf ormed consent was obtained. Patient placed in left lateral decubitus position. Time out was performed. Procedural sedation was administered with Versed and Fentanyl. A bite block was placed. the scope was inserted into the mouth and advanced through the esophagus and into the stomach. The pylorus was intubated and the duodenum was normal to the 2nd portion. The scope was retroflexed within the stomach and there was no small hiatal hernia. There was mild gastritis of the distal antrum biopsies were taken with the forceps. There were no gastric or duodenal ulcers. The scope was withdrawn into the esophagus the Z line was seen at 35 cm from the incisions. There was no Little's esophagitis or masses or strictures. Stomach was desufflated and scope removed. Patient tolerated procedure well. Examination began with a thorough inspection of the perianal area there was no evidence of fissures, fistulae, external hemorrhoids or cutaneous malignancy. The colonoscopy scope was then placed into the anal canal and was advanced to the cecum, which was identified by the ileocecal valve, the appendiceal orifice and the confluence of the taenia. The scope was then slowly withdrawn examining colon thoroughly in all directions, irrigating it of any residual stool. 1 cm pedunculated distal rectal polyp removed with hot snare Sigmoid diverticulosis No active hemorrhage The patient tolerated the procedure well. They will be discharged once criteria are met. The prep was of poor quality. The withdrawl time was 8 minutes. The sedation time was 33 minutes. Findings: gastritis and polyp Specimen(s): other (Rectal polyp, random gastric biopsy) Complications: none Impression: Colonic polyp, gastritis Post-procedure Recommendations: Continue medication(s) (Omeprazole) Follow up: as needed Disposition: Acute Care
--- NOTE | 2020-08-29 17:12 | SUR.PHASEI ---
Pt awake and alert. pt states it was easy peasy. She is talking and denies any complaints. Pt states she will drink something upstairs.
[2020-08-29] MEDS: POTASSIUM CHLORIDE 20 MEQ TAB PO (17:34)
--- NOTE | 2020-08-29 18:18 | PM.PN.1 ---
Subjective Subjective Date Patient Seen: 08/29/20 Interval history: Patient is 80-year-old female with history of chronic atrial fibrillation, bioprosthetic aortic valve, heart failure with preserved EF, presented due to progressive dyspnea on exertion, orthopnea and swelling of legs. Patient feels very happy about improvement in her breathing and leg edema. She had EGD and colonoscopy today which showed gastritis and a rectal polyp which was snared. There was no active bleeding. Exam Vital Signs (past 8 hours): - 08/29/20 10:21 08/29/20 13:27 08/29/20 15:10 Temperature 98.4 F 98.1 F Pulse Rate 118 H 119 H 107 H Respiratory Rate 16 15 Blood Pressure 107/53 L 112/58 L 116/54 L Pulse Oximetry 96 96 08/29/20 15:31 08/29/20 16:56 08/29/20 17:01 Temperature 97.8 F 97.6 F Pulse Rate 103 H 109 H 100 H Respiratory Rate 12 12 16 Blood Pressure 112/59 L 93/43 L 98/45 L Pulse Oximetry 99 99 100 08/29/20 17:06 08/29/20 17:15 08/29/20 17:45 Temperature 97.6 F 97.5 F L Pulse Rate 99 H 115 H 83 Respiratory Rate 20 20 16 Blood Pressure 100/46 L 107/60 110/65 Pulse Oximetry 97 98 99 Oxygen Delivery Method Room Air Oxygen Flow Rate 0 Narrative Exam Narrative: General: Alert very pleasant female sitting in chair and appearing comfortable Lungs: Breathing nonlabored, clear to auscultation Heart: Irregularly irregular Abdomen: Soft, nontender, no abdominal mass, no HSM Extremities: Improvement in bilateral pitting edema in legs, left greater than right, no open wounds Neurological: Well oriented, normal affect, no focal weakness, normal speech Objective Labs Result Diagrams: 08/29/20 05:46 08/29/20 05:46 Labs: Laboratory Results - last 24 hr 08/27/20 08/29/20 08/29/20 08:45 05:46 05:46 WBC 8.1 RBC 3.75 L Hgb 10.1 L Hct 31.2 L MCV 83.2 MCH 26.9 MCHC 32.3 RDW 14.5 Plt Count 237 Neut % (Auto) 81.1 H Lymph % (Auto) 8.2 L [place] % (Auto) 9.3 Eos % (Auto) 0.7 L Baso % (Auto) 0.7 Neut # (Auto) 6600 Lymph # (Auto) 700 L [place] # (Auto) 800 Eos # (Auto) 100 Baso # (Auto) 100 Sodium 137 Potassium 3.4 Chloride 97 L Carbon Dioxide 31 BUN 14 Creatinine 0.80 Estimated GFR > 60.0 BUN/Creatinine Ratio 17.5 Glucose 89 Calcium 8.9 Total T3 98 PFSH Medical History Atrial fibrillation Benign cutaneous periarteritis nodosa Hypertension Irritable bowel syndrome with constipation Macular degeneration, left eye Mitral valve disease Nummular dermatitis Surgical History History of aortic valve replacement History of back surgery History of cataract extraction History of laparoscopic adjustable gastric banding Family History Mother Old age Daughter Congestive heart failure Son Suicide Brother Ischemic necrosis of small bowel Social History marital status: household members: spouse Smoking Status: Former smoker alcohol intake: current Assessment & Plan Assessment & Plan narrative: Patient is 80-year-old female with history of chronic atrial fibrillation, bioprosthetic aortic valve, heart failure with preserved EF, presented due to progressive dyspnea on exertion, orthopnea and swelling of legs. 1. Exacerbation of congestive heart failure with preserved EF, present on admission, active -patient with significant improvement in dyspnea and peripheral edema with IV diuresis -ECHO: AFib, LVEF 60+/-5%, bioprosthetic valve, no change from prior echo -furosemide was held on 08/28 for colonoscopy/EGD -continue furosemide 40 mg IV b.i.d., KCl 20 mEq b.i.d., patient has significant peripheral edema and may require several days of IV diuresis -home diuretic regimen is furosemide 40 mg twice daily which patient has been compliant prior to admission, will need to increase home diuretic dosage on discharge -monitor lytes, BUN and creatinine 2. Chronic atrial fib -remain slightly tachycardic with ventricular rate in low 100 range, she has allergies/intolerance listed to metoprolol, diltiazem and amiodarone -continue carvedilol 12.5 mg b.i.d. -resume Pradaxa after EGD 3. Chronic blood-loss anemia -admit hemoglobin 9.7 where as in January 2020 she had normal hemoglobin of 13.6, iron% saturation 6, ferritin 55 consistent with iron deficiency anemia -Dr. Gómez consulted and performed EGD/colonoscopy which showed nonbleeding gastric ulcer and a non bleeding rectal polyp which was removed. -hold Pradaxa -continue pantoprazole 40 mg p.o. daily started on this admission 4. Chronic prednisone -patient is on chronic low-dose prednisone 5 mg q.d. and hydroxychloroquine for skin condition, cutaneous periarteritis nodosa, continue meds 5. Low TSH -patient with TSH 0.164, normal free T4 1.73, T3 pending, this is likely subclinical and can be rechecked as outpatient Patient is improving and came likely be discharged home tomorrow, Wednesday. Quality VTE Deep Vein Thrombosis/Pulmonary Embolism Present on Admission: No
[2020-08-29] MEDS: DABIGATRAN 75 MG CAPSULE 150 MG PO (22:00)
[2020-08-30] MEDS: TRAMADOL 50 MG TABLET PO (04:42)
[2020-08-30 05:05] VITALS: BP 101/43; PULSE 104; RESP 16; TEMP 37.2; O2SAT 98
[2020-08-30] MEDS: PANTOPRAZOLE 40 MG TABLET PO (06:53)
[2020-08-30] MEDS: FUROSEMIDE 20 MG/2 ML VIAL 40 MG IV (08:18)
[2020-08-30] MEDS: POTASSIUM CHLORIDE 20 MEQ TAB PO (08:18)
[2020-08-30] MEDS: SODIUM CHLORIDE 0.9% FLUSH 10 ML IV (08:19)
[2020-08-30 08:34] VITALS: BP 111/51; PULSE 106; RESP 19; TEMP 36.8; O2SAT 97
--- NOTE | 2020-08-30 08:39 | PC.NURSE ---
Patient up to chair. A/O x4. Up to restroom with FWW, voiding, denies SOB with activity. Tele intact, rate irregular, equal bilaterally, 2+ pitting edema noted in LLE, RLE minimal edema. Patient denies N/V, dizziness or lightheadedness. IV patent, intact in L forearm, prescribed Lasix pushed over 10 minutes. Patient c/o constipation at this time, BT active x 4, patient's last BM 08/28. Call light in reach, patient denies further needs at this time.
[2020-08-30 09:28] VITALS: BP 111/51; PULSE 106
[2020-08-30] MEDS: carvediloL 12.5 MG TABLET PO (09:28)
[2020-08-30] MEDS: FERROUS SULFATE 325 MG TABLET PO (09:28)
[2020-08-30] MEDS: HYDROXYCHLOROQUINE 200 MG TABLET PO (09:28)
[2020-08-30] MEDS: predniSONE 5 MG TABLET PO (09:29)
[2020-08-30] MEDS: DABIGATRAN 75 MG CAPSULE 150 MG PO (09:32)
[2020-08-30 11:18] VITALS: BP 107/58; PULSE 105; RESP 15; TEMP 36.8; O2SAT 94
--- NOTE | 2020-08-30 17:36 | PC.NURSE ---
Patient was given d/c orders per Dr. Vickers. Patient teaching done and extensive conversation was had with patient and spouse regarding proper diet for avoiding constipation and a heart healthy diet. Discussion was had regarding if sxs worsen with CHF and what to be aware of. Suggestions were made to start performing daily weights to monitor for sudden weight gain, be aware of increased SOB and/or increase in edema in BLE. Patient and spouse asked many questions and felt like all of their concerns were addressed. Patient's tele and IV was removed, pt tolerated well. Patient was able to robe herself and was escorted downstairs via WC to personal vehicle. Patient belongings were in hand of spouse at time of departure. Patient left in Stable condition.
--- NOTE | 2020-09-02 17:57 | PM.DS.1 ---
History of Present Illness History of Present Illness Date Patient Seen: 09/02/20 Chief complaint: Black & bloody stool feels terrible Narrative: Ms. Karena Brown is a 78-year-old female patient with a history atrial fibrillation, aortic valve replacement, hypertension, hyperlipidemia, irritable bowel syndrome with constipation, cutaneous agata arteritis nodosa and nummular dermatitis for which she is on prednisone hydro chloroquine and presents today with 2 day history of shortness of breath and not feeling herself. The patient reports that she has had increasing shortness of breath significantly today to present to the ER for evaluation. She was seen yesterday in the ED for abdominal pain and thought to be a gastrointestinal bleed. She states when they gave her tramadol, her symptoms completely resolved. Patient presently reports no complaints of fevers or chills, or headaches. She denies chest pain, or palpitations. She denies abdominal pain today, nausea or vomiting, but does endorse chronic constipation related to IBS and is on a regimen of Linzess before breakfast followed by Morales tablets (magnesium oxide) which she indicates takes 5-6 hours to fully evacuate and then goes about her day, no report of melena or hematochezia. She denies urinary symptoms of hematuria frequency or urgency. She reports worsening bilateral lower extremity edema. She reports some exertional dyspnea and states she feels blah. She has had prior back pain but describes no radiculopathy joint or leg pain. She states that she took her carvedilol and Pradaxa but no other medications. In the ED chest x-ray indicated that she appeared to be volume overloaded. ED provider indicated that she had had an echocardiogram 2 years ago with an EF of 55%. Patient was unable to confirm this and seemed to be confused as to where she had done. 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 Patient is afebrile blood pressure 105/73, heart rate 114, respiratory rate of 18, oxygen saturation of 95% on room air, she weighs 86.5 kg with a BMI of 34.9. WBC is 7.1, RBC 3.61, hemoglobin 9.8, hematocrit 30.5, INR is 1.4, sodium 135, potassium 4.3, chloride 100, CO2 28, BUN 15, creatinine 0.57, GFR is greater than 60, glucose 108, lactate 1.0, calcium 8.9, magnesium 2.0, liver enzymes are within normal limits, proBNP is 3910, COVID 19 PCR is negative. Discharge Providers Provider Date of admission: 08/28/20 14:45 Discharge Date: 08/30/20 Primary care physician: AIDAN Guillermo Consults: 08/27/20 15:00 Consult to Physician Routine Comment: Consulting Provider: Justin Gómez Reason for consultation: GI bleed Has provider been notified: Yes Discharge provider: Chyna Vickers MD Summary Hospital Course Discharge Diagnosis: 1. Acute diastolic heart failure 2. Acute blood loss anemia 3. Gastritis, pedunculated rectal polyp which was removed endoscopically 4. Bioprosthetic aortic valve with associated moderate to severe tricuspid regurgitation 5. Atrial fibrillation on Pradaxa 6. Hypertension 7. Hyperlipidemia 8. Polyarteritis nodosa Hospital Course: Patient was admitted to the hospital and treated for acute decompensated diastolic heart failure. She was given IV Lasix with significant improvement in her symptomatology. The patient was found to be anemic. Patient was found to have significant iron deficiency. She underwent upper endoscopy and colonoscopy for evaluation. The upper endoscopy showed a normal pylorus and duodenum, with mild gastritis. There was no Little's esophagitis seen. Patient had a colonoscopy which showed a pedunculated rectal polyp which was removed. The patient was on Pradaxa which had been held. She was on Pradaxa for AFib. The patient had overall improvement in her symptomatology. The patient did not require blood transfusion. Her diet was advanced. She resumed her Pradaxa she was deemed appropriate for discharge and arrangements were made for her to discharge home. Exam Vital Signs (past 8 hours): Oxygen Delivery Method Room Air Oxygen Flow Rate 0 Narrative Exam Narrative: Pleasant female resting comfortably Lungs: Clear to auscultation Cardiac exam: Irregularly irregular, normal S1-S2, 3/6 systolic ejection murmur Abdomen: Soft and nontender Extremities: 1+ edema Objective Labs Result Diagrams: 08/29/20 05:46 08/29/20 05:46 [facility] Medical History Atrial fibrillation Benign cutaneous periarteritis nodosa Hypertension Irritable bowel syndrome with constipation Macular degeneration, left eye Mitral valve disease Nummular dermatitis Surgical History History of aortic valve replacement History of back surgery History of cataract extraction History of laparoscopic adjustable gastric banding Family History Mother Old age Daughter Congestive heart failure Son Suicide Brother Ischemic necrosis of small bowel Social History marital status: household members: spouse Smoking Status: Former smoker alcohol intake: current Discharge Assessment & Plan Assessment and Plan Assessment: 1. Acute diastolic heart failure 2. Chronic atrial fibrillation on Pradaxa 3. Bioprosthetic aortic valve 4. Hypertension 5. Hyperlipidemia 6. Iron deficiency Plan of Treatment: Medications as prescribed Follow-up with PCP next week Discharge Plan Discharge Plan Patient Disposition: Home Discharge orders & Medications Prescriptions: Continued multivitamin Tablet 1 tab PO DAILY RF: 0 prednisone 5 mg Tablet 5 mg PO DAILY RF: 0 folic acid 400 mcg Tablet 1,200 mcg PO DAILY RF: 0 tramadol 50 mg Tablet 50 mg PO BID MDD 2 PRN (Reason: PAIN) RF: 0 hydroxychloroquine 200 mg Tablet 200 mg PO DAILY RF: 0 clobetasol 0.05 % Solution 1 applic TOPICAL DIRECTED RF: 0 cholecalciferol (vitamin D3) [Vitamin D3] 2,000 unit Tablet 4,000 unit PO DAILY RF: 0 Pradaxa 150 mg Capsule 150 mg PO BID RF: 0 Linzess 290 mcg Capsule 290 mg PO DAILY RF: 0 furosemide 40 mg tablet 40 mg PO DAILY Qty: 30 RF: 0 carvedilol 12.5 mg tablet 12.5 mg PO BID Qty: 60 RF: 0 potassium chloride 20 mEq tablet,ER particles/crystals 20 meq PO BID RF: 0 docusate sodium 50 mg Capsule 50 mg PO DAILY RF: 0 vitamin B complex [B Complex-Vitamin B12] Tablet 1 tab PO DAILY RF: 0 omega-3 acid ethyl esters [Lovaza] 1 gram Capsule 1 cap PO DAILY RF: 0 ferrous sulfate 324 mg (65 mg iron) Tablet,Delayed Release (Dr/Ec) 324 mg PO DAILY RF: 0 PreserVision AREDS [id number] Tablet 2 tab PO DAILY RF: 0 Follow up/Referrals: Amber Kruger ARNP [Primary Care Provider] - Discharge Health Status Multidrug resistant organism: No MDRO Diet/Activity/Treatments Diet: Low-fat and Low-sodium Visit Report/Discharge Packet Instructions: DI for Heart Failure, DI for Colon Polypectomy, Increased Dietary Fiber May Improve Constipation Conditions With Pelvic Madi, DI for Constipation Discharge Data Primary Care Provider: Amber Kruger VTE Deep Vein Thrombosis/Pulmonary Embolism Present on Admission: No
== END 2020-08-30 17:00 | disposition home or self-care (01) | DRG 291 ==
LOC: ED 18:58 → AC 19:00
PROVIDERS: Nurse Practitioner Family; Surgery; Admitting Provider Internal Medicine; Emergency Provider Emergency Medicine; Family Provider Family Medicine; PCP Nurse Practitioner; Referring Provider Emergency Medicine; Visit Provider Internal Medicine
PROC: 0DJ08ZZ Inspection of Upper Intestinal Tract, Via Natural or Artificial Opening Endoscopic (ICD-10-PCS; CPT 43235; principal; 2020-08-29 16:00)
PROC: 0DJD8ZZ Inspection of Lower Intestinal Tract, Via Natural or Artificial Opening Endoscopic (ICD-10-PCS; CPT 45378; 2020-08-29 16:00)
DX: I11.0 Hypertensive heart disease with heart failure (principal); K29.71 Gastritis, unspecified, with bleeding; I48.20 Chronic atrial fibrillation, unspecified; K92.1 Melena; M30.0 Polyarteritis nodosa; D62 Acute posthemorrhagic anemia; I50.33 Acute on chronic diastolic (congestive) heart failure; I27.20 Pulmonary hypertension, unspecified; Z95.2 Presence of prosthetic heart valve; K63.5 Polyp of colon; E78.5 Hyperlipidemia, unspecified; Z87.891 Personal history of nicotine dependence; Z20.822 Contact with and (suspected) exposure to COVID-19; Z79.52 Long term (current) use of systemic steroids
CPT/HCPCS: 36415; 43239; 71046; 74177; 80048; 80053; 81003; 81015; 82550; 82728; 83540; 83550; 83605; 83690; 83735; 83880; 84439; 84443; 84480; 84484; 85025; 85610; 85730; 86850; 86900; 86901; 87635; 93005; 93306; 94762; 96374; 99221; 99283; 99284; C9803; G0378; J1940; J2250; J3010; Q9967

== ENCOUNTER 2020-09-10 14:17 | Emergency (ER) | payer OTHER, SELFPAY ==
[2020-08-26 20:17] VITALS: BMI 34.9
[2020-09-10 14:37] VITALS: BP 124/78; PULSE 107; RESP 20; O2SAT 100; BMI 32.9
--- NOTE | 2020-09-10 15:19 | ED_ITS ---
HPI - Weakness General Chief complaint: Weakness Stated complaint: NOT BETTER Time Seen by Provider: 09/10/20 14:26 Source: patient Mode of arrival: EMS Limitations: no limitations History of Present Illness HPI Narrative: Patient is a female with history of atrial fibrillation, aortic valve replacement, hypertension, hyperlipidemia with recent hospitalization found to have diastolic CHF presenting with generalized weakness. She was discharged from the hospital on in September 02 after being admitted on August 26. She says she has progressively gotten weaker not stronger. During her hospital stay she was evaluated for mild anemia found to have benign polyps which were removed. She denies any chest pain shortness of breath or focal weakness. She says she overall is now only able to get from the bedroom to the bathroom. Her brings her food into the bedroom. She does not get up she does not have enough strength. She has had significantly decreased appetite only eating applesauce. She has not had any fever or chills. MD Complaint: generalized weakness Onset (ago): day(s) Related Data Home Medications Medication Instructions Recorded Confirmed Linzess 290 mg PO DAILY 03/09/19 08/26/20 Pradaxa 150 mg PO BID 03/09/19 08/26/20 cholecalciferol (vitamin D3) 4,000 unit PO DAILY 03/09/19 08/26/20 [Vitamin D3] clobetasol 1 applic TOPICAL DIRECTED 03/09/19 08/26/20 folic acid 1,200 mcg PO DAILY 03/09/19 08/26/20 hydroxychloroquine 200 mg PO DAILY 03/09/19 08/26/20 multivitamin 1 tab PO DAILY 03/09/19 08/26/20 prednisone 5 mg PO DAILY 03/09/19 08/26/20 tramadol 50 mg PO BID PRN MDD 2 03/09/19 08/26/20 PreserVision AREDS 2 tab PO DAILY 08/26/20 08/26/20 docusate sodium 50 mg PO DAILY 08/26/20 08/26/20 ferrous sulfate 324 mg PO DAILY 08/26/20 08/26/20 omega-3 acid ethyl esters [Lovaza] 1 cap PO DAILY 08/26/20 08/26/20 potassium chloride 20 meq PO BID 08/26/20 08/27/20 vitamin B complex [B 1 tab PO DAILY 08/26/20 08/26/20 Complex-Vitamin B12] Previous Rx's Medication Instructions Recorded carvedilol 12.5 mg PO BID #60 tab 03/12/19 furosemide 40 mg PO DAILY #30 tab 03/12/19 Allergies Allergy/AdvReac Type Severity Reaction Status Date / Time amiodarone Allergy Verified 08/26/20 18:59 dicloxacillin Allergy Verified 08/26/20 18:59 diltiazem [From Cartia XT] Allergy Verified 08/26/20 18:59 lubiprostone [From Amitiza] Allergy Verified 08/26/20 18:59 metoprolol Allergy Verified 08/26/20 18:59 sulfamethoxazole Allergy Verified 08/26/20 18:59 [From Bactrim] trimethoprim [From Bactrim] Allergy Verified 08/26/20 18:59 Review of Systems Review of Systems ROS Unobtainable: All systems reviewed & are unremarkable except as noted in HPI and below Constitutional Constitutional: Reports as per HPI, Reports fatigue and Reports poor appetite Eyes Eyes: Denies change in vision, Denies eye discharge, Denies irritation and Denies loss of vision ENT Ears, Nose, Mouth, and Throat: Denies change in voice, Denies vertigo, Denies dizziness, Denies neck pain and Denies sore throat Cardiovascular Cardiovascular: Denies chest pain, Denies irregular heart rhythm, Denies lightheadedness, Denies palpitations, Denies dyspnea, Denies dyspnea on exertion and Denies orthopnea Respiratory Respiratory: Denies cough, Denies dyspnea, Denies dyspnea on exertion and Denies wheezing Gastrointestinal Gastrointestinal: Denies abdominal pain, Denies change in bowel habits, Denies diarrhea, Denies nausea and Denies vomiting Musculoskeletal Musculoskeletal: Denies arthralgias, Denies back pain, Denies myalgias and Denies neck pain Integumentary/Breasts Skin/Breast: Denies pruritus, Denies erythema, Denies rash and Denies wounds Neurologic Neurologic: Denies vertigo, Denies dizziness and Denies loss of vision Endocrine Endocrine: Reports fatigue and Denies palpitations Allergic/Immunologic Allergic/Immunologic: Denies wheezing Patient History Medical History (Updated 09/10/20 @ 18:33 by Sandra Rai DO) Atrial fibrillation Benign cutaneous periarteritis nodosa Hypertension Irritable bowel syndrome with constipation Macular degeneration, left eye Mitral valve disease Nummular dermatitis Surgical History History of aortic valve replacement History of back surgery History of cataract extraction History of laparoscopic adjustable gastric banding Family History Mother Old age Daughter Congestive heart failure Son Suicide Brother Ischemic necrosis of small bowel Social History marital status: household members: spouse Smoking Status: Former smoker alcohol intake: current Smoking Status: Former smoker alcohol intake frequency: holidays/special occasions only Substance Use Type: does not use Exam Initial Vital Signs Initial Vital Signs: Vital Signs Pulse Rate 107 H 09/10/20 14:37 Respiratory Rate 20 09/10/20 14:37 Blood Pressure 124/78 09/10/20 14:37 Pulse Oximetry 100 09/10/20 14:37 GENERAL: Alert pleasant 80-year-old female and in no acute distress. HEENT: Head atraumatic,EOMI, pupils reactive, face symmetric, moist mucous membranes CARDIOVASCULAR: Regular rate and rhythm without murmurs, rubs or gallops. RESPIRATORY: Breath sounds equal bilaterally, no wheezes rales or rhonchi. ABDOMEN: Soft, nontender. Normoactive bowel sounds all 4 quadrants. No guarding or rebound. EXTREMITIES: Normal range of motion, no clubbing or edema. Neurovascularly i ntact NEUROLOGICAL: Alert and oriented x4.Normal gait and speech. Cranial nerves II through XII grossly intact. 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 Course Orders Ordered: ED Orders 09/10/20 14:34 EKG-12 Lead Routine 09/10/20 15:10 Complete Blood Count AUTO DIFF Stat Comprehensive Metabolic Panel Stat Lactate (Lactic Acid) Stat Lipase Stat Partial Thromboplastin Time Stat Procalcitonin Stat Prothrombin Time INR Stat Troponin & CK Cardiac Panel Stat 09/10/20 15:26 Blood Culture Stat 09/10/20 16:34 XR chest 1V Stat 09/10/20 17:05 Urinalysis and Microscopic Stat Urine Culture Stat 09/10/20 17:28 Consult to SHOWER SCREEN INSTALLER - Customer Account Coordinator Stat 09/10/20 18:36 Consult to Home Health Stat Vital Signs Vital signs: Vital Signs - 8 hr 09/10/20 14:37 09/10/20 18:50 Pulse Rate 107 H 106 H Respiratory Rate 20 Blood Pressure 124/78 114/65 Pulse Oximetry 100 99 MDM - Weakness Lab Data Attestation: I reviewed the patient's lab results. Result diagrams: 09/10/20 15:10 09/10/20 15:10 Labs: Lab Results 09/10/20 09/10/20 09/10/20 Range/Units 15:10 15:10 15:10 WBC 6.6 (4.5-11.0) X10^3/uL RBC 3.96 L (4.0-5.2) X10^6/uL Hgb 10.2 L (12.0-16.0) g/dL Hct 32.3 L (36-46) % MCV 81.5 (80-100) fL MCH 25.7 L (26-34) PG MCHC 31.5 (30-36) % RDW 15.2 H (11.6-14.8) % Plt Count 224 (150-400) X10^3/uL Neut % (Auto) 80.2 H (50-75) % Lymph % (Auto) 9.4 L (25-40) % Donley % (Auto) 9.6 (3-14) % Eos % (Auto) 0.4 L (2-4) % Baso % (Auto) 0.4 (0-2) % Neut # (Auto) 5300 (3074-4566) /uL Lymph # (Auto) 600 L (1103-0329) /uL Donley # (Auto) 600 (0-900) /uL Eos # (Auto) 0 (0-450) /uL Baso # (Auto) 0 (0-100) /uL PT 16.7 H (10.1-12.7) SECONDS INR 1.5 H (0.9-1.3) APTT 38 H (26.4-36.2) SECONDS Sodium 129 L (137-145) mmol/L Potassium 4.8 (3.4-5.1) mmol/L Chloride 96 L (98-107) mmol/L Carbon Dioxide 27 (22-32) mmol/L BUN 15 (7-17) mg/dL Creatinine 0.72 (0.52-1.04) mg/dL Estimated GFR > 60.0 (>60) mL/min BUN/Creatinine Ratio 20.8 (6-22) Glucose 94 (80-110) mg/dL Lactate (0.7-2.1) mmol/L Calcium 8.9 (8.4-10.2) mg/dL Total Bilirubin 0.9 (0.2-1.3) mg/dL AST 24 (14-36) IU/L ALT 7 (<35) IU/L Alkaline Phosphatase 67 (38-126) U/L Total Creatine Kinase 24 L (30-135) U/L CK-MB (CK-2) TNP CK-MB (CK-2) Rel Index TNP Troponin I < 0.012 (0.01-0.034) ng/mL Total Protein 7.2 (6.3-8.2) g/dL Albumin 3.3 L (3.5-5.0) g/dL Globulin 3.9 (1.7-4.1) g/dL Albumin/Globulin Ratio 0.8 L (1.0-2.8) Lipase 46 (23-300) U/L Procalcitonin (<0.5) ng/mL Urine Color Urine Appearance Urine pH (4.5-8.0) Ur Specific [place] (1.000-1.035) Urine Protein (Negative) Urine Glucose (UA) (Negative) g/dL Urine Ketones (NEGATIVE) Urine Occult Blood (Negative) Urine Nitrate (Negative) Urine Bilirubin (NEGATIVE) Urine Urobilinogen (0.2) E.U./dL Ur Leukocyte Esterase (NEGATIVE) Urine RBC (0-5/HPF) Urine WBC (0-5/HPF) Ur Squamous Epith Cells (0-5/HPF) Amorphous Sediment Urine Bacteria (None) Ur Culture Indicated? 09/10/20 09/10/20 09/10/20 Range/Units 15:10 15:10 17:05 WBC (4.5-11.0) X10^3/uL RBC (4.0-5.2) X10^6/uL Hgb (12.0-16.0) g/dL Hct (36-46) % MCV (80-100) fL MCH (26-34) PG MCHC (30-36) % RDW (11.6-14.8) % Plt Count (150-400) X10^3/uL Neut % (Auto) (50-75) % Lymph % (Auto) (25-40) % Donley % (Auto) (3-14) % Eos % (Auto) (2-4) % Baso % (Auto) (0-2) % Neut # (Auto) (6612-2910) /uL Lymph # (Auto) (9779-2019) /uL Donley # (Auto) (0-900) /uL Eos # (Auto) (0-450) /uL Baso # (Auto) (0-100) /uL PT (10.1-12.7) SECONDS INR (0.9-1.3) APTT (26.4-36.2) SECONDS Sodium (137-145) mmol/L Potassium (3.4-5.1) mmol/L Chloride (98-107) mmol/L Carbon Dioxide (22-32) mmol/L BUN (7-17) mg/dL Creatinine (0.52-1.04) mg/dL Estimated GFR (>60) mL/min BUN/Creatinine Ratio (6-22) Glucose (80-110) mg/dL Lactate 1.1 (0.7-2.1) mmol/L Calcium (8.4-10.2) mg/dL Total Bilirubin (0.2-1.3) mg/dL AST (14-36) IU/L ALT (<35) IU/L Alkaline Phosphatase (38-126) U/L Total Creatine Kinase (30-135) U/L CK-MB (CK-2) CK-MB (CK-2) Rel Index Troponin I (0.01-0.034) ng/mL Total Protein (6.3-8.2) g/dL Albumin (3.5-5.0) g/dL Globulin (1.7-4.1) g/dL Albumin/Globulin Ratio (1.0-2.8) Lipase (23-300) U/L Procalcitonin 0.12 (<0.5) ng/mL Urine Color Yellow Urine Appearance Clear Urine pH 5.5 (4.5-8.0) Ur Specific [place] 1.010 (1.000-1.035) Urine Protein Negative (Negative) Urine Glucose (UA) Negative (Negative) g/dL Urine Ketones Trace H (NEGATIVE) Urine Occult Blood 2+ H (Negative) Urine Nitrate Negative (Negative) Urine Bilirubin Negative (NEGATIVE) Urine Urobilinogen 0.2 (0.2) E.U./dL Ur Leukocyte Esterase 1+ H (NEGATIVE) Urine RBC 1-5/hpf (0-5/HPF) Urine WBC 5-10/hpf H (0-5/HPF) Ur Squamous Epith Cells 1-5 /hpf (0-5/HPF) Amorphous Sediment 1+ Urine Bacteria Few (2-10) H (None) Ur Culture Indicated? Specimen cultured Imaging Data Chest x-ray: Radiologist Impression: PROCEDURE: XR CHEST 1V INDICATIONS: weakness TECHNIQUE: One view of the chest was acquired. COMPARISON: [facility], CR, XR CHEST 2V, 08/26/2020, 16:51. [facility], CR, XR CHEST 1V, 03/10/2019, 6:09. FINDINGS: Surgical changes and devices: Sternotomy. Lungs and pleura: There is increased pulmonary vascularity and small pleural effusions bilaterally, consistent with congestive heart failure. No pneumothorax. Mediastinum: Mediastinal contours appear normal. Heart size is mildly increased. There is a aortic valve prosthesis. Bones and chest wall: No suspicious bony lesions. Overlying soft tissues ap pear unremarkable. IMPRESSION: Congestive heart failure. Dictated by: Sera Bowden M.D. on 09/10/2020 at 17:21 ECG Data Attestation: I personally reviewed and interpreted this ECG as follows: Prior ECG tracings: available for review Interpretation: Atrial fibrillation Rate [address] changes similar to previous EKG MDM Narrative Medical decision making narrative: The patient is found to be slightly hyponatremic 129 baseline sodium is 130's. No sign of acute infection does not appear septic anemia is stable. She was able to ambulate from her room to the bathroom with a walker without any other assistance. Caregiver does seem is early year old. Social work is been in to evaluate is that of home health care. In both are okay with her going home. At this time does not meet admission criteria Discharge Plan Departure Patient Disposition: Home Clinical Impression: Acute hyponatremia Fatigue Qualifiers: Fatigue type: other Qualified Code(s): R53.83 - Other fatigue Instructions: DI for Hyponatremia, DI for Muscle Weakness Activity Restrictions/Additional Instructions: *You have been diagnosed with low-sodium, weakness *What to do: Sodium is only slightly low I do recommend that it be rechecked this week or next week. No sign of infection. Home health is being set up for you. *Continue to take medications as directed *Follow up with your primary care provider in 2-3 days *Return to ER if you should have increasing weakness, falls, confusion or any new, worsening or concerning symptoms Prescriptions: No Action multivitamin Tablet 1 tab PO DAILY RF: 0 prednisone 5 mg Tablet 5 mg PO DAILY RF: 0 folic acid 400 mcg Tablet 1,200 mcg PO DAILY RF: 0 tramadol 50 mg Tablet 50 mg PO BID MDD 2 PRN (Reason: PAIN) RF: 0 hydroxychloroquine 200 mg Tablet 200 mg PO DAILY RF: 0 clobetasol 0.05 % Solution 1 applic TOPICAL DIRECTED RF: 0 cholecalciferol (vitamin D3) [Vitamin D3] 2,000 unit Tablet 4,000 unit PO DAILY RF: 0 Pradaxa 150 mg Capsule 150 mg PO BID RF: 0 Linzess 290 mcg Capsule 290 mg PO DAILY RF: 0 furosemide 40 mg tablet 40 mg PO DAILY Qty: 30 RF: 0 carvedilol 12.5 mg tablet 12.5 mg PO BID Qty: 60 RF: 0 potassium chloride 20 mEq tablet,ER particles/crystals 20 meq PO BID RF: 0 docusate sodium 50 mg Capsule 50 mg PO DAILY RF: 0 vitamin B complex [B Complex-Vitamin B12] Tablet 1 tab PO DAILY RF: 0 omega-3 acid ethyl esters [Lovaza] 1 gram Capsule 1 cap PO DAILY RF: 0 ferrous sulfate 324 mg (65 mg iron) Tablet,Delayed Release (Dr/Ec) 324 mg PO DAILY RF: 0 PreserVision AREDS [id number] Tablet 2 tab PO DAILY RF: 0 Referrals: Amber Kruger ARNP [Primary Care Provider] -
[2020-09-10 15:32] LABS: Add Manual Diff / Slide Review NO; Basophils Absolute Auto 0 /uL (0-100); Basophils Percent Auto 0.4 % (0-2); Eosinophils Absolute Auto 0 /uL (0-450); Eosinophils Percent Auto 0.4 % (2-4); Hematocrit 32.3 % (36-46); Hemoglobin 10.2 g/dL (12.0-16.0); Lymphocytes Absolute Auto 600 /uL (1100-4500); Lymphocytes Percent Auto 9.4 % (25-40); Mean Corpuscular HGB Conc 31.5 % (30-36); Mean Corpuscular Hemoglobin 25.7 PG (26-34); Mean Corpuscular Volume 81.5 fL (80-100); Monocytes Absolute Auto 600 /uL (0-900); Monocytes Percent Auto 9.6 % (3-14); Neutrophils Absolute Auto 5300 /uL (1500-7000); Neutrophils Percent Auto 80.2 % (50-75); Platelet Count 224 X10^3/uL (150-400); Red Blood Cell Count 3.96 X10^6/uL (4.0-5.2); Red Cell Distribution Width 15.2 % (11.6-14.8); White Blood Cell Count 6.6 X10^3/uL (4.5-11.0)
[2020-09-10 15:40] LABS: INR 1.5 (0.9-1.3); Prothrombin Time 16.7 SECONDS (10.1-12.7)
[2020-09-10 15:43] LABS: PTT Partial Thromboplastin Tim 38 SECONDS (26.4-36.2)
[2020-09-10 15:56] LABS: Alanine Aminotransferase 7 IU/L (<35); Albumin 3.3 g/dL (3.5-5.0); Albumin Globulin Ratio 0.8 (1.0-2.8); Alkaline Phosphatase 67 U/L (38-126); Aspartate Aminotransferase 24 IU/L (14-36); BUN Creatinine Ratio 20.8 (6-22); Bilirubin Total 0.9 mg/dL (0.2-1.3); Blood Urea Nitrogen 15 mg/dL (7-17); Calcium 8.9 mg/dL (8.4-10.2); Carbon Dioxide 27 mmol/L (22-32); Chloride 96 mmol/L (98-107); Creatine Kinase 24 U/L (30-135); Estimated Glomerular Filt Rate > 60.0 mL/min (>60); Globulin 3.9 g/dL (1.7-4.1); Glucose 94 mg/dL (80-110); HEMOLYSIS < 15 (0-50); Lipase 46 U/L (23-300); Potassium 4.8 mmol/L (3.4-5.1); Sodium 129 mmol/L (137-145); Total Protein 7.2 g/dL (6.3-8.2)
[2020-09-10 15:57] LABS: Lactate (Lactic Acid) 1.1 mmol/L (0.7-2.1)
[2020-09-10 16:06] LABS: Troponin I < 0.012 ng/mL (0.01-0.034)
[2020-09-10 16:15] LABS: Procalcitonin 0.12 ng/mL (<0.5)
--- NOTE | 2020-09-10 16:34 | DI.RAD.S_ITS ---
PROCEDURE: XR CHEST 1V INDICATIONS: weakness TECHNIQUE: One view of the chest was acquired. COMPARISON: [facility], CR, XR CHEST 2V, 08/26/2020, 16:51. [facility], CR, XR CHEST 1V, 03/10/2019, 6:09. FINDINGS: Surgical changes and devices: Sternotomy. Lungs and pleura: There is increased pulmonary vascularity and small pleural effusions bilaterally, consistent with congestive heart failure. No pneumothorax. Mediastinum: Mediastinal contours appear normal. Heart size is mildly increased. There is a aortic valve prosthesis. Bones and chest wall: No suspicious bony lesions. Overlying soft tissues appear unremarkable. IMPRESSION: Congestive heart failure. Dictated by: Sera Bowden M.D. on 09/10/2020 at 17:21 Approved by: Sera Bowden M.D. on 09/10/2020 at 17:21
[2020-09-10 17:13] LABS: Appearance Urine UA CLEAR; Bilirubin Urine UA NEGATIVE (NEGATIVE); Color Urine UA YELLOW; Glucose Urine UA NEGATIVE (Negative); Ketones Urine UA TRACE (NEGATIVE); Leukocyte Esterase Urine UA 1+ (NEGATIVE); Nitrite Urine UA NEGATIVE (Negative); Occult Blood Urine UA 2+ (Negative); Protein Urine UA NEGATIVE (Negative); Urobilinogen Urine UA 0.2 E.U./dL (0.2)
[2020-09-10 17:17] LABS: pH Urine UA 5.5 (4.5-8.0)
[2020-09-10 17:19] LABS: RBC Urine 1-5/HPF (0-5/HPF); Squamous Epithelial Cell Urine 1-5 /HPF (0-5/HPF); WBC Urine 5-10/HPF (0-5/HPF)
[2020-09-10 17:20] LABS: Amorphous Sediment Urine 1+; Bacteria Urine Few (2-10); Culture Indicated Urine Specimen Cultured
--- NOTE | 2020-09-10 18:40 | CM.SWNOTE ---
SHIPPING ROOM SUPERVISOR note SHIPPING ROOM SUPERVISOR consult requested for patient. Patient is a 80 y/o female who presents to the ED with increasing weakness following d/c from inpatient stay at earlier in month. Patient has [place] Medicare advantage for insurance, and partner, Benson, is at bedside. SHIPPING ROOM SUPERVISOR enters room, introduces self and explains role. Patient explains that after she left the hospital, she felt ok for a few days, and then her already small world kept getting smaller. Patient describes an increasing feeling of weakness, decreased ability to move around her home, and that she recently has started to feel unable to get out of bed to go to the bathroom. Patient and SHIPPING ROOM SUPERVISOR discuss patient goals for after today's ED visit. Patient states she would like to return to her home and rebuild strength. SHIPPING ROOM SUPERVISOR explains HH to patient and partner, and patient states she is interested in all the help I can get. 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 SHIPPING ROOM SUPERVISOR validated the weight that patient partner feels due to increased responsibility of caregiving, and discussed adding center medical director to services requested from HH to support family in a thorough assessment of care goals and needs. Patient and partner both agreeable to this. SHIPPING ROOM SUPERVISOR exits room and staffs with Dr. Rai. Dr. Rai signs F2F and places verbal order for HH for PT, OT, RN, and SHIPPING ROOM SUPERVISOR. Based on patient's home location, clinicals are faxed to [facility]. Patient and partner are agreeable to this. Plan: Patient to be d/c to home with follow up from [facility]. MANAV Langley
[2020-09-10 18:50] VITALS: BP 114/65; PULSE 106; O2SAT 99
[2020-09-11 13:14] LABS: Acinetobacter baumannii Not Detected (Not Detect); Candida albicans Not Detected (Not Detect); Candida glabrata Not Detected (Not Detect); Candida krusei Not Detected (Not Detect); Candida parapsilosis Not Detected (Not Detect); Candida tropicalis Not Detected (Not Detect); E. coli Not Detected (Not Detect); Enterobacter cloacae complex Not Detected (Not Detect); Enterobacteriaceae species Not Detected (Not Detect); Enterococcus species Not Detected (Not Detect); Haemophilus influenzae Not Detected (Not Detect); KPC (carbapenem-resist gene) Not Detected (Not Detect); Listeria monocytogenes Not Detected (Not Detect); Methicillin-resistant gene Not Detected (Not Detect); Neisseria meningitidis Not Detected (Not Detect); Proteus species Not Detected (Not Detect); Pseudomonas aeruginosa Not Detected (Not Detect); Serratia marcescens Not Detected (Not Detect); Staphylococcus species Not Detected (Not Detect); Streptococcus agalactiae (Gr B Not Detected (Not Detect); Streptococcus pneumonia Not Detected (Not Detect); Streptococcus pyogenes (Gr A) Not Detected (Not Detect); Streptococcus species Detected (Not Detect); Vancomycin-rest genes A/B Not Detected (Not Detect)
== END 2020-09-10 18:51 | disposition home or self-care (01) ==
PROVIDERS: Emergency Provider Emergency Medicine; Family Provider Family Medicine; PCP Nurse Practitioner
DX: E87.1 Hypo-osmolality and hyponatremia (principal); I50.9 Heart failure, unspecified; R53.83 Other fatigue; I48.91 Unspecified atrial fibrillation; Z95.2 Presence of prosthetic heart valve; I10 Essential (primary) hypertension; E78.5 Hyperlipidemia, unspecified
CPT/HCPCS: 36415; 71045; 80053; 81001; 82550; 83605; 83690; 84145; 84484; 85025; 85610; 85730; 87040; 87086; 87150; 87186; 87205; 93005; 99282; 99284

== ENCOUNTER 2020-09-11 15:49 | Emergency (ER) | payer OTHER, SELFPAY ==
[2020-08-26 20:17] VITALS: BMI 34.9
[2020-09-11] VITALS (11 sets, daily range): BP systolic 101–120; BP diastolic 51–61; PULSE 101–119; RESP 18–29; TEMP 37.1; O2SAT 96–99; BMI 32.9
--- NOTE | 2020-09-11 16:41 | ED_ITS ---
HPI - Recheck/Abnormal Lab/Rx General Chief Complaint: Recheck/Abnormal Lab/Rx Stated Complaint: pos blood cultures Time Seen by Provider: 09/11/20 16:10 Source: patient, family () and old records reviewed Mode of arrival: Ambulatory Limitations: no limitations History of Present Illness HPI narrative: This is an 80-year-old female who was called back to the emergency department for positive blood cultures 2/ that were positive for streptococcus on 09/10/20. Patient has felt fatigued, weak and just generally unwell. She denies fevers, she denies chills. She denies any chest pain or pressure. She describes chronic shortness of breath with exertion but no new or exacerbating symptoms. She denies any nausea, no vomiting. She has urinary frequency but no urgency or dysuria. She has chronic constipation but states she had a normal bowel movement today. She denies any abdominal pain. She denies any redness, skin changes or rashes. She was hospitalized initially for CHF and found to be anemic, she had EGD and Colonscopy and found to have gastritis with a rectal polyp while taking Pradaxa. Pradaxa was follow-up was removed. She did not require blood transfusion during her stay. Patient was discharged home on the 02 of September. Blood cultures were not obtained with that visit. Urine culture from the 02/02 was negative. Related Data Home Medications Medication Instructions Recorded Confirmed Linzess 290 mg PO DAILY 03/09/19 08/26/20 Pradaxa 150 mg PO BID 03/09/19 08/26/20 cholecalciferol (vitamin D3) 4,000 unit PO DAILY 03/09/19 08/26/20 [Vitamin D3] clobetasol 1 applic TOPICAL DIRECTED 03/09/19 08/26/20 folic acid 1,200 mcg PO DAILY 03/09/19 08/26/20 hydroxychloroquine 200 mg PO DAILY 03/09/19 08/26/20 multivitamin 1 tab PO DAILY 03/09/19 08/26/20 prednisone 5 mg PO DAILY 03/09/19 08/26/20 tramadol 50 mg PO BID PRN MDD 2 03/09/19 08/26/20 PreserVision AREDS 2 tab PO DAILY 08/26/20 08/26/20 docusate sodium 50 mg PO DAILY 08/26/20 08/26/20 ferrous sulfate 324 mg PO DAILY 08/26/20 08/26/20 omega-3 acid ethyl esters [Lovaza] 1 cap PO DAILY 08/26/20 08/26/20 potassium chloride 20 meq PO BID 08/26/20 08/27/20 vitamin B complex [B 1 tab PO DAILY 08/26/20 08/26/20 Complex-Vitamin B12] Previous Rx's Medication Instructions Recorded carvedilol 12.5 mg PO BID #60 tab 03/12/19 furosemide 40 mg PO DAILY #30 tab 03/12/19 Allergies Allergy/AdvReac Type Severity Reaction Status Date / Time amiodarone Allergy Verified 09/11/20 16:05 dicloxacillin Allergy Verified 09/11/20 16:05 diltiazem [From Cartia XT] Allergy Verified 09/11/20 16:05 lubiprostone [From Amitiza] Allergy Verified 09/11/20 16:05 metoprolol Allergy Verified 09/11/20 16:05 sulfamethoxazole Allergy Verified 09/11/20 16:05 [From Bactrim] trimethoprim [From Bactrim] Allergy Verified 09/11/20 16:05 Review of Systems Review of Systems ROS Unobtainable: All systems reviewed & are unremarkable except as noted in HPI and below Patient History Medical History (Updated 09/11/20 @ 20:13 by America Gordillo DO) Atrial fibrillation Benign cutaneous periarteritis nodosa Hypertension Irritable bowel syndrome with constipation Macular degeneration, left eye Mitral valve disease Nummular dermatitis Surgical History History of aortic valve replacement History of back surgery History of cataract extraction History of laparoscopic adjustable gastric banding Family History Mother Old age Daughter Congestive heart failure Son Suicide Brother Ischemic necrosis of small bowel Social History marital status: household members: spouse Smoking Status: Former smoker alcohol intake: current Smoking Status: Former smoker alcohol intake frequency: holidays/special occasions only Substance Use Type: does not use Exam Narrative Exam Narrative: GENERAL: Alert and oriented x three, pale elderly female in mild distress. HEENT: Head normocephalic, atraumatic, EOMI, pupils reactive, face symmetric, moist mucous membranes NECK: Supple, full range of motion CARDIOVASCULAR: Regular rate and rhythm without murmurs, rubs or gallops. Mild bilateral lower extremity edema. RESPIRATORY: Breath sounds equal bilaterally, no wheezes rales or rhonchi. ABDOMEN: Soft, nontender. Normoactive bowel sounds all 4 quadrants. No guarding or rebound, rigidity, no mass : No CVA tenderness EXTREMITIES: Normal range of motion, no clubbing or edema. Neurovascularly intact. NEUROLOGICAL: Cranial nerves II through XII grossly intact. Moving all extremities SKIN: Warm, dry, no petechiae, no rashes or lesions. Initial Vital Signs Initial Vital Signs: Vital Signs Temperature 98.8 F 09/11/20 15:59 Pulse Rate 116 H 09/11/20 15:59 Respiratory Rate 18 09/11/20 15:59 Blood Pressure 120/61 09/11/20 15:59 Pulse Oximetry 97 09/11/20 15:59 Scores GCS Stanton coma scale eye opening: Spontaneous Stanton coma scale verbal response: Orientated Alesia coma scale motor response: Obey commands Alesia coma scale total score: 15 Course Orders Ordered: Discontinued Medications Sodium Chloride (Normal Saline 0.9%) 1,000 mls @ 1,000 mls/hr IV BOLUS ONE Stop: 09/11/20 17:09 Last Infusion: 09/11/20 19:51 Dose: 0 mls/hr Documented by: Admin: 09/11/20 16:53 Dose: 1,000 mls/hr Documented by: LAURA Vancomycin HCl/Dextrose (Vancomycin) 1,500 mg in 300 mls @ 200 mls/hr IV NOW ONE Stop: 09/11/20 17:42 Last Infusion: 09/11/20 19:30 Dose: 0 mls/hr Documented by: Admin: 09/11/20 16:53 Dose: 200 mls/hr Documented by: LAURA Ceftriaxone Sodium/Dextrose (Rocephin) 2 gm in 50 mls @ 100 mls/hr IV NOW ONE Stop: 09/11/20 20:12 Last Infusion: 09/11/20 20:46 Dose: 0 mls/hr Documented by: Admin: 09/11/20 20:15 Dose: 100 mls/hr Documented by: VICTORIA Consultations Consultation #1: Dr. Clement asks for transfer as we do not have source and p winifred does have bacteremia with a prosthetic valve. He feels patient needs a ISABEL and needs transfer. Time: 17:15 Consultation #2: Dr. Ty, recommends hospitalist. Will be happy to assist. Feels very appropriate for transfer for ISABEL. Time: 18:42 Consultation #3: Dr. Donnelly accepts for transfer. Asks for Rocephin in addition to Vancomycin. Time: 19:54 Vital Signs Vital signs: Vital Signs - 8 hr 09/11/20 15:59 09/11/20 16:47 09/11/20 17:00 Temperature 98.8 F Pulse Rate 116 H 118 H 112 H Respiratory Rate 18 21 21 Blood Pressure 120/61 Pulse Oximetry 97 98 09/11/20 17:21 09/11/20 17:30 09/11/20 18:00 Temperature Pulse Rate 106 H 106 H 101 H Respiratory Rate 22 27 H 22 Blood Pressure 105/56 L 117/56 L 110/53 L Pulse Oximetry 98 98 99 09/11/20 18:30 09/11/20 19:00 09/11/20 19:11 Temperature Pulse Rate 103 H 109 H 119 H Respiratory Rate 23 29 H 29 H Blood Pressure 111/51 L 105/57 L Pulse Oximetry 98 96 MDM - Recheck/Abnormal Lab/Rx Lab Data Attestation: I reviewed the patient's lab results. Result diagrams: 09/11/20 16:40 09/11/20 16:40 Labs: Lab Results 09/11/20 09/11/20 09/11/20 Range/Units 16:40 16:40 16:40 WBC 6.1 (4.5-11.0) X10^3/uL RBC 3.98 L (4.0-5.2) X10^6/uL Hgb 10.2 L (12.0-16.0) g/dL Hct 32.4 L (36-46) % MCV 81.2 (80-100) fL MCH 25.6 L (26-34) PG MCHC 31.5 (30-36) % RDW 15.5 H (11.6-14.8) % Plt Count 231 (150-400) X10^3/uL Neut % (Auto) 80.3 H (50-75) % Lymph % (Auto) 9.2 L (25-40) % Whitfield % (Auto) 9.1 (3-14) % Eos % (Auto) 0.7 L (2-4) % Baso % (Auto) 0.7 (0-2) % Neut # (Auto) 4900 (4703-6154) /uL Lymph # (Auto) 600 L (6384-6069) /uL Whitfield # (Auto) 600 (0-900) /uL Eos # (Auto) 0 (0-450) /uL Baso # (Auto) 0 (0-100) /uL Sodium 132 L (137-145) mmol/L Potassium 3.8 (3.4-5.1) mmol/L Chloride 95 L (98-107) mmol/L Carbon Dioxide 30 (22-32) mmol/L BUN 13 (7-17) mg/dL Creatinine 0.67 (0.52-1.04) mg/dL Estimated GFR > 60.0 (>60) mL/min BUN/Creatinine Ratio 19.4 (6-22) Glucose 110 (80-110) mg/dL Lactate (0.7-2.1) mmol/L Calcium 8.7 (8.4-10.2) mg/dL Total Bilirubin 0.8 (0.2-1.3) mg/dL AST 23 (14-36) IU/L ALT 8 (<35) IU/L Alkaline Phosphatase 71 (38-126) U/L Total Protein 7.3 (6.3-8.2) g/dL Albumin 3.3 L (3.5-5.0) g/dL Globulin 4.0 (1.7-4.1) g/dL Albumin/Globulin Ratio 0.8 L (1.0-2.8) Procalcitonin 0.10 (<0.5) ng/mL SARS-CoV-2 (PCR) (Negative) 09/11/20 09/11/20 Range/Units 16:40 17:15 WBC (4.5-11.0) X10^3/uL RBC (4.0-5.2) X10^6/uL Hgb (12.0-16.0) g/dL Hct (36-46) % MCV (80-100) fL MCH (26-34) PG MCHC (30-36) % RDW (11.6-14.8) % Plt Count (150-400) X10^3/uL Neut % (Auto) (50-75) % Lymph % (Auto) (25-40) % Whitfield % (Auto) (3-14) % Eos % (Auto) (2-4) % Baso % (Auto) (0-2) % Neut # (Auto) (0128-0734) /uL Lymph # (Auto) (0416-6053) /uL Whitfield # (Auto) (0-900) /uL Eos # (Auto) (0-450) /uL Baso # (Auto) (0-100) /uL Sodium (137-145) mmol/L Potassium (3.4-5.1) mmol/L Chloride (98-107) mmol/L Carbon Dioxide (22-32) mmol/L BUN (7-17) mg/dL Creatinine (0.52-1.04) mg/dL Estimated GFR (>60) mL/min BUN/Creatinine Ratio (6-22) Glucose (80-110) mg/dL Lactate 1.0 (0.7-2.1) mmol/L Calcium (8.4-10.2) mg/dL Total Bilirubin (0.2-1.3) mg/dL AST (14-36) IU/L ALT (<35) IU/L Alkaline Phosphatase (38-126) U/L Total Protein (6.3-8.2) g/dL Albumin (3.5-5.0) g/dL Globulin (1.7-4.1) g/dL Albumin/Globulin Ratio (1.0-2.8) Procalcitonin (<0.5) ng/mL SARS-CoV-2 (PCR) Negative (Negative) ECG Data Attestation: I personally reviewed and interpreted this ECG as follows: Interpretation: AFib rate of 101, QRS is 78 QTC 422. Nonspecific change. MDM Narrative Medical decision making narrative: 80-year-old female with 2/2 positive blood cultures for Streptococcus with sensitivities pending. Patient has a known prosthetic valve with no clear source for her bacteremia. Patient has stable anemia, white count is not elevated today. Patient does have left shift with neutrophils of 80%. Hyponatremia which is improved from the 26 to 132. Otherwise no major electrolyte abnormalities, renal function is normal. lactate and procalcitonin is in normal range. Patient had urine yesterday which showed 1+ leukocyte esterase but urine culture is negative on the prelim. covid swab is negative. Vancomycin started in department. Plan for transfer for ISABEL, spoke with [facility] inside sales account representative. They will approve transfer to [facility] or [place]. [facility] is full. [place] is not taking transfer at this time. Spoke with Dr. Ty from cardiology, agrees with plan of care and asks to speak with hospitalist. Spoke with hospitalist who accepts for transfer. They request Rocephin in addition to vancomycin. Patient has a dicloxacillin allergy but does not recall what it is. She does not recall having any anaphylactic type symptoms with prior allergies. Discharge Plan Departure Patient Disposition: [facility] Clinical Impression: Bacteremia due to Streptococcus, Atrial fibrillation Prescriptions: No Action multivitamin Tablet 1 tab PO DAILY RF: 0 prednisone 5 mg Tablet 5 mg PO DAILY RF: 0 folic acid 400 mcg Tablet 1,200 mcg PO DAILY RF: 0 tramadol 50 mg Tablet 50 mg PO BID MDD 2 PRN (Reason: PAIN) RF: 0 hydroxychloroquine 200 mg Tablet 200 mg PO DAILY RF: 0 clobetasol 0.05 % Solution 1 applic TOPICAL DIRECTED RF: 0 cholecalciferol (vitamin D3) [Vitamin D3] 2,000 unit Tablet 4,000 unit PO DAILY RF: 0 Pradaxa 150 mg Capsule 150 mg PO BID RF: 0 Linzess 290 mcg Capsule 290 mg PO DAILY RF: 0 furosemide 40 mg tablet 40 mg PO DAILY Qty: 30 RF: 0 carvedilol 12.5 mg tablet 12.5 mg PO BID Qty: 60 RF: 0 potassium chloride 20 mEq tablet,ER particles/crystals 20 meq PO BID RF: 0 docusate sodium 50 mg Capsule 50 mg PO DAILY RF: 0 vitamin B complex [B Complex-Vitamin B12] Tablet 1 tab PO DAILY RF: 0 omega-3 acid ethyl esters [Lovaza] 1 gram Capsule 1 cap PO DAILY RF: 0 ferrous sulfate 324 mg (65 mg iron) Tablet,Delayed Release (Dr/Ec) 324 mg PO DAILY RF: 0 PreserVision AREDS [id number] Tablet 2 tab PO DAILY RF: 0 Referrals: Amber Kruger ARNP [Primary Care Provider] -
[2020-09-11 16:51] LABS: Add Manual Diff / Slide Review NO; Basophils Absolute Auto 0 /uL (0-100); Basophils Percent Auto 0.7 % (0-2); Eosinophils Absolute Auto 0 /uL (0-450); Eosinophils Percent Auto 0.7 % (2-4); Hematocrit 32.4 % (36-46); Hemoglobin 10.2 g/dL (12.0-16.0); Lymphocytes Absolute Auto 600 /uL (1100-4500); Lymphocytes Percent Auto 9.2 % (25-40); Mean Corpuscular HGB Conc 31.5 % (30-36); Mean Corpuscular Hemoglobin 25.6 PG (26-34); Mean Corpuscular Volume 81.2 fL (80-100); Monocytes Absolute Auto 600 /uL (0-900); Monocytes Percent Auto 9.1 % (3-14); Neutrophils Absolute Auto 4900 /uL (1500-7000); Neutrophils Percent Auto 80.3 % (50-75); Platelet Count 231 X10^3/uL (150-400); Red Blood Cell Count 3.98 X10^6/uL (4.0-5.2); Red Cell Distribution Width 15.5 % (11.6-14.8); White Blood Cell Count 6.1 X10^3/uL (4.5-11.0)
[2020-09-11] MEDS: VANCOMYCIN 1,500 MG/300 ML PIGGYBACK 200 MG IV (16:53)
[2020-09-11] MEDS: SODIUM CHLORIDE 0.9% 1,000 ML 1000 ML IV (16:53)
[2020-09-11 17:06] LABS: Alanine Aminotransferase 8 IU/L (<35); Albumin 3.3 g/dL (3.5-5.0); Albumin Globulin Ratio 0.8 (1.0-2.8); Alkaline Phosphatase 71 U/L (38-126); Aspartate Aminotransferase 23 IU/L (14-36); BUN Creatinine Ratio 19.4 (6-22); Bilirubin Total 0.8 mg/dL (0.2-1.3); Blood Urea Nitrogen 13 mg/dL (7-17); Calcium 8.7 mg/dL (8.4-10.2); Carbon Dioxide 30 mmol/L (22-32); Chloride 95 mmol/L (98-107); Estimated Glomerular Filt Rate > 60.0 mL/min (>60); Glucose 110 mg/dL (80-110); HEMOLYSIS < 15 (0-50); Potassium 3.8 mmol/L (3.4-5.1); Sodium 132 mmol/L (137-145); Total Protein 7.3 g/dL (6.3-8.2)
[2020-09-11 17:48] LABS: COVID19 -Nasal RAPID Negative (Negative)
--- NOTE | 2020-09-11 19:09 | PC.NURSE ---
Pt is [facility] insurance and per protocol I called [facility] to consult with provider about transfer. [facility] states they have absolutely no beds and said we can call [facility] for pt continuity of care. I called [facility] and Brea from the transfer center stated they cannot accept patients outside of their [facility]. She expressed her regrets. Call was placed back to [facility] @ 1833 to update them. [facility] doctor was to call back. @ 1635 I called [facility] Xfer to transfer and we talked to cardiology Dr. Ty who said to call the hospitalist. [facility] coordinator is aware and we are waiting for the hospitalist to call back. [phone]
[2020-09-11] MEDS: CEFTRIAXONE 2 GM/50 ML FROZ.PIGGY IV (20:15)
== END 2020-09-11 20:36 | disposition short-term general hospital (02) ==
PROVIDERS: Emergency Provider Emergency Medicine; Family Provider Family Medicine; PCP Nurse Practitioner
DX: R78.81 Bacteremia (principal); I48.91 Unspecified atrial fibrillation; Z79.01 Long term (current) use of anticoagulants; R06.02 Shortness of breath; I50.9 Heart failure, unspecified; D64.9 Anemia, unspecified; I10 Essential (primary) hypertension; I05.9 Rheumatic mitral valve disease, unspecified; Z20.822 Contact with and (suspected) exposure to COVID-19
CPT/HCPCS: 36415; 80053; 83605; 84145; 85025; 87635; 93005; 96365; 96366; 96367; 99283; 99284; C9803; J0696

== ENCOUNTER 2021-07-16 11:13 | Emergency (ER) | payer OTHER, SELFPAY ==
[2020-08-26 20:17] VITALS: BMI 34.9
[2021-07-16] VITALS (9 sets, daily range): BP systolic 160–186; BP diastolic 72–88; PULSE 67–104; RESP 16–18; TEMP 36.3–36.4; O2SAT 95–99; BMI 29.2
--- NOTE | 2021-07-16 13:16 | DI.CT.S_ITS ---
PROCEDURE: CT ABDOMEN PELVIS W CON INDICATIONS: left lower lateral abd pain TECHNIQUE: After the administration of oral and IV contrast, axial sections were acquired from the lung bases to the pubic symphysis. Coronal and sagittal reformats were performed. For radiation dose reduction, the following was used: automated exposure control, adjustment of mA and/or kV according to patient size. COMPARISON: [facility], CT, ABDOMEN/PELVIS WITH CONTRAST, 01/31/2015, 20:48. [facility], CT, CT ABDOMEN PELVIS W CON, 12/14/2019, 20:09. [facility], CT, CT ABDOMEN PELVIS W CON, 08/25/2020, 9:13. FINDINGS: Image quality: Excellent. Lung bases: Minimal bilateral effusions with superimposed consolidations are present, left greater than right. Heart: No significant findings. ABDOMEN: Liver: Hepatic steatosis is present. Multiple low-attenuation foci are present, unchanged. A focus of enhancement measuring approximately 5 mm on series 2, image 32 is present adjacent to the gallbladder wall not as prominent although present on prior exam. However, more remote prior exams it demonstrates a similar appearance. Gallbladder: Luminal stone is present without wall thickening. Biliary ducts: Unremarkable. Pancreas: Unremarkable. Spleen: Unremarkable. Adrenal Glands: Unremarkable. Kidneys and Ureters: No obstruction. Unchanged exophytic left renal cyst is present. Stomach and Bowel: Stomach, small bowel loops, and colon are unremarkable. Appendix is normal. Moderate colonic stool is present. Minimal scattered diverticula are present without associated inflammatory change. Gastric banding is present. Peritoneum: No abnormal intraperitoneal fluid. No free air. Ventral Wall: No hernia. Abdominal Nodes: No retroperitoneal or mesenteric adenopathy by size criteria. Vessels: Aorta and inferior vena cava are normal in size. PELVIS: Pelvic Organs: Unremarkable. Bladder: Unremarkable. Pelvic Nodes: No enlarged lymph nodes. Miscellaneous: No inguinal hernias are seen. Bones: Multilevel degenerative and postsurgical changes are present. IMPRESSION: 1. Hepatic steatosis and cysts are unchanged. 2. Focal or enhancement adjacent to the gallbladder wall slightly less prominent. This is suspicious for hemangioma as it has been identified with varying degrees of prominence on prior exams. 3. Unchanged cholelithiasis. 4. Diverticulosis. 5. Moderate scattered stool consistent constipation. No obstruction. Dictated by: Natalie Rahman M.D. on 07/16/2021 at 15:26 Approved by: Natalie Rahman M.D. on 07/16/2021 at 15:30
--- NOTE | 2021-07-16 13:24 | ED_ITS ---
HPI - Extremity Problem General Chief complaint: Extremity Problem,Nontraumatic Stated complaint: Pain in lt groin region Time Seen by Provider: 07/16/21 13:03 Source: patient Mode of arrival: Ambulatory Limitations: no limitations History of Present Illness HPI Narrative: This is an 80-year-old female comes emergency department complaint of pain in her left groin. Patient states it has been going on for about 4 weeks. Four days ago it has been getting worse and now coming along from the lower back to the front. Patient states it seems more in the groin like crease area. She has not had any fever she is aware of. She thought that it would go away but it has not it seems to be worsened by eating but is becoming more consistent. Patient took an oxycodone today because it was worsened and that has helped. She states she is also putting ice along the area which was helpful. She denies any falls. She states moving and walking does seem to make it worse. She has been constipated but having normal stools and takes Linzess for this. She thought she had a rash on her leg but not did not appreciate anything on her back or groin. No fevers or chills. No chest pain. She has got chronic shortness of breath that has not changed. She has had some nausea today but no vomiting. No issues with urination burning frequency. No numbness, tingling or weakness in her extremities she is on Pradaxa daily she has a history of AFib and had a valve replaced 12 years ago. She did have a CT on 06/24/2021 that showed bilateral pleural effusions and gastric bland and a normal caliber abdominal aorta with severe atherosclerosis and a 1.2 pancreatic head cyst. Is also noted she had some cholelithiasis. Related Data Home Medications Medication Instructions Recorded Confirmed cholecalciferol (vitamin D3) 50 4,000 unit PO DAILY 03/09/19 08/26/20 mcg (2,000 unit) tablet (Vitamin D3) clobetasol 0.05 % scalp solution 1 applic TOPICAL DIRECTED 03/09/19 08/26/20 dabigatran etexilate 150 mg 150 mg PO BID 03/09/19 08/26/20 capsule (Pradaxa) folic acid 400 mcg tablet 1,200 mcg PO DAILY 03/09/19 08/26/20 hydroxychloroquine 200 mg tablet 200 mg PO DAILY 03/09/19 08/26/20 linaclotide 290 mcg capsule 290 mg PO DAILY 03/09/19 08/26/20 (Linzess) multivitamin 1 tab PO DAILY 03/09/19 08/26/20 prednisone 5 mg tablet 5 mg PO DAILY 03/09/19 08/26/20 tramadol 50 mg tablet 50 mg PO BID PRN MDD 2 03/09/19 08/26/20 docusate sodium 50 mg capsule 50 mg PO DAILY 08/26/20 08/26/20 ferrous sulfate 324 mg (65 mg 324 mg PO DAILY 08/26/20 08/26/20 iron) tablet,delayed release omega-3 acid ethyl esters 1 gram 1 cap PO DAILY 08/26/20 08/26/20 capsule (Lovaza) potassium chloride 20 mEq 20 meq PO BID 08/26/20 08/27/20 tablet,extended release(part/cryst) vitamin B complex (B 1 tab PO DAILY 08/26/20 08/26/20 Complex-Vitamin B12) vitamins A,C,D-geqc-jiftdy 7,160 2 tab PO DAILY 08/26/20 08/26/20 unit-113 mg-100 unit tablet (PreserVision AREDS) Previous Rx's Medication Instructions Recorded carvedilol 12.5 mg tablet 12.5 mg PO BID #60 tab 03/12/19 furosemide 40 mg tablet 40 mg PO DAILY #30 tab 03/12/19 oxycodone 5 mg tablet 5 mg PO Q6H PRN #10 tab 07/16/21 Allergies Allergy/AdvReac Type Severity Reaction Status Date / Time amiodarone Allergy Verified 07/16/21 11:37 dicloxacillin Allergy Verified 07/16/21 11:37 diltiazem [From Cartia XT] Allergy Verified 07/16/21 11:37 lubiprostone [From Amitiza] Allergy Verified 07/16/21 11:37 metoprolol Allergy Verified 07/16/21 11:37 sulfamethoxazole Allergy Verified 07/16/21 11:37 [From Bactrim] trimethoprim [From Bactrim] Allergy Verified 07/16/21 11:37 Review of Systems Review of Systems ROS Unobtainable: All systems reviewed & are unremarkable except as noted in HPI and below Patient History Medical History (Updated 07/16/21 @ 15:40 by America Gordillo DO) Atrial fibrillation Benign cutaneous periarteritis nodosa Hypertension Irritable bowel syndrome with constipation Macular degeneration, left eye Mitral valve disease Nummular dermatitis Surgical History History of aortic valve replacement History of back surgery History of cataract extraction History of laparoscopic adjustable gastric banding Family History Mother Old age Daughter Congestive heart failure Son Suicide Brother Ischemic necrosis of small bowel Social History marital status: household members: spouse Smoking Status: Former smoker alcohol intake: current Smoking Status: Former smoker alcohol intake frequency: holidays/special occasions only Substance Use Type: does not use Exam Narrative Exam Narrative: GENERAL: Alert and oriented x three, elderly female in mild distress. HEENT: Head normocephalic, atraumatic, EOMI, pupils reactive, face symmetric, moist mucous membranes NECK: Supple, full range of motion CARDIOVASCULAR: Regular rate and rhythm without murmurs, rubs or gallops. RESPIRATORY: Breath sounds equal bilaterally, no wheezes rales or rhonchi. ABDOMEN: Soft, nontender intra-abdominally but patient does seem to have some discomfort on her left lower lateral abdomen just above the iliac region that seems to be more in the soft tissue. There is some fullness but not a clearly palpable hernia. There is no warmth, erythema or skin changes. There is no rash or vesicles appreciated. Patient is tender on the skin around from the back to the front. There is no obvious skin changes in the groin itself and she is nontender in the inguinal area with no masses or lumps or hernias appreciated. Bowel sounds all 4 quadrants. No guarding or rebound, rigidity, n o mass : No CVA tenderness EXTREMITIES: Normal range of motion, mild bilateral lower extremity edema. Neurovascularly intact. Cap refill less than 2 seconds bilateral lower extremities. NEUROLOGICAL: Cranial nerves II through XII grossly intact. Moving all extremities SKIN: Warm, dry, no petechiae, no rashes or lesions. Initial Vital Signs Initial Vital Signs: Vital Signs Temperature 97.4 F L 07/16/21 11:37 Pulse Rate 101 H 07/16/21 11:37 Respiratory Rate 16 07/16/21 11:37 Blood Pressure 186/88 H 07/16/21 11:37 Pulse Oximetry 98 07/16/21 11:37 Course Orders Ordered: ED Orders 07/16/21 12:48 EKG-12 Lead Stat 07/16/21 13:16 CT abdomen pelvis w con Stat 07/16/21 13:50 Blood Culture Stat Complete Blood Count AUTO DIFF Stat Comprehensive Metabolic Panel Stat Lactate (Lactic Acid) Stat Lipase Stat Vital Signs Vital signs: Vital Signs - 8 hr 07/16/21 11:37 07/16/21 12:43 07/16/21 12:46 Temperature 97.4 F L Pulse Rate 101 H 104 H 95 H Respiratory Rate 16 Blood Pressure 186/88 H 162/76 H Pulse Oximetry 98 95 98 07/16/21 12:51 07/16/21 13:00 07/16/21 13:30 Temperature 97.5 F L Pulse Rate 91 H 90 91 H Respiratory Rate Blood Pressure 162/76 H Pulse Oximetry 99 99 98 07/16/21 14:26 07/16/21 14:27 07/16/21 16:02 Temperature Pulse Rate 85 85 67 Respiratory Rate 17 18 Blood Pressure 182/77 H 160/72 H Pulse Oximetry 97 98 99 MDM - Extremity (Nontraumatic) Lab Data Result diagrams: 07/16/21 13:50 07/16/21 13:50 Labs: Lab Results 07/16/21 07/16/21 07/16/21 Range/Units 13:50 13:50 13:50 WBC 6.1 (4.5-11.0) X10^3/uL RBC 4.08 (4.0-5.2) X10^6/uL Hgb 12.3 (12.0-16.0) g/dL Hct 36.5 (36-46) % MCV 89.5 (80-100) fL MCH 30.2 (26-34) PG MCHC 33.8 (30-36) % RDW 13.6 (11.6-14.8) % Plt Count 172 (150-400) X10^3/uL Neut % (Auto) 62.5 (50-75) % Lymph % (Auto) 28.1 (25-40) % [place] % (Auto) 8.2 (3-14) % Eos % (Auto) 0.6 L (2-4) % Baso % (Auto) 0.6 (0-2) % Neut # (Auto) 3800 (4321-9379) /uL Lymph # (Auto) 1700 (6575-4896) /uL [place] # (Auto) 500 (0-900) /uL Eos # (Auto) 0 (0-450) /uL Baso # (Auto) 0 (0-100) /uL Sodium 138 (137-145) mmol/L Potassium 3.7 (3.4-5.1) mmol/L Chloride 98 (98-107) mmol/L Carbon Dioxide 35 H (22-32) mmol/L BUN 24 H (7-17) mg/dL Creatinine 0.69 (0.52-1.04) mg/dL Estimated GFR > 60.0 (>60) mL/min BUN/Creatinine Ratio 34.8 H (6-22) Glucose 91 (80-110) mg/dL Lactate 0.9 (0.7-2.1) mmol/L Calcium 9.5 (8.4-10.2) mg/dL Total Bilirubin 0.8 (0.2-1.3) mg/dL AST 21 (14-36) IU/L ALT 10 (<35) IU/L Alkaline Phosphatase 84 (38-126) U/L Total Protein 7.7 (6.3-8.2) g/dL Albumin 3.9 (3.5-5.0) g/dL Globulin 3.8 (1.7-4.1) g/dL Albumin/Globulin Ratio 1.0 (1.0-2.8) Lipase 58 (23-300) U/L Urine Dip Bedside Urine Glucose Negative Bedside Urine Bilirubin - Negative Bedside Urine Ketone - Negative Urine Specific [place] 1.020 Bedside Urine Occult Blood - Negative Bedside Urine pH 6.0 Bedside Urine Protein - Negative Bedside Urine Urobilinogen - Negative Bedside Urine Nitrite - Negative Bedside Urine Leukocytes - Negative Esterase Imaging Data CT scan - abdomen/pelvis: Radiologist's Impression: Launch?[address] [address] [address] Scan Report Signed Patient: Karena Brown MR#: [id number] : 1940 Acct:[id number] Age/Sex: 80 / F Date of Service: 07/16/21 Loc: ED Accession Number: [id number] ?? Procedure: CT abdomen pelvis w con Ordering Provider: America Gordillo D.O. PROCEDURE:? CT ABDOMEN PELVIS W CON ? INDICATIONS:? left lower lateral abd pain ? TECHNIQUE:? After the administration of oral and IV contrast, axial sections were acquired from the lung bases to the pubic symphysis.? Coronal and sagittal reformats were performed.? For radiation dose reduction, the following was used:? automated exposure control, adjustment of mA and/or kV according to patient size. ? COMPARISON:? [facility], CT, ABDOMEN/PELVIS WITH CONTRAST, 01/31/2015, 20:48.? [facility], CT, CT ABDOMEN PELVIS W CON, 12/14/2019, 20:09.? [facility], CT, CT ABDOMEN PELVIS W CON, 08/25/2020, 9:13. ? FINDINGS:? Image quality:? Excellent.? ? Lung bases:? Minimal bilateral effusions with superimposed consolidations are present, left greater than right. Heart:? No significant findings. ? ? ABDOMEN: Liver:? Hepatic steatosis is present.? Multiple low-attenuation foci are present, unchanged.? A focus of enhancement measuring approximately 5 mm on series 2, image 32 is present adjacent to the gallbladder wall not as prominent although present on prior exam. ?However, more remote prior exams it demonstrates a similar appearance. Gallbladder:? Luminal stone is present without wall thickening. Biliary ducts:? Unremarkable.? ? Pancreas:? Unremarkable.? ? Spleen:? Unremarkable.? ? Adrenal Glands:? Unremarkable.? ? Kidneys and Ureters:? No obstruction.? Unchanged exophytic left renal cyst is present. ? Stomach and Bowel:? Stomach, small bowel loops, and colon are unremarkable.? Appendix is normal.? Moderate colonic stool is present.? Minimal scattered diverticula are present without associated inflammatory change.? Gastric banding is present. Peritoneum:? No abnormal intraperitoneal fluid.? No free air.? ? Ventral Wall: ? No hernia.? Abdominal Nodes:? No retroperitoneal or mesenteric adenopathy by size criteria.? Vessels:? Aorta and inferior vena cava are normal in size.? ? PELVIS: Pelvic Organs:? Unremarkable.? ? Bladder:? Unremarkable.? ? Pelvic Nodes: No enlarged lymph nodes.? Miscellaneous: No inguinal hernias are seen. ? ? ? Bones:? Multilevel degenerative and postsurgical changes are present. ? ? IMPRESSION:? ? 1. Hepatic steatosis and cysts are unchanged. ? 2. Focal or enhancement adjacent to the gallbladder wall slightly less prominent.? This is suspicious for hemangioma as it has been identified with varying degrees of prominence on prior exams. ? 3. Unchanged cholelithiasis. ? 4. Diverticulosis. ? 5. Moderate scattered stool consistent constipation.? No obstruction.? ? ? Dictated by: Natalie Rahman M.D. on 07/16/2021 at 15:26 ? ? Approved by: Natalie Rahman M.D. on 07/16/2021 at 15:30?? ECG Data Attestation EKG: I personally reviewed and interpreted this ECG as follows: Prior ECG tracings: available for review Interpretation: AFib rate of 74 QRS 82 and QTC of 399. No acute changes appreciated. Very small Q-wave in 2 3 AVF. Patient has prior EKG from 09/11/2020 which showed AFib with RVR but otherwise similar T-wave changes. MDM Narrative Medical decision making narrative: This is an 79-year-old female with left-sided abdominal that seems more external and internal on examination. She has had septicemia in the past so blood cultures were included she states they never found exact source. Her symptoms seem somewhat neuropathic. Patient labs are reassuring. Lactates negative. Her CT abdomen pelvis does not show any acute cause. Her examination otherwise does not show any clear causes we discussed possibly musculoskeletal or early shingles but watchful waiting and return for eval. Patient and I reviewed all of her findings with her and her family at bedside. The differential inappropriate reasons to return. Discharge Plan Departure Patient Disposition: Home Clinical Impression: Left sided abdominal pain Instructions: DI for Abdominal Pain-Adult Activity Restrictions/Additional Instructions: Follow-up with your physician for recheck. I did not find a clear cause of your pain today. I would watch for any redness or skin changes or rashes to her side. I do not see any signs of shingles or infection on the skin but you are more tender on the outer skin with palpation. If the rash occurs in the area where you are hurting please return for recheck. You do have some chronic changes in your gallbladder suspicious for possible hemangioma as well as some hepatic steatosis and sits which are unchanged. You may take your pain medication as prescribed. This medication can make you constipated so take a stool softener. Prescription sent to [facility] in [place]. Please return for fevers, rapidly worsening symptoms, persistent vomiting, black or bloody stools, new rashes or skin changes, or other new or concerning symptoms. Prescriptions: New oxycodone 5 mg tablet 5 mg PO Q6H PRN (Reason: pain) Qty: 10 0RF No Action multivitamin Tablet 1 tab PO DAILY 0RF prednisone 5 mg Tablet 5 mg PO DAILY 0RF folic acid 400 mcg Tablet 1,200 mcg PO DAILY 0RF tramadol 50 mg Tablet 50 mg PO BID MDD 2 PRN (Reason: PAIN) 0RF hydroxychloroquine 200 mg Tablet 200 mg PO DAILY 0RF clobetasol 0.05 % Solution 1 applic TOPICAL DIRECTED 0RF cholecalciferol (vitamin D3) [Vitamin D3] 2,000 unit Tablet 4,000 unit PO DAILY 0RF Pradaxa 150 mg Capsule 150 mg PO BID 0RF Linzess 290 mcg Capsule 290 mg PO DAILY 0RF furosemide 40 mg tablet 40 mg PO DAILY Qty: 30 0RF carvedilol 12.5 mg tablet 12.5 mg PO BID Qty: 60 0RF Rx Instructions: must administer with a meal/food potassium chloride 20 mEq tablet,ER particles/crystals 20 meq PO BID 0RF docusate sodium 50 mg Capsule 50 mg PO DAILY 0RF vitamin B complex [B Complex-Vitamin B12] Tablet 1 tab PO DAILY 0RF omega-3 acid ethyl esters [Lovaza] 1 gram Capsule 1 cap PO DAILY 0RF Label Comments: pt states 1200mg. ferrous sulfate 324 mg (65 mg iron) Tablet,Delayed Release (Dr/Ec) 324 mg PO DAILY 0RF PreserVision AREDS 7,160-113-100 sdkg-hd-bmar Tablet 2 tab PO DAILY 0RF Referrals: Amber Kruger ARNP [Primary Care Provider] - Avtar Robert DO [Physician] -
[2021-07-16 14:00] LABS: Add Manual Diff / Slide Review NO; Basophils Absolute Auto 0 /uL (0-100); Basophils Percent Auto 0.6 % (0-2); Eosinophils Absolute Auto 0 /uL (0-450); Eosinophils Percent Auto 0.6 % (2-4); Hematocrit 36.5 % (36-46); Hemoglobin 12.3 g/dL (12.0-16.0); Lymphocytes Absolute Auto 1700 /uL (1100-4500); Lymphocytes Percent Auto 28.1 % (25-40); Mean Corpuscular HGB Conc 33.8 % (30-36); Mean Corpuscular Hemoglobin 30.2 PG (26-34); Mean Corpuscular Volume 89.5 fL (80-100); Monocytes Absolute Auto 500 /uL (0-900); Monocytes Percent Auto 8.2 % (3-14); Neutrophils Absolute Auto 3800 /uL (1500-7000); Neutrophils Percent Auto 62.5 % (50-75); Platelet Count 172 X10^3/uL (150-400); Red Blood Cell Count 4.08 X10^6/uL (4.0-5.2); Red Cell Distribution Width 13.6 % (11.6-14.8); White Blood Cell Count 6.1 X10^3/uL (4.5-11.0)
[2021-07-16 14:14] LABS: Alanine Aminotransferase 10 IU/L (<35); Albumin 3.9 g/dL (3.5-5.0); Alkaline Phosphatase 84 U/L (38-126); Aspartate Aminotransferase 21 IU/L (14-36); BUN Creatinine Ratio 34.8 (6-22); Bilirubin Total 0.8 mg/dL (0.2-1.3); Blood Urea Nitrogen 24 mg/dL (7-17); Calcium 9.5 mg/dL (8.4-10.2); Carbon Dioxide 35 mmol/L (22-32); Chloride 98 mmol/L (98-107); Estimated Glomerular Filt Rate > 60.0 mL/min (>60); Globulin 3.8 g/dL (1.7-4.1); Glucose 91 mg/dL (80-110); HEMOLYSIS < 15 (0-50); Lipase 58 U/L (23-300); Potassium 3.7 mmol/L (3.4-5.1); Sodium 138 mmol/L (137-145); Total Protein 7.7 g/dL (6.3-8.2)
[2021-07-16 14:18] LABS: Lactate (Lactic Acid) 0.9 mmol/L (0.7-2.1)
== END 2021-07-16 16:11 | disposition home or self-care (01) ==
PROVIDERS: Emergency Provider Emergency Medicine; Family Provider Family Medicine; PCP Nurse Practitioner
DX: R10.32 Left lower quadrant pain (principal); I10 Essential (primary) hypertension; Z87.891 Personal history of nicotine dependence
CPT/HCPCS: 36415; 74177; 80053; 81003; 83605; 83690; 85025; 87040; 93005; 99283; 99284; Q9967

== ENCOUNTER → 2021-08-20 14:05 | Outpatient (CLI) | payer OTHER, SELFPAY ==
[2020-08-26 20:17] VITALS: BMI 34.9
[2021-08-20 15:18] LABS: Add Manual Diff / Slide Review NO; Basophils Absolute Auto 100 /uL (0-100); Basophils Percent Auto 1.2 % (0-2); Eosinophils Absolute Auto 600 /uL (0-450); Hematocrit 37.2 % (36-46); Hemoglobin 12.5 g/dL (12.0-16.0); Lymphocytes Absolute Auto 1100 /uL (1100-4500); Lymphocytes Percent Auto 20.1 % (25-40); Mean Corpuscular HGB Conc 33.7 % (30-36); Mean Corpuscular Hemoglobin 30.5 PG (26-34); Mean Corpuscular Volume 90.5 fL (80-100); Monocytes Absolute Auto 500 /uL (0-900); Monocytes Percent Auto 8.4 % (3-14); Neutrophils Absolute Auto 3400 /uL (1500-7000); Neutrophils Percent Auto 60.3 % (50-75); Platelet Count 191 X10^3/uL (150-400); Red Blood Cell Count 4.11 X10^6/uL (4.0-5.2); Red Cell Distribution Width 13.2 % (11.6-14.8); White Blood Cell Count 5.6 X10^3/uL (4.5-11.0)
[2021-08-20 15:57] LABS: Alanine Aminotransferase 9 IU/L (<35); Albumin 4.1 g/dL (3.5-5.0); Alkaline Phosphatase 85 U/L (38-126); Aspartate Aminotransferase 26 IU/L (14-36); BUN Creatinine Ratio 32.8 (6-22); Bilirubin Total 0.5 mg/dL (0.2-1.3); Blood Urea Nitrogen 21 mg/dL (7-17); Calcium 9.7 mg/dL (8.4-10.2); Carbon Dioxide 33 mmol/L (22-32); Chloride 102 mmol/L (98-107); Cholesterol 143 mg/dL (140-199); Estimated Glomerular Filt Rate > 60.0 mL/min (>60); Globulin 4.1 g/dL (1.7-4.1); Glucose 112 mg/dL (80-110); HDL Cholesterol 38 mg/dL (40-60); HEMOLYSIS < 15 (0-50); LDL Cholesterol Calculated 81 mg/dL (<100); Potassium 4.3 mmol/L (3.4-5.1); Sodium 139 mmol/L (137-145); Total Protein 8.2 g/dL (6.3-8.2); Triglycerides 118 mg/dL (35-150)
[2021-08-20 17:02] LABS: HEMOLYSIS < 15 (0-50); Total Iron Binding Capacity 266 ug/dL (265-497); Transferrin 186 mg/dL (206-381)
[2021-08-20 17:34] LABS: Iron 82 ug/dL (37-170); Percent Iron Saturation 31 % (15-50)
== END ==
PROVIDERS: Family Provider Family Medicine; PCP Internal Medicine; Referring Provider Internal Medicine; Visit Provider Internal Medicine
DX: E78.2 Mixed hyperlipidemia (principal); I10 Essential (primary) hypertension; I48.91 Unspecified atrial fibrillation; I50.32 Chronic diastolic (congestive) heart failure
CPT/HCPCS: 36415; 80053; 80061; 83540; 83550; 85025

== ENCOUNTER → 2021-12-18 15:16 | Outpatient (CLI) | payer OTHER, SELFPAY ==
[2021-08-28 15:50] VITALS: BMI 34.9
[2021-12-18 16:52] LABS: Alanine Aminotransferase 11 IU/L (<35); Albumin 3.9 g/dL (3.5-5.0); Albumin Globulin Ratio 0.9 (1.0-2.8); Alkaline Phosphatase 80 U/L (38-126); Aspartate Aminotransferase 26 IU/L (14-36); BUN Creatinine Ratio 30.1 (6-22); Bilirubin Total 0.8 mg/dL (0.2-1.3); Blood Urea Nitrogen 25 mg/dL (7-17); Calcium 8.9 mg/dL (8.4-10.2); Carbon Dioxide 34 mmol/L (22-32); Chloride 100 mmol/L (98-107); Estimated Glomerular Filt Rate > 60 mL/min (>60); Globulin 4.2 g/dL (1.7-4.1); Glucose 121 mg/dL (80-110); HEMOLYSIS < 15 (0-50); Potassium 4.1 mmol/L (3.4-5.1); Sodium 142 mmol/L (137-145); Total Protein 8.1 g/dL (6.3-8.2)
[2021-12-18 17:10] LABS: Add Manual Diff / Slide Review NO; Basophils Absolute Auto 100 /uL (0-100); Basophils Percent Auto 0.9 % (0-2); Eosinophils Absolute Auto 300 /uL (0-450); Eosinophils Percent Auto 4.7 % (2-4); Hematocrit 38.7 % (36-46); Hemoglobin 13.1 g/dL (12.0-16.0); Lymphocytes Absolute Auto 1200 /uL (1100-4500); Lymphocytes Percent Auto 19.8 % (25-40); Mean Corpuscular HGB Conc 33.9 % (30-36); Mean Corpuscular Hemoglobin 30.3 PG (26-34); Mean Corpuscular Volume 89.6 fL (80-100); Monocytes Absolute Auto 800 /uL (0-900); Monocytes Percent Auto 12.8 % (3-14); Neutrophils Absolute Auto 3700 /uL (1500-7000); Neutrophils Percent Auto 61.8 % (50-75); Platelet Count 222 X10^3/uL (150-400); Red Blood Cell Count 4.32 X10^6/uL (4.0-5.2); Red Cell Distribution Width 13.2 % (11.6-14.8); White Blood Cell Count 5.9 X10^3/uL (4.5-11.0)
[2021-12-18 19:25] LABS: HEMOLYSIS < 15 (0-50)
[2021-12-18 19:36] LABS: Iron 71 ug/dL (37-170)
[2021-12-18 19:43] LABS: Percent Iron Saturation 28 % (15-50); Total Iron Binding Capacity 258 ug/dL (265-497); Transferrin 178 mg/dL (206-381)
== END ==
PROVIDERS: Family Provider Family Medicine; PCP Internal Medicine; Referring Provider Internal Medicine; Visit Provider Internal Medicine
DX: E61.1 Iron deficiency (principal); I10 Essential (primary) hypertension; I48.21 Permanent atrial fibrillation
CPT/HCPCS: 36415; 80053; 83540; 83550; 85025

== ENCOUNTER → 2022-06-03 14:04 | Outpatient (CLI) | payer OTHER, SELFPAY ==
[2022-05-28 15:09] VITALS: BMI 34.9
[2022-06-03 15:24] LABS: BUN Creatinine Ratio 35.6 (6-22); Blood Urea Nitrogen 26 mg/dL (7-17); Carbon Dioxide 34 mmol/L (22-32); Chloride 97 mmol/L (98-107); Estimated Glomerular Filt Rate > 60 mL/min (>60); Glucose 174 mg/dL (80-110); HEMOLYSIS < 15 (0-50); Sodium 141 mmol/L (137-145)
== END ==
PROVIDERS: Family Provider Family Medicine; PCP Internal Medicine; Referring Provider Internal Medicine Cardiovascular Disease; Visit Provider Internal Medicine Cardiovascular Disease
DX: I48.20 Chronic atrial fibrillation, unspecified (principal); I50.32 Chronic diastolic (congestive) heart failure
CPT/HCPCS: 36415; 80048

== ENCOUNTER → 2022-09-18 15:09 | Outpatient (CLI) | payer OTHER, SELFPAY ==
[2022-05-28 15:09] VITALS: BMI 34.9
[2022-09-18 16:52] LABS: BUN Creatinine Ratio 53.4 (6-22); Blood Urea Nitrogen 47 mg/dL (7-17); Calcium 9.6 mg/dL (8.4-10.2); Carbon Dioxide 39 mmol/L (22-32); Chloride 82 mmol/L (98-107); Estimated Glomerular Filt Rate > 60 mL/min (>60); Glucose 155 mg/dL (80-110); HEMOLYSIS 18 (0-50); Magnesium 2.1 mg/dL (1.6-2.3); Potassium 3.2 mmol/L (3.4-5.1); Sodium 132 mmol/L (137-145)
== END ==
PROVIDERS: Family Provider Family Medicine; PCP Internal Medicine; Referring Provider Internal Medicine; Visit Provider Internal Medicine
DX: I10 Essential (primary) hypertension (principal); I50.32 Chronic diastolic (congestive) heart failure
CPT/HCPCS: 36415; 80048; 83735

== ENCOUNTER → 2022-10-29 14:38 | Outpatient (CLI) | payer OTHER, SELFPAY ==
[2022-05-28 15:09] VITALS: BMI 34.9
[2022-10-29 15:38] LABS: Add Manual Diff / Slide Review NO; Basophils Absolute Auto 100 /uL (0-100); Basophils Percent Auto 1.1 % (0-2); Eosinophils Absolute Auto 100 /uL (0-450); Eosinophils Percent Auto 1.8 % (2-4); Hematocrit 32.1 % (36-46); Lymphocytes Absolute Auto 600 /uL (1100-4500); Lymphocytes Percent Auto 9.1 % (25-40); Mean Corpuscular HGB Conc 31.2 % (30-36); Mean Corpuscular Volume 80.1 fL (80-100); Monocytes Absolute Auto 400 /uL (0-900); Monocytes Percent Auto 5.5 % (3-14); Neutrophils Absolute Auto 5400 /uL (1500-7000); Neutrophils Percent Auto 82.5 % (50-75); Platelet Count 290 X10^3/uL (150-400); Red Blood Cell Count 4.01 X10^6/uL (4.0-5.2); Red Cell Distribution Width 23.3 % (11.6-14.8); White Blood Cell Count 6.6 X10^3/uL (4.5-11.0)
[2022-10-29 15:54] LABS: Alanine Aminotransferase 16 IU/L (<35); Alkaline Phosphatase 90 U/L (38-126); Aspartate Aminotransferase 28 IU/L (14-36); BUN Creatinine Ratio 33.8 (6-22); Bilirubin Total 0.4 mg/dL (0.2-1.3); Blood Urea Nitrogen 24 mg/dL (7-17); Calcium 9.3 mg/dL (8.4-10.2); Carbon Dioxide 32 mmol/L (22-32); Chloride 102 mmol/L (98-107); Estimated Glomerular Filt Rate > 60 mL/min (>60); Globulin 3.9 g/dL (1.7-4.1); Glucose 144 mg/dL (80-110); HEMOLYSIS < 15 (0-50); Magnesium 2.1 mg/dL (1.6-2.3); Potassium 5.8 mmol/L (3.4-5.1); Sodium 137 mmol/L (137-145); Total Protein 7.9 g/dL (6.3-8.2)
[2022-10-29 16:10] LABS: Anisocytosis 2+; Microcytosis 1+; Poikilocytosis 1+
[2022-10-29 16:24] LABS: HEMOLYSIS 17 (0-50); Iron 62 ug/dL (37-170)
[2022-10-29 16:34] LABS: Percent Iron Saturation 16 % (15-50); Total Iron Binding Capacity 382 ug/dL (265-497); Transferrin 295 mg/dL (206-381)
== END ==
PROVIDERS: Family Provider Family Medicine; PCP Internal Medicine; Referring Provider Internal Medicine; Visit Provider Internal Medicine
DX: E61.1 Iron deficiency (principal); I10 Essential (primary) hypertension; E78.2 Mixed hyperlipidemia; I48.91 Unspecified atrial fibrillation; I50.32 Chronic diastolic (congestive) heart failure; J44.9 Chronic obstructive pulmonary disease, unspecified
CPT/HCPCS: 36415; 80053; 83540; 83550; 83735; 85025

== ENCOUNTER → 2022-11-12 14:12 | Outpatient (CLI) | payer OTHER, SELFPAY ==
[2022-05-28 15:09] VITALS: BMI 34.9
[2022-11-12 15:10] LABS: Hematocrit 35.8 % (36-46); Hemoglobin 11.6 g/dL (12.0-16.0); Mean Corpuscular HGB Conc 32.3 % (30-36); Mean Corpuscular Hemoglobin 26.1 PG (26-34); Mean Corpuscular Volume 80.7 fL (80-100); Platelet Count 254 X10^3/uL (150-400); Red Blood Cell Count 4.43 X10^6/uL (4.0-5.2); White Blood Cell Count 7.5 X10^3/uL (4.5-11.0)
[2022-11-12 16:17] LABS: HEMOLYSIS 20 (0-50); Total Iron Binding Capacity 335 ug/dL (265-497); Transferrin 258 mg/dL (206-381)
[2022-11-12 18:30] LABS: BUN Creatinine Ratio 49.4 (6-22); Blood Urea Nitrogen 38 mg/dL (7-17); Chloride 87 mmol/L (98-107); Estimated Glomerular Filt Rate > 60 mL/min (>60); Glucose 148 mg/dL (80-110); Potassium 3.1 mmol/L (3.4-5.1); Sodium 135 mmol/L (137-145)
[2022-11-12 18:32] LABS: Iron 71 ug/dL (37-170)
[2022-11-12 18:36] LABS: HEMOLYSIS 28 (0-50)
[2022-11-12 18:41] LABS: Percent Iron Saturation 21 % (15-50)
[2022-11-12 19:18] LABS: Carbon Dioxide 41 mmol/L (22-32)
== END ==
PROVIDERS: Family Provider Family Medicine; PCP Internal Medicine; Referring Provider Internal Medicine; Visit Provider Internal Medicine
DX: E61.1 Iron deficiency (principal); I10 Essential (primary) hypertension
CPT/HCPCS: 36415; 80048; 83540; 83550; 85027

== ENCOUNTER → 2023-01-27 13:09 | Outpatient (CLI) | payer OTHER, SELFPAY ==
[2022-05-28 15:09] VITALS: BMI 34.9
[2023-01-27 14:20] LABS: HEMOLYSIS < 15 (0-50); Iron 48 ug/dL (37-170)
[2023-01-27 14:26] LABS: Add Manual Diff / Slide Review SLIDE REVIEW; Basophils Absolute Auto 0 /uL (0-100); Basophils Percent Auto 0.4 % (0-2); Eosinophils Absolute Auto 200 /uL (0-450); Eosinophils Percent Auto 2.5 % (2-4); Hemoglobin 12.8 g/dL (12.0-16.0); Lymphocytes Absolute Auto 800 /uL (1100-4500); Lymphocytes Percent Auto 10.5 % (25-40); Mean Corpuscular HGB Conc 33.8 % (30-36); Mean Corpuscular Hemoglobin 28.1 PG (26-34); Mean Corpuscular Volume 83.1 fL (80-100); Monocytes Absolute Auto 500 /uL (0-900); Monocytes Percent Auto 6.6 % (3-14); Neutrophils Absolute Auto 5900 /uL (1500-7000); Platelet Count 215 X10^3/uL (150-400); Red Blood Cell Count 4.57 X10^6/uL (4.0-5.2); Red Cell Distribution Width 14.6 % (11.6-14.8); White Blood Cell Count 7.3 X10^3/uL (4.5-11.0)
[2023-01-27 14:31] LABS: Percent Iron Saturation 13 % (15-50); Total Iron Binding Capacity 377 ug/dL (265-497); Transferrin 289 mg/dL (206-381)
[2023-01-27 15:33] LABS: Anisocytosis 1+
== END ==
PROVIDERS: Family Provider Family Medicine; PCP Internal Medicine; Referring Provider Physician Assistant; Visit Provider Physician Assistant
DX: D50.9 Iron deficiency anemia, unspecified (principal)
CPT/HCPCS: 36415; 83540; 83550; 85025

== ENCOUNTER → 2023-03-26 16:03 | Outpatient (CLI) | payer OTHER, SELFPAY ==
[2022-05-28 15:09] VITALS: BMI 34.9
[2023-03-26 16:18] LABS: Add Manual Diff / Slide Review NO; Basophils Absolute Auto 0 /uL (0-100); Basophils Percent Auto 0.5 % (0-2); Eosinophils Absolute Auto 100 /uL (0-450); Eosinophils Percent Auto 0.8 % (2-4); Hematocrit 36.4 % (36-46); Hemoglobin 12.1 g/dL (12.0-16.0); Lymphocytes Absolute Auto 500 /uL (1100-4500); Lymphocytes Percent Auto 7.4 % (25-40); Mean Corpuscular HGB Conc 33.2 % (30-36); Mean Corpuscular Hemoglobin 28.5 PG (26-34); Mean Corpuscular Volume 85.7 fL (80-100); Monocytes Absolute Auto 300 /uL (0-900); Monocytes Percent Auto 4.3 % (3-14); Neutrophils Absolute Auto 5900 /uL (1500-7000); Platelet Count 191 X10^3/uL (150-400); Red Blood Cell Count 4.25 X10^6/uL (4.0-5.2); Red Cell Distribution Width 15.2 % (11.6-14.8); White Blood Cell Count 6.8 X10^3/uL (4.5-11.0)
[2023-03-26 17:58] LABS: HEMOLYSIS < 15 (0-50); NT-proBNP (BNP-Adult 18+) 1310 pg/mL (<450)
[2023-03-26 17:59] LABS: Total Iron Binding Capacity 351 ug/dL (265-497); Transferrin 250 mg/dL (206-381)
[2023-03-26 18:11] LABS: Alanine Aminotransferase 17 IU/L (<35); Albumin 3.8 g/dL (3.5-5.0); Albumin Globulin Ratio 1.1 (1.0-2.8); Alkaline Phosphatase 111 U/L (38-126); Aspartate Aminotransferase 32 IU/L (14-36); BUN Creatinine Ratio 42.5 (6-22); Bilirubin Total 0.5 mg/dL (0.2-1.3); Blood Urea Nitrogen 31 mg/dL (7-17); Calcium 9.1 mg/dL (8.4-10.2); Carbon Dioxide 36 mmol/L (22-32); Chloride 93 mmol/L (98-107); Estimated Glomerular Filt Rate > 60 mL/min (>60); Globulin 3.6 g/dL (1.7-4.1); Glucose 203 mg/dL (80-110); Potassium 3.8 mmol/L (3.4-5.1); Sodium 136 mmol/L (137-145); Total Protein 7.4 g/dL (6.3-8.2)
[2023-03-26 18:24] LABS: HEMOLYSIS < 15 (0-50)
[2023-03-26 18:27] LABS: Iron 599 ug/dL (37-170)
== END ==
PROVIDERS: Family Provider Family Medicine; PCP Internal Medicine; Referring Provider Internal Medicine; Visit Provider Internal Medicine
DX: E61.1 Iron deficiency (principal); I50.32 Chronic diastolic (congestive) heart failure; E78.2 Mixed hyperlipidemia; I10 Essential (primary) hypertension; I48.91 Unspecified atrial fibrillation
CPT/HCPCS: 36415; 80053; 83540; 83550; 83880; 85025

== ENCOUNTER → 2023-04-08 15:53 | Outpatient (CLI) | payer OTHER, SELFPAY ==
[2022-05-28 15:09] VITALS: BMI 34.9
[2023-04-08 17:21] LABS: Add Manual Diff / Slide Review NO; Basophils Absolute Auto 0 /uL (0-100); Basophils Percent Auto 0.5 % (0-2); Eosinophils Absolute Auto 100 /uL (0-450); Eosinophils Percent Auto 0.8 % (2-4); Hematocrit 37.1 % (36-46); Hemoglobin 12.3 g/dL (12.0-16.0); Lymphocytes Absolute Auto 600 /uL (1100-4500); Lymphocytes Percent Auto 8.4 % (25-40); Mean Corpuscular HGB Conc 33.2 % (30-36); Mean Corpuscular Volume 87.4 fL (80-100); Monocytes Absolute Auto 300 /uL (0-900); Monocytes Percent Auto 4.4 % (3-14); Neutrophils Absolute Auto 5700 /uL (1500-7000); Neutrophils Percent Auto 85.9 % (50-75); Platelet Count 185 X10^3/uL (150-400); Red Blood Cell Count 4.24 X10^6/uL (4.0-5.2); White Blood Cell Count 6.6 X10^3/uL (4.5-11.0)
== END ==
PROVIDERS: Family Provider Family Medicine; PCP Internal Medicine; Referring Provider Physician Assistant; Visit Provider Physician Assistant
DX: D50.9 Iron deficiency anemia, unspecified (principal)
CPT/HCPCS: 36415; 85025

== ENCOUNTER → 2023-05-05 15:31 | Outpatient (CLI) | payer OTHER, SELFPAY ==
[2022-05-28 15:09] VITALS: BMI 34.9
[2023-05-05 16:05] LABS: Add Manual Diff / Slide Review NO; Basophils Absolute Auto 0 /uL (0-100); Basophils Percent Auto 0.4 % (0-2); Eosinophils Absolute Auto 0 /uL (0-450); Eosinophils Percent Auto 0.4 % (2-4); Hematocrit 38.6 % (36-46); Lymphocytes Absolute Auto 700 /uL (1100-4500); Lymphocytes Percent Auto 12.4 % (25-40); Mean Corpuscular HGB Conc 33.8 % (30-36); Mean Corpuscular Hemoglobin 29.5 PG (26-34); Mean Corpuscular Volume 87.2 fL (80-100); Monocytes Absolute Auto 300 /uL (0-900); Monocytes Percent Auto 6.4 % (3-14); Neutrophils Absolute Auto 4200 /uL (1500-7000); Neutrophils Percent Auto 80.4 % (50-75); Platelet Count 221 X10^3/uL (150-400); Red Blood Cell Count 4.42 X10^6/uL (4.0-5.2); Red Cell Distribution Width 16.2 % (11.6-14.8); White Blood Cell Count 5.3 X10^3/uL (4.5-11.0)
[2023-05-05 18:05] LABS: BUN Creatinine Ratio 30.8 (6-22); Blood Urea Nitrogen 24 mg/dL (7-17); Calcium 9.7 mg/dL (8.4-10.2); Carbon Dioxide 33 mmol/L (22-32); Chloride 92 mmol/L (98-107); Estimated Glomerular Filt Rate > 60 mL/min (>60); Glucose 141 mg/dL (80-110); HEMOLYSIS < 15 (0-50); Sodium 136 mmol/L (137-145)
[2023-05-05 18:12] LABS: Potassium 2.9 mmol/L (3.4-5.1)
== END ==
PROVIDERS: Family Provider Family Medicine; PCP Internal Medicine; Referring Provider Internal Medicine Cardiovascular Disease; Visit Provider Physician Assistant
DX: I48.20 Chronic atrial fibrillation, unspecified (principal); R06.02 Shortness of breath; I35.0 Nonrheumatic aortic (valve) stenosis; D50.9 Iron deficiency anemia, unspecified
CPT/HCPCS: 36415; 80048; 85025

== ENCOUNTER → 2023-05-18 14:37 | Outpatient (CLI) | payer OTHER, SELFPAY ==
[2022-05-28 15:09] VITALS: BMI 34.9
[2023-05-18 16:08] LABS: BUN Creatinine Ratio 37.3 (6-22); Blood Urea Nitrogen 22 mg/dL (7-17); Calcium 9.7 mg/dL (8.4-10.2); Carbon Dioxide 28 mmol/L (22-32); Chloride 98 mmol/L (98-107); Estimated Glomerular Filt Rate > 60 mL/min (>60); Glucose 131 mg/dL (80-110); HEMOLYSIS 22 (0-50); Magnesium 1.8 mg/dL (1.6-2.3); Sodium 136 mmol/L (137-145)
== END ==
PROVIDERS: Family Provider Family Medicine; PCP Internal Medicine; Referring Provider Internal Medicine Cardiovascular Disease; Visit Provider Internal Medicine Cardiovascular Disease
DX: I48.20 Chronic atrial fibrillation, unspecified (principal); R06.02 Shortness of breath; I35.0 Nonrheumatic aortic (valve) stenosis; E87.6 Hypokalemia
CPT/HCPCS: 36415; 80048; 83735

== ENCOUNTER 2023-06-05 14:42 | Emergency (ER) | payer OTHER, SELFPAY ==
[2022-05-28 15:09] VITALS: BMI 34.9
[2023-06-05 14:54] VITALS: BP 167/83; PULSE 108; RESP 16; TEMP 36.5; O2SAT 98
--- NOTE | 2023-06-05 15:37 | ED_ITS ---
HPI - Back Pain/Injury <AIDAN Meza - Last Filed: 06/05/23 18:16> General Chief Complaint: Back Pain/Injury Stated Complaint: CHRONIC PAIN IN BOTTOM Time Seen by Provider: 06/05/23 15:09 Source: patient and family History of Present Illness HPI Narrative: 82-year-old female, former smoker with history of AFib, presents to the emergency department with complaints of right buttock pain x3 weeks. Patient states that symptoms started after she began taking a water pill torsemide, and was taken off of that and placed on furosemide, as she was told that this could be a adverse reaction. Patient has had 2 endoscopies and two incomplete colonoscopies in the last 6 months. Colonoscopies have not been completed due to inability to navigate bend in her colon. Patient contacted her family doctor, who recommended hot or cold compresses to the affected site, and that has worked well for her discomfort. Patient has had some urinary frequency and chronic constipation, which requires stool softeners and lengthy time on the toilet, which has been Re exacerbating her pain. Patient stop taking her furosemide, because he felt that her frequent urination was causing this continued pain, and now is experiencing pitting edema in bilateral lower extremities. Patient reports decreased quality of life because she is spending most of her time between the bathroom in bedroom. Related Data Home Medications Medication Instructions Recorded Confirmed cholecalciferol (vitamin D3) 50 4,000 unit PO DAILY 03/09/19 03/26/23 mcg (2,000 unit) tablet (Vitamin D3) clobetasol 0.05 % scalp solution 1 applic topical DIRECTED 03/09/19 03/26/23 linaclotide 290 mcg capsule 290 mg PO DAILY 03/09/19 03/26/23 (Linzess) multivitamin 1 tab PO DAILY 03/09/19 03/26/23 docusate sodium 50 mg capsule 50 mg PO DAILY 08/26/20 03/26/23 vitamins A,C,[id number]-yxej-hqwwhn 2,148 2 tab PO DAILY 08/26/20 03/26/23 mcg-113 mg-45 mg-17.4 mg tablet (PreserVision AREDS) furosemide 20 mg tablet 20 - 40 mg PO BID 09/08/22 03/26/23 famotidine 20 mg tablet (Acid 20 mg PO 3XW 12/14/22 03/26/23 Operations And Maintenance Manager (famotidine)) omeprazole 40 mg capsule,delayed 40 mg PO BID 03/30/23 release Previous Rx's Medication Instructions Recorded potassium chloride 20 mEq 20 meq PO DAILY #90 tabs 10/29/22 tablet,extended release(part/cryst) magnesium oxide 400 mg PO BID #180 tabs 11/10/22 metolazone 2.5 mg tablet 2.5 mg PO .COMPLEX #60 tabs 11/16/22 dabigatran etexilate 150 mg 150 mg PO BID #180 caps 12/11/22 capsule (Pradaxa) carvedilol 12.5 mg tablet 12.5 mg PO BID #180 tabs 03/05/23 tramadol 50 mg tablet 50 mg PO BID PRN PAIN #60 tabs 04/20/23 prednisone 5 mg tablet 5 mg PO DAILY #90 tabs 05/25/23 cephalexin 250 mg capsule 250 mg PO Q6H uti 5 days #20 caps 06/05/23 tramadol 50 mg tablet 50 mg PO BID PRN pain #10 tabs 06/05/23 Allergies Allergy/AdvReac Type Severity Reaction Status Date / Time amiodarone Allergy Verified 03/26/23 15:22 dicloxacillin Allergy Verified 03/26/23 15:22 diltiazem [From Cartia XT] Allergy Verified 03/26/23 15:22 lubiprostone [From Amitiza] Allergy Verified 03/26/23 15:22 metoprolol Allergy Verified 03/26/23 15:22 sulfamethoxazole Allergy Verified 03/26/23 15:22 [From Bactrim] trimethoprim [From Bactrim] Allergy Verified 03/26/23 15:22 torsemide AdvReac Intermediate constipatio Verified 03/26/23 15:22 n metolazone AdvReac Verified 06/05/23 14:54 Review of Systems <AIDAN Meza - Last Filed: 06/05/23 18:16> Review of Systems Narrative: Narrative: See HPI. GENERAL: Denies chills, fatigue, fever, sweats. HEENT: Denies sinus pain, ear pain, sore throat, difficulty swallowing, dizziness. RESPIRATORY: Denies dyspnea, cough, wheezing, sputum. CARDIOVASCULAR: Denies chest pain, palpitations. Endorses BLE edema. GASTROINTESTINAL: Denies nausea, vomiting, abdominal pain, diarrhea. Endorses chronic constipation. Last BM was this morning and was soft. : Denies dysuria, incontinence, hematuria, urinary retention, flank pain, vaginal itching, bleeding or discharge. Endorses urinary frequency. MSK: Denies weakness, joint pain, or bony pain. Endorses right-sided buttocks/coccyx pain. SKIN: Denies rash, skin lesions, or pruritis. NEUROLOGIC: Denies weakness, dizziness, headache, numbness, confusion. PSYCHIATRIC: No concerning psychosocial issues. 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 Chronic diastolic CHF (congestive heart failure) Nummular dermatitis Benign cutaneous periarteritis nodosa Macular degeneration, left eye Hypertension Atrial fibrillation Surgical History Status post gastric banding History of back surgery History of laparoscopic adjustable gastric banding History of cataract extraction History of aortic valve replacement (~2011) Family History Mother Old age Daughter Congestive heart failure Son Suicide Brother Ischemic necrosis of small bowel Social History marital status: household members: spouse Smoking Status: Former smoker alcohol intake: current Smoking Status: Former smoker alcohol intake frequency: holidays/special occasions only Substance Use Type: does not use Exam <AIDAN Meza - Last Filed: 06/05/23 18:16> Narrative Exam Narrative: Exam Narrative: GENERAL: This is a well-nourished, well-developed patient, in no acute distress. HEAD: Atraumatic. Normocephalic. EYES: Pupils equal round and reactive. Extraocular motions intact. No scleral icterus, injection or drainage. ENT: Nose without bleeding, purulent drainage. Airway patent. NECK: Trachea midline. No JVD. CARDIOVASCULAR: History of AFib. Regularly irregular without murmurs, peripheral pulses intact, cap refill <2 sec. RESPIRATORY: Breath sounds equal and clear bilaterally. No wheezes, rales, or rhonchi. No cough. No increased respiratory effort. No accessory muscle use. GASTROINTESTINAL: Abdomen soft, non-tender, nondistended without guarding or rebound. No suprapubic pain. MSK: Moves all extremities. Normal range of motion, no clubbing or edema. Neurovascularly intact. Pain of right side coccyx/buttock. No signs of trauma. NEURO: A&O x 3. SKIN: Warm, dry, no rashes or lesions noted. Initial Vital Signs Initial Vital Signs: Vital Signs Temperature 97.7 F 06/05/23 14:54 Pulse Rate 108 H 06/05/23 14:54 Respiratory Rate 16 06/05/23 14:54 Blood Pressure 167/83 H 06/05/23 14:54 Pulse Oximetry 98 06/05/23 14:54 Oxygen Delivery Method Room Air 06/05/23 14:54 Reviewed <Sandra Rai DO - Last Filed: 06/06/23 07:50> Initial Vital Signs Initial Vital Signs: Vital Signs Temperature 97.7 F 06/05/23 14:54 Pulse Rate 108 H 06/05/23 14:54 Respiratory Rate 16 06/05/23 14:54 Blood Pressure 167/83 H 06/05/23 14:54 Pulse Oximetry 98 06/05/23 14:54 Oxygen Delivery Method Room Air 06/05/23 14:54 Course <AIDAN Meza - Last Filed: 06/05/23 18:16> Orders Ordered: Discontinued Medications Sodium Chloride (Normal Saline 0.9%) 1,000 mls @ 150 mls/hr IV CONT SADI Last Infusion: 06/05/23 18:29 Dose: Infused Documented By: Infusion: 06/05/23 16:46 Dose: 150 mls/hr Documented By: Infusion: 06/05/23 16:45 Dose: 0 mls/hr Documented By: Admin: 06/05/23 16:44 Dose: 150 mls/hr Documented By: AARON Vital Signs Vital signs: Vital Signs - 8 hr 06/05/23 14:54 06/05/23 16:35 06/05/23 17:00 Temperature 97.7 F Pulse Rate 108 H 88 100 H Respiratory Rate 16 Blood Pressure 167/83 H Pulse Oximetry 98 97 97 Oxygen Delivery Method Room Air Room Air 06/05/23 17:00 06/05/23 17:30 06/05/23 17:30 Temperature Pulse Rate 94 H Respiratory Rate 21 Blood Pressure 111/59 L 129/60 Pulse Oximetry 99 Oxygen Delivery Method Room Air <Sandra Rai DO - Last Filed: 06/06/23 07:50> Orders Ordered: Discontinued Medications Sodium Chloride (Normal Saline 0.9%) 1,000 mls @ 150 mls/hr IV CONT SADI Last Infusion: 06/05/23 18:29 Dose: Infused Documented By: Infusion: 06/05/23 16:46 Dose: 150 mls/hr Documented By: Infusion: 06/05/23 16:45 Dose: 0 mls/hr Documented By: Admin: 06/05/23 16:44 Dose: 150 mls/hr Documented By: AARON Vital Signs Vital signs: Vital Signs - 8 hr 06/05/23 14:54 06/05/23 16:35 06/05/23 17:00 Temperature 97.7 F Pulse Rate 108 H 88 100 H Respiratory Rate 16 Blood Pressure 167/83 H Pulse Oximetry 98 97 97 Oxygen Delivery Method Room Air Room Air 06/05/23 17:00 06/05/23 17:30 06/05/23 17:30 Temperature Pulse Rate 94 H Respiratory Rate 21 Blood Pressure 111/59 L 129/60 Pulse Oximetry 99 Oxygen Delivery Method Room Air MDM - Back Pain/Injury <AIDAN Meza - Last Filed: 06/05/23 18:16> Differential Diagnosis Differential diagnosis: Likely strain of lumbar region, pyelonephritis and other (UTI, cancer, constipation, bowel obstruction, chf) Lab Data 06/05/23 16:45 06/05/23 16:55 Labs: Lab Results 06/05/23 06/05/23 06/05/23 Range/Units 16:00 16:45 16:55 WBC 6.0 (4.5-11.0) X10^3/uL RBC 3.86 L (4.0-5.2) X10^6/uL Hgb 11.6 L (12.0-16.0) g/dL Hct 34.6 L (36-46) % MCV 89.8 (80-100) fL MCH 30.0 (26-34) PG MCHC 33.4 (30-36) % RDW 15.4 H (11.6-14.8) % Plt Count 195 (150-400) X10^3/uL Neut % (Auto) 88.6 H (50-75) % Lymph % (Auto) 7.0 L (25-40) % Logan % (Auto) 3.9 (3-14) % Eos % (Auto) 0.3 L (2-4) % Baso % (Auto) 0.2 (0-2) % Neut # (Auto) 5300 (6881-2296) /uL Lymph # (Auto) 400 L (6468-6717) /uL Logan # (Auto) 200 (0-900) /uL Eos # (Auto) 0 (0-450) /uL Baso # (Auto) 0 (0-100) /uL Sodium 132 L (137-145) mmol/L Potassium 4.9 (3.4-5.1) mmol/L Chloride 97 L (98-107) mmol/L Carbon Dioxide 27 (22-32) mmol/L BUN 14 (7-17) mg/dL Creatinine 0.55 (0.52-1.04) mg/dL Estimated GFR > 60 (>60) mL/min BUN/Creatinine Ratio 25.5 H (6-22) Glucose 148 H (80-110) mg/dL Calcium 9.3 (8.4-10.2) mg/dL Total Bilirubin 0.5 (0.2-1.3) mg/dL AST 17 (14-36) IU/L ALT 13 (<35) IU/L Alkaline Phosphatase 177 H (38-126) U/L Total Creatine Kinase < 20 L (30-135) U/L Troponin I < 0.012 (0.01-0.034) ng/mL NT-Pro-B Natriuret Pep 2690 H (<450) pg/mL Total Protein 7.0 (6.3-8.2) g/dL Albumin 3.5 (3.5-5.0) g/dL Globulin 3.5 (1.7-4.1) g/dL Albumin/Globulin Ratio 1.0 (1.0-2.8) Lipase 56 (23-300) U/L Urine RBC 1-5/hpf (0-5/HPF) Urine WBC 1-5/hpf (0-5/HPF) Ur Squamous Epith Cells 1-5 /hpf (0-5/HPF) Urine Bacteria Occasional (0-1) (None) Urine Yeast 5-10/hpf H (None) Ur Culture Indicated? Specimen cultured Urine Dip Bedside Urine Glucose Negative Bedside Urine Bilirubin - Negative Bedside Urine Ketone - Negative Urine Specific [place] 1.020 Bedside Urine Occult Blood ++ Bedside Urine pH 6 Bedside Urine Protein +/- 15 Bedside Urine Urobilinogen - Negative Bedside Urine Nitrite - Negative Bedside Urine Leukocytes +/- 15 Esterase Imaging Data Chest x-ray: Radiologist's Impression: [address] [address] XRay Report Signed Patient: Karena Brown MR#: [id number] : 1940 Acct:[id number] Age/Sex: 82 / F Date of Service: 06/05/23 Loc: ED Accession Number: [id number] Procedure: XR chest 2V Ordering Provider: Lacho Ge PROCEDURE: XR CHEST 2V INDICATIONS: rule out CHF TECHNIQUE: 2 views of the chest were acquired. COMPARISON: [facility], , XR CHEST 1V, 09/10/2020, 16:53. FINDINGS: Surgical changes and devices: Midline sternal wires and cardiac valve prosthesis noted. Atherosclerotic vascular calcification noted in the aortic arch. Gastric lap band and port catheter noted Lungs and pleura: Lungs are clear. No pleural effusions or pneumothorax. Mediastinum: Heart size enlarged. Mild vascular congestion present. There is blunting the right costophrenic angle Bones and chest wall: No suspicious bony abnormalities. Soft tissues appear unremarkable. IMPRESSION: Cardiomegaly, mild vascular congestion, and small right pleural effusion with atelectasis and or infiltrate Approved by: [place] M.D. on 06/05/2023 at 16:01 CT scan - abdomen/pelvis: Radiologist's Impression: [address] [address] [address] Scan Report Signed Patient: Karena Brown MR#: [id number] : 1940 Acct:[id number] Age/Sex: 82 / F Date of Service: 06/05/23 Loc: ED Accession Number: [id number] Procedure: CT abdomen pelvis w con Ordering Provider: Lacho Ge PROCEDURE: CT ABDOMEN PELVIS W CON INDICATIONS: 82-year-old with constipation, back pain TECHNIQUE: After the administration of intravenous contrast, axial sections acquired from the lung bases to the pubic symphysis. Coronal and sagittal reformats were performed. For radiation dose reduction, the following was used: automated exposure control, adjustment of mA and/or kV according to patient size. COMPARISON: [facility], CT, CT ABDOMEN PELVIS W CON, 07/16/2021, 14:41. FINDINGS: Lower thorax: Bibasilar pleural effusions, right greater than left with associated atelectasis or consolidation. Right middle lobe lateral pleural thickening Liver: Normal in size and attenuation. No contour deformity present. Small appendix hypodensities, likely cysts. Biliary system: Calcified stones noted in the lumen of the gallbladder. No pericholecystic inflammatory change. No intra or extrahepatic bile duct dilation. Pancreas: Unremarkable without mass or inflammation evident. Spleen: Normal in size and density. Adrenals: Normal morphology and density. Reproductive system: Unremarkable as visualized. Urinary system: Normal renal size and attenuation. Small left renal cyst No renal calculi, hydronephrosis, or solid mass present. Urinary bladder unremarkable. Gastrointestinal system: The bowel is unremarkable without evidence of bowel obstruction or inflammation. The stomach appears unremarkable. Gastric lap band and associated catheter with port in good position. No breaks or kinks Appendix: Normal appendix identified. No evidence of appendicitis. Peritoneal spaces: No mesenteric or retroperitoneal adenopathy. No free air. No free fluid. Vasculature: Aortic atherosclerotic vascular calcification noted without evidence of aneurysm. Abdominal wall: Left inguinal hernia contains a small loop of sigmoid colon without evidence of obstruction Musculoskeletal: Normal bone mineralization. Degenerative disc disease and arthropathy noted in lower lumbar spine. Unilateral right lower lumbar spine instrumentation with interbody fusion appropriately positioned. No acute fractures. IMPRESSION: Left inguinal hernia contains a loop of sigmoid colon. No evidence of fecal retention or bowel obstruction. Bibasilar pleural effusions greater than the right associated with pleural thickening. Gastric lap band in appropriate position. No evidence of hiatal hernia Cholelithiasis without acute cholecystitis Approved by: Smith [place] M.D. on 06/05/2023 at 16:09 MDM Narrative Medical decision making narrative: 82-year-old female with chronic constipation, urinary frequency and worsening right coccyx/buttock pain. Assessment was inconclusive and not sure what is causing her discomfort. Point of care urine dip was consistent with UTI, positive blood and leuks. Chest x-ray reveals cardiomegaly and right-sided effusion. Will instruct patient to begin retaking her furosemide. CT reveals left inguinal hernia with a loop of sigmoid colon, no evidence of fecal retention or bowel obstruction. Cholelithiasis without cholecystitis. Discussed the pros and cons of the stool softeners she is been taking, but will let her family doctor address this. Baseline labs revealed elevated bnp and expect the furosemide with improve this. Patient is stable and able to be discharged home. Will treat the urinary tract infection with cephalexin and pain with tramadol, as that has worked for her in the past. Discussed plan of care and worsening symptoms that would necessitate a return visit. Patient and spouse verbalized understanding and were agreeable with course of action. <Sandra Rai, DO - Last Filed: 06/06/23 07:50> Lab Data Labs: Lab Results 06/05/23 06/05/23 06/05/23 Range/Units 16:00 16:45 16:55 WBC 6.0 (4.5-11.0) X10^3/uL RBC 3.86 L (4.0-5.2) X10^6/uL Hgb 11.6 L (12.0-16.0) g/dL Hct 34.6 L (36-46) % MCV 89.8 (80-100) fL MCH 30.0 (26-34) PG MCHC 33.4 (30-36) % RDW 15.4 H (11.6-14.8) % Plt Count 195 (150-400) X10^3/uL Neut % (Auto) 88.6 H (50-75) % Lymph % (Auto) 7.0 L (25-40) % Logan % (Auto) 3.9 (3-14) % Eos % (Auto) 0.3 L (2-4) % Baso % (Auto) 0.2 (0-2) % Neut # (Auto) 5300 (5124-6485) /uL Lymph # (Auto) 400 L (2421-2883) /uL Logan # (Auto) 200 (0-900) /uL Eos # (Auto) 0 (0-450) /uL Baso # (Auto) 0 (0-100) /uL Sodium 132 L (137-145) mmol/L Potassium 4.9 (3.4-5.1) mmol/L Chloride 97 L (98-107) mmol/L Carbon Dioxide 27 (22-32) mmol/L BUN 14 (7-17) mg/dL Creatinine 0.55 (0.52-1.04) mg/dL Estimated GFR > 60 (>60) mL/min BUN/Creatinine Ratio 25.5 H (6-22) Glucose 148 H (80-110) mg/dL Calcium 9.3 (8.4-10.2) mg/dL Total Bilirubin 0.5 (0.2-1.3) mg/dL AST 17 (14-36) IU/L ALT 13 (<35) IU/L Alkaline Phosphatase 177 H (38-126) U/L Total Creatine Kinase < 20 L (30-135) U/L Troponin I < 0.012 (0.01-0.034) ng/mL NT-Pro-B Natriuret Pep 2690 H (<450) pg/mL Total Protein 7.0 (6.3-8.2) g/dL Albumin 3.5 (3.5-5.0) g/dL Globulin 3.5 (1.7-4.1) g/dL Albumin/Globulin Ratio 1.0 (1.0-2.8) Lipase 56 (23-300) U/L Urine RBC 1-5/hpf (0-5/HPF) Urine WBC 1-5/hpf (0-5/HPF) Ur Squamous Epith Cells 1-5 /hpf (0-5/HPF) Urine Bacteria Occasional (0-1) (None) Urine Yeast 5-10/hpf H (None) Ur Culture Indicated? Specimen cultured Urine Dip Bedside Urine Glucose Negative Bedside Urine Bilirubin - Negative Bedside Urine Ketone - Negative Urine Specific [place] 1.020 Bedside Urine Occult Blood ++ Bedside Urine pH 6 Bedside Urine Protein +/- 15 Bedside Urine Urobilinogen - Negative Bedside Urine Nitrite - Negative Bedside Urine Leukocytes +/- 15 Esterase Discharge Plan Departure Patient Disposition: Home Clinical Impression: UTI (urinary tract infection) Qualifiers: Urinary tract infection type: acute cystitis Hematuria presence: with hematuria Qualified Code(s): N30.01 - Acute cystitis with hematuria Chronic low back pain Qualifiers: Back pain laterality: right Sciatica presence: without sciatica Qualified Code(s): M54.50 - Low back pain, unspecified Instructions: DI for Low Back Pain, DI for Urinary Tract Infection (UTI) Activity Restrictions/Additional Instructions: *You have been diagnosed with a urinary tract infection. We will treat your UTI with an antibiotic for the next 5 days. Your chest x-ray and abdominal CT were not overly concerning but should be followed up with your family doctor. I will send a short prescription of the tramadol to help deal with your low back pain. Please continue with hot or cold compresses to the affected site and consider topical medications such as Voltaren gel, lidocaine patches, etc. Please restart your water pills, furosemide, immediately. For any worsening symptoms that include intolerable pain, chest pain, shortness of breath, etc. please return to the emergency department. Otherwise, please follow-up with your family doctor as needed. *What to do: *Please continue to take your regular medications as directed. [X ] New medication prescriptions sent to your pharmacy: [[facility] in [place]] [ ] New medication written as a paper prescription [ ] No new medications given *Please follow up with your primary care provider in 2-3 days, call for an appointment. Let them know you were seen in the Emergency Department and that we ask that you be seen in follow up. We will electronically transmit a record of today's note if your PCP is in our system *If you do not have a primary care provider please contact the [facility] Resource line at [phone]. They will ask some questions about your medical history and help get you set up with a doctor in the community. ? Return to ER if you should have any new, worsening or concerning symptoms, such as worsening pain, severe headache, confusion, chest pain, difficulty breathing, fever greater than 101 F, shaking chills, persistent vomiting to the point that you cannot drink fluids, or other new or worsening symptoms. Prescriptions: New tramadol 50 mg tablet 50 mg PO BID PRN (Reason: pain) Qty: 10 0RF cephalexin 250 mg capsule 250 mg PO Q6H 5 Days Qty: 20 0RF No Action potassium chloride 20 mEq tablet,ER particles/crystals 20 meq PO DAILY Qty: 90 3RF magnesium oxide 400 mg magnesium tablet 400 mg PO BID Qty: 180 3RF metolazone 2.5 mg tablet 2.5 mg PO .COMPLEX Qty: 60 2RF Hold Instructions: Home Medication placed on hold at Doctor's office Rx Instructions: 2.5 mg orally; take one daily for 3 days, then every other day after the first 3 days dabigatran etexilate [Pradaxa] 150 mg capsule 150 mg PO BID Qty: 180 3RF carvedilol 12.5 mg tablet 12.5 mg PO BID Qty: 180 3RF Rx Instructions: must administer with a meal/food omeprazole 40 mg capsule,delayed release(DR/EC) 40 mg PO BID Rx Instructions: w/Meals tramadol 50 mg tablet 50 mg PO BID MDD 2 PRN (Reason: PAIN) Qty: 60 0RF prednisone 5 mg tablet 5 mg PO DAILY Qty: 90 0RF furosemide 20 mg tablet 20 - 40 mg PO BID Patient Comments: Takes 40 mg in AM then 20 at 2pm famotidine [Acid Operations And Maintenance Manager (famotidine)] 20 mg tablet 20 mg PO 3XW multivitamin Tablet 1 tab PO DAILY clobetasol 0.05 % Solution 1 applic TOPICAL DIRECTED cholecalciferol (vitamin D3) [Vitamin D3] 2,000 unit Tablet 4,000 unit PO DAILY Linzess 290 mcg Capsule 290 mg PO DAILY docusate sodium 50 mg Capsule 50 mg PO DAILY PreserVision AREDS [id number],160-113-100 [id number] Tablet 2 tab PO DAILY Referrals: Jewel Giraldo MD [Primary Care Provider] - Stand Alone Forms: Patient Portal/API ED Sign-out <Sandra Rai DO - Last Filed: 06/06/23 07:50> Cosign ED Attending Mihir Attestation: I was immediately available in the department for consultation. Documentation has been reviewed.
--- NOTE | 2023-06-05 15:53 | DI.RAD.S_ITS ---
PROCEDURE: XR CHEST 2V INDICATIONS: rule out CHF TECHNIQUE: 2 views of the chest were acquired. COMPARISON: [facility], CR, XR CHEST 1V, 09/10/2020, 16:53. FINDINGS: Surgical changes and devices: Midline sternal wires and cardiac valve prosthesis noted. Atherosclerotic vascular calcification noted in the aortic arch. Gastric lap band and port catheter noted Lungs and pleura: Lungs are clear. No pleural effusions or pneumothorax. Mediastinum: Heart size enlarged. Mild vascular congestion present. There is blunting the right costophrenic angle Bones and chest wall: No suspicious bony abnormalities. Soft tissues appear unremarkable. IMPRESSION: Cardiomegaly, mild vascular congestion, and small right pleural effusion with atelectasis and or infiltrate Approved by: Smith [place] M.D. on 06/05/2023 at 16:01
--- NOTE | 2023-06-05 15:55 | DI.CT.S_ITS ---
PROCEDURE: CT ABDOMEN PELVIS W CON INDICATIONS: 82-year-old with constipation, back pain TECHNIQUE: After the administration of intravenous contrast, axial sections acquired from the lung bases to the pubic symphysis. Coronal and sagittal reformats were performed. For radiation dose reduction, the following was used: automated exposure control, adjustment of mA and/or kV according to patient size. COMPARISON: [facility], CT, CT ABDOMEN PELVIS W CON, 07/16/2021, 14:41. FINDINGS: Lower thorax: Bibasilar pleural effusions, right greater than left with associated atelectasis or consolidation. Right middle lobe lateral pleural thickening Liver: Normal in size and attenuation. No contour deformity present. Small appendix hypodensities, likely cysts. Biliary system: Calcified stones noted in the lumen of the gallbladder. No pericholecystic inflammatory change. No intra or extrahepatic bile duct dilation. Pancreas: Unremarkable without mass or inflammation evident. Spleen: Normal in size and density. Adrenals: Normal morphology and density. Reproductive system: Unremarkable as visualized. Urinary system: Normal renal size and attenuation. Small left renal cyst No renal calculi, hydronephrosis, or solid mass present. Urinary bladder unremarkable. Gastrointestinal system: The bowel is unremarkable without evidence of bowel obstruction or inflammation. The stomach appears unremarkable. Gastric lap band and associated catheter with port in good position. No breaks or kinks Appendix: Normal appendix identified. No evidence of appendicitis. Peritoneal spaces: No mesenteric or retroperitoneal adenopathy. No free air. No free fluid. Vasculature: Aortic atherosclerotic vascular calcification noted without evidence of aneurysm. Abdominal wall: Left inguinal hernia contains a small loop of sigmoid colon without evidence of obstruction Musculoskeletal: Normal bone mineralization. Degenerative disc disease and arthropathy noted in lower lumbar spine. Unilateral right lower lumbar spine instrumentation with interbody fusion appropriately positioned. No acute fractures. IMPRESSION: Left inguinal hernia contains a loop of sigmoid colon. No evidence of fecal retention or bowel obstruction. Bibasilar pleural effusions greater than the right associated with pleural thickening. Gastric lap band in appropriate position. No evidence of hiatal hernia Cholelithiasis without acute cholecystitis Approved by: [place] M.D. on 06/05/2023 at 16:09
[2023-06-05 16:25] LABS: Bacteria Urine Occasional (0-1); RBC Urine 1-5/HPF (0-5/HPF); WBC Urine 1-5/HPF (0-5/HPF)
[2023-06-05 16:26] LABS: Culture Indicated Urine Specimen Cultured; Squamous Epithelial Cell Urine 1-5 /HPF (0-5/HPF)
[2023-06-05 16:35] VITALS: PULSE 88; O2SAT 97
[2023-06-05] MEDS: SODIUM CHLORIDE 0.9% 1,000 ML 150 ML IV (16:44)
[2023-06-05 17:00] VITALS: BP 111/59; PULSE 100; O2SAT 97
[2023-06-05 17:20] LABS: Add Manual Diff / Slide Review NO; Basophils Absolute Auto 0 /uL (0-100); Basophils Percent Auto 0.2 % (0-2); Eosinophils Absolute Auto 0 /uL (0-450); Eosinophils Percent Auto 0.3 % (2-4); Hematocrit 34.6 % (36-46); Hemoglobin 11.6 g/dL (12.0-16.0); Lymphocytes Absolute Auto 400 /uL (1100-4500); Mean Corpuscular HGB Conc 33.4 % (30-36); Mean Corpuscular Volume 89.8 fL (80-100); Monocytes Absolute Auto 200 /uL (0-900); Monocytes Percent Auto 3.9 % (3-14); Neutrophils Absolute Auto 5300 /uL (1500-7000); Neutrophils Percent Auto 88.6 % (50-75); Platelet Count 195 X10^3/uL (150-400); Red Blood Cell Count 3.86 X10^6/uL (4.0-5.2); Red Cell Distribution Width 15.4 % (11.6-14.8)
[2023-06-05 17:30] VITALS: BP 129/60; PULSE 94; RESP 21; O2SAT 99
[2023-06-05 17:37] LABS: Alanine Aminotransferase 13 IU/L (<35); Albumin 3.5 g/dL (3.5-5.0); Alkaline Phosphatase 177 U/L (38-126); Aspartate Aminotransferase 17 IU/L (14-36); BUN Creatinine Ratio 25.5 (6-22); Bilirubin Total 0.5 mg/dL (0.2-1.3); Blood Urea Nitrogen 14 mg/dL (7-17); Calcium 9.3 mg/dL (8.4-10.2); Carbon Dioxide 27 mmol/L (22-32); Chloride 97 mmol/L (98-107); Creatine Kinase < 20 U/L (30-135); Estimated Glomerular Filt Rate > 60 mL/min (>60); Globulin 3.5 g/dL (1.7-4.1); Glucose 148 mg/dL (80-110); HEMOLYSIS < 15 (0-50); Potassium 4.9 mmol/L (3.4-5.1); Sodium 132 mmol/L (137-145)
[2023-06-05 17:47] LABS: NT-proBNP (BNP-Adult 18+) 2690 pg/mL (<450)
[2023-06-05 17:49] LABS: Troponin I < 0.012 ng/mL (0.01-0.034)
[2023-06-05 18:00] VITALS: BP 129/77; PULSE 96; O2SAT 99
[2023-06-05 18:24] LABS: Lipase 56 U/L (23-300)
== END 2023-06-05 18:45 | disposition home or self-care (01) ==
PROVIDERS: Emergency Provider Registered Nurse; Family Provider Family Medicine; PCP Internal Medicine
DX: M54.50 Low back pain, unspecified (principal); N30.01 Acute cystitis with hematuria; R60.9 Edema, unspecified; Z79.899 Other long term (current) drug therapy
CPT/HCPCS: 71046; 74177; 80053; 81003; 81015; 82550; 83690; 83880; 84484; 85025; 87086; 93005; 93010; 96360; 99284; Q9967

== ENCOUNTER → 2023-08-12 14:15 | Outpatient (CLI) | payer OTHER, SELFPAY ==
[2022-05-28 15:09] VITALS: BMI 34.9
[2023-08-12 15:11] LABS: Add Manual Diff / Slide Review NO; Basophils Absolute Auto 0 /uL (0-100); Basophils Percent Auto 0.4 % (0-2); Eosinophils Absolute Auto 200 /uL (0-450); Eosinophils Percent Auto 2.8 % (2-4); Hematocrit 38.3 % (36-46); Hemoglobin 12.6 g/dL (12.0-16.0); Lymphocytes Absolute Auto 500 /uL (1100-4500); Lymphocytes Percent Auto 8.9 % (25-40); Mean Corpuscular HGB Conc 32.9 % (30-36); Mean Corpuscular Hemoglobin 30.2 PG (26-34); Mean Corpuscular Volume 91.9 fL (80-100); Monocytes Absolute Auto 400 /uL (0-900); Monocytes Percent Auto 6.6 % (3-14); Neutrophils Absolute Auto 5000 /uL (1500-7000); Neutrophils Percent Auto 81.3 % (50-75); Platelet Count 162 X10^3/uL (150-400); Red Blood Cell Count 4.16 X10^6/uL (4.0-5.2); Red Cell Distribution Width 13.9 % (11.6-14.8); White Blood Cell Count 6.1 X10^3/uL (4.5-11.0)
[2023-08-12 15:42] LABS: HEMOLYSIS < 15 (0-50); Iron 68 ug/dL (37-170)
[2023-08-12 15:54] LABS: Percent Iron Saturation 29 % (15-50); Total Iron Binding Capacity 237 ug/dL (265-497); Transferrin 206 mg/dL (206-381)
== END ==
PROVIDERS: PCP Internal Medicine; Referring Provider Physician Assistant; Visit Provider Physician Assistant
DX: D50.9 Iron deficiency anemia, unspecified (principal)
CPT/HCPCS: 36415; 83540; 83550; 85025

== ENCOUNTER → 2023-12-28 15:00 | Outpatient (CLI) | payer OTHER, SELFPAY ==
[2022-05-28 15:09] VITALS: BMI 34.9
[2023-12-28 15:31] LABS: Add Manual Diff / Slide Review NO; Basophils Absolute Auto 0 /uL (0-100); Basophils Percent Auto 0.9 % (0-2); Eosinophils Absolute Auto 100 /uL (0-450); Eosinophils Percent Auto 1.9 % (2-4); Hematocrit 37.3 % (36-46); Hemoglobin 12.1 g/dL (12.0-16.0); Lymphocytes Absolute Auto 500 /uL (1100-4500); Lymphocytes Percent Auto 8.7 % (25-40); Mean Corpuscular HGB Conc 32.4 % (30-36); Mean Corpuscular Hemoglobin 29.3 PG (26-34); Mean Corpuscular Volume 90.3 fL (80-100); Monocytes Absolute Auto 400 /uL (0-900); Monocytes Percent Auto 7.1 % (3-14); Neutrophils Absolute Auto 4300 /uL (1500-7000); Neutrophils Percent Auto 81.4 % (50-75); Platelet Count 198 X10^3/uL (150-400); Red Blood Cell Count 4.14 X10^6/uL (4.0-5.2); Red Cell Distribution Width 14.4 % (11.6-14.8); White Blood Cell Count 5.3 X10^3/uL (4.5-11.0)
[2023-12-28 16:04] LABS: HEMOLYSIS < 15 (0-50); Iron 76 ug/dL (37-170)
[2023-12-28 16:15] LABS: Percent Iron Saturation 27 % (15-50); Total Iron Binding Capacity 283 ug/dL (265-497); Transferrin 216 mg/dL (206-381)
== END ==
PROVIDERS: PCP Internal Medicine; Referring Provider Physician Assistant; Visit Provider Physician Assistant
DX: D50.9 Iron deficiency anemia, unspecified (principal)
CPT/HCPCS: 36415; 83540; 83550; 85025

== ENCOUNTER → 2024-05-15 16:08 | Outpatient (CLI) | payer OTHER, SELFPAY ==
[2024-05-15 16:01] VITALS: BMI 34.9
[2024-05-15 17:31] LABS: Add Manual Diff / Slide Review NO; Basophils Absolute Auto 0 /uL (0-100); Basophils Percent Auto 0.6 % (0-2); Eosinophils Absolute Auto 100 /uL (0-450); Eosinophils Percent Auto 1.5 % (2-4); Hematocrit 39.8 % (36-46); Hemoglobin 12.9 g/dL (12.0-16.0); Lymphocytes Absolute Auto 500 /uL (1100-4500); Lymphocytes Percent Auto 9.4 % (25-40); Mean Corpuscular HGB Conc 32.5 % (30-36); Mean Corpuscular Hemoglobin 29.3 PG (26-34); Mean Corpuscular Volume 90.3 fL (80-100); Monocytes Absolute Auto 400 /uL (0-900); Monocytes Percent Auto 6.9 % (3-14); Neutrophils Absolute Auto 4400 /uL (1500-7000); Neutrophils Percent Auto 81.6 % (50-75); Platelet Count 194 X10^3/uL (150-400); Red Blood Cell Count 4.41 X10^6/uL (4.0-5.2); Red Cell Distribution Width 15.1 % (11.6-14.8); White Blood Cell Count 5.4 X10^3/uL (4.5-11.0)
[2024-05-15 17:42] LABS: HEMOLYSIS < 15 (0-50); Iron 74 ug/dL (37-170)
[2024-05-15 17:46] LABS: Alanine Aminotransferase 9 IU/L (<35); Albumin 4.1 g/dL (3.5-5.0); Alkaline Phosphatase 98 U/L (38-126); Aspartate Aminotransferase 21 IU/L (14-36); Bilirubin Total 0.5 mg/dL (0.2-1.3); Blood Urea Nitrogen 21 mg/dL (7-17); Calcium 9.1 mg/dL (8.4-10.2); Carbon Dioxide 33 mmol/L (22-32); Chloride 99 mmol/L (98-107); Estimated Glomerular Filt Rate > 60 mL/min (>60); Globulin 4.1 g/dL (1.7-4.1); Glucose 128 mg/dL (80-110); HEMOLYSIS < 15 (0-50); Potassium 4.9 mmol/L (3.4-5.1); Sodium 138 mmol/L (137-145); Total Protein 8.2 g/dL (6.3-8.2)
[2024-05-15 17:55] LABS: Percent Iron Saturation 25 % (15-50); Total Iron Binding Capacity 292 ug/dL (265-497); Transferrin 231 mg/dL (206-381)
== END ==
PROVIDERS: PCP Internal Medicine; Referring Provider Internal Medicine; Visit Provider Internal Medicine
DX: E61.1 Iron deficiency (principal); I48.91 Unspecified atrial fibrillation; D64.9 Anemia, unspecified
CPT/HCPCS: 36415; 80053; 83540; 83550; 85025